=== PATIENT | male | born 1995 | race Caucasian/White ===

== ENCOUNTER 2023-05-30 19:24 | Emergency (ER) | payer MEDICARE, MEDICAID, SELFPAY ==
[2023-05-30 19:27] VITALS: BP 146/75; PULSE 87; RESP 14; TEMP 37.1; O2SAT 95; BMI 40.0
--- NOTE | 2023-05-30 19:47 | ED.EXTPRO1 ---
HPI - Extremity Problem General Chief complaint: Extremity Problem, Nontraumatic Stated complaint: Upper Extremity Pain Time Seen by Provider: 05/30/23 19:36 Source: patient and family Mode of arrival: walk-in Limitations: no limitations History of Present Illness HPI Narrative: 27-year-old male who is right-hand dominant is brought emergency department by his parents for evaluation of a painful swelling to the left middle finger where he has a paronychia. 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 For the past several days he has had some redness and swelling in this area. It is now throbbing. There is been no drainage. He has no lymphangitic streaking or fever. He is not diabetic. Related Data Home Medications ?Medication ?Instructions ?Recorded ?Confirmed gabapentin 300 mg capsule mg 05/30/23 Allergies Allergy/AdvReac Type Severity Reaction Status Date / Time azithromycin [From Zithromax] Allergy Verified 05/30/23 19:29 Penicillins Allergy Verified 05/30/23 19:29 sulfamethoxazole Allergy Verified 05/30/23 19:29 [From Bactrim] trimethoprim [From Bactrim] Allergy Verified 05/30/23 19:29 Review of Systems ROS Status of ROS 10 or more systems reviewed and unremarkable except as noted in history and below Exam Narrative Exam Narrative: Nurses note and vital signs reviewed and patient is not hypoxic. Blood pressure is mildly elevated at 146/75. General: The patient appears well and in no apparent distress. Patient is resting comfortably on cart. Skin: Warm, dry, no pallor noted. There is no rash noted. Head: Normocephalic, atraumatic Eye: Normal conjunctiva, no drainage, EOMI. PERRL Cardiovascular: Regular Rate and Rhythm Respiratory: Patient is in no distress, no accessory muscle use, lungs are clear to auscultation, no wheezing, rales or rhonchi Musculoskeletal: There is a soft, fluctuant paronychia on the lateral aspect of the distal left middle finger, no lymphangitic streaking noted, pt is able to approximate thumb and all fingers Neurological: A&O x4, normal speech Psychiatric: Cooperative Constitutional Vital Signs, click to edit/add: Last Vital Signs Temp 98.7 F 05/30/23 19:27 Pulse 87 05/30/23 19:27 Resp 14 05/30/23 19:27 BP 146/75 H 05/30/23 19:27 Pulse Ox 95 05/30/23 19:27 O2 Del Method Room Air 05/30/23 19:27 Course Vital Signs Vital signs: Vital Signs Temperature 98.7 F 05/30/23 19:27 Pulse Rate 87 05/30/23 19:27 Respiratory Rate 14 05/30/23 19:27 Blood Pressure 146/75 H 05/30/23 19:27 Pulse Oximetry 95 05/30/23 19:27 Oxygen Delivery Method Room Air 05/30/23 19:27 Temperature 98.7 F 05/30/23 19:27 Pulse Rate 87 05/30/23 19:27 Respiratory Rate 14 05/30/23 19:27 Blood Pressure 146/75 H 05/30/23 19:27 Pulse Oximetry 95 05/30/23 19:27 Oxygen Delivery Method Room Air 05/30/23 19:27 MDM - Extremity (Nontraumatic) MDM Narrative Medical decision making narrative: Procedure note incision and drainage of left middle finger paronychia; the left middle finger was soaked in warm water for approximately 30 minutes and went soft at low chloride spray was sprayed onto the finger to anesthetize it and a #11 blade scalpel was inserted on the side of the nail bed where the area of fluctuance was. It was then gently expressed and purulent drainage was expressed and was cleaned off and the left middle finger was returned to the warm water. It was dried and a sterile bandage was placed on it by the nursing staff. Patient was medicated emergency department with a dose of Keflex and instructed to soak the finger in warm Epsom salt water 3-4 times daily. Patient and family verbalized understanding. Discharge Plan Discharge Stand Alone Forms: Portal Instructions Chief Complaint: Extremity Problem, Nontraumatic Clinical Impression: Paronychia of finger Patient Disposition: Home, Self-Care Time of Disposition Decision: 20:24 Condition: Good Prescriptions / Home Meds: No Action gabapentin 300 mg capsule Print Language: Dominican Instructions: Paronychia (ED) Referrals: STEVIE VILLAREAL [Primary Care Provider] - 1 week Discharge Date/Time: 05/30/23 20:41
[2023-05-30] MEDS: ETHYL CHLORIDE 116 ML TOPICAL SPRAY BOTTLE 1 APPLIC TOPICAL (20:28)
[2023-05-30] MEDS: CEPHALEXIN 500 MG CAPSULE PO (20:28)
== END 2023-05-30 20:41 | disposition home or self-care (01) ==
PROVIDERS: Emergency Provider Emergency Medicine; PCP Family Medicine
DX: L03.012 Cellulitis of left finger (principal); Z79.899 Other long term (current) drug therapy
CPT/HCPCS: 10060; 99283

== ENCOUNTER 2023-10-11 14:30 | Emergency (ER) | payer MEDICARE, MEDICAID, SELFPAY ==
[2023-10-11] VITALS (11 sets, daily range): BP systolic 130–174; BP diastolic 71–84; PULSE 72–89; TEMP 36.8; O2SAT 99; BMI 38.0
--- NOTE | 2023-10-11 14:51 | ECG_ITS ---
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
--- NOTE | 2023-10-11 14:51 | CT_ITS ---
The [address] [address] Patient Name: CALOS ROSENBERG MRN: [id number] date: 1995 Sex: M Assigned Patient Location: ED.MAIN Current Patient Location: ED.MAIN Accession/Order Number: [id number] Exam Date: 10/11/2023 14:59 Report Date: 10/11/2023 15:27 At the request of: VALERIA GARDNER Procedure: CT cervical spine wo con EXAM: CT cervical spine wo con, CT head/brain wo con HISTORY: Syncope, fall COMPARISON: None. TECHNIQUE: Axial noncontrast CT imaging of the head and cervical spine was performed with coronal and sagittal reformats. This CT exam was performed using one or more of the following dose reduction techniques: Automated exposure control, adjustment of the MA and/or kV according to patient size, or use of iterative reconstruction technique. FINDINGS: CT head Calvarium/skull base: No evidence of acute fracture or destructive lesion. Paranasal sinuses: No air fluid levels. Brain: No acute intracranial hemorrhage. No acute large vascular territory infarct. No mass lesion or mass effect. No hydrocephalus. CT cervical spine Alignment: No substantial subluxation. Vertebrae: Vertebral body heights are maintained. No fracture. Craniocervical junction: No focal abnormality. Degenerative changes: No substantial bony degenerative change of the cervical spine. No substantial disc bulge or herniation visible by CT. Multilevel minimal uncovertebral arthropathy without substantial canal or foraminal stenosis. Additional Comments: Visualized portion of the lungs are clear.. CT/CT cervical spine wo con IMPRESSION: 1. No acute intracranial process. 2. No acute fracture or traumatic malalignment of the cervical spine. Electronically authenticated by: ABBY WATSON Date: 10/11/2023 15:27
--- NOTE | 2023-10-11 14:51 | CT_ITS ---
The [address] [address] Patient Name: CALOS ROSENBERG MRN: [id number] date: 1995 Sex: M Assigned Patient Location: ED.MAIN Current Patient Location: ED.MAIN Accession/Order Number: [id number] Exam Date: 10/11/2023 14:59 Report Date: 10/11/2023 15:27 At the request of: VALERIA GARDNER Procedure: CT head/brain wo con EXAM: CT cervical spine wo con, CT head/brain wo con HISTORY: Syncope, fall COMPARISON: None. TECHNIQUE: Axial noncontrast CT imaging of the head and cervical spine was performed with coronal and sagittal reformats. This CT exam was performed using one or more of the following dose reduction techniques: Automated exposure control, adjustment of the MA and/or kV according to patient size, or use of iterative reconstruction technique. FINDINGS: CT head Calvarium/skull base: No evidence of acute fracture or destructive lesion. Paranasal sinuses: No air fluid levels. Brain: No acute intracranial hemorrhage. No acute large vascular territory infarct. No mass lesion or mass effect. No hydrocephalus. CT cervical spine Alignment: No substantial subluxation. Vertebrae: Vertebral body heights are maintained. No fracture. Craniocervical junction: No focal abnormality. Degenerative changes: No substantial bony degenerative change of the cervical spine. No substantial disc bulge or herniation visible by CT. Multilevel minimal uncovertebral arthropathy without substantial canal or foraminal stenosis. Additional Comments: Visualized portion of the lungs are clear.. CT/CT head/brain wo con IMPRESSION: 1. No acute intracranial process. 2. No acute fracture or traumatic malalignment of the cervical spine. Electronically authenticated by: ABBY WATSON Date: 10/11/2023 15:27
--- NOTE | 2023-10-11 14:53 | ED_ITS ---
HPI - Syncope General Chief Complaint: Dizziness Stated Complaint: FAINTED, LIGHT HEADED, HEADACHE Time Seen by Provider: 10/11/23 14:32 Source: patient and family Mode of arrival: walk-in Limitations: no limitations History of Present Illness HPI narrative: Patient is a 28-year-old male with mild cognitive impairment brought to the emergency department by his parents for the evaluation of a syncopal episode. Patient lives at home with his parents, he states he remembers walking out of his bedroom door and then woke up on the floor. He complains of some pain to the back of the head and still feels mildly dizzy. He describes the sensation as the room spinning. He was able to ambulate to the bathroom on arrival to the ER. Parents state they heard the patient hit the floor in his bedroom and found him waking up from a syncopal episode. He has not had any altered mental status, he is at his baseline. He denies any recent illness. No vomiting, diarrhea, upper respiratory symptoms. Patient feels he has been keeping up with his fluids. He denies any areas of pain other than the back of his head. He has no other medical problems. At time of initial interview, he is sitting upright on exam cart in no distress answering questions appropriately Related Data Home Medications ?Medication ?Instructions ?Recorded ?Confirmed gabapentin 300 mg capsule 300 mg PO Q12H 05/30/23 10/11/23 nortriptyline 25 mg capsule 25 mg PO BEDTIME 10/11/23 10/11/23 Previous Rx's ?Medication ?Instructions ?Recorded meclizine 25 mg chewable tablet 25 mg PO QID PRN dizziness #12 tabs 10/11/23 (Antivert) Allergies Allergy/AdvReac Type Severity Reaction Status Date / Time azithromycin [From Zithromax] Allergy Verified 05/30/23 19:29 Penicillins Allergy Verified 05/30/23 19:29 sulfamethoxazole Allergy Verified 05/30/23 19:29 [From Bactrim] trimethoprim [From Bactrim] Allergy Verified 05/30/23 19:29 Review of Systems ROS Constitutional Denies: fever or chills Cardiovascular Denies: chest pain Respiratory Denies: shortness of breath Gastrointestinal Denies: nausea or vomiting Musculoskeletal Denies: back pain or neck pain Integumentary/Breast Denies: rash Neurological Reports: headache and dizziness; Denies: numbness in extremities or weakness in extremities Hematologic/Lymphatic Denies: easy bruising or easy bleeding Exam Narrative Exam Narrative: Gen.: Awake, alert, in no distress Head: Normocephalic, atraumatic ENT: Moist mucous membranes, bilateral TMs clear, no facial or dental injury Respiratory: No respiratory distress, lungs clear bilaterally Cardio: Regular rate and rhythm Extremities: Moves extremities equally, no injuries noted Psych: Normal mood and affect Neuro: No focal neuro deficit Skin: Warm, dry, intact Constitutional Vital Signs, click to edit/add: Last Vital Signs Temp 98.2 F 10/11/23 14:36 Pulse 75 10/11/23 14:36 Resp 18 10/11/23 14:36 BP 174/84 H 10/11/23 14:36 Pulse Ox 99 10/11/23 14:36 O2 Del Method Room Air 10/11/23 14:36 Course Vital Signs Vital signs: Vital Signs Temperature 98.2 F 10/11/23 14:36 Pulse Rate 75 10/11/23 14:36 Respiratory Rate 18 10/11/23 14:36 Blood Pressure 174/84 H 10/11/23 14:36 Pulse Oximetry 99 10/11/23 14:36 Oxygen Delivery Method Room Air 10/11/23 14:36 Temperature 98.2 F 10/11/23 14:36 Pulse Rate 75 10/11/23 14:36 Respiratory Rate 18 10/11/23 14:36 Blood Pressure 174/84 H 10/11/23 14:36 Pulse Oximetry 99 10/11/23 14:36 Oxygen Delivery Method Room Air 10/11/23 14:36 MDM - Syncope MDM Narrative Medical decision making narrative: Patient with a PERC score of 0, no chest pain/SOB, no hx of DVT or PE, no hemoptysis, leg swelling, tachycardia or hypoxia. No hormone therapy. Patient treated with IV fluids, Antivert. He is resting comfortably in no distress and states he is feeling well on reevaluation. EKG is unremarkable, lab studies show elevated BUN with no other significant abnormalities. CT of the head and C-spine are unremarkable. Patient and family were given copies of all of his records. He has an appointment tomorrow with [facility] neurology to rule out neurofibromatosis, they were encouraged to continue his regular home medications and keep the appointment tomorrow for follow-up. Return to the ER if symptoms change or worsen. Push fluids. Motrin and Tylenol as needed for headache. SUPERVISED APC VISIT, PHYSICIAN ATTESTATION: Based on the medical record the care appears appropriate. ? Medical Records Attestation: I reviewed the patient's medical records. Lab Data Attestation: I reviewed the patient's lab results. Labs: Lab Results 10/11/23 Range/Units 14:40 WBC 7.0 (4.0-11.0) 10^3/uL RBC 5.26 (4.70-6.10) 10^6/uL Hgb 15.6 (14.0-18.0) g/dL Hct 45.6 (42.0-54.0) % MCV 86.7 (80.0-94.0) fL MCH 29.7 (25.9-34.0) pg MCHC 34.2 (29.9-35.2) g/dL RDW 12.7 (11.0-15.0) % Plt Count 254 (150-450) 10^3/uL MPV 11.1 (9.5-13.5) fL Neut % (Auto) 68.2 (43.0-75.0) % Lymph % (Auto) 22.4 (20.5-60.0) % [place] % (Auto) 7.8 (1.7-12.0) % Eos % (Auto) 1.1 (0.9-7.0) % Baso % (Auto) 0.4 (0.2-2.0) % Neut # (Auto) 4.8 (1.4-6.5) 10^3/uL Lymph # (Auto) 1.6 (1.2-3.8) 10^3/uL [place] # (Auto) 0.6 (0.3-0.8) 10^3/uL Eos # (Auto) 0.1 (0.0-0.7) 10^3/uL Baso # (Auto) 0.0 (0.0-0.1) 10^3/uL Abs Immat Gran (auto) 0.01 (0.00-0.03) 10^3/uL Imm/Tot Granulo (auto) 0.1 (0.0-0.5) % Sodium 141 (136-145) mmol/L Potassium 4.1 (3.5-5.1) mmol/L Chloride 105 (98-107) mmol/L Carbon Dioxide 27.5 (21.0-32.0) mmol/L Anion Gap 12.6 BUN 25.0 H (7.0-18.0) mg/dL Creatinine 0.81 (0.70-1.30) mg/dL Est GFR ( Amer) >60 (>=60) Est GFR (Non-Af Amer) >60 (>=60) BUN/Creatinine Ratio 30.9 Glucose 98 (74-106) mg/dL Calcium 9.4 (8.5-10.1) mg/dL Total Bilirubin 1.2 H (0.2-1.0) mg/dL AST 22 (15-37) U/L ALT 37 (16-63) U/L Alkaline Phosphatase 84 (46-116) U/L Total Creatine Kinase 84 (39-308) U/L Troponin I High Sens <4.0 L (4.0-76.1) pg/mL Total Protein 7.2 (6.4-8.2) g/dL Albumin 4.2 (3.4-5.0) g/dL Globulin 3.0 g/dL Albumin/Globulin Ratio 1.4 TSH 2.053 (0.358-3.740) uIU/mL Imaging Data CT scan - head: Attestation: I have reviewed the pertinent imaging results. Radiologist's impression: ITS Impressions Cervical Spine CT 10/11/23 14:51 IMPRESSION: 1. No acute intracranial process. 2. No acute fracture or traumatic malalignment of the cervical spine. Electronically authenticated by: ABBY WATSON Date: 10/11/2023 15:[address] 10/11/23 14:51 IMPRESSION: 1. No acute intracranial process. 2. No acute fracture or traumatic malalignment of the cervical spine. Electronically authenticated by: ABBY WATSON Date: 10/11/2023 15:27 ECG Data Attestation: I personally reviewed and interpreted this ECG as follows: (Normal sinus rhythm at a rate of 72, no acute ST elevation or ectopy. EKG reviewed by attending physician) Discharge Plan Discharge Stand Alone Forms: Portal Instructions Chief Complaint: Dizziness Clinical Impression: Syncope, Dehydration Patient Disposition: Home, Self-Care Time of Disposition Decision: 16:19 Condition: Good Prescriptions / Home Meds: New meclizine [Antivert] 25 mg tablet,chewable 25 mg PO QID PRN (Reason: dizziness) Qty: 12 0RF No Action gabapentin 300 mg capsule 300 mg PO Q12H nortriptyline 25 mg capsule 25 mg PO BEDTIME Print Language: East Timorese Instructions: Dehydration (ED), Syncope (ED) Referrals: STEVIE VILLAREAL [Primary Care Provider] - 1 week
[2023-10-11 14:56] LABS: Basophils Percent Auto 0.4 % (0.2-2.0); Eosinophils Absolute Auto 0.1 10^3/uL (0.0-0.7); Eosinophils Percent Auto 1.1 % (0.9-7.0); Hematocrit 45.6 % (42.0-54.0); Hemoglobin 15.6 g/dL (14.0-18.0); Immature Granulocytes Abs Auto 0.01 10^3/uL (0.00-0.03); Immature Granulocytes Pct Auto 0.1 % (0.0-0.5); Lymphocytes Absolute Auto 1.6 10^3/uL (1.2-3.8); Lymphocytes Percent Auto 22.4 % (20.5-60.0); Mean Corpuscular HGB Conc 34.2 g/dL (29.9-35.2); Mean Corpuscular Hemoglobin 29.7 pg (25.9-34.0); Mean Corpuscular Volume 86.7 fL (80.0-94.0); Mean Platelet Volume 11.1 fL (9.5-13.5); Monocytes Absolute Auto 0.6 10^3/uL (0.3-0.8); Monocytes Percent Auto 7.8 % (1.7-12.0); Neutrophils Absolute Auto 4.8 10^3/uL (1.4-6.5); Neutrophils Percent Auto 68.2 % (43.0-75.0); Platelet Count 254 10^3/uL (150-450); Red Blood Count 5.26 10^6/uL (4.70-6.10); Red Cell Distribution Width 12.7 % (11.0-15.0)
[2023-10-11] MEDS: MECLIZINE HCL 12.5 MG TABLET 25 MG PO (15:13)
[2023-10-11] MEDS: 0.9 % SODIUM CHLORIDE 1,000 ML 999 ML IV (15:13)
[2023-10-11 15:40] LABS: Alanine Aminotransferase 37 U/L (16-63); Albumin Globulin Ratio 1.4; Albumin Level 4.2 g/dL (3.4-5.0); Alkaline Phosphatase 84 U/L (46-116); Anion Gap 12.6; Aspartate Amino Transferase 22 U/L (15-37); BUN Creatinine Ratio 30.9; Bilirubin Total 1.2 mg/dL (0.2-1.0); Calcium 9.4 mg/dL (8.5-10.1); Carbon Dioxide 27.5 mmol/L (21.0-32.0); Chloride 105 mmol/L (98-107); Estimated GFR (African America >60 (>=60); Estimated GFR (Non-African Ame >60 (>=60); Glucose 98 mg/dL (74-106); Potassium 4.1 mmol/L (3.5-5.1); Sodium 141 mmol/L (136-145); Total Protein 7.2 g/dL (6.4-8.2)
[2023-10-11 15:42] LABS: Creatine Kinase 84 U/L (39-308)
[2023-10-11 15:50] LABS: Thyroid Stimulating Hormone 2.053 uIU/mL (0.358-3.740); Troponin I High Sensitivity <4.0 pg/mL (4.0-76.1)
== END 2023-10-11 16:27 | disposition home or self-care (01) ==
PROVIDERS: Physician Assistant; Emergency Provider Student in an Organized Health Care Education/Training Program; PCP Family Medicine
DX: R55 Syncope and collapse (principal); E86.0 Dehydration; Z79.899 Other long term (current) drug therapy
CPT/HCPCS: 36415; 70450; 72125; 80053; 82550; 84443; 84484; 85025; 93005; 96360; 99285

== ENCOUNTER 2024-03-25 14:15 | Outpatient (OUT) | payer MEDICARE, MEDICAID, SELFPAY ==
--- NOTE | 2024-03-25 | ECG_ITS ---
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
--- OUTSIDE RECORDS SUMMARY | 2024-03-25 14:33 | XMS_ITS | CCD ---
Author Organization [facility] Care Team Providers Care Voip Network Engineer Name Role Phone ANDI RAMIREZ Unavailable Unavailable DR TESFAYE VILLAREAL Primary Care Unavailable MILADY WEINER Attending Unavailable MILADY WEINER Consulting Unavailable MILADY WEINER Admitting Unavailable Ila BEST, Tesfaye Davis Primary Care Provider Tesfaye Villareal MD Primary Care Provider Tesfaye Villareal MD Primary Care Provider NON STAFF Attending Provider Unavailable NO FAMILY, PHYSICIAN Primary Care Unavailable Gonzalez Auguste Attending Unavailable Gonzalez Auguste Admitting Unavailable Tesfaye Villareal MD Primary Care Provider JENNIFER MARTÍNEZ Attending Unavailable CIERRA LAY Referring Unavailable Jessenia Nation MD Unavailable Alireza BEST, PhD, Cierra Unavailable [phone] Tesfaye Villareal MD Unavailable Tesfaye Villareal MD Primary Care Provider Tesfaye Villareal MD Unavailable Tesfaye Villareal MD Primary Care Provider TESFAYE VILLAREAL Primary Care Unavailab CIERRA Norton Attending Unavailable TESFAYE VILLAREAL [facility] Unavailab BRYCE Bailey Attending Unavailable JESSENIA NATION Attending Unavailable TESFAYE VILLAREAL [facility] Care Unavailab SAMIR Arredondo Attending Unavailable SELF Referring Unavailable TESFAYE VILLAREAL [facility] Unavailab CIERRA [place] Referring Unavailable TESFAYE VILLAREAL [facility] Care Unavailab le TESFAYE VILLAREAL [facility] Care Unavailab CIERRA Norton Referring Unavailable TESFAYE VILLAREAL Primary Care Unavailab JASPER Duarte Attending Unavailable CLOUD, ARNOL JOINER Referring Unavailable JESSENIA NATION [facility] Unavailab KAYCEE Hudson Referring Unavailable HEMEYER, [facility] Care Unavailab kortney CLOUD, ARNOL JOINER Attending Unavailable STEPHANY FELDMAN Referring Unavailable HEMEYER, [facility] Care Unavailab le HEMEYER, [facility] Care Unavailab le HEMEYER, [facility] Care Unavailab le LOBBOUS, BRYCE Attending Unavailable HEMEYER, [facility] Care Unavailab le LOBBOUS, BRYCE Referring Unavailable KWIECIEN, SAMIR Referring Unavailable HEMEYER, [facility] Care Unavailab kortney GEE, SAMIR Attending Unavailable HEMEYER, [facility] Care Unavailab CIERRA Norton Attending Unavailable KWIECIEN, SAMIR Attending Unavailable KWIECIEN, SAMIR Admitting Unavailable HEMEYER, [facility] Care Unavailab JOSE Carty Attending Unavailable HEMEYER, [facility] Care Unavailab TERRI Orlando Attending Unavailable CIERRA FITZGERALD Referring Unavailable HEMEYER, [facility] Care Unavailab CIERRA Canada Attending Unavailable HEMEYER, [facility] Care Unavailab CIERRA [place] Attending Unavailable HEMEYER, [facility] Care Unavailab le HEMEYER, [facility] Care Unavailab kortney LOBBOUS, BRYCE Referring Unavailable SELF Referring Unavailable HEMEYER, [facility] Care Unavailab CHARMAINE BaileyA Attending Unavailable HEMEYER, [facility] Unavailab CIERRA Norton Referring Unavailable HEMEYER, [facility] Unavailab CIERRA Norton Referring Unavailable Allergies Allergy Classification Reported Allergen(s) Allergy Type Date of Onset Reaction(s) Facility Macrolides (antibiotic) (2 sources) Azithromycin Drug Allergy 06-25-19 [facility] Penicillins (antibiotic) (2 sources) Penicillins Drug Allergy 06-25-19 [facility] Sulfamethoxazole / Trimethoprim (2 sources) Sulfamethoxazole / Trimethoprim Drug Allergy 01-08-20 09 [facility] Repository (20 sources) azithromycin; Translations: [AZITHROMYCIN] Drug Allergy 06-25-19 [facility] Repository (20 sources) Penicillins; Translations: [PENICILLINS] Propensity to adverse reactions to drug (disorder) 06-25-19 08 [facility] Repository (20 sources) sulfamethoxazole / trimethoprim; Translations: [SULFAMETHOXAZOLE-T RIMETHOPRIM] Drug Allergy 01-08-20 [facility] Repository (2 sources) Amoxicillin Drug Allergy 12-15-19 [facility] (2 sources) Penicillin Drug Allergy 12-15-19 [facility] (2 sources) Sulfamethoxazole / Trimethoprim Drug Allergy 12-15-19 [facility] (2 sources) moxifloxacin Drug Allergy 10-20-19 [facility] Medications Current Medications Medication Drug Class(es) Dates Sig (Normalized) Sig (Original) acetaminophen 500 mg oral tablet (17 sources) Start: 11-13-2023 End: 11-28-2023 take 2 tablets by mouth every six hours as needed for pain, then take 1-2 tablets by mouth every six hours as needed for pain acetaminophen (TYLENOL) 500 mg tablet Take 2 tablets by mouth every 6 hours for 5 days, THEN 1 to 2 tablets every 6 hours as needed for pain for up to 10 days. 90 tablet 11/13/2023 11/28/2023 Active take 2 tablets by mo [facility] every twelve hours as needed acetaminophen (TYLENOL EXTRA STRENGTH) 5 00 mg tablet Take 1,000 mg by mouth two times a day as needed. Active cholecalciferol 1.25 mg oral capsule (7 sources) Vitamin D Start: 02-13-2024 End: 05-13-2024 take 1 capsule by mouth every week cholecalciferol, Vitamin D3, (VITAMIN D3) 1,250 mcg (50,000 unit) cap capsule Indications: Neurofibromatosis (HCC) Take 1 capsule by mouth one time a week. 12 capsule 02/13/2024 05/13/2024 Active fexofenadine (20 sources) Histamine-1 Receptor Antagonist take 1 tablet by mouth once daily fexofenadine HCl (OVIDIO ALLERGY ORAL) Take 1 tablet by mouth once daily. Active take 1 tablet by mouth once alicia y fexofenadine HCl (OVIDIO ALLERGY ORAL) Take 1 tablet by mouth once daily. 0 Active Comment on above: Take 1 tablet by lex once daily. gabapentin 600 mg oral tablet (20 sources) Anti-epileptic Agent Start: 02-14-2024 End: 05-14-2024 take 1 tablet by mouth three times daily gabapentin (NEURONTIN) 600 mg tablet Take 1 tablet by mouth three times a day for 90 days. 90 tablet 2 02/14/2024 05/14/2024 Active Start: 12-27-2023 End: 02-14-2024 take 2 capsules by mouth three times daily gabapentin (NEURONTIN) 300 mg capsule Take 2 capsules by mouth three times a day for 30 days. 180 capsule 12/27/2023 02/14/2024 Discontinued Start: 08-22-2023 End: 10-14-2024 take 2 capsules by mouth twice daily gabapentin (NEURONTIN) 300 mg capsule Take 2 capsules by mouth two times a day. 360 capsule 3 10/15/2023 12/27/2023 Discontinued Start: 05-16-2023 End: 06-15-2023 take 2 capsules by mouth twice daily gabapentin (NEURONTIN) 300 mg capsule Take 2 capsules by mouth two times a day for 30 days. 120 capsule 2 05/16/2023 Active Start: 10-03-2022 End: 02-05-2024 take 300 mg by mouth twice daily Gabapentin Active 300 MG PO Twice daily December 15, 2023 12:00am Comment on above: Take 1 capsule by mo [facility] two times a day. Take 1 capsule by mo [facility] twice daily for 180 days. Take 2 capsules by [facility] two times a day for 30 days. iv contrast (will be provided with radiology test) (5 sources) Start: 08-23-2023 End: 08-24-2023 iv contrast (will be provided with radiology test) MRI hand LT Inject, intravenously, once for 1 dose. No IV access, insert saline lock prior to the beginning of sedation, infusion, injection of imaging exam. Discontinue saline lock post exam. If Pt. has a central line or IVAD, may access for administration according to line specific nursing protocol. Once exam is complete flush line and de-access according to line specific nursing protocol in the MR contrast administration guidelines link. 1 Each 0 08/23/2023 08/24/2023 Active Start: 08-23-2023 End: 08-24-2023 iv contrast (will be provide d with radiology test) MRI hand rt Inject, intravenously, once for 1 dose. No IV access, insert saline lock prior to the beginning of sedation, infusion, injection of imaging exam. Discontinue saline lock post exam. If Pt. has a central line or IVAD, may access for administration according to line specific nursing protocol. Once exam is complete flush line and de-access according to line specific nursing protocol in the MR contrast administration guidelines link. 1 Each 0 08/23/2023 08/24/2023 Active Start: 02-05-2023 End: 02-06-2023 iv contrast (will be provide d with radiology test) MRI Upper Leg LT Inject, intravenously, once for 1dose. No IV access, insert saline lock prior to the beginning of sedation, infusion, injection of imaging exam. Discontinue saline lock post exam. If Pt. has a central line or IVAD, may access for administration according to line specific nursing protocol. Once exam is complete flush line and de-access according to line specific nursing protocol in the MR contrast administration guidelines link. 1 Each 0 02/05/2023 02/06/2023 Active Start: 07-25-2021 End: 07-26-2021 inject 1 dose intravenously once iv contrast (will be provided with radiology test) MRI TSP Inject, intravenously, once for 1 dose. No IV access, insert saline lock prior to the beginning of sedation, infusion, injection of imaging exam. Discontinue saline lock post exam. If Pt. has a central line or IVAD, may access for administration according to line specific nursing protocol. Once exam is complete flush line and de-access according to line specific nursing protocol in the MR contrast administration guidelines link. 1 Each 0 07/25/2021 07/26/2021 Active Start: 07-25-2021 End: 07-26-2021 iv contrast (will be provide d with radiology test) MRI LSP Inject, intravenously, once for 1 dose. No IV access, insert saline lock prior to the beginning of sedation, infusion, injection of imaging exam. Discontinue saline lock post exam. If Pt. has a central line or IVAD, may access for administration according to line specific nursing protocol. Once exam is complete flush line and de-access according to line specific nursing protocol in the MR contrast administration guidelines link. 1 Each 0 07/25/2021 07/26/2021 Active Comment on above: MRI TSP Inject, intr avenously, once for 1 dose. No IV access, insert saline lock prior to the beginning of sedation, infusion, injection of imaging exam. Discontinue saline lock post exam. If Pt. has a central line or IVAD, may access for administration according to line specific nursing protocol. Once exam is complete flush line and de-access according to line specific nursing protocol in the MR contrast administration guidelines link. MRI LSP Inject, intr avenously, once for 1 dose. No IV access, insert saline lock prior to the beginning of sedation, infusion, injection of imaging exam. Discontinue saline lock post exam. If Pt. has a central line or IVAD, may access for administration according to line specific nursing protocol. Once exam is complete flush line and de-access according to line specific nursing protocol in the MR contrast administration guidelines link. MRI Upper Leg LT Inj ect, intravenously, once for 1dose. No IV access, insert saline lock prior to the beginning of sedation, infusion, injection of imaging exam. Discontinue saline lock post exam. If Pt. has a central line or IVAD, may access for administration according to line specific nursing protocol. Once exam is complete flush line and de-access according to line specific nursing protocol in the MR contrast administration guidelines link. methocarbamol 500 mg oral tablet (8 sources) Muscle Relaxant Start: 12-15-19 take 500 mg by mouth three times daily Methocarbamol Active 500 MG PO Three times daily December 15, 2023 12:00am Start: 10-15-2023 End: 11-14-2023 take 1 tablet by mouth every eight hours as needed methocarbamol (ROBAXIN) 500 mg tablet Take 1 tablet by mouth three times a day as needed (muscle spasms). 90 tablet 10/15/2023 11/14/2023 Active Multiple Vitamin (multivitamin) capsule (1 source) Start: 01-01-2023 End: 01-01-2024 take 1 capsule by mouth in the morning Multiple Vitamin (multivitamin) capsule Indications: Morbid obesity (CMS/HCC) Take 1 capsule by mouth in the morning. 30 capsule 11 01/01/2023 01/01/2024 Active multivit-minerals/folic acid (MULTIVITAMIN GUMMIES ORAL) (20 sources) take 1 dose by mouth once daily multivit-minerals/folic acid (MULTIVITAMIN GUMMIES ORAL) Take 1 Dose by mouth once daily. Active take 1 dose by mouth once daily multivit-minerals/folic acid (MULTIVITAMIN GUMMIES ORAL) Take 1 Dose by mouth once daily. 0 Active Comment on above: Take 1 Dose by mouth once daily. Nirmatrelvir&Ritonavi r 300/100 (Paxlovid, 300/100,) 20 x 150 MG & 10 x 100MG tablet therapy pack (2 sources) Start: 03-22-19 take 3 tablets by mouth in the morning Nirmatrelvir&Ritonav ir 300/100 (Paxlovid, 300/100,) 20 x 150 MG & 10 x 100MG tablet therapy pack Indications: Infection caused by 2019 Novel Coronavirus Take 3 tablets by mouth in the morning and 3 tablets before bedtime. 1 each 03/22/2023 Active nortriptyline 25 mg oral capsule (20 sources) Tricyclic Antidepressant Start: 08-02-19 End: 10-31-19 24 take 1 capsule by mouth once daily at bedtime nortriptyline (PAMELOR) 25 mg capsule Take 1 capsule by mouth daily at bedtime. 30 capsule 2 08/02/2023 Active ondansetron 4 mg oral tablet (2 sources) Serotonin-3 Receptor Antagonist Start: 11-13-19 End: 11-18-19 24 take 1 tablet by mouth every eight hours as needed ondansetron (ZOFRAN) 4 mg tablet Take 1 tablet by mouth every 8 hours as needed for nausea/vomiting for up to 5 days. 8 tablet 11/13/2023 11/18/2023 Active oxyCODONE hydrochloride 5 mg oral tablet (2 sources) Opioid Agonist Start: 11-13-19 End: 11-16-19 24 take 1 tablet by mouth every six hours as needed for pain oxyCODONE IR (ROXICODONE) 5 mg immediate release tablet Indications: Post-operative pain Take 1 tablet by mouth every 6 hours as needed for pain for up to 3 days. 8 tablet 11/13/2023 11/16/2023 Active predniSONE 20 mg oral tablet (1 source) Start: 12-15-19 take 2 tablets by mouth once daily, then take 1 tablet by mouth once daily Prednisone Active 0 PO .COMPLEX December 15, 2023 12:00am Take 2 tabs po daily x 4 days, then take 1 tab po daily x 4 days sennosides, detention 8.6 mg oral tablet (2 sources) Start: 11-13-19 End: 11-28-19 take 1 tablet by mouth every twelve hours as needed senna (SENOKOT) 8.6 mg tab Take 1 tablet by mouth two times a day as needed for constipation for up to 15 days. 30 tablet 11/13/2023 11/28/2023 Active Completed/Discontinued Medications Medication Drug Class(es) Dates Sig (Normalized) Sig (Original) cyclobenzaprine hydrochloride 10 mg oral tablet (6 sources) Muscle Relaxant Start: 01-18-2021 take 1 tablet by mouth every eight hours as needed cyclobenzaprine (FLEXERIL) 10 mg tablet Take 10 mg by mouth three times daily as needed. 0 01/18/2021 Active Comment on above: Take 10 mg by mouth three times daily as needed. dexamethasone 4 mg oral tablet (6 sources) Corticosteroid Start: 05-05-2021 dexAMETHasone (DECADRON) 4 mg tablet Take 1 tab bid for 2 days then 1 tab daily for 2 days 6 tablet 0 05/05/2021 Active Comment on above: Take 1 tab bid for 2 days then 1 tab daily for 2 days lidocaine 0.05 mg/mg medicated patch (13 sources) Antiarrhythmic, Amide Local Anesthetic Start: 06-27-2023 End: 10-31-2023 apply 1 dose transdermal route once daily lidocaine (LIDODERM) 5 % Apply 1 Patch as directed once daily. 30 Patch 1 06/27/2023 10/31/2023 Discontinued Comment on above: Apply 1 Patch as dir ected once daily. topiramate 25 mg oral tablet (12 sources) Start: 11-07-2018 take 2 tablets by mouth twice daily topiramate (TOPAMAX) 25 mg tablet Take 50 mg bid po 120 tablet 6 11/07/2018 Active Start: 11-01-2017 topiramate (TO PAMAX) 25 mg tablet Indications: Neurofibroma , Neurofibromatosis (HCC) , Chronic tension-type headache, not intractable Take 25 mg bid po for 2 weeks and thereafter increase dose by 25 mg every 2 weeks until a total daily dose of 100 mg is reached. 120 tablet 6 11/01/2017 Active Comment on above: Take 25 mg bid po fo r 2 weeks and thereafter increase dose by 25 mg every 2 weeks until a total daily dose of 100 mg is reached. Take 50 mg bid po Problems Active Problems Problem Classification Problem Date Documented Date Episodic/Chronic Anxiety disorders (3 sources) Anxiety; Translations: [Anxiety disorder, unspecified] Onset: 03-11-2024 03-11-2024 Chronic Developmental disorders (20 sources) Developmental academic disorder; Translations: [Developmental disorder of scholastic skills, unspecified] Onset: 10-08-2011 10-08-2011 Chronic Headache; including migraine (20 sources) Chronic tension-type headache; Translations: [Chronic tension-type headache, not intractable] Onset: 11-01-2017 11-01-2017 Chronic Immunizations and screening for infectious disease (1 source) Methicillin resistant staphylococcus aureus carrier; Translations: [Carrier or suspected carrier of Methicillin resistant Staphylococcus aureus] 02-17-2024 Episodic Malaise and fatigue (2 sources) Fatigue; Translations: [Chronic fatigue, unspecified] Onset: 10-19-2022 10-19-2022 Chronic Malaise and fatigue (1 source) Asthenia; Translations: [Weakness] 02-05-2024 Episodic Neoplasms of unspecified nature or uncertain behavior (2 sources) Neoplasm of spinal meninges; Translations: [Neoplasm of unspecified behavior of endocrine glands and other parts of nervous system] Episodic Nervous system congenital anomalies (20 sources) Neurofibromatosis type 1; 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, type 1] Onset: 06-27-2007 12-05-2009 Chronic Other acquired deformities (2 sources) Scoliosis deformity of spine; Translations: [Scoliosis, unspecified] 12-15-2023 Chronic Other aftercare (1 source) 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; Translations: [OTH ASSURANCE SENIOR CURRENT DRUG THERAPY] Onset: 08-31-2020 Episodic Other aftercare (1 source) Removal of sutures done; Translations: [Encounter for removal of sutures] 11-29-2023 Episodic Other and unspecified benign neoplasm (2 sources) Benign neoplasm of brain; Translations: [Benign neoplasm of brain, unspecified] Chronic Other and unspecified benign neoplasm (1 source) Benign neoplasm of peripheral nerves of upper limb; Translations: [Benign neoplasm of peripheral nerves and autonomic nervous system, upper limb, including shoulder] 10-19-2023 Episodic Other and unspecified benign neoplasm (1 source) Benign neoplasm of peripheral nerves of lower limb; Translations: [Benign neoplasm of peripheral nerves and autonomic nervous system of lower limb, including hip] 10-19-2023 Episodic Other connective tissue disease (2 sources) Pain of left thigh; Translations: [Pain in left thigh] 05-16-2023 Episodic Other connective tissue disease (3 sources) Neuropathic pain; Translations: [Neuralgia and neuritis, unspecified] 08-02-2023 Episodic Other connective tissue disease (1 source) Plantar fasciitis of left foot; Translations: [Plantar fascial fibromatosis] 12-15-2023 Episodic Other connective tissue disease (1 source) Plantar fascial fibromatosis; Translations: [Plantar fascial fibromatosis] 12-15-2023 Episodic Other lower respiratory disease (3 sources) Cough; Translations: [COUGH] Onset: 08-28-2020 Episodic Other nervous system disorders (2 sources) Pain due to neoplastic disease; Translations: [Neoplasm related pain (acute) (chronic)] 08-02-2023 Chronic Other nervous system disorders (1 source) Other chronic pain; Translations: [Upper back pain, chronic] Onset: 05-04-2023 Chronic Other nervous system disorders (3 sources) H/O: Campoverde's palsy; Translations: [Personal history of other diseases of the nervous system and sense organs] Onset: 03-11-2024 03-11-2024 Episodic Other nutritional; endocrine; and metabolic disorders (20 sources) Body mass index 40+ - severely obese; Translations: [Morbid (severe) obesity due to excess calories] Onset: 12-28-2016 12-29-2016 Chronic Other nutritional; endocrine; and metabolic disorders (20 sources) Body mass index 30+ - obesity; Translations: [Obesity, unspecified] Onset: 12-28-2016 10-31-2023 Chronic Other nutritional; endocrine; and metabolic disorders (2 sources) Morbid obesity; Translations: [Morbid (severe) obesity due to excess calories] Onset: 10-19-2022 10-19-2022 Chronic Other skin disorders (1 source) Pain; Translations: [Disorder of the skin and subcutaneous tissue, unspecified] Episodic Other skin disorders (2 sources) Mass of lower limb; Translations: [Localized swelling, mass and lump, left lower limb] 02-05-2023 Episodic Other upper respiratory disease (1 source) Chronic rhinitis; Translations: [CHRONIC RHINITIS] Onset: 08-31-2020 Chronic Other upper respiratory infections (1 source) Acute upper respiratory infection, unspecified; Translations: [ACUTE UP RESPIRATORY INFECTION UNS] Onset: 08-31-2020 Episodic Personality disorders (20 sources) Explosive personality disorder; Translations: [Borderline personality disorder] Onset: 06-27-2007 12-05-2009 Chronic Residual codes; unclassified (20 sources) Dyssomnia; Translations: [Other sleep disorders] Onset: 06-27-2007 12-05-2009 Chronic Residual codes; unclassified (1 source) Postoperative state; Translations: [Other specified postprocedural states] 02-14-2024 Episodic Spondylosis; intervertebral disc disorders; other back problems (20 sources) Displacement of intervertebral disc, site unspecified, without myelopathy; Translations: [Disc herniation] Onset: 12-03-2012 12-03-2012 Chronic Unclassified (1 source) CONTACT W/AND (SUSP) EXPOS COVID-19; Translations: [CONTACT W/AND (SUSP) EXPOS COVID-19] Onset: 08-31-2020 Unclassified (1 source) Benign lipomatous neoplasm of skin and subcutaneous tissue of other sites; Translations: [Benign lipomatous neoplasm of skin and subcutaneous tissue of other sites] Onset: 01-03-2023 Past or Other Problems Problem Classification Problem Date Documented Date Episodic/Chronic Anxiety disorders (20 sources) Feeling angry; Translations: [Irritability and anger] Onset: 10-02-2010 10-02-2010 Episodic Mood disorders (2 sources) Mood disorders Onset: 01-01-2023 01-01-2023 Other and unspecified benign neoplasm (3 sources) Benign neoplasm of peripheral nerves and autonomic nervous system, unspecified; Translations: [Benign neoplasm of peripheral nerves and autonomic nervous system, unspecified] Onset: 11-09-2016 Episodic Other and unspecified benign neoplasm (20 sources) Neurofibroma; Translations: [Benign neoplasm of peripheral nerves and autonomic nervous system, unspecified] Onset: 11-27-2016 12-29-2016 Episodic Other and unspecified benign neoplasm (20 sources) Plexiform neurofibroma; Translations: [Benign neoplasm of peripheral nerves and autonomic nervous system, unspecified] Onset: 05-10-2023 04-17-2023 Episodic Other and unspecified benign neoplasm (1 source) Benign neoplasm of peripheral nerves and autonomic nervous system, upper limb, including shoulder; Translations: [Benign neoplasm of peripheral nerve of upper extremity] Onset: 11-13-2023 Episodic Other and unspecified benign neoplasm (1 source) Benign neoplasm of peripheral nerves and autonomic nervous system of lower limb, including hip; Translations: [Benign neoplasm of peripheral nerves of lower extremity] Onset: 11-13-2023 Episodic Other and unspecified benign neoplasm (1 source) Other benign neoplasm of skin of unspecified upper limb, including shoulder; Translations: [Benign neoplasm of skin of upper extremity, unspecified laterality] Onset: 11-13-2023 Episodic Other and unspecified benign neoplasm (1 source) Other benign neoplasm of skin of left lower limb, including hip; Translations: [Benign neoplasm of skin of left lower extremity] Onset: 11-13-2023 Episodic Other nervous system disorders (20 sources) Campoverde's palsy; 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] Onset: 03-19-2017 03-19-2017 Episodic Other nervous system disorders (1 source) Other acute postprocedural pain; Translations: [Post-operative pain] Onset: 11-13-2023 Episodic Other nutritional; endocrine; and metabolic disorders (2 sources) Developmental delay; Translations: [Unspecified lack of expected normal physiological development in childhood] Onset: 10-19-2022 10-19-2022 Episodic Other skin disorders (20 sources) Mass of hand; Translations: [Localized swelling, mass and lump, left upper limb] Onset: 06-12-2017 06-12-2017 Episodic Other skin disorders (1 source) Localized swelling, mass and lump, left lower limb; Translations: [Mass of left thigh] Onset: 04-16-2023 Episodic Spondylosis; intervertebral disc disorders; other back problems (20 sources) Backache; Translations: [Dorsalgia, unspecified] Onset: 11-14-2012 11-14-2012 Episodic Results Test Name Value Interpretation Reference Range Facility CBC W Auto Differential pane l (Bld)on 03-18-2024 Basophils (Bld) [#/Vol] 10*3/uL Normal <0.11 [facility] Comment on above: Order Comment: Speci men Type: BLOOD SPECIMENOrdering Facility: [facility] Address: [address] [place] [address] Performed By: #### 5 7021-8 ####[facility] LABCLIA [id number] [place] [address] Basophils/100 WBC (Bld) 0.3 % Normal [facility] Comment on above: Order Comment: Speci men Type: BLOOD SPECIMENOrdering Facility: [facility] Address: [address] [place] [address] Performed By: #### 5 7021-8 ####[facility] LABCLIA [id number] [place] [address] Differential cell count method Nom (Bld) Auto Normal [facility] Comment on above: Order Comment: Speci men Type: BLOOD SPECIMENOrdering Facility: [facility] Address: [address] [place] [address] Performed By: #### 5 7021-8 ####[facility] LABCLIA [id number] [place] [address] Eosinophils (Bld) [#/Vol] 0.14 10*3/uL Normal <0.46 [facility] Comment on above: Order Comment: Speci men Type: BLOOD SPECIMENOrdering Facility: [facility] Address: [address] [place] [address] Performed By: #### 5 7021-8 ####[facility] LABCLIA [id number] [place] [address] Eosinophils/100 WBC (Bld) 2.3 % Normal [facility] Comment on above: Order Comment: Speci men Type: BLOOD SPECIMENOrdering Facility: [facility] Address: [address] [place] [address] Performed By: #### 5 7021-8 ####[facility] LABCLIA [id number] [place] [address] Erythrocyte distribution width (RBC) [Ratio] 12.6 % Normal 11.5-15.0 [facility] Comment on above: Order Comment: Speci men Type: BLOOD SPECIMENOrdering Facility: [facility] Address: [address] [place] [address] Performed By: #### 5 7021-8 ####[facility] LABCLIA [id number] [place] [address] Hematocrit (Bld) [Volume fraction] 43.5 % Normal 39.0-51.0 [facility] Comment on above: Order Comment: Speci men Type: BLOOD SPECIMENOrdering Facility: [facility] Address: [address] [place] [address] Performed By: #### 5 7021-8 ####[facility] LABCLIA [id number] [place] [address] Hemoglobin (Bld) [Mass/Vol] 15.1 g/dL Normal 13.0-17.0 [facility] Comment on above: Order Comment: Speci men Type: BLOOD SPECIMENOrdering Facility: [facility] Address: [address] [place] [address] Performed By: #### 5 7021-8 ####[facility] LABCLIA [id number] [place] [address] Immature granulocytes (Bld) [#/Vol] 10*3/uL Normal <0.10 [facility] Comment on above: Order Comment: Speci men Type: BLOOD SPECIMENOrdering Facility: [facility] Address: [address] [place] [address] Performed By: #### 5 7021-8 ####[facility] LABCLIA [id number] [place] [address] Immature granulocytes/100 WBC (Bld) 0.3 % Normal [facility] Comment on above: Order Comment: Speci men Type: BLOOD SPECIMENOrdering Facility: [facility] Address: [address] [place] [address] Performed By: #### 5 7021-8 ####[facility] LABCLIA [id number] [place] [address] Lymphocytes (Bld) [#/Vol] 1.58 10*3/uL Normal 1.00-4.00 [facility] Comment on above: Order Comment: Speci men Type: BLOOD SPECIMENOrdering Facility: [facility] Address: [address] [place] [address] Performed By: #### 5 7021-8 ####[facility] LABCLIA [id number] [place] [address] Lymphocytes/100 WBC (Bld) 25.9 % Normal [facility] Comment on above: Order Comment: Speci men Type: BLOOD SPECIMENOrdering Facility: [facility] Address: [address] [place] [address] Performed By: #### 5 7021-8 ####[facility] LABCLIA [id number] [place] [address] MCH (RBC) [Entitic mass] 29.8 pg Normal 26.0-34.0 [facility] Comment on above: Order Comment: Speci men Type: BLOOD SPECIMENOrdering Facility: [facility] Address: [address] [place] [address] Performed By: #### 5 7021-8 ####[facility] LABCLIA [id number] [place] [address] MCHC (RBC) [Mass/Vol] 34.7 g/dL Normal 30.5-36.0 [facility] Comment on above: Order Comment: Speci men Type: BLOOD SPECIMENOrdering Facility: [facility] Address: [address] [place] [address] Performed By: #### 5 7021-8 ####[facility] LABCLIA [id number] [place] [address] MCV (RBC) [Entitic vol] 86.0 fL Normal 80.0-100.0 [facility] Comment on above: Order Comment: Speci men Type: BLOOD SPECIMENOrdering Facility: [facility] Address: [address] [place] [address] Performed By: #### 5 7021-8 ####[facility] LABCLIA [id number] [place] [address] Monocytes (Bld) [#/Vol] 0.54 10*3/uL Normal <0.87 [facility] Comment on above: Order Comment: Speci men Type: BLOOD SPECIMENOrdering Facility: [facility] Address: [address] [place] [address] Performed By: #### 5 7021-8 ####[facility] LABCLIA [id number] [place] [address] Monocytes/100 WBC (Bld) 8.9 % Normal [facility] Comment on above: Order Comment: Speci men Type: BLOOD SPECIMENOrdering Facility: [facility] Address: [address] [place] [address] Performed By: #### 5 7021-8 ####[facility] LABCLIA [id number] [place] [address] Neutrophils (Bld) [#/Vol] 3.79 10*3/uL Normal 1.45-7.50 [facility] Comment on above: Order Comment: Speci men Type: BLOOD SPECIMENOrdering Facility: [facility] Address: [address] [place] [address] Performed By: #### 5 7021-8 ####[facility] LABCLIA [id number] [place] [address] Neutrophils/100 WBC (Bld) 62.3 % Normal [facility] Comment on above: Order Comment: Speci men Type: BLOOD SPECIMENOrdering Facility: [facility] Address: [address] [place] [address] Performed By: #### 5 7021-8 ####[facility] LABCLIA [id number] [place] [address] Nucleated RBC (Bld) [#/Vol] 10*3/uL Normal <0.01 [facility] Comment on above: Order Comment: Speci men Type: BLOOD SPECIMENOrdering Facility: [facility] Address: [address] [place] [address] Performed By: #### 5 7021-8 ####[facility] LABCLIA [id number] [place] [address] Nucleated RBC/100 WBC (Bld) [Ratio] 0.0 /100 WBC Normal [facility] Comment on above: Order Comment: Speci men Type: BLOOD SPECIMENOrdering Facility: [facility] Address: [address] [place] [address] Performed By: #### 5 7021-8 ####[facility] LABCLIA [id number] [place] [address] Platelet mean volume (Bld) [Entitic vol] 10.6 fL Normal 9.0-12.7 [facility] Comment on above: Order Comment: Speci men Type: BLOOD SPECIMENOrdering Facility: [facility] Address: [address] [place] [address] Performed By: #### 5 7021-8 ####[facility] LABCLIA [id number] [place] [address] Platelets (Bld) [#/Vol] 241 10*3/uL Normal 150-400 [facility] Comment on above: Order Comment: Speci men Type: BLOOD SPECIMENOrdering Facility: [facility] Address: [address] [place] [address] Performed By: #### 5 7021-8 ####[facility] LABCLIA [id number] [place] [address] RBC (Bld) [#/Vol] 5.06 10*6/uL Normal 4.20-6.00 [facility] Comment on above: Order Comment: Speci men Type: BLOOD SPECIMENOrdering Facility: [facility] Address: [address] [place] [address] Performed By: #### 5 7021-8 ####[facility] LABCLIA [id number] [place] [address] WBC (Bld) [#/Vol] 6.09 10*3/uL Normal 3.70-11.00 [facility] Comment on above: Order Comment: Speci men Type: BLOOD SPECIMENOrdering Facility: [facility] Address: [address] [place] [address] Performed By: #### 5 7021-8 ####[facility] LABCLIA [id number] [place] [address] [facility] CBC W AUTO DIFF BLDon Basophils/100 WBC (Bld) 0.3 % [facility] BASOPHILS # BLD AUTO <0.03 [facility] DIFFERENTIAL METHOD BLD Auto [facility] EOSINOPHIL # BLD AUTO 0.14 [facility] LYMPHOCYTES # BLD AUTO 1.58 [facility] MONOCYTES # BLD AUTO 0.54 [facility] NEUTROPHILS # BLD AUTO 3.79 [facility] NRBC # BLD AUTO <0.01 [facility] NRBC/100 WBC BLD-RTO 0 /100 WBC [facility] PLATELET # BLD AUTO 241 [facility] PMV BLD AUTO 10.6 fL 9.0 - 12.7 fL [facility] WBC # BLD AUTO 6.09 [facility] Eosinophils/100 WBC (Bld) 2.3 % [facility] Erythrocyte distribution width (RBC) [Ratio] 12.6 % 11.5 - 15.0 % [facility] Hematocrit (Bld) [Volume fraction] 43.5 % 39.0 - 51.0 % [facility] Hemoglobin (Bld) [Mass/Vol] 15.1 g/dL 13.0 - 17.0 g/dL [facility] IMM GRANULOCYTES # BLD AUTO <0.03 [facility] IMM GRANULOCYTES/LEUK NFR BLD AUTO 0.3 % [facility] Lymphocytes/100 WBC (Bld) 25.9 % [facility] MCH (RBC) [Entitic mass] 29.8 pg 26.0 - 34.0 pg [facility] MCHC (RBC) [Mass/Vol] 34.7 g/dL 30.5 - 36.0 g/dL [facility] MCV (RBC) [Entitic vol] 86 fL 80.0 - 100.0 fL [facility] Monocytes/100 WBC (Bld) 8.9 % [facility] Neutrophils/100 WBC (Bld) 62.3 % [facility] RBC (Bld) [#/Vol] 5.06 10*6/uL 4.20 - 6.0 0 m/uL [facility] Specimen Type: BLOOD SPECIMEN [facility] Address: [address] [place] [address] Original Ordering Provider: TOBY MELARA [facility] CONFIRM BLOOD TYPEon 025 ABO B Normal [facility] Comment on above: Order Comment: Speci men Type: BLOOD SPECIMENOrdering Facility: [facility] Address: [address] [place] [address] Performed By: #### C ONABO ####[facility] BANKCLIA [id number] [place] [address] [place] Rh Nom (Bld) Negative Normal [facility] Comment on above: Order Comment: Speci men Type: BLOOD SPECIMENOrdering Facility: [facility] Address: [address] [place] [address] Performed By: #### C ONABO ####[facility] BANKCLIA [id number] [place] [address] [place] Comprehensive metabolic 2000 panelon 03-18-2024 Albumin [Mass/Vol] 4.5 g/dL Normal 3.9-4.9 [facility] Comment on above: Order Comment: Speci men Type: BLOOD SPECIMENOrdering Facility: [facility] Address: [address] [place] [address] Performed By: #### 2 4323-8 ####[facility] LABCLIA [id number] [place] [address] ALP [Catalytic activity/Vol] 87 U/L Normal 38-113 [facility] Comment on above: Order Comment: Speci men Type: BLOOD SPECIMENOrdering Facility: [facility] Address: [address] [place] [address] Performed By: #### 2 4323-8 ####[facility] LABCLIA [id number] [place] [address] ALT [Catalytic activity/Vol] 25 U/L Normal 10-54 [facility] Comment on above: Order Comment: Speci men Type: BLOOD SPECIMENOrdering Facility: [facility] Address: [address] [place] [address] Performed By: #### 2 4323-8 ####[facility] LABCLIA [id number] [place] [address] Anion gap [Moles/Vol] 11 mmol/L Normal 8-15 [facility] Comment on above: Order Comment: Speci men Type: BLOOD SPECIMENOrdering Facility: [facility] Address: [address] [place] [address] Performed By: #### 2 4323-8 ####[facility] LABCLIA [id number] [place] [address] AST [Catalytic activity/Vol] 18 U/L Normal 14-40 [facility] Comment on above: Order Comment: Speci men Type: BLOOD SPECIMENOrdering Facility: [facility] Address: [address] [place] [address] Performed By: #### 2 4323-8 ####[facility] LABCLIA [id number] [place] [address] Bilirubin [Mass/Vol] 1.0 mg/dL Normal 0.2-1.3 [facility] Comment on above: Order Comment: Speci men Type: BLOOD SPECIMENOrdering Facility: [facility] Address: [address] [place] [address] Performed By: #### 2 4323-8 ####[facility] LABCLIA [id number] [place] [address] Calcium [Mass/Vol] 9.9 mg/dL Normal 8.5-10.2 [facility] Comment on above: Order Comment: Speci men Type: BLOOD SPECIMENOrdering Facility: [facility] Address: [address] [place] [address] Performed By: #### 2 4323-8 ####[facility] LABCLIA [id number] [place] [address] Chloride [Moles/Vol] 105 mmol/L Normal 98-107 [facility] Comment on above: Order Comment: Speci men Type: BLOOD SPECIMENOrdering Facility: [facility] Address: [address] [place] [address] Performed By: #### 2 4323-8 ####[facility] LABCLIA [id number] [place] [address] CO2 [Moles/Vol] 26 mmol/L Normal 22-30 [facility] Comment on above: Order Comment: Speci men Type: BLOOD SPECIMENOrdering Facility: [facility] Address: [address] [place] [address] Performed By: #### 2 4323-8 ####[facility] LABCLIA [id number] [place] [address] Creatinine [Mass/Vol] 0.80 mg/dL Normal 0.73-1.22 [facility] Comment on above: Order Comment: Speci men Type: BLOOD SPECIMENOrdering Facility: [facility] Address: [address] [place] [address] Performed By: #### 2 4323-8 ####[facility] LABCLIA [id number] [place] [address] Creatinine and Glomerular filtration rate.predicted panel (S/P/Bld) 124 mL/min/1.73m??? Normal >=60 [facility] Comment on above: Order Comment: Speci men Type: BLOOD SPECIMENOrdering Facility: [facility] Address: [address] [place] [address] Result Comment: Carole mated Glomerular Filtration Rate (eGFR) is calculated using the 2020 CKD-EPI creatinine equation. This equation utilizes serum creatinine, sex, and age as parameters. The creatinine assay has traceable calibration to isotope dilution-mass spectrometry. Refer to KDIGO guidelines for clinical interpretation. In patients with unstable renal function, e.g. those with acute kidney injury, the eGFR may not accurately reflect actual GFR. Performed By: #### 2 4323-8 ####[facility] LABCLIA [id number] [place] [address] Glucose [Mass/Vol] 103 mg/dL High 74-99 [facility] Comment on above: Order Comment: Speci men Type: BLOOD SPECIMENOrdering Facility: [facility] Address: [address] [place] [address] Result Comment: The [place] [employer] (ADA) provides guidance for cutoff values for fasting glucose and random glucose. The ADA defines fasting as no caloric intake for at least 8 hours. Fasting plasma glucose results between 100 to 125 mg/dL indicate increased risk for diabetes (prediabetes). Fasting plasma glucose results greater than or equal to 126 mg/dL meet the criteria for diagnosis of diabetes. In the absence of unequivocal hyperglycemia, results should be confirmed by repeat testing. In a patient with classic symptoms of hyperglycemia or hyperglycemic crisis, random plasma glucose results greater than or equal to 200 mg/dL meet the criteria for diagnosis of diabetes. Reference: Standards of Medical Care in Diabetes 2016, [place] [employer]. Diabetes Care. 2016.39(Suppl 1). Performed By: #### 2 4323-8 ####[facility] LABIA [id number] [place] [address] Potassium [Moles/Vol] 3.8 mmol/L Normal 3.7-5.1 [facility] Comment on above: Order Comment: Aristeo bruce Type: BLOOD SPECIMENOrdering Facility: [facility] Address: [address] [place] [address] Performed By: #### 2 4323-8 ####[facility] LABCLIA [id number] [place] [address] Protein [Mass/Vol] 7.1 g/dL Normal 6.3-8.0 [facility] Comment on above: Order Comment: Speci men Type: BLOOD SPECIMENOrdering Facility: [facility] Address: [address] [place] [address] Performed By: #### 2 4323-8 ####[facility] LABCLIA [id number] [place] [address] Sodium [Moles/Vol] 142 mmol/L Normal 136-144 [facility] Comment on above: Order Comment: Speci men Type: BLOOD SPECIMENOrdering Facility: [facility] Address: [address] [place] [address] Performed By: #### 2 4323-8 ####[facility] LABCLIA [id number] [place] [address] Urea nitrogen [Mass/Vol] 22 mg/dL Normal 9-24 [facility] Comment on above: Order Comment: Speci men Type: BLOOD SPECIMENOrdering Facility: [facility] Address: [address] [place] [address] Performed By: #### 2 4323-8 ####[facility] LABCLIA [id number] [place] [address] STAPHYLOCOCCUS AUREUS AND MR SA SCREEN, PCR, NASALon 03-18-2024 S. aureus and MRSA panel JACOB+probe (Nose) Not detected Normal Not Detected [facility] Comment on above: Order Comment: Speci men Type: SWABOrdering Facility: [facility] Address: [address] [place] [address] Performed By: #### S APCR ####[facility] LABCLIA [id number] [facility] [place] [address] [place] TYPE AND SCREEN,30 DAYon ABO B Normal [facility] Comment on above: Order Comment: Speci men Type: BLOOD SPECIMENOrdering Facility: [facility] Address: [address] [place] [address] Performed By: #### T SCR30 ####[facility] BLO[facility] BANKCLIA [id number] [place] [address] [place] Rh Nom (Bld) Negative Normal [facility] Comment on above: Order Comment: Speci men Type: BLOOD SPECIMENOrdering Facility: [facility] Address: [address] [place] [address] Performed By: #### T SCR30 ####[facility] BLO[facility] BANKCLIA [id number] [address] [place] HISTORY PHYSICALon HISTORY PHYSICAL HNO ID: [id number] Author: TOBY MELARA APRN.WOODY Service: ? Author Type: Nurse Practitioner Type: H&P Filed: 03/20/2024 23:15 Note Text: [facility] HISTORY AND PHYSICAL EXAMINATION SERVICE DATE: 03/11/2024 SERVICE TIME: 10:59 AM This is a virtual visit using Virtual Visit (Audio/Visual) I have discussed the nature of this visit with the patient which will occur via [facility] (Phone, Virtual Visit) and he agrees to proceed with this interaction . It required patient-provider interaction for the medical decision making as documented below. I have communicated my name and active licensure. The patient's identity and physical location were verified at the time of this visit. Either the patient or their legal cordage sales representative has been informed of the risks and benefits of and alternatives to treatment through a remote evaluation and consents to proceed with the evaluation remotely. Patient's mother accompanied him to visit. PRIMARY CARE PHYSICIAN: Tesfaye Villareal MD, MD Assessment Patient has the following medical conditions which may affect srinath-operative course: Anxiety Not on any medication States stable and controlled Followed by PCP Chronic tension-type headache, not intractable Managed with Ibuprofen States stable and controlled History of Campoverde's palsy 5 years ago Denies any residual or symptoms Obesity (BMI 30-39.9) Body mass index is 38.75 kg/m?.' Encourage healthy diet and life style changes Salomon Activity Status Index: METS: Walk indoors, such as around the house (1.75 METs) Do light work around the house, such as dusting or washing dishes (2.70 METs) Take care of self; that is eating, dressing, bathing, using the toilet (2.75 METs) Walk a block or two on level ground (2.75 METs) Do moderate work around the house, such as vacuuming, sweeping floors, or carrying in groceries (3.50 METs) Do yardwork, such as raking leaves, weeding, or pushing a power mower (4.50 METs) Climb a flight of stairs or walk up a hill (5.50 METs) Participate in moderate recreational activites, such as golf, bowling, dancing, doubles tennis, or throwing a baseball or football (6.00 METs) Participate in strenuous sport, such as swimming, singles tennis, football, basketball, or skiing (7.50 METs) Do heavy work around the house, such as scrubbing floors, lifting or moving heavy furniture (8.00 METs) DASI Score: 44.95 Patient denies any chest pain or undue shortness of breath with the above physical activity. Clinical Frailty Scale: 3. Well, with treated comorbid disease STOP-Bang Score: BMI greater than 35 kg/m2 Has a large neck Male patient Denies snoring loudly Denies feeling tired, fatigued, or sleepy during the daytime Has not been observed to stop breathing or choking/gasping during sleep Denies having high blood pressure Patient 50 years old or younger STOP-Bang Score: 3 [id number] Score: Age: <65 Sex: male CHF history: No Hypertension history: No Stroke/TIA/thromboemb olism history: No Vascular disease history: No Diabetes history: No [id number] Score: 0 ARISCAT Score: Age: <=50 Preoperative SpO2: <=90% Respiratory infection in the last month: No Preoperative anemia: Yes Duration of surgery: 2-3 hrs Emergency procedure: No ARISCAT Score: ANESTHESIA FINDINGS: Intubation History: No abnormal airway history Significant Anesthesia Considerations: has never had anesthesia Airway History: No abnormal airway history I - PHYSICAL EVALUATION AIRWAY Patient intubated: No. Tracheostomy tube not present Mallampati: II. TM distance: >3 FB. Neck ROM: full ROM without neurological symptoms. Mouth opening: adequate. Short neck: no. Thick neck: no Dillard present: no Lip Bite Test: I DENTAL Dental findings: teeth intact. II - ANESTHESIA PLAN Beta Mary Monitoring Plan Post Procedure Analgesic Plan Prepared for Surgery: optimally prepared for surgery, pending [see comment]. CBC, CMP, Type and Screen, CONABO and DOS exam CONSULTS: Patient does not require consults for optimization at this time Planned Anesthetic: The Following Tests/Procedures Have Been Initiated: Orders Placed This Encounter CMP Standing Status: Future Standing Expiration Date: 06/10/2024 Complete Blood Count and Differential Standing Status: Future Standing Expiration Date: 06/10/2024 Confirm Blood Type Standing Status: Future Standing Expiration Date: 06/10/2024 Order Specific Question: Did Blood Bank direct you to place this order: Answer: No - Presurgical Workflow Type and Screen, 30 day Standing Status: Future Standing Expiration Date: 06/10/2024 Scheduling Instructions: A 30-day Type and Screen test has been ordered for you. This should be scheduled to be collected no earlier than 29 days before your scheduled procedure. If you receiv (more content not included)... Normal [facility] Good [facility] HEATH ROSENBERG ([id number]) 1995 M Date Time Provider Department 02/15/24 [facility] During your visit today, we recorded the following information about you: April Jauregui RN 02/15/2024 3:11 PM Signed Neuro SPINE CARE COORDINATION SURGERY SCHEDULING Patient accepts surgery date of 03/[address] Cierra Lay at [facility]. Planned procedure: Right temporal subcutaneous neurofibroma resection Medications reviewed: Yes. Meds to be stopped prior to surgery : NSAIDS and Vitamins and supplements. Additional pre op clearances needed: None. Letter Sent: No Any implanted devices : No Transplant History: No Patient will get optimization lab work : none. BMI: Wt: 140.4 kg (309 lb 6.7 oz) BMI: 38.67 kg/(m2) HGBA1C: No results found for: HBA1C Education Sent Via Mail/ vzaar: vzaar PACC Questionnaire Completed: Yes Patient placed on cancellation list: no Patient's questions answered. Patient verbalized understanding via teach back. Preoperative Needs Assessment Do you live alone or with someone that can help you? Lives with caregiver Will you have assistance available at home after your surgery to help with physical activities such a toileting or dressing? Always How many steps do you need to climb to get into your home? 1-10 Once in your home, how many steps do you need to climb to access your bedroom or bathroom? 1-10 Do you use a mobility aid for walking/getting around? (note, if more than one type of aid is used, select the one that is used more frequently) None Anticipated LOS > 5 days: No Significant home social issues or Current history or past history of substance abuse: No Wheelchair baseline, Homebound baseline, Significant gait instability, or History of significant falls: No April Jauregui RN Allergies As of Date: 02/15/2024 Noted Allergy Reaction BACTRIM (SULFAMETHOXAZOLE-TRI METH*01/07/2009 PENICILLINS 06/25/2007 4 - Hives ZITHROMAX (AZITHROMYCIN) 06/25/2007 4 - Hives Date Reviewed: 02/14/2024 Reviewed by: Cierra Lay MD, PhD - Fully Assessed Reason for Visit: Schedule Surgery [1330] Care Coordination [3491] Prescriptions as of 02/25/2024 - gabapentin (NEURONTIN) 600 mg tablet Take 1 tablet by mouth three times a day for 90 days. - cholecalciferol, Vitamin D3, (VITAMIN D3) 1,250 mcg (50,000 unit) cap capsule Take 1 capsule by mouth one time a week. - acetaminophen (TYLENOL EXTRA STRENGTH) 500 mg tablet Take 1,000 mg by mouth two times a day as needed. - nortriptyline (PAMELOR) 25 mg capsule Take 1 capsule by mouth daily at bedtime. - fexofenadine HCl (OVIDIO ALLERGY ORAL) Take 1 tablet by mouth once daily. - multivit-minerals/fol ic acid (MULTIVITAMIN GUMMIES ORAL) Take 1 Dose by mouth once daily. 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 Mass of hand, left [R22.32] 06/12/2017 Chronic tension-type headache, not intractable *11/01/2017 Radiculopathy, lumbar region [M54.16] 01/22/2019 Neurofibromatosis, 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 Cierra Lay today. Jose Bose MD 02/14/2024 9:42 PM Signed This is a patient seen in [facility] in conjunction with Dr. Cierra Lay and Dr. Samir Gee ([facility]). CC: Painful R temporal mass. HPI: Mr. Rosenberg is a R hand dominant 28 year old male who presents with a chief complaint of painful R temporal mass. 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 He has recently started following with Dr. Martinez for monitoring. 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 These were excised by Dr. Lay and Dr. Gee on 11/13/2023. 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 12 capsule 0 acetaminophen (TYLENOL EXTRA STRENGTH) 500 mg tablet Take 1,000 mg by mouth two times a day as needed. fexofenadine HCl (OVIDIO ALLERGY ORAL) Take 1 tablet by mouth once daily. multivit-minerals/fol ic acid (MULTIVITAMIN GUMMIES ORAL) Take 1 Dose by mouth once daily. gabapentin (NEURONTIN) 600 mg tablet Take 1 tablet by mouth three times a day for 90 days. 90 tablet 2 nortriptyline (PAMELOR) 25 mg capsule Take 1 capsule by mouth daily at bedtime. 30 capsule 2 No current facility-administered medications for this visit. ALLERGIES Allergen Reactions Bactrim [Sulfametho* Penicillins Hives Zithromax [Azithrom* Hives PE: Exam of the R lutheran region revealed: Subcutaneous tender mass/neurofibroma measuring 2x2x1 cm. No skin ulceration over the mass. RADIOLOGY: N/A Assessment: Neurofibromatosis (hcc) (primary encounter diagnosis) Plan: We discussed with Mr. Rosenberg the diagnosis and proposed treatment options. Since the mass in the right lutheran region is tender, and interferes with patient wearing his prescription eye glasses, the patient desires to proceed with mass excision. Consent was signed in clinic by the patient and Dr. Cierra Lay. I spent a total of 20 minutes on the date of the service which included preparing to see the patient, [id number] patient care, completing clinical documentation, performing a medically appropriate examination, counseling and educating the patient/family/caregi julian, and communicating results to the patient/family/caregi julian. Jose Bose MD February 14, 2024 9:36 PM Allergies As of Date: 02/14/2024 Noted Allergy Reaction BACTRIM (SULFAMETHOXAZOLE-TRI METH*01/07/2009 PENICILLINS 06/25/2007 4 - Hives ZITHROMAX (AZITHROMYCIN) 06/25/2007 4 - Hives Date Reviewed: 02/14/2024 Reviewed by: Cierra Lay MD, PhD - Fully Assessed Reason for Visit: Established Patient [175] Primary Visit Diagnosis:Neurofibrom atosis (HCC) [Q85.00] Prescriptions as of 02/14/2024 - gabapentin (NEURONTIN) 600 mg tablet Take 1 tablet by mouth three times a day for 90 days. - cholecalciferol, Vitamin D3, (VITAMIN D3) 1,250 mcg (50,000 unit) cap capsule Take 1 capsule by mouth one time a week. - acetaminophen (TYLENOL EXTRA STRENGTH) 500 mg tablet Take 1,000 mg by mouth two times a day as needed. - nortriptyline (PAMELOR) 25 mg capsule Take 1 capsule by mouth daily at bedtime. - fexofenadine HCl (OVIDIO ALLERGY ORAL) Take 1 tablet by mouth once daily. - multivit-minerals/fol ic acid (MULTIVITAMIN GUMMIES ORAL) Take 1 Dose by mouth once daily. 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 [facility] CNOV Office Visit (PLAS70 ) CHETHEATH Audrey ([id number]) 1995 M Date Time Provider Department 02/14/24 2:00 PM SAMIR GEE PLAS70 During your visit today, we recorded the following information about you: Pulse Respiration Blood pressure Weight 76/minute 18/minute 137/72 140.4 kg Height 1.905 m Susanna Cavazos MA 02/14/2024 1:34 PM Signed Intake information documented in the prior visit with Dr. Cierra Lay today. Samir Gee MD 02/27/2024 6:45 AM Signed Heath Ventura Chet underwent the following procedure on 11/13/2023: SURGEON(S)/PROCEDURAL IST(S) AND VALVE PIPE IRRIGATOR(S): Surgeons and Role: Panel 1: * Samir Gee MD - Primary * Kvng Smith MD - Resident - Assisting * Dana Sales MD - Resident - Assisting Panel 2: * Cierra Lay MD, PhD - Primary * Emre Nevarez MD - Resident - Assisting No Additional Staff SURGERY/PROCEDURE(S): 1) Excision of a mass from right thenar eminence 2) Excision of multiple masses from left thenar eminence. On exam, the incisions on both hands are healed without evidence of infection. Sensation and range of motion intact ASSESSMENT: Postoperative state (primary encounter diagnosis) PLAN: Heath is doing great in terms of hands. We recommended scar massgae and return to work without restrictions. Samir Gee MD Hand AND Upper Extremity Surgery This note was generated with voice recognition software and may contain errors, including spelling, grammar, syntax and misrecognition of what was dictated, that are not fully corrected. Allergies As of Date: 02/14/2024 Noted Allergy Reaction BACTRIM (SULFAMETHOXAZOLE-TRI METH*01/07/2009 PENICILLINS 06/25/2007 4 - Hives ZITHROMAX (AZITHROMYCIN) 06/25/2007 4 - Hives Date Reviewed: 02/14/2024 Reviewed by: Cierra Lay MD, PhD - Fully Assessed Primary Visit Diagnosis:Postoperati ve state [Z98.890] Prescriptions as of 02/27/2024 - gabapentin (NEURONTIN) 600 mg tablet Take 1 tablet by mouth three times a day for 90 days. - cholecalciferol, Vitamin D3, (VITAMIN D3) 1,250 mcg (50,000 unit) cap capsule Take 1 capsule by mouth one time a week. - acetaminophen (TYLENOL EXTRA STRENGTH) 500 mg tablet Take 1,000 mg by mouth two times a day as needed. - nortriptyline (PAMELOR) 25 mg capsule Take 1 capsule by mouth daily at bedtime. - fexofenadine HCl (OVIDIO ALLERGY ORAL) Take 1 tablet by mouth once daily. - multivit-minerals/fol ic acid (MULTIVITAMIN GUMMIES ORAL) Take 1 Dose by mouth once daily. 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 Cierra Lay today. Level of Service: POSTOP FOLLOW UP VISIT RELATED TO ORIGINAL PX [04645] Encounter Status:Closed by SAMIR GEE on 02/27/24 [facility] CNOV Office Visit (SPNSMN ) HEATH ROSENBERG ([id number]) 1995 M Date Time Provider Department 02/14/24 2:00 PM CIERRA LAY SPNSMN During your visit today, we recorded the following information about you: Pulse Respiration Blood pressure Weight 76/minute 18/minute 137/72 140.4 kg Height 1.905 m Cierra Lay MD, PhD 02/14/2024 3:20 PM Signed [facility] Follow up/Established patient visit Individuals who were included in, or assisted with the encounter were: Heath Lay MD, PhD Pat Funes Chief Complaint/Issues: Heath Rosenberg is a 28 year old right-handed male seen in the [facility] for: NF1 with Hua characteristics Initial HPI: The patient has a 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 He has recently started following with Dr. Martinez for monitoring. 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 HPI/Interval History: The patient presents for a 3 month follow up following an excision of left thigh subcutaneous neurofibroma x2, a mass from right thenar eminence, and multiple masses from left thenar eminence. His pain is well controlled and his incision is healing well. He noticed a new tumor on his right lutheran that hurts when he wears his glasses. General Examination: BP 137/72 Pulse 76 Resp 18 Ht 190.5 cm (6' 3 ) Wt (!) 140.4 kg (309 lb 6.7 oz) BMI 38.67 kg/m? General: Awake, alert, interactive, no acute distress, good nutritional status, normal development, well-kept HEENT: Small subcutaneous neurofibroma of the right temporal region just anterior and superior to the ear Extremities: Incisions well healed Neurological Exam Mental Status Alert, fully oriented, attentive, with normal cognition, memory, speech and affect. Cranial Nerves Extraocular movements normal. No nystagmus, no ptosis, and pupils equal. Face symmetrical. Tongue normal. Motor Examination and Coordination Motor examination with normal bulk, strength and tone. Sensation Sensation intact to light touch Gait Casual gait normal. 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 Diffuse enlargement and plexiform neurofibroma along the course of the sciatic nerve in the entire course in the thigh prominent proximally. Numerous neurofibromas scattered throughout the subcutaneous soft tissues, intermuscular planes and intramuscular throughout the left thigh with the largest superficial to the sartorius muscle and measuring 3.2 x 2.2 x 1.9 cm no muscle edema or atrophy. 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 Diffuse enlargement and plexiform neurofibroma along the course of the sciatic nerve in the entire course in the thigh prominent proximally. Numerous neurofibromas scattered throughout the subcutaneous soft tissues, intermuscular planes and intramuscular throughout the left thigh with the largest superficial to the sartorius muscle and measuring 3.2 x 2.2 x 1.9 cm no muscle edema or atrophy. MRI HAND LEFT: 09/10/23 There are a few hyperintense T2 mildly enhancing ovoid structures located along the second through fourth flexor tendons at the level of the metacarpals measuring up to 8 mm most likely representing peripheral nerve sheath tumors. No associated soft tissue edema. Flexor and extensor tendons appear within normal limits. Musculature of the hand is within normal limits. No bone marrow signal abnormality. MRI HAND RIGHT: 09/10/23 Multiple tiny hyperintense structures demonstrating low-level postcontrast enhancement are identified along the second through fourth flexor tendons at the level of the mid through the distal diaphyses. An ovoid hyperintense mildly enhancing structure is present along the mid diaphysis of the fourth proximal phalanx measuring approximately 2 x 0.8 x 0.6 cm. An ovoid hyperintense small enhancing structure is present along the distal diaphysis of the third proximal phalanx measuring approximately 0.9 x 0.3 x 0.3 cm. These structures most likely represent neurofibromas. Flexor and extensor tendons are intact. Musculature of the hand is within normal limits. No bone marrow signal abnormality. Assessment AND Plan 02/14/2024 - Cierra Enriquez MD, PhD ASSESSMENT The patient is a 28 year old male that (more content not included)... [facility] ([id number]) 1995 M Date Time Provider Department 02/12/24 CIERRA FITZGERALD During your visit today, we recorded the following information about you: Maricruz Parker 02/12/2024 12:49 PM Signed Received the following record(s) via fax. -[employer] Letter Certification letter 02/11/24 Record(s) scanned into pt's chart. April Foster, MICHELE 02/14/2024 8:32 AM Signed Neuro SPINE CARE COORDINATION QUICK NOTE Noted. Requested admin to obtain medical necessity form from [facility] as it was not included in the fax. April Jauregui READINESS PARAPROFESSIONAL Nurse [employer] Blanca Jauregui 02/14/2024 9:58 AM Addendum Called [facility] they are re-faxing the paperwork to us. Blanca Jauregui 02/14/2024 1:53 PM Signed Received the paperwork was put in doc sign to be filled out and signed by the doctor. Jose Lagos LPN 02/15/2024 10:52 AM Signed Called and spoke with patient's mom, she stated she the forms are for when he was off of leave for the last surgery. Informed her once new surgery is inputed and it's closer to surgery, he may have new forms sent in. Received, Reviewed [facility] Medical Leave forms from [employer] Via [employer] and need signed by Dr. Lay Sent to Dr. Lay for signature Leave dates: 11/13/23-02/18/24 NALDO Smith Jacquelyn 02/15/2024 12:26 PM Signed Doctor signed the form and was sent to [facility] and copy in the chart. Allergies As of Date: 02/12/2024 Noted Allergy Reaction BACTRIM (SULFAMETHOXAZOLE-TRI METH*01/07/2009 PENICILLINS 06/25/2007 4 - Hives ZITHROMAX (AZITHROMYCIN) 06/25/2007 4 - Hives Date Reviewed: 11/29/2023 Reviewed by: Susanna Cavazos MA - Fully Assessed Reason for Visit: Insurance Inquiry [1462] Prescriptions as of 02/15/2024 - gabapentin (NEURONTIN) 600 mg tablet Take 1 tablet by mouth three times a day for 90 days. - cholecalciferol, Vitamin D3, (VITAMIN D3) 1,250 mcg (50,000 unit) cap capsule Take 1 capsule by mouth one time a week. - acetaminophen (TYLENOL EXTRA STRENGTH) 500 mg tablet Take 1,000 mg by mouth two times a day as needed. - nortriptyline (PAMELOR) 25 mg capsule Take 1 capsule by mouth daily at bedtime. - fexofenadine HCl (OVIDIO ALLERGY ORAL) Take 1 tablet by mouth once daily. - multivit-minerals/fol ic acid (MULTIVITAMIN GUMMIES ORAL) Take 1 Dose by mouth once daily. 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 Author Type: Occupational Therapist Type: [id number] Filed: 02/05/2024 09:19 Note Text: [facility] Occupational Therapy Plan of Care Certification Patient Name: Heath Rosenberg : 1995 [facility] #: [id number] Date: 02/05/2024 To: Cierra Fitzgerald APRN.CHOKER SETTER From Therapist: LORENZO Daugherty/Mario RE: Patient Certification/ Recertification Your review, approval and electronic signature are required in order to comply with Payor: MEDICARE / Plan: MEDICARE A AND B / Product Type: Medicare / regulations. The identified Occupational Therapy PLAN OF CARE for the patient is as follows: R53.1 Weakness (primary encounter diagnosis) Q85.00 Neurofibroma, multiple (HCC) PLAN OF CARE: Assessment: Heath Rosenberg presents with chief complaint of recent neurofibromas excision from B thenar eminence that interferes with nothing . The patient presents with impairments in L anvilsmith strength when compared to R. Patient did not complete the PROMIS? (Patient Reported Outcome Measures Information System). Prognosis for therapy is Excellent due to: current objective clinical presentation . He demonstrates normal AROM in B UE. He does have mild adhesions in L thumb incision. He correctly completed exercises following education. He will continue with efforts on his own, but may contact therapist if he feels he is not progressing as expected. The patient will benefit from skilled therapy services to meet the goals established for this plan of care as noted below. Goals for Episode of Care: established 02/05/24 Patient will demonstrate independence with ongoing home recommendations/exerc ise program throughout therapy plan of care. Patient will increase Left anvilsmith strength by 10#, so that patient will be able to improve function for prior functional tasks. Patient Goals: smooth incision in L hand. Time Frame for Goals and Treatment : 03/11/24 Planned Interventions, Frequency, and Duration: Current Frequency: 1 visit Duration: 1 visit Total Number of Visits Planned: 1 Planned Treatment Interventions: Therapeutic exercise (09010), Self-group home management (13203), Patient/Family/Caregi julian Education, Manual therapy (73911) Based on the patient's history, the components of the examination, the patient presentation, and required decision-making as described in this evaluation, this patient's evaluation falls into the low category of complexity as described by AMA CPT codes. PLAN FOR NEXT VISIT:review and update home program as needed, reassess scar adhesions, strength Patient demonstrates good understanding of plan of care and treatment. The above goals and plan of care were discussed and agreed upon by patient/family. For further details regarding this patient refer to the Occupational Therapy electronically documented visit dated 02/05/2024. Provider Attestation I have reviewed the treatment plan for Heath Rosenberg, [facility]# [id number] for the period of 02/05/24 -- 03/11/24, established on 02/05/2024. Signature certifies the need for therapy services. [facility] CNTHERAPYon 02-05-2024 CNTHERAPY OT/PT/Speech Visit (ARCHANAOTRLaisha) HEATH ROSENBERG ([id number]) 1995 M Date Time Provider Department 02/05/24 8:45 AM TERRI SAMS Date Time Provider Department Center 02/05/2024 8:45 AM [id number] Reason for Visit: OT EVAL [748] Patient Education [91] Primary Visit Diagnosis:Weakness [R53.1] Other Visit Diagnosis:Neurofibrom a, multiple (HCC) [Q85.00] Allergies As of Date: 02/05/2024 Noted Allergy Reaction BACTRIM (SULFAMETHOXAZOLE-TRI METH*01/07/2009 PENICILLINS 06/25/2007 4 - Hives ZITHROMAX (AZITHROMYCIN) 06/25/2007 4 - Hives Date Reviewed: 11/29/2023 Reviewed by: Susanna Cavazos MA - Fully Assessed Prescriptions as of 02/05/2024 - gabapentin (NEURONTIN) 300 mg capsule Take 2 capsules by mouth three times a day for 30 days. - acetaminophen (TYLENOL EXTRA STRENGTH) 500 mg tablet Take 1,000 mg by mouth two times a day as needed. - nortriptyline (PAMELOR) 25 mg capsule Take 1 capsule by mouth daily at bedtime. - fexofenadine HCl (OVIDIO ALLERGY ORAL) Take 1 tablet by mouth once daily. - multivit-minerals/fol ic acid (MULTIVITAMIN GUMMIES ORAL) Take 1 Dose by mouth once daily. Annotated image of OT HAND SCAR MANAGEMENT PAGE 1 OF 2 last updated by Terri Sams OTR/Mario on 02/05/2024 9:19 AM [facility] CNCOon 12-27-2023 CNCO Letter Text [facility] CNCOon 11-29-2023 CNCO Letter Text [facility] CNOVon 11-29-2023 CNOV Office Visit (SPNSMN ) HEATH ROSENBERG ([id number]) 1995 M Date Time Provider Department 11/29/23 3:40 PM CIERRA FITZGERALD NSMA During your visit today, we recorded the following information about you: Pulse Respiration Blood pressure Weight 84/minute 18/minute 141/58 136.9 kg Height 1.905 m Cierra Fitzgerald APRN.CHOKER SETTER 11/29/2023 3:45 PM Signed SPINE SURGERY FOLLOW UP This is an in-person visit. SERVICE DATE: 11/29/2023 SURGERY DATE: 11/13/2023 Excision of left thigh subcutaneous neurofibroma x2 Excision of a mass from right thenar eminence Excision of multiple masses from left thenar eminence Heath Lopezir is seen for 2 week post operative follow up with his parents. Patient has suture remvoal with [employer] prior and did become dizzy and lightheadedness. [employer] notified me came into room to assess patient, laying flat, VS stable. Patient stated he did not eat anything today, [employer] proivded juice and crackers patient felt better after able to sit up and complete rest of suture removal. All 3 incisions healing well. Patient denies severe pain at this time. Taking tylenol PRN as well as his routine gabapentin. Discussed nerve healing process with patient and parents. PAIN EVALUATION 11/29/2023 1423 Pain Level: 5 Pain Location: -- hands Description: Aching Duration Amount of Time: 2 Duration Units: Weeks Frequency: Intermittent Intervention/Comfort measure: Relaxation;Medication PROMIS Score Percentiles 03/20/2019 02/05/2023 Physical Health Physical Function Percentile 38 Fatigue Percentile 24* Pain Interference Percentile 38 03/20/2019 PROMIS SOCIAL ROLE SCORE Social Role Satisfaction Percentile 18* 09/28/2021 06/20/2022 02/05/2023 PROMIS Global Health Scale Physical Health Percentile 4 10 15 Mental Health Percentile 5 34 34 Percentiles provide an indication of how the patient's score ranks in relation to the general population. Higher percentile rankings indicate better function/quality of life. 50th percentile is the average of the general population and indicates half of respondents had a worse score. Depression Screenin09/05/2017 09/28/2021 02/05/2023 PHQ-9 Score 1 4 2 09/05/2017 09/28/2021 02/05/2023 PHQ-9 Self-harm Question Question 9 Not at all Not at all Not at all PHQ-9 Self-Harm (Item 9) response options: 0 Not at all 1 Several days 2 More than half the days 3 Nearly every day PHQ-9 Levels: 0-4 No to mild depression 5-9 Mild depression 10-14 Moderate depression 15-19 Moderately severe depression 20-27 Severe depression PHYSICAL EXAM: BP 141/58 Pulse 84 Resp 18 Ht 190.5 cm (6' 3 ) Wt (!) 136.9 kg (301 lb 13 oz) BMI 37.72 kg/m? GENERAL APPEARANCE: Well nourished, well developed, and no apparent distress. NEURO PSYCH: Patient oriented to person, place, and time. Mood pleasant. Benign affect. WOUND ASSESSMENT: Incision healing, Well approximated incision, Non-reddened DATA REVIEW FINAL DIAGNOSIS A. Soft tissue, right hand thenar mass, biopsy: - Neurofibroma. B. Soft tissue, left thigh #1, excision: - Neurofibroma. C. Soft tissue, left thigh #2, excision: - Neurofibroma. D. Soft tissue, left hand, excision: - Neurofibroma. ASSESSMENT/PLAN (Q85.00) Neurofibromas, multiple (HCC) (primary encounter diagnosis) Heath Rosenberg will continue with medical management of his/her condition. Needs updated work letter extend leave until 6 week follow up. Patient works at [employer] and there is no light duty option for him. All questions answered. 1. Medications: Continue current medications and reach out if nerve pain spike and can adjust gabapentin dosage 2. Follow up: 6 week post op I spent a total of 20 minutes on the date of the service which included preparing to see the patient, [id number] patient care, completing clinical documentation, obtaining and/or reviewing separately obtained history, performing a medically appropriate examination, counseling and educating the patient/family/caregi julian, independently interpreting results (not separately reported), and communicating results to the patient/family/caregi julian. 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 - gabapentin (NEURONTIN) 300 mg capsule Take 2 capsules by mouth two times a day. - nortriptyline (MARIA VICTORIA (more content not included)... Normal [facility] CNOV Office Visit (SPNSMN ) HEATH ROSENBERG ([id number]) 1995 M Date Time Provider Department 11/29/23 3:00 PM NURSE SPINE SURG MAIN S70 SPNSMN During your visit today, we recorded the following information about you: Temperature Pulse Respiration Blood pressure 98.4 degrees 79/minute 18/minute 118/68 Weight Height 136.9 kg 1.905 m Susanna Cavazos MA 11/29/2023 3:52 PM Signed Intake information documented in the prior visit with Cierra Fitzgerald. today. Jose Lagos LPN 11/29/2023 3:52 PM Signed Neuro SPINE CARE COORDINATION POST OP FOLLOW UP Verified name and date of with patient who is 16 days post Soft Tissue, Mass, Biopsy right hand and Soft Tissue, Neurofibroma, Excision left hand Presents today for removal of sutures Pain is well controlled with Tylenol Incisions is clean and dry (Picture below) Ambulatory / Activity : walking well unassisted Additional patient concerns : Removed left hand sutures, patient stated he felt light headed and requested water. Water given. Had patient lie down on exam table and took vitals 118/68 Pulse 79 Pulse Ox 98%. Patient mentioned he had not eaten today. Juice and crackers were given. Patient able to get up safely from exam table and proceed with removal of right hand sutures. Follow up : 11/29/23 with Cierra Fitzgerald Additional Notes : The surgical incision is healing as expected, without complication or concern of infection. There is no evidence of dehiscence, redness, swelling, or drainage. The area was swabbed with Betadine. Patient tolerated well. Patient instructed on proper wound care and all questions answered. Patient will continue to monitor site for any red flags, and contact the office with any questions or concerns. Jose Lagos LPN Allergies As of Date: 11/29/2023 Noted Allergy Reaction BACTRIM (SULFAMETHOXAZOLE-TRI METH*01/07/2009 PENICILLINS 06/25/2007 4 - Hives ZITHROMAX (AZITHROMYCIN) 06/25/2007 4 - Hives Date Reviewed: 11/29/2023 Reviewed by: Susanna Cavazos MA - Fully Assessed Reason for Visit: Post Op [174] Primary Visit Diagnosis:Encounter for removal of sutures [Z48.02] Prescriptions as of 11/29/2023 - acetaminophen (TYLENOL EXTRA STRENGTH) 500 mg tablet Take 1,000 mg by mouth two times a day as needed. - gabapentin (NEURONTIN) 300 mg capsule Take 2 capsules by mouth two times a day. - nortriptyline (PAMELOR) 25 mg capsule Take 1 capsule by mouth daily at bedtime. - fexofenadine HCl (OVIDIO ALLERGY ORAL) Take 1 tablet by mouth once daily. - multivit-minerals/fol ic acid (MULTIVITAMIN GUMMIES ORAL) Take 1 Dose by mouth once daily. 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 CNPNon 11-14-2023 CNPN Telephone (PLASMN) HEATH ROSENBERG ([id number]) 1995 M Date Time Provider Department 11/14/23 SAMIR GEE During your visit today, we recorded the following information about you: Dilcia Salas 11/14/2023 4:46 PM Signed Patient calling states he was supposed to have a letter in his chart excusing him from work. Patient had hand surgery yesterday. Please advise Samir Gee MD 11/14/2023 4:58 PM Signed Yes, should be in his chart now. Thank you! Allergies As of Date: 11/14/2023 Noted Allergy Reaction BACTRIM (SULFAMETHOXAZOLE-TRI METH*01/07/2009 PENICILLINS 06/25/2007 4 - Hives ZITHROMAX (AZITHROMYCIN) 06/25/2007 4 - Hives Date Reviewed: 11/13/2023 Reviewed by: Rizwana Gonsalez RN - Fully Assessed Reason for Visit: Letter [264] Prescriptions as of 11/15/2023 - acetaminophen (TYLENOL) 500 mg tablet Take 2 tablets by mouth every 6 hours for 5 days, THEN 1 to 2 tablets every 6 hours as needed for pain for up to 10 days. - ondansetron (ZOFRAN) 4 mg tablet Take 1 tablet by mouth every 8 hours as needed for nausea/vomiting for up to 5 days. - senna (SENOKOT) 8.6 mg tab Take 1 tablet by mouth two times a day as needed for constipation for up to 15 days. - oxyCODONE IR (ROXICODONE) 5 mg immediate release tablet Take 1 tablet by mouth every 6 hours as needed for pain for up to 3 days. - gabapentin (NEURONTIN) 300 mg capsule Take 2 capsules by mouth two times a day. - nortriptyline (PAMELOR) 25 mg capsule Take 1 capsule by mouth daily at bedtime. - fexofenadine HCl (OVIDIO ALLERGY ORAL) Take 1 tablet by mouth once daily. - multivit-minerals/fol ic acid (MULTIVITAMIN GUMMIES ORAL) Take 1 Dose by mouth once daily. 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 Author Type: Physician Type: Anesthesia Postprocedure Evaluation Filed: 11/13/2023 17:41 Note Text: POST ANESTHESIA EVALUATION NOTE : 1995 Procedure Summary Date: 11/13/23 Room / Location: [address] [facility] Anesthesia Start: 1323 Anesthesia Stop: 1516 Procedures: EXCISION NEUROMA EXTREMITY UPPER (Right: Hand) NERVE GRAFT SINGLE STRAND HAND = OR < 4CM LENGTH (Right: Hand) REPAIR TENDONS / NERVES HAND (Right: Hand) EXCISION NEUROMA EXTREMITY LOWER (Left: Leg above knee) NERVE GRAFT MULTIPLE STRANDS HAND OR FOOT UP TO 4CM LENGTH (Left: Leg above knee) Diagnosis: Neurofibromatosis (HCC) Benign neoplasm of peripheral nerve of upper extremity Benign neoplasm of peripheral nerves of lower extremity Benign neoplasm of skin of upper extremity, unspecified laterality Benign neoplasm of skin of left lower extremity (Neurofibromatosis (HCC) [Q85.00]) (Benign neoplasm of peripheral nerve of upper extremity [D36.12]) (Benign neoplasm of peripheral nerves of lower extremity [D36.13]) (Benign neoplasm of skin of upper extremity, unspecified laterality [D23.60]) (Benign neoplasm of skin of left lower extremity [D23.72]) Surgeons: Samir Gee MD; Cierra Lay MD, PhD Responsible Provider: Archana Jacobo MD Anesthesia Type: general ASA Status: 3 Anesthesia Type: general Airway Type: ETT Last Vitals Vitals Value Taken Time BP 146/64 11/13/23 1702 Temp 36.3 ?C (97.3 ?F) 11/13/23 1700 Pulse 69 11/13/23 1720 Resp 16 11/13/23 1715 SpO2 96 % 11/13/23 1720 Vitals shown include unfiled device data. Post Anesthesia Patient Status Patient Evaluation: PACU. PACU/ICU Patient Condition: stable. Anticipated Disposition: phase 2 then home. Neurological Status: aware and responsive. Pulmonary Status: breathing comfortably on room air Airway Control: returned to baseline unsupported. Cardiovascular Status: stable. Pain Management: clinically adequate Postoperative Hydration: acceptable. Intraoperative Events: no significant anesthesia events Post Operative Nausea/Vomiting Status: no significant post operative nausea or vomiting Recommendation: continue current plan of care. Anesthesia Observations No Documentation SIGNATURE: Archana Jacobo MD PATIENT NAME: Heath Rosenberg DATE: November 13, 2023 TIME: 5:41 PM CSN: [id number] Normal [facility] ANES PRE-OPon 11-13-2023 ANES PRE-OP HNO ID: [id number] Author: JESSICA BISHOP MD Service: ? Author Type: Anesthesiologist Type: Anesthesia Preprocedure Evaluation Filed: 11/13/2023 13:23 Note Text: ANESTHESIOLOGY DAY OF SURGERY NOTE : 1995 Procedure Information Date/Time: 11/13/23 1145 Procedures: EXCISION NEUROMA EXTREMITY UPPER (Right: Hand) NERVE GRAFT SINGLE STRAND HAND = OR < 4CM LENGTH (Right: Hand) REPAIR TENDONS / NERVES HAND (Right: Hand) EXCISION NEUROMA EXTREMITY LOWER (Left: Leg above knee) NERVE GRAFT MULTIPLE STRANDS HAND OR FOOT UP TO 4CM LENGTH (Left: Leg above knee) Location: [facility] Surgeons: Samir Gee MD; Cierra Lay MD, PhD Estimated body mass index is 39.17 kg/m? as calculated from the following: Height as of 10/31/23: 188 cm (6' 2 ). Weight as of 10/31/23: 138.4 kg (305 lb 1.9 oz). Most recent hematocrit and potassium results: Hematocrit 44.5 12/25/2016 Relevant Problems No relevant active problems I - PHYSICAL EVALUATION AIRWAY Patient intubated: No. Tracheostomy tube not present Mallampati: II. TM distance: >3 FB. Neck ROM: full ROM without neurological symptoms. Mouth opening: adequate. Short neck: no. Thick neck: no DENTAL Normal dental observations. II - ANESTHESIA PLAN ASA Score: 3 Anesthetic Plan: general Airway type: ETT The patient is not a current smoker. NPO Status: adequate Beta Mary Monitoring Plan Monitoring plan: standard ASA. Post Procedure Analgesic Plan Postoperative analgesic plan: parenteral or oral opioids. Informed Consent Anesthetic risks, benefits, alternatives, personnel and consent discussed: yes. Patient / Responsible Libertarian agrees to proceed: yes Patient / Surrogate agrees to blood products: Yes Significant changes in the patient condition since the History and Physical, not otherwise documented in primary service progress note: no. Potential Anesthesia issues that may suggest increased risk of complications or contraindication to planned procedure: none. Vitals Value Taken Time BP 134/68 11/13/23 1022 Pulse 86 11/13/23 1022 Resp 18 11/13/23 1022 Temp 36.7 ?C (98.1 ?F) 11/13/23 1022 SpO2 97 % 11/13/23 1022 Facility-Administered Medications as of 11/13/2023 Medication Dose Route Frequency lidocaine (PF) 10 mg/mL (1 %) 1-2 mg injection (XYLOCAINE) 0.1-0.2 mL INTRADERMAL PRN Or lidocaine 1% 0.25 mL subcutaneous j-tip syringe (XYLOCAINE) 0.25 mL SUBCUTANEOUS PRN lactated ringers iv infusion 5-30 mL/hr INTRAVENOUS CONTINUOUS NaCl 0.9% iv flush bag 20 mL INTRAVENOUS PRN vancomycin 1.5 g in NaCl 0.9% 250 mL (VANCOCIN) 1.5 g INTRAVENOUS Pre-Op Once ciprofloxacin iv piggyback 400 mg in D5W 200 mL (CIPRO) 400 mg INTRAVENOUS Pre-Op Once Outpatient Medications as of 11/13/2023 Medication Sig methocarbamol (ROBAXIN) 500 mg tablet Take 1 tablet by mouth three times a day as needed (muscle spasms). gabapentin (NEURONTIN) 300 mg capsule Take 2 capsules by mouth two times a day. nortriptyline (PAMELOR) 25 mg capsule Take 1 capsule by mouth daily at bedtime. fexofenadine HCl (OVIDIO ALLERGY ORAL) Take 1 tablet by mouth once daily. multivit-minerals/fol ic acid (MULTIVITAMIN GUMMIES ORAL) Take 1 Dose by mouth once daily. I have interviewed and examined the patient. I have reviewed the medical record and/or the pre-anesthesia evaluation, pertinent labs, and test results. This contains updated information obtained within 48 hours of Surgery/Procedure. SIGNATURE: Jessica Bishop MD PATIENT NAME: Heath Rosenberg DATE: November 13, 2023 TIME: 1:22 PM CSN: [id number] Normal [facility] BRIEF OP NOTon 11-13-2023 BRIEF OP NOT HNO ID: [id number] Author: DANA SALES MD Service: Plastic Surgery Author Type: Resident Type: Brief Op Note Filed: 11/13/2023 14:50 Note Text: PLASTIC SURGERY - BRIEF OP NOTE Patient Name: Heath Rosenberg Log ID: [id number] Surgery Date: 11/13/2023 Incision/Procedure Start Time: 1:59 PM Incision Close/Procedure End Time: 2:46 PM Surgeon(s) and Linux System Admin(s): Surgeons and Role: Panel 1: * Samir Gee MD - Primary * Kvng Smith MD - Resident - Assisting * Dana Sales MD - Resident - Assisting Panel 2: * Cierra Lay MD, PhD - Primary * Emre Nevarez MD - Resident - Assisting Procedures: Bilateral cutaneous palmar neuroma resection Left anterior thigh cutaneous neuroma resection Anesthesia Type: General Findings: R thenar eminence neuroma x1, L thenar eminence neuroma x3, L thigh neuroma x2 Estimated Blood Loss: 3 cc Urine Output: 0 cc Drains: None Implants: None Specimens: ID Type Source Tests Collected by Time Destination A : right hand thenar mass Tissue Soft Tissue, Mass, Biopsy SURGICAL PATHOLOGY Samir Gee MD 11/13/2023 2:17 PM B : left thigh neurofibroma number 1 Tissue Soft Tissue, Neurofibroma, Excision SURGICAL PATHOLOGY Samir Gee MD 11/13/2023 2:34 PM C : left thigh neurofibroma number 2 Tissue Soft Tissue, Neurofibroma, Excision SURGICAL PATHOLOGY Samir Gee MD 11/13/2023 2:38 PM D : left hand neurofibroma Tissue Soft Tissue, Neurofibroma, Excision SURGICAL PATHOLOGY Samir Gee MD 11/13/2023 2:39 PM Complications: None Preop Diagnosis: * Neurofibromatosis (HCC) [Q85.00] * Benign neoplasm of peripheral nerve of upper extremity [D36.12] * Benign neoplasm of peripheral nerves of lower extremity [D36.13] * Benign neoplasm of skin of upper extremity, unspecified laterality [D23.60] * Benign neoplasm of skin of left lower extremity [D23.72] Postop Diagnosis: Same as preop Post-Op Plan / Disposition: Discharge home. Dressings can be removed after 5 days. Dana Sales MD After 6PM and on weekends, please page [phone] (Plastic Surgery on-call - [facility]), otherwise contact above provider. Normal [facility] Basic metabolic 2000 panelon 11-13-2023 Anion gap [Moles/Vol] 9 mmol/L Normal 8-15 [facility] Comment on above: Order Comment: Speci men Type: BLOOD SPECIMENOrdering Facility: [facility] Address: [address] [place] [address] Performed By: #### 1 9123-9, 2777-1, 99665-5 ####[facility] LABCLIA [id number] [place] [address] [place] Calcium [Mass/Vol] 9.3 mg/dL Normal 8.5-10.2 [facility] Comment on above: Order Comment: Speci men Type: BLOOD SPECIMENOrdering Facility: [facility] Address: [address] [place] [address] Performed By: #### 1 9123-9, 2777-1, 51691-1 ####[facility] LABCLIA [id number] [place] [address] [place] Chloride [Moles/Vol] 106 mmol/L Normal 98-107 [facility] Comment on above: Order Comment: Speci men Type: BLOOD SPECIMENOrdering Facility: [facility] Address: [address] [place] [address] Performed By: #### 1 9123-9, 2777-, 80333-7 ####[facility] LABCLIA [id number] [place] [address] [place] CO2 [Moles/Vol] 25 mmol/L Normal 22-30 [facility] Comment on above: Order Comment: Speci men Type: BLOOD SPECIMENOrdering Facility: [facility] Address: [address] [place] [address] Performed By: #### 1 9123-9, 2777, 51740-7 ####[facility] LABCLIA [id number] [place] [address] [place] Creatinine [Mass/Vol] 0.82 mg/dL Normal 0.73-1.22 [facility] Comment on above: Order Comment: Speci men Type: BLOOD SPECIMENOrdering Facility: [facility] Address: [address] [place] [address] Performed By: #### 1 9123-9, 2777, ####[facility] LABIA [id number] [place] [address] [place] Creatinine and Glomerular filtration rate.predicted panel (S/P/Bld) 123 mL/min/1.73m??? Normal >=60 [facility] Comment on above: Order Comment: Speci men Type: BLOOD SPECIMENOrdering Facility: [facility] Address: [address] [place] [address] Result Comment: Carole mated Glomerular Filtration Rate (eGFR) is calculated using the 2020 CKD-EPI creatinine equation. This equation utilizes serum creatinine, sex, and age as parameters. The creatinine assay has traceable calibration to isotope dilution-mass spectrometry. Refer to KDIGO guidelines for clinical interpretation. In patients with unstable renal function, e.g. those with acute kidney injury, the eGFR may not accurately reflect actual GFR. Performed By: #### 1 9123-9, 2777-, 30861-5 ####[facility] LABCLIA [id number] [place] [id number] [place] Glucose [Mass/Vol] 104 mg/dL High 74-99 [facility] Comment on above: Order Comment: Speci men Type: BLOOD SPECIMENOrdering Facility: [facility] Address: [address] [place] [address] Result Comment: The [place] Diabetes [employer] (ADA) provides guidance for cutoff values for fasting glucose and random glucose. The ADA defines fasting as no caloric intake for at least 8 hours. Fasting plasma glucose results between 100 to 125 mg/dL indicate increased risk for diabetes (prediabetes). Fasting plasma glucose results greater than or equal to 126 mg/dL meet the criteria for diagnosis of diabetes. In the absence of unequivocal hyperglycemia, results should be confirmed by repeat testing. In a patient with classic symptoms of hyperglycemia or hyperglycemic crisis, random plasma glucose results greater than or equal to 200 mg/dL meet the criteria for diagnosis of diabetes. Reference: Standards of Medical Care in Diabetes 2016, [place] [employer]. Diabetes Care. 2016.39(Suppl 1). Performed By: #### 1 9123-9, 2777-1, 25558-4 ####[facility] LABIA [id number] [place] [address] [place] Potassium [Moles/Vol] 4.3 mmol/L Normal 3.7-5.1 [facility] Comment on above: Order Comment: Speci men Type: BLOOD SPECIMENOrdering Facility: [facility] Address: [address] [place] [address] Performed By: #### 1 9123-9, 2777-1, 57538-7 ####[facility] LABIA [id number] [place] [address] [place] Sodium [Moles/Vol] 140 mmol/L Normal 136-144 [facility] Comment on above: Order Comment: Speci men Type: BLOOD SPECIMENOrdering Facility: [facility] Address: [address] [place] [address] Performed By: #### 1 9123-9, 2777-1, 77618-1 ####[facility] LABCLIA [id number] [place] [id number] [place] Urea nitrogen [Mass/Vol] 17 mg/dL Normal 9-24 [facility] Comment on above: Order Comment: Speci men Type: BLOOD SPECIMENOrdering Facility: [facility] Address: [address] [place] [address] Performed By: #### 1 9123-9, 2777-1, 42618-1 ####[facility] LABCLIA [id number] [place] [id number] [place] [facility] BAS METAB 2000 PNL SERPL on 11-13-2023 Anion gap [Moles/Vol] 9 mmol/L 8 - 15 mmol/L [facility] Calcium [Mass/Vol] 9.3 mg/dL 8.5 - 10. 2 mg/dL [facility] Chloride [Moles/Vol] 106 mmol/L 98 - 10 7 mmol/L [facility] CO2 [Moles/Vol] 25 mmol/L 22 - 30 mmol/L [facility] Creatinine [Mass/Vol] 0.82 mg/dL 0.73 - 1.22 mg/dL [facility] GFR/1.73 sq M.predicted CKD-EPI (S/P/Bld) [Vol rate/Area] 123 - PINF [facility] Comment on above: Estimated Glomerular Filtration Rate (eGFR) is calculated using the 2020 CKD-EPI creatinine equation. This equation utilizes serum creatinine, sex, and age as parameters. The creatinine assay has traceable calibration to isotope dilution-mass spectrometry. Refer to KDIGO guidelines for clinical interpretation. In patients with unstable renal function, e.g. those with acute kidney injury, the eGFR may not accurately reflect actual GFR. Glucose [Mass/Vol] 104 mg/dL High 74 - 99 mg/dL [facility] Comment on above: The [place] Di[employer] Association (ADA) provides guidance for cutoff values for fasting glucose and random glucose. The ADA defines fasting as no caloric intake for at least 8 hours. Fasting plasma glucose results between 100 to 125 mg/dL indicate increased risk for diabetes (prediabetes). Fasting plasma glucose results greater than or equal to 126 mg/dL meet the criteria for diagnosis of diabetes. In the absence of unequivocal hyperglycemia, results should be confirmed by repeat testing. In a patient with classic symptoms of hyperglycemia or hyperglycemic crisis, random plasma glucose results greater than or equal to 200 mg/dL meet the criteria for diagnosis of diabetes. Reference: Standards of Medical Care in Diabetes 2016, [place] [employer]. Diabetes Care. 2016.39(Suppl 1). Potassium [Moles/Vol] 4.3 mmol/L 3.7 - 5.1 mmol/L [facility] Sodium [Moles/Vol] 140 mmol/L 136 - 144 mmol/L [facility] Urea nitrogen [Mass/Vol] 17 mg/dL 9 - 24 mg/dL [facility] MAGNESIUM SERPL-MCNCon 0 11-13-2023 Magnesium [Mass/Vol] 2.0 mg/dL 1.7 - 2 .3 mg/dL [facility] PHOSPHATE SERPL-MCNCon 0 11-13-2023 [facility] PHOSPHATE SERPL-MCNC 2.4 mg/dL Low 2.7 - 4.8 mg/dL [facility] Magnesium SerPl-mCncon 11-12 Magnesium [Mass/Vol] 2.0 mg/dL Normal 1.7-2.3 [facility] Comment on above: Order Comment: Speci men Type: BLOOD SPECIMENOrdering Facility: [facility] Address: [address] [place] [address] Performed By: #### 1 9123-9, 2777-1, 34837-3 ####[facility] LABCLIA [id number] [address] [place] No Panel Informationon 11-12 Interpretation and review of laboratory results Abnormal [facility] Specimen Type: BLOOD SPECIMEN [facility] Address: [address] [place] [address] Original Ordering Provider: SAMIR ROA [facility] OPERATIVE NOon 11-13-2023 OPERATIVE NO HNO ID: [id number] Author: CIERRA LAY MD, PhD Service: Neurosurgery Author Type: Physician Type: Operative Report Filed: 11/16/2023 07:05 Note Text: OPERATIVE/PROCEDURE REPORT LOG ID: [id number] SURGERY/PROCEDURE DATE: 11/13/2023 INCISION/PROCEDURE START TIME: 1:59 PM INCISION CLOSE/PROCEDURE END TIME: 2:46 PM SURGEON(S)/PROCEDURAL IST(S) AND VALVE PIPE IRRIGATOR(S): Surgeons and Role: Panel 1: * Samir Gee MD - Primary * Kvng Smith MD - Resident - Assisting * Dana Sales MD - Resident - Assisting Panel 2: * Cierra Lay MD, PhD - Primary * Emre Nevarez MD - Resident - Assisting No Additional Staff SURGERY/PROCEDURE(S): Excision of left thigh subcutaneous neurofibroma x2 ANESTHESIA: General SURGERY/PROCEDURE DETAILS: The patient was brought back to the operating room. A team sign-in was completed with patient participation including confirmation of the consent form and site markings. The patient was then intubated by the anesthesia service. The patient was then positioned supine on the operating table. An incision was planned over the anterolateral thigh over the tumor. The skin was then prepped and draped in the standard sterile fashion. A time-out was then performed. An incision was made using a 15-blade scalpel. Bipolar electrocautery was used to obtained hemostasis. Monopolar electrocautery was used to dissect through some of the subcutaneous fat. Next using a Tenotomy scissors, the tumor was exposed. A Tenotomy scissor was then used to dissected circumferentially around the tumor. The layers of tissue over the tumor were removed carefully with forceps until only the tumor capsule remained. A freer was then used to dissect the tumor free from the surrounding pseudocapsule. The neurofibroma was removed en bloc and sent for permanent pathology. There appeared to be a smaller tumor deep to the larger tumor. This was also removed in a similar fashion. The incision was then copiously irrigated with irrigation. Hemostasis was achieved with bipolar electrocautery. The subcutaneous layer was closed with interrupted 3-0 Vicryl sutures. The skin was closed with a running subcuticular 4-0 Monocryl and Exofin. The patient was extubated in the operating room and taken to PACU in stable condition. His neurologic exam was at baseline. PRE-OP/PRE-PROCEDURE DIAGNOSIS: Neurofibromatosis type I, Class II Obesity POST-OP/POST-PROCEDUR E DIAGNOSIS: Same as Preop ESTIMATED BLOOD LOSS: 0 ml SPECIMENS: Left thigh neurofibroma x2 IMPLANTABLE DEVICES: NONE DRAINS: None COMPLICATIONS: None CLOSURE TECHNIQUE: Primary PARTICIPATION IN SURGERY/PROCEDURE: I/primary surgeon/proceduralist performed the procedure with assistance. SIGNATURE: Cierra Lay MD, PhD PATIENT NAME: Heath Rosenberg DATE: November 16, 2023 TIME: 6:59 AM Normal [facility] OPERATIVE NO HNO ID: [id number] Author: SAMIR GEE MD Service: Plastic Surgery Author Type: Physician Type: Operative Report Filed: 11/13/2023 18:18 Note Text: OPERATIVE/PROCEDURE REPORT LOG ID: [id number] SURGERY/PROCEDURE DATE: 11/13/2023 INCISION/PROCEDURE START TIME: 1:59 PM INCISION CLOSE/PROCEDURE END TIME: 2:46 PM SURGEON(S)/PROCEDURAL IST(S) AND VALVE PIPE IRRIGATOR(S): Surgeons and Role: Panel 1: * Samir Gee MD - Primary * Kvng Smith MD - Resident - Assisting * Dana Sales MD - Resident - Assisting Panel 2: * Cierra Lay MD, PhD - Primary * Emre Nevarez MD - Resident - Assisting No Additional Staff SURGERY/PROCEDURE(S): 1) Excision of a mass from right thenar eminence 2) Excision of multiple masses from left thenar eminence ANESTHESIA: General INDICATIONS: This is an operative report for Panel 1 only. Please see Dr[address] Lay's dictation for Panel 2. This is a 28 year old male who presents with bilateral hand and left thigh neurofibromas. They are symptomatic and the patient failed prior conservative treatment. RISKS, BENEFITS, ALTERNATIVES: The patient was counseled extensively regarding the options for treatment including operative and non-operative forms of treatment and after thorough counseling has elected to proceed with surgical treatment. The patient was counseled that with surgical treatment there is the possibility that their condition might not improve or may even worsen. Specific surgical risks discussed include bleeding, the need for possible blood product transfusion, infection, post-operative pain, damage to nerves and blood vessels, wound dehiscence and wound healing problems, incomplete relief of pain, post-operative instability (dislocation), the need for physical therapy, inability to return to desired level of function, post-operative limp, generalized dissatisfaction with the surgical procedure, complex regional pain syndrome, as well as medical complications such as DVT, PE, cardiopulmonary complications, and complications related to anesthesia. If hardware needs to be placed, additional risks include implant failure and nonunion/malunion. The patient expressed understanding of all the issues described above and has elected to proceed with the aforementioned procedure. INTRAOPERATIVE FINDINGS: Multiple neurofibroma like masses in the superficial plane. SURGERY/PROCEDURE DETAILS: A time-out was performed to confirm patient identify and procedure. Patient received a general anesthesia. After confirming that the area of the planned surgery was adequately anesthetized, a non-sterile tourniquet was placed on the upper arm of the operative extremity. The surgical area was then prepped and draped in the standard sterile fashion. Another time-out was performed prior to making the incision. We performed gravity exsanguination, followed by inflation of the tourniquet to 250 mm Hg. We made a longitudinal incision over the radial border of the thenar eminence at the junction of glabrous and non-glabrous skin. Skin flaps were elevated and the well defined mass was identified and excised. This appeared to be originating from the dorsal sensory branch and we were able to preserve the entire branch and peel the tumor off. The mass was sent for pathology and the incision was irrigated. Tourniquet was release and hemostasis achieved with bipolar cautery. The incision was closed in a single layer using 4-0 nylon and soft dressing was applied. The same operation was performed on the left site with the exception that there were 5 small masses that were removed in a similar way. All counts were correct at the conclusion of the case. The patient tolerated the procedure well without any immediate complication. The patient was transported to recovery room in good condition. TOURNIQUET TIME: 20min for each hand POSTOPERATIVE PLAN: 1) Follow up in [address] Lay. We will arrange a virtual appointment with us in 6 weeks. Earlier if any issues. PRE-OP/PRE-PROCEDURE DIAGNOSIS: 1) Neurofibromatosis POST-OP/POST-PROCEDUR E DIAGNOSIS: Same as Preop COUNTS: Instrument, sponge, and needle counts were correct at the end of the procedure ESTIMATED BLOOD LOSS: 0 ml SPECIMENS: ID Type Source Tests Collected by Time Destination A : right hand thenar mass Tissue Soft Tissue, Mass, Biopsy SURGICAL PATHOLOGY Samir Gee MD 11/13/2023 2:17 PM B : left thigh neurofibroma number 1 Tissue Soft Tissue, Neurofibroma, Excision SURGICAL PATHOLOGY Samir Gee MD 11/13/2023 2:34 PM C : left thigh neurofibroma number 2 Tissue Soft Tissue, Neurofibroma, Excision SURGICAL PATHOLOGY Samir Gee MD 11/13/2023 2:38 PM D : left hand neurofibroma Tissue Soft Tissue, Neurofibroma, Excision SURGICAL PATHOLOGY Samir Gee MD 11/13/2023 2:39 PM IMPLANTABLE DEVICES: * No implants in log * DRAINS: None COMPLICATIONS: None PARTICIPAT (more content not included)... Normal [facility] Phosphate SerPl-mCncon 11-12 Phosphate [Mass/Vol] 2.4 mg/dL Low 2.7-4.8 [facility] Comment on above: Order Comment: Speci men Type: BLOOD SPECIMENOrdering Facility: [facility] Address: [address] [place] [address] Performed By: #### 1 9123-9, 2777-1, 42499-4 ####[facility] LABCLIA [id number] [address] OF [facility] SURGICAL PATHOLOGYon 024 CASE REPORT Normal [facility] Comment on above: Order Comment: Speci men Type: TISSUE SPECIMENOrdering Facility: [facility] Address: [address] [place] [address] Result Comment: Surg ica Pathology Report Case: [id number] Authorizing Provider: Samir Gee MD Collected: 11/13/2023 02:17 PM Ordering Location: Admitting Received: 11/13/2023 02:41 PM Pathologist: Daryl Tobar MD Specimens: A) - Soft Tissue, Mass, Biopsy, right hand thenar mass B) - Soft Tissue, Neurofibroma, Excision, left thigh neurofibroma number 1 C) - Soft Tissue, Neurofibroma, Excision, left thigh neurofibroma number 2 D) - Soft Tissue, Neurofibroma, Excision, left hand neurofibroma Performed By: #### S ####[facility] LABCLIA [id number] [place] [address] [place] CLINICAL HISTORY Normal [facility] Comment on above: Order Comment: Kathei janis Type: TISSUE SPECIMENOrdering Facility: [facility] Address: [address] [place] [address] Result Comment: Pre- op diagnosis: Neurofibromatosis (HCC) [Q85.00] Benign neoplasm of peripheral nerve of upper extremity [D36.12] Benign neoplasm of peripheral nerves of lower extremity [D36.13] Benign neoplasm of skin of upper extremity, unspecified laterality [D2 3.60] Benign neoplasm of skin of left lower extremity [D23.72] Performed By: #### S ####[facility] LABCLIA [id number] [address] OF [facility] FINAL DIAGNOSIS Normal [facility] Comment on above: Order Comment: Kathei janis Type: TISSUE SPECIMENOrdering Facility: [facility] Address: [address] [place] [address] Result Comment: A. S oft tissue, right hand thenar mass, biopsy: - Neurofibroma. B. Soft tissue, left thigh #1, excision: - Neurofibroma. C. Soft tissue, left thigh #2, excision: - Neurofibroma. D. Soft tissue, left hand, excision: - Neurofibroma. Performed By: #### S ####[facility] LABCLIA [id number] [address] OF [facility] FINAL PERFORMING LAB Normal [facility] Comment on above: Order Comment: Kathei janis Type: TISSUE SPECIMENOrdering Facility: [facility] Address: [address] [place] [address] Result Comment: Diag nostic interpretation performed at [facility], [address] [place] [address] CLIA# [id number] Stand Up Comedian: Cornelio Hensley M.D. Performed By: #### S ####[facility] LABCLIA [id number] [facility] [id number] [address] [place] GROSS DESCRIPTION Normal [facility] [place] Comment on above: Order Comment: Speci men Type: TISSUE SPECIMENOrdering Facility: [facility] Address: [address] [place] [address] Result Comment: A. S oft Tissue, Mass, Biopsy Received fresh labeled right hand thenar mass is an irregularly shaped white-lucas fragment of rubbery tissue measuring 1.7 x 0.3 x 0.3 cm. The specimen is serially sectioned to show a homogenous white-lucas cut surface. The specimen is totally submitted in cassette A1. MBB/MLG November 13, 2023 3:17 PM Gross examination performed at [facility], [address] [place] [address] B. Soft Tissue, Neurofibroma, Excision Received fresh labeled left thigh neurofibroma #1 is a single ovoid fragment of yellow-lucas rubbery to soft tissue measuring 2.8 x 1.0 x 0.8 cm. The specimen is serially sectioned to reveal a homogenous yellow-lucas cut surface. Perinatal Director sections are submitted in cassette B1. MBB/MLG November 13, 2023 3:20 PM Gross examination performed at [facility], [address] [place] [address] C. Soft Tissue, Neurofibroma, Excision Received fresh labeled left thigh neurofibroma #2 is a single circular yellow to pink-lucas firm to rubbery fragment of tissue measuring 1.0 x 0.5 x 0.4 cm. The specimen is sectioned to show homogenous yellow to white-lucas cut surface. The specimen is entirely submitted in cassette C1. MBB/MLG November 13, 2023 3:22 PM Gross examination performed at [facility], [address] [place] [address] D. Soft Tissue, Neurofibroma, Excision Received fresh labeled left lucas neurofibroma are multiple fragments of clear and white to pink-lucas soft tissue, with peripheral purple ink aggregating to 1.1 x 0.9 x 0.3 cm. The cut surface of the larger fragments is white-lucas and homogenous. Specimen is totally submitted in cassette D1. MBB/MLG November 13, 2023 3:25 PM Gross examination performed at [facility], [address] [facility], [place] [address] Performed By: #### S ####[facility] LABCLIA [id number] [facility] [id number] [id number] [place] HISTORY PHYSICALon HISTORY PHYSICAL HNO ID: [id number] Author: JANINE LIU APRN.CNP Service: ? Author Type: Nurse Practitioner Type: H&P Filed: 10/31/2023 12:34 Note Text: [facility] HISTORY AND PHYSICAL EXAMINATION SERVICE DATE: 10/31/2023 SERVICE TIME: 12:06 PM PRIMARY CARE PHYSICIAN: Tesfaye Villareal MD, MD Assessment Patient has the following medical conditions which may affect srinath-operative course: Campoverde's palsy Assessment: Hx of, affected right side No residual deficit Neurofibromatosis, type I (von Recklinghausen's disease) (HCC) Assessment: Follows with Neurology see HPI Obesity (BMI 30-39.9) Assessment: Body mass index is 39.17 kg/m?. Healthy Diet and exercise encouraged Salomon Activity Status Index: METS: Walk indoors, such as around the house (1.75 METs) Do light work around the house, such as dusting or washing dishes (2.70 METs) Take care of self; that is eating, dressing, bathing, using the toilet (2.75 METs) Walk a block or two on level ground (2.75 METs) Do moderate work around the house, such as vacuuming, sweeping floors, or carrying in groceries (3.50 METs) Climb a flight of stairs or walk up a hill (5.50 METs) DASI Score: 18.95 Patient denies any chest pain or undue shortness of breath with the above physical activity. Clinical Frailty Scale: 3. Well, with treated comorbid disease STOP-Bang Score: BMI greater than 35 kg/m2 Has a large neck Male patient Denies snoring loudly Denies feeling tired, fatigued, or sleepy during the daytime Has not been observed to stop breathing or choking/gasping during sleep Denies having high blood pressure Patient 50 years old or younger STOP-Bang Score: 3 ANESTHESIA FINDINGS: Intubation History: No history of difficult intubation Significant Anesthesia Considerations: none Airway History: No history of difficult airway I - PHYSICAL EVALUATION AIRWAY Patient intubated: No. Mallampati: II. TM distance: >3 FB. Neck ROM: full ROM without neurological symptoms. Short neck: no. Additional comments: high arched palate, macrocephaly. Thick neck: yes Dillard present: yes Lip Bite Test: II Microretrognathia/Anselmo ronagthia/Recessed Chin: No DENTAL Dental findings: teeth intact. II - ANESTHESIA PLAN Anesthetic plan additional comments: *PACC/TCI - anesthesia choice. Beta Mary Monitoring Plan Post Procedure Analgesic Plan Prepared for Surgery: optimally prepared for surgery. CONSULTS: Planned Anesthetic: anesthesia choice The Following Tests/Procedures Have Been Initiated: Labs not indicated per PACC protocol, EKG not indicated per PACC protocol REASON FOR VISIT: Heath Rosenberg is a 28 year old male who is scheduled for Procedure(s): EXCISION NEUROMA EXTREMITY UPPER (Right) NERVE GRAFT SINGLE STRAND HAND = OR < 4CM LENGTH (Right) REPAIR TENDONS / NERVES HAND (Right) EXCISION NEUROMA EXTREMITY LOWER (Left) NERVE GRAFT MULTIPLE STRANDS HAND OR FOOT UP TO 4CM LENGTH (Left) at the request of Dr. Samir Gee for consultation. My final recommendation will be communicated back to the requesting physician by way of shared medical record or letter. Subjective COVID-19 Immunization Status Overdue - Covid-19 Vaccine (2022- season) Overdue since 11/10/2022 01/19/2021 Imm Admin: COVID-19 original vaccine, full dose, monovalent (MODERNA) 05/06/2020 Imm Admin: COVID-19 original vaccine, full dose, monovalent (MODERNA) 04/08/2020 Imm Admin: COVID-19 original vaccine, full dose, monovalent (MODERNA) Only the first 3 history entries have been loaded, but more history exists. CHIEF COMPLAINT: surgery HPI: Patient is a 28 year old male with Neurofibromatosis with Benign neoplasm of peripheral nerve and skin of upper and lower extremities causing constant aching pain affecting quality of life. Takes gabapentin (NEURONTIN) for back pain. Pt. has had prior excision of neurofibroma surgeries without any perioperatively- or post-operative complications. Pt. is recommended for Surgery. REVIEW OF SYSTEMS: General: No weight loss, malaise or fevers. Neurological: Neurofibratomosis Negative for: headaches, impaired sensorium, seizures, TIA and strokes. Respiratory: No history of current cough or dyspnea, or pneumonia in the past 6 weeks. No history of respiratory/pulmonary symptoms or problems. Cardiovascular: No history of HTN requiring medication, no history of angina, CHF, [place], cardiac surgery or stents. Denies rest pain, gangrene or revascularization/amp utation for PVD. No history of cardiovascular symptoms or problems. GI: No history of GI symptoms or problems. No history of esophageal varices, recent ascites, or ETOH greater than 2 drinks per day. : No history of dysuria, frequency or incontinence, stones or chronic kidney disease. No difficulty urinating, nocturia > 1 time per night or hematuria. Endocrine: No history of (more content not included)... Normal [facility] CNOVon 10-19-2023 CNOV Office Visit (PSMT ) HEATH ROSENBERG ([id number]) 1995 M Date Time Provider Department 10/19/23 11:00 AM SAMIR GEE [facility] During your visit today, we recorded the following information about you: Temperature Pulse Blood pressure Weight 99.5 degrees 76/minute 131/80 137.1 kg Height 1.884 m Samir Gee MD 10/19/2023 4:58 PM Signed [facility] Hand AND Upper Extremity Surgery New Patient Evaluation Consulting Provider: SELF CC: Bilateral hand pain HPI: Mr. Rosenberg is a right hand dominant 28 year old male who presents with a chief complaint of bilateral hand pain. He has history of neurofibromatosis and is scheduled for left thigh large neurofibroma excision with Dr. Lay. He previously underwent multiple small neurofibroma excision with Dr. Vazquez and had uneventful recovery. Patient has bumps on both hands, near base of the thumbs. Bumps developed approximately 1 year ago. Pain began when bumps appeared on the hands. Denies any known injury or trauma to the hands. Denies numbness or tingling of the hands. Denies pain to fingers or wrists, only at the base of both thumbs. Patient has not tried splinting/bracing or medications for pain. Takes gabapentin for his back but this does not decrease hand pain. Tentative date of 11/13/2023 for surgery for leg and hands. Mother states Dr. Lay coordinated to do both procedures on the same date. - Resection of the left anterior thigh neurofibroma AND removal of multiple hand lesions Per Dr. 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 PAST MEDICAL HISTORY No date: Headaches Comment: no aura No date: Neurofibromatosis, type 1 (von Recklinghausen's disease) ([facility]) No date: Scoliosis Current Outpatient Medications Medication Sig Dispense Refill gabapentin (NEURONTIN) 300 mg capsule Take 2 capsules by mouth two times a day. 360 capsule 3 nortriptyline (PAMELOR) 25 mg capsule Take 1 capsule by mouth daily at bedtime. 30 capsule 2 fexofenadine HCl (OVIDIO ALLERGY ORAL) Take 1 tablet by mouth once daily. multivit-minerals/fol ic acid (MULTIVITAMIN GUMMIES ORAL) Take 1 Dose by mouth once daily. methocarbamol (ROBAXIN) 500 mg tablet Take 1 tablet by mouth three times a day as needed (muscle spasms). 90 tablet 0 lidocaine (LIDODERM) 5 % Apply 1 Patch as directed once daily. (Patient not taking: Reported on 10/19/2023) 30 Patch 1 No current facility-administered medications for this visit. ALLERGIES Allergen Reactions Bactrim [Sulfametho* Penicillins Hives Zithromax [Azithrom* Hives PE: Exam of the bilateral upper limb revealed: Approximately 1cm in diameter mass over volar thenar eminence on right. Multiple small superficial masses on the left volar thenar eminence. Tender to palpation with mildly positive Tinel. Full range of motion with no flexion or extension lags. Sensation grossly intact in media, ulnar, radial disribution. RADIOLOGY: Outside Facility: [facility] Impressions 09/11/2023 10:34 AM EDT Imaging Results - MR hand right w and wo IV contrast (09/10/2023 11:32 AM EDT) Multiple soft tissue lesions as detailed most likely representing neurofibromas. ELECTRONICALLY SIGNED BY: Adama Mcgraw DO Narrative 09/11/2023 10:34 AM EDT EXAMINATION: MR HAND RIGHT W AND WO IV CONTRAST HISTORY: Hand pain. Bumps along plantar surface of the first metatarsal. COMPARISON: None available TECHNIQUE: Multiplanar multisequence MRI of the right hand was performed without and with contrast FINDINGS: Multiple tiny hyperintense structures demonstrating low-level postcontrast enhancement are identified along the second through fourth flexor tendons at the level of the mid through the distal diaphyses. An ovoid hyperintense mildly enhancing structure is present along the mid diaphysis of the fourth proximal phalanx measuring approximately 2 x 0.8 x 0.6 cm. An ovoid hyperintense small enhancing structure is present along the distal diaphysis of the third proximal phalanx measuring approximately 0.9 x 0.3 x 0.3 cm. These structures most likely represent neurofibromas. Flexor and extensor tendons are intact. Musculature of the hand is within normal limits. No bone marrow signal abnormality. Impressions 09/11/2023 9:29 AM EDT A few ovoid lesions along the second through fourth flexor tendons at the level of the metacarpals measuring up to 8 mm most likely represent neurofibromas. ELECTRONICALLY SIGNED BY: Adama Mcgraw DO Imaging Results - MR hand left w and wo IV contrast (09/10/2023 11:14 AM EDT) Narrative 09/11/2023 9:29 AM EDT EXAMINATION: MR HAND LEFT W AND WO IV C (more content not included)... Normal [facility] Good 10-17-2023 CNPN Telephone (NSCAMN) HEATH ROSENBERG ([id number]) 1995 M Date Time Provider Department 10/17/23 BRYCE MARTINEZ [facility] During your visit today, we recorded the following information about you: Shanda Barrios RN 10/17/2023 1:02 PM Signed Scheduling Request - Established Patient Time Frame: First available Orders: Routine EEG Provider: TAN Visit type: Virtual Visit Diagnosis: Shan Wallace 10/23/2023 3:54 PM Signed Done Allergies As of Date: 10/17/2023 Noted Allergy Reaction BACTRIM (SULFAMETHOXAZOLE-TRI METH*01/07/2009 PENICILLINS 06/25/2007 4 - Hives ZITHROMAX (AZITHROMYCIN) 06/25/2007 4 - Hives Date Reviewed: 08/23/2023 Reviewed by: Cierra Lay MD, PhD - Fully Assessed Reason for Visit: LUCIANA 2-3 weeks [Other] Prescriptions as of 10/23/2023 - methocarbamol (ROBAXIN) 500 mg tablet Take 1 tablet by mouth three times a day as needed (muscle spasms). - gabapentin (NEURONTIN) 300 mg capsule Take 2 capsules by mouth two times a day. - nortriptyline (PAMELOR) 25 mg capsule Take 1 capsule by mouth daily at bedtime. - lidocaine (LIDODERM) 5 % Apply 1 Patch as directed once daily. - fexofenadine HCl (OVIDIO ALLERGY ORAL) Take 1 tablet by mouth once daily. - multivit-minerals/fol ic acid (MULTIVITAMIN GUMMIES ORAL) Take 1 Dose by mouth once daily. Problem List As Of Date 10/17/2023 Noted Resolved Neurofibroma, multiple (HCC) [Q85.00] 06/27/2007 SLEEP DISTURBANCES NEC [G47.8] 06/27/2007 EXPLOSIVE PERSONALITY [F60.3] 06/27/2007 Anger [R45.4] 10/02/2010 Learning disability [F81.9] 10/08/2011 Backache [M54.9] 11/14/2012 Lumbago [M54.50] 12/03/2012 Disc herniation [PTK4811] 12/03/2012 Neurofibroma [D36.10] 11/27/2016 Obesity, Class III, BMI >= 40 (morbid obesity) *12/28/2016 Campoverde's palsy [G51.0] 03/19/2017 Mass of hand, left [R22.32] 06/12/2017 Chronic tension-type headache, not intractable *11/01/2017 Radiculopathy, lumbar region [M54.16] 01/22/2019 Neurofibromatosis, type I (von Recklinghausen's*04/13 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 MQ: [id number] COMPARISON: Cervical thoracic and lumbar spine MRI 08/10/2021. RESULT: CERVICAL: Counting reference: Craniocervical junction. Anatomic Variants: None. Localizer images: No additional findings. Alignment: Alignment is anatomic. Craniocervical junction: Craniocervical junction is normal. Cord: The cervical spinal cord is within normal limits of signal intensity and morphology. Bone marrow signal/fracture: No evidence of pathologic marrow infiltration. No evidence of prior fracture. Cervical soft tissues: The paraspinal soft tissues are within normal limits. 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 There are multilevel degenerative changes of the cervical spine, most pronounced with mild diffuse disc bulge and mild bilateral facet arthropathy at C3-C4 resulting in moderate spinal canal stenosis, mild bilateral facet arthropathy and uncovertebral osteophytes at C5-C6 with moderate left neural foraminal narrowing and mild spinal canal stenosis, mild bilateral facet arthropathy and disc osteophyte complex and ligamentum flavum at C6-C7 resulting in moderate spinal canal stenosis and minimal bilateral neural foramina. THORACIC: Counting reference: Lumbosacral junction. For the purposes of this report, L4-5 is considered the level of the iliac crest and assume there are 5 lumbar-type vertebrae. Anatomic variant: None. Localizer images: No additional findings. Alignment: Alignment is anatomic. Cord: The thoracic spinal cord is within normal limits of signal intensity and morphology. Bone marrow signal/fracture: No evidence of pathologic marrow infiltration. No evidence of prior fracture. Thoracic soft tissues: The paraspinal soft tissues are within normal limits. 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 There is no spinal canal stenosis. LUMBAR: Counting reference: Lumbosacral junction. For the purposes of this report, L4-5 is considered the level of the iliac crest and assume there are 5 lumbar-type vertebrae. Anatomic variant: None. Localizer images: No additional findings. Alignment: Alignment is anatomic. Bone marrow signal/fracture: No evidence of pathologic marrow infiltration. No evidence of prior fracture. Conus: The conus is within normal limits of signal intensity and morphology. The conus medullaris terminates at L2. Paraspinal soft tissues: Paraspinal soft tissues are within normal limits. 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 Multilevel degenerative changes of lumbar spine, most pronounced at L1-L2 with mild bilateral facet arthropathy and diffuse disc bulge resulting in mild spinal canal stenosis, as well as at L3-4 with moderate to severe spinal canal stenosis. Sacrum and iliac wings: The visualized sacrum and iliac wings are within normal limits. The presacral soft tissues are normal in appearance. DIVISION OF RADIOLOGY Provider, Celestine Herbert - 10/12/2023 * * *Final Report* * * DATE OF EXAM: Oct 12 2023 12:00PM LNM 0298 - MRI CERVICAL SPINE WO/W IVCON / PROCEDURE REASON: Neurofibromatosis (HCC) * * * * Physician Interpretation * * * * EXAMINATION: MRI CERVICAL SPINE WO/W IVCON, MRI LUMBAR SPINE WO/W IVCON, MRI THORACIC SPINE WO/W IVCON CLINICAL HISTORY: Neurofibromatosis (HCC) TECHNIQUE: Routine cervical, thoracic, and lumbosacral spine MR protocol without gadolinium. MQ: [id number] COMPARISON: Cervical thoracic and lumbar spine MRI 08/10/2021. RESULT: CERVICAL: Counting reference: Craniocervical junction. Anatomic Variants: None. Localizer images: No additional findings. Alignment: Alignment is anatomic. Craniocervical junction: Craniocervical junction is normal. Cord: The cervical spinal cord is within normal limits of signal intensity and morphology. Bone marrow signal/fracture: No evidence of pathologic marrow infiltration. No evidence of prior fracture. Cervical soft tissues: The paraspinal soft tissues are within normal limits. 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 There are multilevel degenerative changes of the cervical spine, most pronounced with mild diffuse disc bulge and mild bilateral facet arthropathy at C3-C4 resulting in moderate spinal canal stenosis, mild bilateral facet arthropathy and uncovertebral osteophytes at C5-C6 with moderate left neural foraminal narrowing and mild spinal canal stenosis, mild bilateral facet arthropathy and disc osteophyte complex and ligamentum flavum at C6-C7 resulting in moderate spinal canal stenosis and minimal bilateral neural foramina. THORACIC: Counting reference: Lumbosacral junction. For the purposes of this report, L4-5 is considered the level of the iliac crest and assume there are 5 lumbar-type vertebrae. Anatomic variant: None. Localizer images: No additional findings. Alignment: Alignment is anatomic. Cord: The thoracic spinal cord is within normal limits of signal intensity and morphology. Bone marrow signal/fracture: No evidence of pathologic marrow infiltration. No evidence of prior fracture. Thoracic soft tissues: The paraspinal soft tissues are within normal limits. 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 There is no spinal canal stenosis. LUMBAR: Counting reference: Lumbosacral junction. For the purposes of this report, L4-5 is considered the level of the iliac crest and assume there are 5 lumbar-type vertebrae. Anatomic variant: None. Localizer images: No additional findings. Alignment: Alignment is anatomic. Bone marrow signal/fracture: No evidence of pathologic marrow infiltration. No evidence of prior fracture. Conus: The conus is within normal limits of signal intensity and morphology. The conus medullaris terminates at L2. Paraspinal soft tissues: Paraspinal soft tissues are within normal limits. 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 Multilevel degenerative changes of lumbar spine, most pronounced at L1-L2 with mild bilateral facet arthropathy and diffuse disc bulge resulting in mild spinal canal stenosis, as well as at L3-4 with moderate to severe spinal canal stenosis. Sacrum and iliac wings: The visualized sacrum and iliac wings are within normal limits. The presacral soft tissues are normal in appearance. IMPRESSION IMPRESSION: No significant change in extensive neurofibromas in the cervical, thoracic and lumbar spine MRI. Cervical Anatomic Variant: None. Assume 7 cervical vertebrae with counting from the craniocervical junction. Anatomic Thoracic/Lumbar Variant: None. L4-5 is considered the level of the iliac crest and assume there are 5 lumbar-type vertebrae. 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: PSCB Transcribe Date/Time: Oct 12 2023 12:11P Dictated by : SHILPA VELEZ MD This examination was interpreted and the report reviewed and electronically signed by: SHILPA VELEZ MD on Oct 12 2023 1:28PM [facility] MR Lumbar spine WO and W con trast Kassy 10-12-2023 * * *Final Report* * * DATE OF EXAM: Oct 12 2023 12:00PM LNM 0304 - MRI LUMBAR SPINE WO/W IVCON / PROCEDURE REASON: Neurofibromatosis (HCC) * * * * Physician Interpretation * * * * EXAMINATION: MRI CERVICAL SPINE WO/W IVCON, MRI LUMBAR SPINE WO/W IVCON, MRI THORACIC SPINE WO/W IVCON CLINICAL HISTORY: Neurofibromatosis (HCC) TECHNIQUE: Routine cervical, thoracic, and lumbosacral spine MR protocol without gadolinium. MQ: [id number] COMPARISON: Cervical thoracic and lumbar spine MRI 08/10/2021. RESULT: CERVICAL: Counting reference: Craniocervical junction. Anatomic Variants: None. Localizer images: No additional findings. Alignment: Alignment is anatomic. Craniocervical junction: Craniocervical junction is normal. Cord: The cervical spinal cord is within normal limits of signal intensity and morphology. Bone marrow signal/fracture: No evidence of pathologic marrow infiltration. No evidence of prior fracture. Cervical soft tissues: The paraspinal soft tissues are within normal limits. 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 There are multilevel degenerative changes of the cervical spine, most pronounced with mild diffuse disc bulge and mild bilateral facet arthropathy at C3-C4 resulting in moderate spinal canal stenosis, mild bilateral facet arthropathy and uncovertebral osteophytes at C5-C6 with moderate left neural foraminal narrowing and mild spinal canal stenosis, mild bilateral facet arthropathy and disc osteophyte complex and ligamentum flavum at C6-C7 resulting in moderate spinal canal stenosis and minimal bilateral neural foramina. THORACIC: Counting reference: Lumbosacral junction. For the purposes of this report, L4-5 is considered the level of the iliac crest and assume there are 5 lumbar-type vertebrae. Anatomic variant: None. Localizer images: No additional findings. Alignment: Alignment is anatomic. Cord: The thoracic spinal cord is within normal limits of signal intensity and morphology. Bone marrow signal/fracture: No evidence of pathologic marrow infiltration. No evidence of prior fracture. Thoracic soft tissues: The paraspinal soft tissues are within normal limits. 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 There is no spinal canal stenosis. LUMBAR: Counting reference: Lumbosacral junction. For the purposes of this report, L4-5 is considered the level of the iliac crest and assume there are 5 lumbar-type vertebrae. Anatomic variant: None. Localizer images: No additional findings. Alignment: Alignment is anatomic. Bone marrow signal/fracture: No evidence of pathologic marrow infiltration. No evidence of prior fracture. Conus: The conus is within normal limits of signal intensity and morphology. The conus medullaris terminates at L2. Paraspinal soft tissues: Paraspinal soft tissues are within normal limits. 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 Multilevel degenerative changes of lumbar spine, most pronounced at L1-L2 with mild bilateral facet arthropathy and diffuse disc bulge resulting in mild spinal canal stenosis, as well as at L3-4 with moderate to severe spinal canal stenosis. Sacrum and iliac wings: The visualized sacrum and iliac wings are within normal limits. The presacral soft tissues are normal in appearance. DIVISION OF RADIOLOGY Provider, [facility] - 10/12/2023 * * *Final Report* * * DATE OF EXAM: Oct 12 2023 12:00PM LNM 0304 - MRI LUMBAR SPINE WO/W IVCON / PROCEDURE REASON: Neurofibromatosis (HCC) * * * * Physician Interpretation * * * * EXAMINATION: MRI CERVICAL SPINE WO/W IVCON, MRI LUMBAR SPINE WO/W IVCON, MRI THORACIC SPINE WO/W IVCON CLINICAL HISTORY: Neurofibromatosis (HCC) TECHNIQUE: Routine cervical, thoracic, and lumbosacral spine MR protocol without gadolinium. MQ: [id number] COMPARISON: Cervical thoracic and lumbar spine MRI 08/10/2021. RESULT: CERVICAL: Counting reference: Craniocervical junction. Anatomic Variants: None. Localizer images: No additional findings. Alignment: Alignment is anatomic. Craniocervical junction: Craniocervical junction is normal. Cord: The cervical spinal cord is within normal limits of signal intensity and morphology. Bone marrow signal/fracture: No evidence of pathologic marrow infiltration. No evidence of prior fracture. Cervical soft tissues: The paraspinal soft tissues are within normal limits. 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 There are multilevel degenerative changes of the cervical spine, most pronounced with mild diffuse disc bulge and mild bilateral facet arthropathy at C3-C4 resulting in moderate spinal canal stenosis, mild bilateral facet arthropathy and uncovertebral osteophytes at C5-C6 with moderate left neural foraminal narrowing and mild spinal canal stenosis, mild bilateral facet arthropathy and disc osteophyte complex and ligamentum flavum at C6-C7 resulting in moderate spinal canal stenosis and minimal bilateral neural foramina. THORACIC: Counting reference: Lumbosacral junction. For the purposes of this report, L4-5 is considered the level of the iliac crest and assume there are 5 lumbar-type vertebrae. Anatomic variant: None. Localizer images: No additional findings. Alignment: Alignment is anatomic. Cord: The thoracic spinal cord is within normal limits of signal intensity and morphology. Bone marrow signal/fracture: No evidence of pathologic marrow infiltration. No evidence of prior fracture. Thoracic soft tissues: The paraspinal soft tissues are within normal limits. 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 There is no spinal canal stenosis. LUMBAR: Counting reference: Lumbosacral junction. For the purposes of this report, L4-5 is considered the level of the iliac crest and assume there are 5 lumbar-type vertebrae. Anatomic variant: None. Localizer images: No additional findings. Alignment: Alignment is anatomic. Bone marrow signal/fracture: No evidence of pathologic marrow infiltration. No evidence of prior fracture. Conus: The conus is within normal limits of signal intensity and morphology. The conus medullaris terminates at L2. Paraspinal soft tissues: Paraspinal soft tissues are within normal limits. 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 Multilevel degenerative changes of lumbar spine, most pronounced at L1-L2 with mild bilateral facet arthropathy and diffuse disc bulge resulting in mild spinal canal stenosis, as well as at L3-4 with moderate to severe spinal canal stenosis. Sacrum and iliac wings: The visualized sacrum and iliac wings are within normal limits. The presacral soft tissues are normal in appearance. IMPRESSION IMPRESSION: No significant change in extensive neurofibromas in the cervical, thoracic and lumbar spine MRI. Cervical Anatomic Variant: None. Assume 7 cervical vertebrae with counting from the craniocervical junction. Anatomic Thoracic/Lumbar Variant: None. L4-5 is considered the level of the iliac crest and assume there are 5 lumbar-type vertebrae. 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: EUGENIA Transcribe Date/Time: Oct 12 2023 12:11P Dictated by : SHILPA VELEZ MD This examination was interpreted and the report reviewed and electronically signed by: SHILPA VELEZ MD on Oct 12 2023 1:28PM [facility] MR Thoracic spine WO and W alpesh Elena 10-12-2023 * * *Final Report* * * DATE OF EXAM: Oct 12 2023 12:00PM LNM 0326 - MRI THORACIC SPINE WO/W IVCON / PROCEDURE REASON: Neurofibromatosis (HCC) * * * * Physician Interpretation * * * * EXAMINATION: MRI CERVICAL SPINE WO/W IVCON, MRI LUMBAR SPINE WO/W IVCON, MRI THORACIC SPINE WO/W IVCON CLINICAL HISTORY: Neurofibromatosis (HCC) TECHNIQUE: Routine cervical, thoracic, and lumbosacral spine MR protocol without gadolinium. MQ: [id number] COMPARISON: Cervical thoracic and lumbar spine MRI 08/10/2021. RESULT: CERVICAL: Counting reference: Craniocervical junction. Anatomic Variants: None. Localizer images: No additional findings. Alignment: Alignment is anatomic. Craniocervical junction: Craniocervical junction is normal. Cord: The cervical spinal cord is within normal limits of signal intensity and morphology. Bone marrow signal/fracture: No evidence of pathologic marrow infiltration. No evidence of prior fracture. Cervical soft tissues: The paraspinal soft tissues are within normal limits. 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 There are multilevel degenerative changes of the cervical spine, most pronounced with mild diffuse disc bulge and mild bilateral facet arthropathy at C3-C4 resulting in moderate spinal canal stenosis, mild bilateral facet arthropathy and uncovertebral osteophytes at C5-C6 with moderate left neural foraminal narrowing and mild spinal canal stenosis, mild bilateral facet arthropathy and disc osteophyte complex and ligamentum flavum at C6-C7 resulting in moderate spinal canal stenosis and minimal bilateral neural foramina. THORACIC: Counting reference: Lumbosacral junction. For the purposes of this report, L4-5 is considered the level of the iliac crest and assume there are 5 lumbar-type vertebrae. Anatomic variant: None. Localizer images: No additional findings. Alignment: Alignment is anatomic. Cord: The thoracic spinal cord is within normal limits of signal intensity and morphology. Bone marrow signal/fracture: No evidence of pathologic marrow infiltration. No evidence of prior fracture. Thoracic soft tissues: The paraspinal soft tissues are within normal limits. 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 There is no spinal canal stenosis. LUMBAR: Counting reference: Lumbosacral junction. For the purposes of this report, L4-5 is considered the level of the iliac crest and assume there are 5 lumbar-type vertebrae. Anatomic variant: None. Localizer images: No additional findings. Alignment: Alignment is anatomic. Bone marrow signal/fracture: No evidence of pathologic marrow infiltration. No evidence of prior fracture. Conus: The conus is within normal limits of signal intensity and morphology. The conus medullaris terminates at L2. Paraspinal soft tissues: Paraspinal soft tissues are within normal limits. 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 Multilevel degenerative changes of lumbar spine, most pronounced at L1-L2 with mild bilateral facet arthropathy and diffuse disc bulge resulting in mild spinal canal stenosis, as well as at L3-4 with moderate to severe spinal canal stenosis. Sacrum and iliac wings: The visualized sacrum and iliac wings are within normal limits. The presacral soft tissues are normal in appearance. DIVISION OF RADIOLOGY Provider, Zoya Carolin [facility] - 10/12/2023 * * *Final Report* * * DATE OF EXAM: Oct 12 2023 12:00PM LN [id number] - MRI THORACIC SPINE WO/W IVCON / PROCEDURE REASON: Neurofibromatosis (HCC) * * * * Physician Interpretation * * * * EXAMINATION: MRI CERVICAL SPINE WO/W IVCON, MRI LUMBAR SPINE WO/W IVCON, MRI THORACIC SPINE WO/W IVCON CLINICAL HISTORY: Neurofibromatosis (HCC) TECHNIQUE: Routine cervical, thoracic, and lumbosacral spine MR protocol without gadolinium. MQ: [id number] COMPARISON: Cervical thoracic and lumbar spine MRI 08/10/2021. RESULT: CERVICAL: Counting reference: Craniocervical junction. Anatomic Variants: None. Localizer images: No additional findings. Alignment: Alignment is anatomic. Craniocervical junction: Craniocervical junction is normal. Cord: The cervical spinal cord is within normal limits of signal intensity and morphology. Bone marrow signal/fracture: No evidence of pathologic marrow infiltration. No evidence of prior fracture. Cervical soft tissues: The paraspinal soft tissues are within normal limits. 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 There are multilevel degenerative changes of the cervical spine, most pronounced with mild diffuse disc bulge and mild bilateral facet arthropathy at C3-C4 resulting in moderate spinal canal stenosis, mild bilateral facet arthropathy and uncovertebral osteophytes at C5-C6 with moderate left neural foraminal narrowing and mild spinal canal stenosis, mild bilateral facet arthropathy and disc osteophyte complex and ligamentum flavum at C6-C7 resulting in moderate spinal canal stenosis and minimal bilateral neural foramina. THORACIC: Counting reference: Lumbosacral junction. For the purposes of this report, L4-5 is considered the level of the iliac crest and assume there are 5 lumbar-type vertebrae. Anatomic variant: None. Localizer images: No additional findings. Alignment: Alignment is anatomic. Cord: The thoracic spinal cord is within normal limits of signal intensity and morphology. Bone marrow signal/fracture: No evidence of pathologic marrow infiltration. No evidence of prior fracture. Thoracic soft tissues: The paraspinal soft tissues are within normal limits. 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 There is no spinal canal stenosis. LUMBAR: Counting reference: Lumbosacral junction. For the purposes of this report, L4-5 is considered the level of the iliac crest and assume there are 5 lumbar-type vertebrae. Anatomic variant: None. Localizer images: No additional findings. Alignment: Alignment is anatomic. Bone marrow signal/fracture: No evidence of pathologic marrow infiltration. No evidence of prior fracture. Conus: The conus is within normal limits of signal intensity and morphology. The conus medullaris terminates at L2. Paraspinal soft tissues: Paraspinal soft tissues are within normal limits. 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 Multilevel degenerative changes of lumbar spine, most pronounced at L1-L2 with mild bilateral facet arthropathy and diffuse disc bulge resulting in mild spinal canal stenosis, as well as at L3-4 with moderate to severe spinal canal stenosis. Sacrum and iliac wings: The visualized sacrum and iliac wings are within normal limits. The presacral soft tissues are normal in appearance. IMPRESSION IMPRESSION: No significant change in extensive neurofibromas in the cervical, thoracic and lumbar spine MRI. Cervical Anatomic Variant: None. Assume 7 cervical vertebrae with counting from the craniocervical junction. Anatomic Thoracic/Lumbar Variant: None. L4-5 is considered the level of the iliac crest and assume there are 5 lumbar-type vertebrae. 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[facility] Transcribe Date/Time: Oct 12 2023 12:11P Dictated by : SHILPA VELEZ MD This examination was interpreted and the report reviewed and electronically signed by: SHILPA VELEZ MD on Oct 12 2023 1:28PM [facility] MRI CERVICAL SPINE WO/W IVCO Non 10-12-2023 MRI CERVICAL SPINE WO/W IVCON * * *Final Report* * * DATE OF EXAM: Oct 12 2023 12:00PM [id number] - MRI CERVICAL SPINE WO/W IVCON / PROCEDURE REASON: Neurofibromatosis (HCC) * * * * Physician Interpretation * * * * EXAMINATION: MRI CERVICAL SPINE WO/W IVCON, MRI LUMBAR SPINE WO/W IVCON, MRI THORACIC SPINE WO/W IVCON CLINICAL HISTORY: Neurofibromatosis (HCC) TECHNIQUE: Routine cervical, thoracic, and lumbosacral spine MR protocol without gadolinium. MQ: [id number] COMPARISON: Cervical thoracic and lumbar spine MRI 08/10/2021. RESULT: CERVICAL: Counting reference: Craniocervical junction. Anatomic Variants: None. Localizer images: No additional findings. Alignment: Alignment is anatomic. Craniocervical junction: Craniocervical junction is normal. Cord: The cervical spinal cord is within normal limits of signal intensity and morphology. Bone marrow signal/fracture: No evidence of pathologic marrow infiltration. No evidence of prior fracture. Cervical soft tissues: The paraspinal soft tissues are within normal limits. 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 There are multilevel degenerative changes of the cervical spine, most pronounced with mild diffuse disc bulge and mild bilateral facet arthropathy at C3-C4 resulting in moderate spinal canal stenosis, mild bilateral facet arthropathy and uncovertebral osteophytes at C5-C6 with moderate left neural foraminal narrowing and mild spinal canal stenosis, mild bilateral facet arthropathy and disc osteophyte complex and ligamentum flavum at C6-C7 resulting in moderate spinal canal stenosis and minimal bilateral neural foramina. THORACIC: Counting reference: Lumbosacral junction. For the purposes of this report, L4-5 is considered the level of the iliac crest and assume there are 5 lumbar-type vertebrae. Anatomic variant: None. Localizer images: No additional findings. Alignment: Alignment is anatomic. Cord: The thoracic spinal cord is within normal limits of signal intensity and morphology. Bone marrow signal/fracture: No evidence of pathologic marrow infiltration. No evidence of prior fracture. Thoracic soft tissues: The paraspinal soft tissues are within normal limits. 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 There is no spinal canal stenosis. LUMBAR: Counting reference: Lumbosacral junction. For the purposes of this report, L4-5 is considered the level of the iliac crest and assume there are 5 lumbar-type vertebrae. Anatomic variant: None. Localizer images: No additional findings. Alignment: Alignment is anatomic. Bone marrow signal/fracture: No evidence of pathologic marrow infiltration. No evidence of prior fracture. Conus: The conus is within normal limits of signal intensity and morphology. The conus medullaris terminates at L2. Paraspinal soft tissues: Paraspinal soft tissues are within normal limits. 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 Multilevel degenerative changes of lumbar spine, most pronounced at L1-L2 with mild bilateral facet arthropathy and diffuse disc bulge resulting in mild spinal canal stenosis, as well as at L3-4 with moderate to severe spinal canal stenosis. Sacrum and iliac wings: The visualized sacrum and iliac wings are within normal limits. The presacral soft tissues are normal in appearance. IMPRESSION: No significant change in extensive neurofibromas in the cervical, thoracic and lumbar spine MRI. Cervical Anatomic Variant: None. Assume 7 cervical vertebrae with counting from the craniocervical junction. Anatomic Thoracic/Lumbar Variant: None. L4-5 is considered the level of the iliac crest and assume there are 5 lumbar-type vertebrae. 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: [employer] Transcribe Date/Time: Oct 12 2023 12:11P Dictated by : SHILPA VELEZ MD This examination was interpreted and the report reviewed and electronically signed by: SHILPA VELEZ MD on Oct 12 2023 1:28PM EST [id number] Normal [facility] MRI LUMBAR SPINE WO/W IVCONo n 10-12-2023 MRI LUMBAR SPINE WO/W IVCON * * *Final Report* * * DATE OF EXAM: Oct 12 2023 12:00PM LNM [id number] - MRI LUMBAR SPINE WO/W IVCON / PROCEDURE REASON: Neurofibromatosis (HCC) * * * * Physician Interpretation * * * * EXAMINATION: MRI CERVICAL SPINE WO/W IVCON, MRI LUMBAR SPINE WO/W IVCON, MRI THORACIC SPINE WO/W IVCON CLINICAL HISTORY: Neurofibromatosis (HCC) TECHNIQUE: Routine cervical, thoracic, and lumbosacral spine MR protocol without gadolinium. MQ: [email or web address] COMPARISON: Cervical thoracic and lumbar spine MRI 08/10/2021. RESULT: CERVICAL: Counting reference: Craniocervical junction. Anatomic Variants: None. Localizer images: No additional findings. Alignment: Alignment is anatomic. Craniocervical junction: Craniocervical junction is normal. Cord: The cervical spinal cord is within normal limits of signal intensity and morphology. Bone marrow signal/fracture: No evidence of pathologic marrow infiltration. No evidence of prior fracture. Cervical soft tissues: The paraspinal soft tissues are within normal limits. 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 There are multilevel degenerative changes of the cervical spine, most pronounced with mild diffuse disc bulge and mild bilateral facet arthropathy at C3-C4 resulting in moderate spinal canal stenosis, mild bilateral facet arthropathy and uncovertebral osteophytes at C5-C6 with moderate left neural foraminal narrowing and mild spinal canal stenosis, mild bilateral facet arthropathy and disc osteophyte complex and ligamentum flavum at C6-C7 resulting in moderate spinal canal stenosis and minimal bilateral neural foramina. THORACIC: Counting reference: Lumbosacral junction. For the purposes of this report, L4-5 is considered the level of the iliac crest and assume there are 5 lumbar-type vertebrae. Anatomic variant: None. Localizer images: No additional findings. Alignment: Alignment is anatomic. Cord: The thoracic spinal cord is within normal limits of signal intensity and morphology. Bone marrow signal/fracture: No evidence of pathologic marrow infiltration. No evidence of prior fracture. Thoracic soft tissues: The paraspinal soft tissues are within normal limits. 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 There is no spinal canal stenosis. LUMBAR: Counting reference: Lumbosacral junction. For the purposes of this report, L4-5 is considered the level of the iliac crest and assume there are 5 lumbar-type vertebrae. Anatomic variant: None. Localizer images: No additional findings. Alignment: Alignment is anatomic. Bone marrow signal/fracture: No evidence of pathologic marrow infiltration. No evidence of prior fracture. Conus: The conus is within normal limits of signal intensity and morphology. The conus medullaris terminates at L2. Paraspinal soft tissues: Paraspinal soft tissues are within normal limits. 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 Multilevel degenerative changes of lumbar spine, most pronounced at L1-L2 with mild bilateral facet arthropathy and diffuse disc bulge resulting in mild spinal canal stenosis, as well as at L3-4 with moderate to severe spinal canal stenosis. Sacrum and iliac wings: The visualized sacrum and iliac wings are within normal limits. The presacral soft tissues are normal in appearance. IMPRESSION: No significant change in extensive neurofibromas in the cervical, thoracic and lumbar spine MRI. Cervical Anatomic Variant: None. Assume 7 cervical vertebrae with counting from the craniocervical junction. Anatomic Thoracic/Lumbar Variant: None. L4-5 is considered the level of the iliac crest and assume there are 5 lumbar-type vertebrae. 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: [facility] Transcribe Date/Time: Oct 12 2023 12:11P Dictated by : SHILPA VELEZ MD This examination was interpreted and the report reviewed and electronically signed by: SHILPA VELEZ MD on Oct 12 2023 1:28PM EST [id number] Normal [facility] MRI THORACIC SPINE WO/W IVCO Non 10-12-2023 MRI THORACIC SPINE WO/W IVCON * * *Final Report* * * DATE OF EXAM: Oct 12 2023 12:00PM LNM [id number] - MRI THORACIC SPINE WO/W IVCON / PROCEDURE REASON: Neurofibromatosis (HCC) * * * * Physician Interpretation * * * * EXAMINATION: MRI CERVICAL SPINE WO/W IVCON, MRI LUMBAR SPINE WO/W IVCON, MRI THORACIC SPINE WO/W IVCON CLINICAL HISTORY: Neurofibromatosis (HCC) TECHNIQUE: Routine cervical, thoracic, and lumbosacral spine MR protocol without gadolinium. MQ: [email or web address] COMPARISON: Cervical thoracic and lumbar spine MRI 08/10/2021. RESULT: CERVICAL: Counting reference: Craniocervical junction. Anatomic Variants: None. Localizer images: No additional findings. Alignment: Alignment is anatomic. Craniocervical junction: Craniocervical junction is normal. Cord: The cervical spinal cord is within normal limits of signal intensity and morphology. Bone marrow signal/fracture: No evidence of pathologic marrow infiltration. No evidence of prior fracture. Cervical soft tissues: The paraspinal soft tissues are within normal limits. 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 There are multilevel degenerative changes of the cervical spine, most pronounced with mild diffuse disc bulge and mild bilateral facet arthropathy at C3-C4 resulting in moderate spinal canal stenosis, mild bilateral facet arthropathy and uncovertebral osteophytes at C5-C6 with moderate left neural foraminal narrowing and mild spinal canal stenosis, mild bilateral facet arthropathy and disc osteophyte complex and ligamentum flavum at C6-C7 resulting in moderate spinal canal stenosis and minimal bilateral neural foramina. THORACIC: Counting reference: Lumbosacral junction. For the purposes of this report, L4-5 is considered the level of the iliac crest and assume there are 5 lumbar-type vertebrae. Anatomic variant: None. Localizer images: No additional findings. Alignment: Alignment is anatomic. Cord: The thoracic spinal cord is within normal limits of signal intensity and morphology. Bone marrow signal/fracture: No evidence of pathologic marrow infiltration. No evidence of prior fracture. Thoracic soft tissues: The paraspinal soft tissues are within normal limits. 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 There is no spinal canal stenosis. LUMBAR: Counting reference: Lumbosacral junction. For the purposes of this report, L4-5 is considered the level of the iliac crest and assume there are 5 lumbar-type vertebrae. Anatomic variant: None. Localizer images: No additional findings. Alignment: Alignment is anatomic. Bone marrow signal/fracture: No evidence of pathologic marrow infiltration. No evidence of prior fracture. Conus: The conus is within normal limits of signal intensity and morphology. The conus medullaris terminates at L2. Paraspinal soft tissues: Paraspinal soft tissues are within normal limits. 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 Multilevel degenerative changes of lumbar spine, most pronounced at L1-L2 with mild bilateral facet arthropathy and diffuse disc bulge resulting in mild spinal canal stenosis, as well as at L3-4 with moderate to severe spinal canal stenosis. Sacrum and iliac wings: The visualized sacrum and iliac wings are within normal limits. The presacral soft tissues are normal in appearance. IMPRESSION: No significant change in extensive neurofibromas in the cervical, thoracic and lumbar spine MRI. Cervical Anatomic Variant: None. Assume 7 cervical vertebrae with counting from the craniocervical junction. Anatomic Thoracic/Lumbar Variant: None. L4-5 is considered the level of the iliac crest and assume there are 5 lumbar-type vertebrae. 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: [facility] Transcribe Date/Time: Oct 12 2023 12:11P Dictated by : SHILPA VELEZ MD This examination was interpreted and the report reviewed and electronically signed by: SHILPA VELEZ MD on Oct 12 2023 1:28PM EST [id number] Normal [facility] No Panel Informationon 10-11 IMPRESSION: No significant change in extensive neurofibromas in the cervical, thoracic and lumbar spine MRI. Cervical Anatomic Variant: None. Assume 7 cervical vertebrae with counting from the craniocervical junction. Anatomic Thoracic/Lumbar Variant: None. L4-5 is considered the level of the iliac crest and assume there are 5 lumbar-type vertebrae. 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: [facility] Transcribe Date/Time: Oct 12 2023 12:11P Dictated by : SHILPA VELEZ MD This examination was interpreted and the report reviewed and electronically signed by: SHILPA VELEZ MD on Oct 12 2023 1:28PM EST DIVISION OF RADIOLOGY Radiology Study observation (narrative) [facility] No Panel InformationOrdered By: [facility] Provider on 10-12-2023 [facility] MR HAND LEFT W AND WO IV CON [facility] 09-10-2023 MR HAND LEFT W AND WO IV CONTRAST EXAMINATION: MR HAND LEFT W AND WO IV CONTRAST HISTORY: Neurofibromatosis. Bumps along palmar surface of the first metacarpal. COMPARISON: None available TECHNIQUE: Multiplanar multisequence MRI of the left hand was performed without and with contrast FINDINGS: There are a few hyperintense T2 mildly enhancing ovoid structures located along the second through fourth flexor tendons at the level of the metacarpals measuring up to 8 mm most likely representing peripheral nerve sheath tumors. No associated soft tissue edema. Flexor and extensor tendons appear within normal limits. Musculature of the hand is within normal limits. No bone marrow signal abnormality. IMPRESSION: A few ovoid lesions along the second through fourth flexor tendons at the level of the metacarpals measuring up to 8 mm most likely represent neurofibromas. ELECTRONICALLY SIGNED BY: Adama Mcgraw DO Normal Not Available MR HAND RIGHT W AND WO IV CO [facility] 09-10-2023 MR HAND RIGHT W AND WO IV CONTRAST EXAMINATION: MR HAND RIGHT W AND WO IV CONTRAST HISTORY: Hand pain. Bumps along plantar surface of the first metatarsal. COMPARISON: None available TECHNIQUE: Multiplanar multisequence MRI of the right hand was performed without and with contrast FINDINGS: Multiple tiny hyperintense structures demonstrating low-level postcontrast enhancement are identified along the second through fourth flexor tendons at the level of the mid through the distal diaphyses. An ovoid hyperintense mildly enhancing structure is present along the mid diaphysis of the fourth proximal phalanx measuring approximately 2 x 0.8 x 0.6 cm. An ovoid hyperintense small enhancing structure is present along the distal diaphysis of the third proximal phalanx measuring approximately 0.9 x 0.3 x 0.3 cm. These structures most likely represent neurofibromas. Flexor and extensor tendons are intact. Musculature of the hand is within normal limits. No bone marrow signal abnormality. IMPRESSION: Multiple soft tissue lesions as detailed most likely representing neurofibromas. ELECTRONICALLY SIGNED BY: Adama Mcgraw DO Normal Not Available [facility] Telephone (SPNSMN) HEATH ROSENBERG ([id number]) 1995 M Date Time Provider Department 08/24/23 CIERRA LAY [facility] During your visit today, we recorded the following information about you: April Jauregui RN 08/24/2023 10:01 AM Signed Neuro SPINE CARE COORDINATION QUICK NOTE Mom/Patient will be calling with fax number of facility that patient will complete MRIs. Please fax both MRI orders ordered by Dr. Lay on 08/22 to facility of choice. April Jauregui RN BSN [employer] [address] 08/24/2023 10:10 AM Signed Mother called back and MRI orders were faxed and confirmed to [facility] [phone] April Jauregui RN 08/24/2023 10:11 AM Signed Neuro SPINE CARE COORDINATION QUICK NOTE Noted. April Jauregui RN BSN [employer] Allergies As of Date: 08/24/2023 Noted Allergy Reaction BACTRIM (SULFAMETHOXAZOLE-TRI METH*01/07/2009 PENICILLINS 06/25/2007 4 - Hives ZITHROMAX (AZITHROMYCIN) 06/25/2007 4 - Hives Date Reviewed: 08/23/2023 Reviewed by: Cierra Lay MD, PhD - Fully Assessed Reason for Visit: Care Coordination [6901] Prescriptions as of 08/27/2023 - gabapentin (NEURONTIN) 300 mg capsule Take 2 capsules by mouth two times a day for 90 days. - nortriptyline (PAMELOR) 25 mg capsule Take 1 capsule by mouth daily at bedtime. - lidocaine (LIDODERM) 5 % Apply 1 Patch as directed once daily. - fexofenadine HCl (OVIDIO ALLERGY ORAL) Take 1 tablet by mouth once daily. - multivit-minerals/fol ic acid (MULTIVITAMIN GUMMIES ORAL) Take 1 Dose by mouth once daily. 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 Mass of hand, left [R22.32] 06/12/2017 Chronic tension-type headache, not intractable *11/01/2017 Radiculopathy, lumbar region [M54.16] 01/22/2019 Neurofibromatosis, 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 Lay and Dr. Gee. Plastics team to enter surgical request. April Jauregui READINESS PARAPROFESSIONAL Nurse Merchandising Internship Allergies As of Date: 08/24/2023 Noted Allergy Reaction BACTRIM (SULFAMETHOXAZOLE-TRI METH*01/07/2009 PENICILLINS 06/25/2007 4 - Hives ZITHROMAX (AZITHROMYCIN) 06/25/2007 4 - Hives Date Reviewed: 08/23/2023 Reviewed by: Cierra Lay MD, PhD - Fully Assessed Reason for Visit: Care Coordination [3491] Schedule Surgery [1330] Prescriptions as of 09/04/2023 - gabapentin (NEURONTIN) 300 mg capsule Take 2 capsules by mouth two times a day for 90 days. - nortriptyline (PAMELOR) 25 mg capsule Take 1 capsule by mouth daily at bedtime. - lidocaine (LIDODERM) 5 % Apply 1 Patch as directed once daily. - fexofenadine HCl (OVIDIO ALLERGY ORAL) Take 1 tablet by mouth once daily. - multivit-minerals/fol ic acid (MULTIVITAMIN GUMMIES ORAL) Take 1 Dose by mouth once daily. 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 Mass of hand, left [R22.32] 06/12/2017 Chronic tension-type headache, not intractable *11/01/2017 Radiculopathy, lumbar region [M54.16] 01/22/2019 Neurofibromatosis, 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 He has recently started following with Dr. Martinez for monitoring. 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 General Examination: BP 124/71 Pulse 78 Resp 18 Ht 188 cm (6' 2 ) Wt (!) 141.5 kg (311 lb 15.2 oz) BMI 40.05 kg/m? General: Awake, alert, interactive, no acute distress, good nutritional status, normal development, well-kept Extremities: Small cutaneous neurofibroma of the left anterolateral thigh Multiple small cutaneous neurofibromas of the left thenar eminence 1 small cutaneous neurofibroma of the right lateral 1st digit Neurological Exam Mental Status Alert, fully oriented, attentive, with normal cognition, memory, speech and affect. Cranial Nerves Extraocular movements normal. No nystagmus, no ptosis, and pupils equal. Face symmetrical. Tongue normal. Motor Examination and Coordination Motor examination with normal bulk, strength and tone. Sensation Tenderness to palpation over left thigh neurofibroma Gait Casual gait normal. 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 Diffuse enlargement and plexiform neurofibroma along the course of the sciatic nerve in the entire course in the thigh prominent proximally. Numerous neurofibromas scattered throughout the subcutaneous soft tissues, intermuscular planes and intramuscular throughout the left thigh with the largest superficial to the sartorius muscle and measuring 3.2 x 2.2 x 1.9 cm no muscle edema or atrophy. 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 Diffuse enlargement and plexiform neurofibroma along the course of the sciatic nerve in the entire course in the thigh prominent proximally. Numerous neurofibromas scattered throughout the subcutaneous soft tissues, intermuscular planes and intramuscular throughout the left thigh with the largest superficial to the sartorius muscle and measuring 3.2 x 2.2 x 1.9 cm no muscle edema or atrophy. 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 We discussed the procedure in detail. We reviewed the benefits, alternatives, and potential complications including bleeding, infection, damage to surrounding structures, neurological impairment, tumor recurrence, and the need for other surgeries and other procedures. All questions were answered. Informed consent was obtained. The patient does have multiple other lesions parenterally in the thenar eminence of the left hand as well as a single more prominent lesion in the right first digit. We discussed that he could potentially have these removed at the same time with Dr. Sebastien Gee. I reached out to Dr. Gee and he would like an MRI of the hands prior to surgery. I placed the orders for these so that the tumors can be evaluated and the patient and his family can meet him virtually. Encounter Diagnosis ICD-10-CM 1. 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 == Data Review Objective Current Outpatient Medications Medication Sig gabapent (more content not included)... Normal [facility] Good 08-08-2023 [facility] Telephone (SPNSMN) CHETHEATH ([id number]) 1995 M Date Time Provider Department 08/08/23 CIERRA LAY During your visit today, we recorded the following information about you: April Jauregui RN 08/08/2023 9:48 AM Signed Neuro SPINE CARE COORDINATION QUICK NOTE Referral from Dr. Martinez for Dr. Lay. Called and left VM message requesting call back. Please offer appointment on 08/22 at [address] Lay. April Jauregui READINESS PARAPROFESSIONAL Nurse Merchandising Internship [address] Velásquez 08/08/2023 1:53 PM Signed Pt accepts the 08/22 11am appt Schedulers-Please schedule for pt April Jauregui RN 08/08/2023 2:51 PM Signed Neuro SPINE CARE COORDINATION QUICK NOTE Noted. April Jauregui READINESS PARAPROFESSIONAL Nurse Merchandising Internship Allergies As of Date: 08/08/2023 Noted Allergy Reaction BACTRIM (SULFAMETHOXAZOLE-TRI METH*01/07/2009 PENICILLINS 06/25/2007 4 - Hives ZITHROMAX (AZITHROMYCIN) 06/25/2007 4 - Hives Date Reviewed: 08/02/2023 Reviewed by: Latonia Herrera MA - Fully Assessed Reason for Visit: Care Coordination [8901] Prescriptions as of 08/08/2023 - nortriptyline (PAMELOR) 25 mg capsule Take 1 capsule by mouth daily at bedtime. - lidocaine (LIDODERM) 5 % Apply 1 Patch as directed once daily. - fexofenadine HCl (OVIDIO ALLERGY ORAL) Take 1 tablet by mouth once daily. - multivit-minerals/fol ic acid (MULTIVITAMIN GUMMIES ORAL) Take 1 Dose by mouth once daily. - gabapentin (NEURONTIN) 300 mg capsule Take 2 capsules by mouth two times a day for 30 days. 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 Mass of hand, left [R22.32] 06/12/2017 Chronic tension-type headache, not intractable *11/01/2017 Radiculopathy, lumbar region [M54.16] 01/22/2019 Neurofibromatosis, type I (von Recklinghausen's*04/13 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 He originally presented with findings of congenital abnormalities and subtle dysmorphic features including excessive fat at the back of the neck, hypoglycemia, respiratory complications (apnea) and feeding problems. Before the first year of life he also was noted to have Cafe- au- lait spots on his abdomen, thighs, shoulder, neck and inguinal area. He also had bilateral epicanthal folds, hypertelorism, micrognathia, and crowded teeth. This prompted thorough genetic evaluation per Dr. Rosario (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 This was in spite of an indeterminate result from genetic testing. Dr. Rosario has continued to follow Heath and has noted a high arched palate, pectus excavatum, macrocephaly, and axillary freckling. An MRI in 08/2000 was negative for underlying intracranial process. He was evaluated in the [facility]'s NF1 clinic by Dr. Rodas (pediatric neurologist ) in 2007 at the age of [age] years old and was generally doing well without signs of focal neurological symptoms. Over the next several years, Heath had intermittent struggles with NF-1 related complications including increase in behavioral issues (tantrums, cursing, breaking things) that he followed with psychiatry for, several painful subcutaneous neurofibromas (three of which he had excised by plastic surgery team), and mild thoracic scoliosis with associated back pain (followed with ortho). MRI of his spine completed in 2012 demonstrated multiple neurofibromas which was thought to be a contributing factor to his chronic back pain as well. Throughout his course he had never been found to have plexiform neurofibromas, maintained a stable ophthalmology exam (negative for Lisch nodules, OPG), has had negative neuroimaging, and was without focal neurological concern. He also intermittently had cardiac monitoring (ECHO and EKG) that was unremarkable. Agiv-vv-uxue spots remained stable. His behavioral changes improved and he generally did well in school. In February of 2017, Heath developed an acute right-sided facial drooping, inability to close the right eye, slurred speech and right arm weakness. He was seen in the ED with imaging negative for stroke. 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 Following steroid administration (and applying eye patches/eye drops) he had a complete recovery from his Campovered's Palsy without visual or hearing loss and resolution of facial contour. Since 2018, Heath continued with progressive, persistent upper back pain. Both Heath and his parents report that it has interfered with his ability to work in the past and he can only be active for so long before he requires frequent breaks. He began following with physical therapy to help. Since then, Heath has somewhat adjusted to the pain and has been able to get a job working at [employer], though requires special accommodations to complete his work (4 hour shifts, breaks, etc.). He does report that this back pain exists daily, but will wax and wane in severity with it generally worsening with activity. 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 His Qzsu-bv-vbbz spots have remained stable. 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 Medical history: PAST MEDICAL HISTORY Diagnosis Date Headaches no aura Neurofibromatosis, type 1 (von Recklinghausen's disease) (HCC) Scoliosis Surgical history: PAST SURGICAL HISTORY Procedure Laterality Date HAND SURGERY HX Family History: FAMILY HISTORY Problem Relation Age of Onset Hypertension Mother Diabetes Mother Diabetes Maternal Grandmother Hypertension Maternal Grandmother Glaucoma Maternal Grandfather Diabetes Maternal Grandfather Hypertension Maternal Grandfather Heath was the first person in his family to test positive for NF-1 mutation and (per mother's repor (more content not included)... Normal [facility] 08-02-2023 [facility] Telephone ([facility] CHETHEATH ([id number]) 1995 M Date Time Provider Department 08/02/23 BRYCE MARTINEZ [facility] During your visit today, we recorded the following information about you: Shanda Barrios RN 08/02/2023 2:26 PM Signed Scheduling Request - Established Patient Time Frame: 10/14 Orders: MRI complete spine (C/T/L) Provider: LOBBOUS Visit type: Virtual Visit Diagnosis: NF1 Allergies As of Date: 08/02/2023 Noted Allergy Reaction BACTRIM (SULFAMETHOXAZOLE-TRI METH*01/07/2009 PENICILLINS 06/25/2007 4 - Hives ZITHROMAX (AZITHROMYCIN) 06/25/2007 4 - Hives Date Reviewed: 08/02/2023 Reviewed by: Latonia Herrera MA - Fully Assessed Reason for Visit: LUCIANA 11 weeks [Other] Prescriptions as of 08/23/2023 - iv contrast (will be provided with radiology test) MRI hand LT Inject, intravenously, once for 1 dose. No IV access, insert saline lock prior to the beginning of sedation, infusion, injection of imaging exam. Discontinue saline lock post exam. If Pt. has a central line or IVAD, may access for administration according to line specific nursing protocol. Once exam is complete flush line and de-access according to line specific nursing protocol in the MR contrast administration guidelines link. - iv contrast (will be provided with radiology test) MRI hand rt Inject, intravenously, once for 1 dose. No IV access, insert saline lock prior to the beginning of sedation, infusion, injection of imaging exam. Discontinue saline lock post exam. If Pt. has a central line or IVAD, may access for administration according to line specific nursing protocol. Once exam is complete flush line and de-access according to line specific nursing protocol in the MR contrast administration guidelines link. - gabapentin (NEURONTIN) 300 mg capsule Take 2 capsules by mouth two times a day for 90 days. - nortriptyline (PAMELOR) 25 mg capsule Take 1 capsule by mouth daily at bedtime. - lidocaine (LIDODERM) 5 % Apply 1 Patch as directed once daily. - fexofenadine HCl (OVIDIO ALLERGY ORAL) Take 1 tablet by mouth once daily. - multivit-minerals/fol ic acid (MULTIVITAMIN GUMMIES ORAL) Take 1 Dose by mouth once daily. 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] 03/19/2017 Mass of hand, left [R22.32] 06/12/2017 Chronic tension-type headache, not intractable *11/01/2017 Radiculopathy, lumbar region [M54.16] 01/22/2019 Neurofibromatosis, type I (von Recklinghausen's*04/13 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 MICHELE Peña Catherine, RN 06/29/2023 8:52 AM Signed Lidocaine patches DENIED as they are not approved for leg pain. Dacia Sanchez RN Allergies As of Date: 06/28/2023 Noted Allergy Reaction BACTRIM (SULFAMETHOXAZOLE-TRI METH*01/07/2009 PENICILLINS 06/25/2007 4 - Hives ZITHROMAX (AZITHROMYCIN) 06/25/2007 4 - Hives Date Reviewed: 06/27/2023 Reviewed by: Suzy Escoto LPN - Fully Assessed Reason for Visit: Insurance Authorization [[id number]] Cmt: Lidocaine patches DENIED Prescriptions as of 06/29/2023 - lidocaine (LIDODERM) 5 % Apply 1 Patch as directed once daily. - fexofenadine HCl (OVIDIO ALLERGY ORAL) Take 1 tablet by mouth once daily. - multivit-minerals/fol ic acid (MULTIVITAMIN GUMMIES ORAL) Take 1 Dose by mouth once daily. - gabapentin (NEURONTIN) 300 mg capsule Take 2 capsules by mouth two times a day for 30 days. 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] 03/19/2017 Mass of hand, left [R22.32] 06/12/2017 Chronic tension-type headache, not intractable *11/01/2017 Radiculopathy, lumbar region [M54.16] 01/22/2019 Neurofibromatosis, type I (von Recklinghausen's*04/13 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] 05/10/2023 Encounter Status:Closed by DACIA SANCHEZ on 06/29/23 [facility] CNOVlida 06-27-2023 CNOV Office Visit (PAINMN ) HEATH ROSENBERG ([id number]) 1995 M Date Time Provider Department 06/27/23 3:30 PM JESSENIA NATION PAINMN During your visit today, we recorded the following information about you: Temperature Pulse Respiration Blood pressure 98.2 degrees 62/minute 16/minute 139/70 Weight Height 145.2 kg 1.905 m Jessenia Nation MD 06/27/2023 3:40 PM Signed [facility] Pain Management Department Follow Up SUBJECTIVE: Heath Rosenberg is a 27 year old male with a past medical history of NF1 c/b multiple painful subcutaneous neurofibromas s/p excision by plastics and plexiform neurofibroma of left thigh who presents to [facility] Pain Management Department for a follow-up appointment for LLE pain. The plan at the last visit on 05/16/23 was the followin) Increase Gabapentin from 300mg bid to 600mg bid. Rx sent to pharmacy 2) RTC in 6 weeks. Since the last visit, Heath Rosenberg states the pain has been stable. No change in Left thigh pain since increasing alesia. Back pain mildly improved with this dose. Denies a/e from this medication. The patient complains of LLE pain. The pain started 4 mos ago without obvious inciting event; pain has been persistent. The pain is located in the left lateral thigh at the site of a small palpable mass and does radiate down LE below knee level. The pain is described as an achy, sharp pain. Currently, the pain is rated at 4/10, and it ranges from 3-9.5/10. The pain is exacerbated by standing (2 hours), applying pressure to painful area, laying on left side. The pain is mitigated by not touching area, sitting. The pain does not interfere with the patient's sleep at night. Denies LE weakness or issues with ambulation. 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 The patient denies difficulty with bowel or bladder control, unintentional weight loss, fevers, chills, or night sweats, arm or leg weakness, numbness or tingling, ever having cancer, pain being worse at night, trauma, major or minor, and drug use . Physical Therapy/Home Exercise: No Pain Medications: - Opioids: N - NSAIDs: N - Anti-Depressants: N - Anti-Convulsants: Alesia 600mg bid - Others: N Prior treatments: none OARRS report: Reviewed: The patient's OARRS report was reviewed and is consistent with the reported medication use. Pain medications reviewed: Yes Pain Procedures: none Imaging: none new since last visit Patient Entered Questionnaires PROMIS Score Percentiles 09/28/2021 06/20/2022 02/05/2023 PROMIS Global Health Scale Physical Health Percentile 4 10 15 Mental Health Percentile 5 34 34 03/20/2019 02/05/2023 Physical Health Physical Function Percentile 38 Pain Interference Percentile 38 Percentiles provide an indication of how the patient's score ranks in relation to the general population. Higher percentile rankings indicate better function/quality of life. 50th percentile is the average of the general population and indicates half of respondents had a worse score. > 31st percentile is within normal limits or better * < 31st percentile is at least ? 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, type 1 (von Recklinghausen's disease) (HCC) Scoliosis Past Surgical History: PAST SURGICAL HISTORY Procedure Laterality Date HAND SURGERY HX Family History: FAMILY HISTORY Problem Relation Age of Onset Hypertension Mother Diabetes Mother Diabetes Maternal Grandmother Hypertension Maternal Grandmother Glaucoma Maternal Grandfather Diabetes Maternal Grandfather Hypertension Maternal Grandfather Social History: Social History Tobacco Use Smoking status: Never Smokeless tobacco: Never Vaping Use Vaping Use: Never used Substance Use Topics Alcohol use: No Drug use: No OBJECTIVE: BP 139/70 Pulse 62 Temp (Src) 98.2 (Temporal Artery) Resp 16 Ht 6' 3 (1.91m) Wt 320 lb (145.2kg) SpO2 98% BMI 40.00 kg/(m2). PHYSICAL EXAMINATION: General appearance: Well appearing, in no acute distress, alert. Psych: Mood and affect appropriate. Skin: Skin color, texture, turgor normal, no rashes or lesions. Head/face: Normocephalic, atraumatic. Cor: Regular rate and rhythm, bilateral radial pulses palpated and equal Pulm: Non-labored on room air GI: Soft and non-tender. Back: Straight leg raising in the sitting position is negative to radicular pain. Mild diffuse TTP along lumbar musc. Normal range of motion without pain reproduction. Extremities: TTP along left lateral thigh at location of small mass (~2-3 cm). Left GTB not TTP. Peripheral joint ROM is full and pain free without obvious instabili (more content not included)... Normal [facility] CNOVon 05-16-2023 CNOV Office Visit (PAINMN ) HEATH ROSENBERG ([id number]) 1995 M Date Time Provider Department 05/16/23 1:30 PM JESSENIA NATION PAINMN During your visit today, we recorded the following information about you: Temperature Pulse Respiration Blood pressure 98.6 degrees 69/minute 15/minute 132/68 Weight Height 147.4 kg 1.905 m Jessenia Nation MD 05/16/2023 2:46 PM Signed [facility] Pain Management Department New Patient Consultation Referring Physician: Kaycee Roche [address] [facility] [id number] Chief Complaint: LLE pain SUBJECTIVE: Heath Rosenberg is a 27 year old male with a past medical history of NF1 c/b multiple painful subcutaneous neurofibromas s/p excisoin by plastics and plexiform neurofibroma of left thigh who presents to [facility]'s Pain Management Center for the evaluation of LLE pain. The patient complains of LLE pain. The pain started 4 mos ago without obvious inciting event; pain has been persistent. The pain is located in the left lateral thigh and does radiate down LE below knee level. The pain is described as an intermittent achy, sharp pain. Currently, the pain is rated at 0/10, and it ranges from 0-9/10. The pain is exacerbated by standing (2 hours), applying pressure to painful area, laying on left side. The pain is mitigated by not touching area, sitting. The pain does not interfere with the patient's sleep at night. Denies LE weakness or issues with ambulation. He is followed by Peds Heme/Onc (Kev BEST) last seen on 05/04/23 with the following a/p: -Discussed MEK inhibitors (Trametinib, Binemetinib, vs. Selumetinib), side effect profiles, and indications to begin treatment. -Referral placed to Medical Genetics to address NF-1 mutation as it pertains to future family planning. -Referral placed to Pain Management team in order to titrate up his gabapentin dose, discuss other options for his chronic pain. As he will more then likely be following with several different providers, parents and Heath were hopeful to have pain addressed by one unified team. 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 The patient denies difficulty with bowel or bladder control, unintentional weight loss, fevers, chills, or night sweats, arm or leg weakness, numbness or tingling, ever having cancer, pain being worse at night, trauma, major or minor, and drug use . Physical Therapy/Home Exercise: No Pain Medications: - Opioids: N - NSAIDs: N - Anti-Depressants: N - Anti-Convulsants: Alesia 300mg bid - Others: N Prior treatments: none OARRS report: Reviewed: The patient's OARRS report was reviewed and is consistent with the reported medication use. 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 Diffuse enlargement and plexiform neurofibroma along the course of the sciatic nerve in the entire course in the thigh prominent proximally. Numerous neurofibromas scattered throughout the subcutaneous soft tissues, intermuscular planes and intramuscular throughout the left thigh with the largest superficial to the sartorius muscle and measuring 3.2 x 2.2 x 1.9 cm no muscle edema or atrophy. Visualized femur is intact. 08/10/21 MRI lum: MRI LUMBAR SPINE: Acute abnormality: None. Congenital canal narrowing with superimposed disc degeneration with decreased disc height and signal with annular tears and posterior bulges effacing ventral and dorsal CSF causing spinal cord impingement throughout the cervical spine but without any myelomalacia or cord edema or cord compression. No intracanal lesions are identified. No intramedullary lesions are identified. Stable alignment, vertebral height, marrow signal, thecal sac, spinal cord signal/caliber AND posterior fossa. No evidence for any fracture or dislocation or subluxation. Normal remaining soft tissues. L1 -- 2: Congenital canal narrowing but with patent canal. Nerve sheath tumors remain stable. L2 -- 3: Congenital canal narrowing but with patent canal. Nerve sheath tumors remain stable. L3 -- 4: Congenital canal narrowing with superimposed disc degeneration with decreased disc height/signal with central annular tear and broad-based protrusion causing moderate to significant canal narrowing which remain stable from prior examination with impingement of the thecal sac and cauda equina. Patent bilateral neural foramina which is expanded related to nerve sheath tumors. L4 -- 5: Congenital canal narrowing but with patent canal. Nerve sheath tumors remain stable. L5 -- S1: Congenital canal narrowing but with patent canal. Nerve sheath tumors remain stable. Patient Entered Questionnaires (more content not included)... Normal [facility] CNOVSPon 05-04-2023 CNOVSP Visit (SP) Office (PEDCMN) HEATH ROSENBERG ([id number]) 1995 M Date Time Provider Department 05/04/23 11:00 AM ARNOL CLOUD During your visit today, we recorded the following information about you: Temperature Pulse Respiration Blood pressure 97.4 degrees 52/minute 18/minute 127/68 Weight Height 148.8 kg 1.867 m Arnol Cloud MD 05/10/2023 8:01 AM Signed [facility] [address] [place] [address] SERVICE DATE: 05/04/2023 Tesfaye Villareal MD, [address] [facility] [address] Dear Colleagues We had the pleasure of meeting Heath Rosenberg and his parents in [facility]'s Pediatric Neurooncology Clinic for evaluation, counseling and management of Neurofibromatosis type I (NF1) related tumors. As you know, Heath is a 27 year old male who was found to have NF-1. He was seen by us in clinic today for consultation regarding his NF-1 and has we have completed a comprehensive evaluation, reviewed laboratory and imaging, discussed management strategies, and provided education regarding diagnosis. 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 He originally presented with findings of congenital abnormalities and subtle dysmorphic features including excessive fat at the back of the neck, hypoglycemia, respiratory complications (apnea) and feeding problems. Before the first year of life he also was noted to have Cafe- au- lait spots on his abdomen, thighs, shoulder, neck and inguinal area. He also had bilateral epicanthal folds, hypertelorism, micrognathia, and crowded teeth. This prompted thorough genetic evaluation per Dr. Rosario (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 This was in spite of an indeterminate result from genetic testing. Dr. Rosario has continued to follow Heath and has noted a high arched palate, pectus excavatum, macrocephaly, and axillary freckling. An MRI in 08/2000 was negative for underlying intracranial process. He was evaluated in the [facility]'s NF1 clinic by Dr. Rodas (pediatric neurologist ) in 2007 at the age of [age] years old and was generally doing well without signs of focal neurological symptoms. Over the next several years, Heath had intermittent struggles with NF-1 related complications including increase in behavioral issues (tantrums, cursing, breaking things) that he followed with psychiatry for, several painful subcutaneous neurofibromas (three of which he had excised by plastic surgery team), and mild thoracic scoliosis with associated back pain (followed with ortho). MRI of his spine completed in 2012 demonstrated multiple neurofibromas which was thought to be a contributing factor to his chronic back pain as well. Throughout his course he had never been found to have plexiform neurofibromas, maintained a stable ophthalmology exam (negative for Lisch nodules, OPG), has had negative neuroimaging, and was without focal neurological concern. He also intermittently had cardiac monitoring (ECHO and EKG) that was unremarkable. Xhfe-bf-[id number] spots remained stable. His behavioral changes improved and he generally did well in school. In February of 2017, Heath developed an acute right-sided facial drooping, inability to close the right eye, slurred speech and right arm weakness. He was seen in the ED with imaging negative for stroke. 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 Following steroid administration (and applying eye patches/eye drops) he had a complete recovery from his Campoverde's Palsy without visual or hearing loss and resolution of facial contour. Since 2018, Heath continued with progressive, persistent upper back pain. Both Heath and his parents report that it has interfered with his ability to work in the past and he can only be active for so long before he requires frequent breaks. He began following with physical therapy to help. Since then, Heath has somewhat adjusted to the pain and has been able to get a job working at [employer], though requires special accommodations to complete his work (4 hour shifts, breaks, etc.). He does report that this back pain exists daily, but will wax and wane in severity with it generally worsening with activity. He has mild, intermittent headaches but is without any other focal neurological concern. 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 His Rvly-mp-zyfp spots have remained stable. 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 Normal [facility] Good [facility]23[facility]20[facility] HEATH ROSENBERG ([id number]) 1995 Date Time Provider Department 04/23/23 KIARA HOOD [facility] During your visit today, we recorded the following information about you: Kiara Hood PSS 04/23/2023 7:58 AM Signed Request Summary [[id number]] Procedure: CONSULT TO NEUROLOGY Status: Needs Scheduling (Nlpt-bp-Wceaekb Pending) Requested appt date: Authorizing: Cierra Fitzgerald APRN.CNP [facility] Referral: [id number] (Authorized) Expires: 04/19/2024 Priority: Routine Diagnosis: Neurofibroma [D36.10] Referred-to Information Referred-to Provider: BRYCE MARTINEZ [[id number]] Order Specific Questions Center for Consult Brain Tumor and Neuro - Oncology Center Does consulting provider have [facility] Epic access? Yes. Referred to Provider has access to [facility] EMR Reason For Visit Irma Hu APRN.CNP 04/23/2023 1:21 PM Signed Time Frame: Next available Provider: Dr. Arnol Cloud Referring: Cierra Fitzgerald CNP Dx: Mayi Garcia 05/17/2023 2:20 PM Signed Scheduled. 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 - multivit-minerals/fol ic acid (MULTIVITAMIN GUMMIES ORAL) Take 1 Dose by mouth once daily. - gabapentin (NEURONTIN) 300 mg capsule Take 2 capsules by mouth two times a day for 30 days. 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] 06/27/2007 SLEEP DISTURBANCES NEC [G47.8] 06/27/2007 EXPLOSIVE PERSONALITY [F60.3] 06/27/2007 Anger [R45.4] 10/02/2010 Learning disability [F81.9] 10/08/2011 Backache [M54.9] 11/14/2012 Lumbago [M54.50] 12/03/2012 Disc herniation [[id number]] 12/03/2012 Neurofibroma [D36.10] 11/27/2016 Obesity, Class III, BMI >= 40 (morbid obesity) *12/28/2016 Campoverde's palsy [G51.0] 03/19/2017 Mass of hand, left [R22.32] 06/12/2017 Chronic tension-type headache, not intractable *11/01/2017 Radiculopathy, lumbar region [M54.16] 01/22/2019 Encounter Status:Closed by KIARA HOOD on 04/23/23 [facility] CNPNon 04-17-2023 [facility] HEATH ROSENBERG ([id number]) 1995 M Date Time Provider Department 04/17/23 STEPHANY FELDMAN [facility] During your visit today, we recorded the following information about you: Stephany Feldman MD 04/17/2023 3:56 PM Signed Neurology Discussed MRI results with patient's mother Jayde Puri. Referred to Cierra Lay MD peripheral neurosurgeon for surgical opinion regarding plexiform neurofibroma left sciatic nerve. 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] 06/27/2007 SLEEP DISTURBANCES NEC [G47.8] 06/27/2007 EXPLOSIVE PERSONALITY [F60.3] 06/27/2007 Anger [R45.4] 10/02/2010 Learning disability [F81.9] 10/08/2011 Backache [M54.9] 11/14/2012 Lumbago [M54.50] 12/03/2012 Disc herniation [[id number]] 12/03/2012 Neurofibroma [D36.10] 11/27/2016 Obesity, Class III, BMI >= 40 (morbid obesity) *12/28/2016 Campoverde's palsy [G51.0] 03/19/2017 Mass of hand, left [R22.32] 06/12/2017 Chronic tension-type headache, not intractable *11/01/2017 Radiculopathy, lumbar region [M54.16] 01/22/2019 Encounter Status:Closed by STEPHANY FELDMAN on 04/17/23 Normal [facility] MR Thigh - left WO and W con trast Kassy 04-17-2023 IMPRESSION: 1. Neurofibromatosis 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: EUGENIA Transcribe Date/Time: Apr 17 2023 8:55A Dictated by : SUSANNA FUENTES MD This examination was interpreted and the report reviewed and electronically signed by: SUSANNA FUENTES MD on Apr 17 2023 9:06AM [facility] DIVISION OF RADIOLOGY * * *Final Report* * * DATE OF EXAM: Apr 16 2023 4:41PM [facility] 0261 - MRI UPPER LEG WO/W IVCON LT / PROCEDURE REASON: Mass of left thigh * * * * Physician Interpretation * * * * MRI of the left thigh HISTORY: Mass TECHNIQUE: Routine study of the left thigh prior to and following intravenous administration of 20 mL of Dotarem contrast COMPARISON: None available FINDINGS: Plexiform neurofibroma along the course of the lumbosacral plexus and extending into the proximal sciatic notch measuring approximately 11 x 9 x 3.6 cm. Diffuse enlargement and plexiform neurofibroma along the course of the sciatic nerve in the entire course in the thigh prominent proximally. Numerous neurofibromas scattered throughout the subcutaneous soft tissues, intermuscular planes and intramuscular throughout the left thigh with the largest superficial to the sartorius muscle and measuring 3.2 x 2.2 x 1.9 cm no muscle edema or atrophy. Visualized femur is intact. DIVISION OF RADIOLOGY Provider, Celestine Coe [facility] - 04/17/2023 * * *Final Report* * * DATE OF EXAM: Apr 16 2023 4:41PM [address] 0261 - MRI UPPER LEG WO/W IVCON LT / PROCEDURE REASON: Mass of left thigh * * * * Physician Interpretation * * * * MRI of the left thigh HISTORY: Mass TECHNIQUE: Routine study of the left thigh prior to and following intravenous administration of 20 mL of Dotarem contrast COMPARISON: None available FINDINGS: Plexiform neurofibroma along the course of the lumbosacral plexus and extending into the proximal sciatic notch measuring approximately 11 x 9 x 3.6 cm. Diffuse enlargement and plexiform neurofibroma along the course of the sciatic nerve in the entire course in the thigh prominent proximally. Numerous neurofibromas scattered throughout the subcutaneous soft tissues, intermuscular planes and intramuscular throughout the left thigh with the largest superficial to the sartorius muscle and measuring 3.2 x 2.2 x 1.9 cm no muscle edema or atrophy. Visualized femur is intact. IMPRESSION IMPRESSION: 1. Neurofibromatosis 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: PSCB Transcribe Date/Time: Apr 17 2023 8:55A Dictated by : SUSANNA FUENTES MD This examination was interpreted and the report reviewed and electronically signed by: SUSANNA FUENTES MD on Apr 17 2023 9:06AM EST [facility] MR Thigh - left WO and W con trast IVOrdered By: [facility] Provider on 04-17-2023 [facility] MR Thigh - left WO and W con trast Kassy 04-16-2023 Radiology Study observation (narrative) [facility] MRI UPPER LEG WO/W IVCON LTo n 04-16-2023 MRI UPPER LEG WO/W IVCON LT * * *Final Report* * * DATE OF EXAM: Apr 16 2023 4:41PM [facility] 0261 - MRI UPPER LEG WO/W IVCON LT / PROCEDURE REASON: Mass of left thigh * * * * Physician Interpretation * * * * MRI of the left thigh HISTORY: Mass TECHNIQUE: Routine study of the left thigh prior to and following intravenous administration of 20 mL of Dotarem contrast COMPARISON: None available FINDINGS: Plexiform neurofibroma along the course of the lumbosacral plexus and extending into the proximal sciatic notch measuring approximately 11 x 9 x 3.6 cm. Diffuse enlargement and plexiform neurofibroma along the course of the sciatic nerve in the entire course in the thigh prominent proximally. Numerous neurofibromas scattered throughout the subcutaneous soft tissues, intermuscular planes and intramuscular throughout the left thigh with the largest superficial to the sartorius muscle and measuring 3.2 x 2.2 x 1.9 cm no muscle edema or atrophy. Visualized femur is intact. IMPRESSION: 1. Neurofibromatosis 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: EUGENIA Transcribe Date/Time: Apr 17 2023 8:55A Dictated by : SUSANNA FUENTES MD This examination was interpreted and the report reviewed and electronically signed by: SUSANNA FUENTES MD on Apr 17 2023 9:06AM EST [id number] Normal [facility] 01-03-2023 L - -------- Specimen: [id number] Received: 01/04/23 Status: GONZALO Madsen Num: [id number] Spec Type: Surgical Subm Dr: Vdial Auguste Tissues: A Lipoma (RT THIGH LIPOMA) Procedures: HE, Gross/Micro L3 -------- Age/ Patient Sex Location Account Attending Physician -------- Heath Rosenberg / PA [id number] NON STAFF -------- SPEC NUM: [id number] RECD: 01/04/23 STATUS: GONZALO MADSEN NUM: [id number] IVONE: 01/03/23 DR: Vidal Auguste ENTERED: 01/04/[address]: Joselito Szymanski [facility] SPEC TYPE: Surgical DEPT: S ORDERED: HE, Gross/Micro L3 ORDERED: HE, Gross/Micro L3 Pathological Diagnosis Soft tissue, right thigh, excision: - Large lobulated fragments of marked proliferations of hypertrophic adipocytes with patchy intervening trabecular fibrosis in at least 1 fragment, 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 The cut surface of each is yellow-lucas, lobular with focal lucas-white fibrous tissue. Perinatal Director sections are submitted in one cassette labeled A1. Microscopic Description One H E slide reviewed. The microscopic examination confirms the diagnosis. -------- Specimen: [id number] Received: 01/04/23 Status: GONZALO Madsen Num: [id number] Spec Type: Surgical Subm Dr: Vidal Auguste Tissues: A Lipoma (RT THIGH LIPOMA) Procedures: JALIL, Letty/Micro L3 -------- Patient: Heath Rosenberg [id number] (Continued) -------- Specimen: [id number] Received: 01/04/23 (Continued) Signed (signature on file) Tan Martínez MD 01/05/23 1853 -------- Specimen: [id number] Received: 01/04/23 Status: GONZALO Madsen Num: [id number] Spec Type: Surgical Subm Dr: Vidal Auguste Tissues: A Lipoma (RT THIGH LIPOMA) Procedures: JALIL, Gross/Micro L3 -------- Patient: Heath Rosenberg [id number] (Continued) -------- Specimen: [id number] Received: 01/04/23 (Continued) CPT Codes 69995 -------- -------- Specimen: [id number] Received: 01/04/23 Status: GONZALO Madsen Num: [id number] Spec Type: Surgical Subm Dr: Vidal Auguste Tissues: A Lipoma (RT THIGH LIPOMA) Procedures: HE, Gross/Micro L3 -------- Patient: Heath Rosenberg Audrey [id number] (Continued) -------- Signed (signature on file) Tan Martínez MD 01/05/231852 [facility] SURGICAL PATHOLOGYon 023 Case Report Surgical Pathology Report Case: [id number] Authorizing Provider: Alex Bowen MD Collected: 06/21/2022 03:01 PM Ordering Location: Plastic Surgery Received: 06/21/2022 03:53 PM Pathologist: Sylvester Adkins MD Specimen: SKIN EXCISION, Left chest [facility] Clinical History r/o dermatofibroma [facility] FINAL DIAGNOSIS A. Skin, left chest, excision: - Schwannoma. SDB/mm/06/22/2022 [facility] Gross Description A. SKIN EXCISION Received in formalin labeled skin excision, left chest is an irregular excision rubbery tissue measuring 2 x 1.1 x 0.3 cm. The tissue is partially surfaced by a lucas unremarkable skin ellipse measuring 1 x 0.6 x 0.2 cm. The cut surfaces are white-saldana and whirled. Bisected and entirely submitted in cassette A1. TROY June 22, 2022 9:31 AM Gross examination performed at [facility], [address] [place] [id number] [facility] Performing Lab Diagnostic interpretation performed at [facility], [address], [place] [address] CLIA# [id number] Stand Up Comedian: Cornelio Hensley M.D. [facility] MR Cervical spine WO and Ezekiel keyes ontrast Kassy 08-10-2021 * * *Final Report* * * DATE OF EXAM: Aug 10 2021 2:45PM [facility] 0298 - MRI CERVICAL SPINE WO/W IVCON / PROCEDURE REASON: Intradural-extramedul ritika spinal cord neoplasms * * * * Physician Interpretation * * * * COMPARISON: 11/27/2018. HISTORY: Intradural-extramedul ritika spinal cord neoplasms. TECHNIQUE: MRI cervical/thoracic/lum bar spine without and with contrast. 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 None of these are identified within the spinal cord in all of these are identified within the neural foramen and within the paraspinal region. These encroach within the central canal especially within the cervical region but without causing any cord compression related to the nerve sheath tumors although there is spinal cord impingement throughout which is related to congenital canal narrowing that within these tumors. None of these enhance significantly on contrast administration and remains stable. MRI CERVICAL SPINE: Acute abnormality: None. Congenital canal narrowing with superimposed disc degeneration with decreased disc height and signal with annular tears and posterior bulges effacing ventral and dorsal CSF causing spinal cord impingement throughout the cervical spine but without any myelomalacia or cord edema or cord compression. No intracanal lesions are identified. No intramedullary lesions are identified. Stable alignment, vertebral height, marrow signal, thecal sac, spinal cord signal/caliber & posterior fossa. No evidence for any fracture or dislocation or subluxation. Normal remaining soft tissues. C2 -- 3: Congenital canal narrowing with superimposed disc/joint degeneration. Spinal cord encroachment without compression. Patent bilateral neural foramina expanded due to nerve sheath tumors which remain relatively stable from prior examination. C3 -- 4: Congenital canal narrowing with superimposed disc/joint degeneration. Spinal cord encroachment without compression. Patent bilateral neural foramina expanded due to nerve sheath tumors which remain relatively stable from prior examination. C4 -- 5: Congenital canal narrowing with superimposed disc/joint degeneration. Spinal cord encroachment without compression. Patent bilateral neural foramina expanded due to nerve sheath tumors which remain relatively stable from prior examination. C5 -- 6: This is by far the worst level. Congenital canal narrowing with superimposed disc/joint degeneration. Central annular tear with superimposed protrusion flattening the spinal cord and causing spinal cord impingement but without myelomalacia or cord edema. Patent bilateral neural foramina expanded due to nerve sheath tumors which remain relatively stable from prior exam. C6 -- 7: Congenital canal narrowing with superimposed disc/joint degeneration. Spinal cord encroachment without compression. Patent bilateral neural foramina expanded due to nerve sheath tumors which remain relatively stable from prior examination. C7 -- T1: Congenital canal narrowing with superimposed disc/joint degeneration. Spinal cord encroachment without compression. Patent bilateral neural foramina expanded due to nerve sheath tumors which remain relatively stable from prior examination. MRI THORACIC SPINE: Acute abnormality: None. Congenital canal narrowing encroaching central canal but without any spinal cord impingement or compression. Intervertebral disks are normal in their height and signal intensity. Normal alignment, vertebral height, marrow signal, thecal sac and spinal cord signal/caliber. No fracture/dislocation. T1 -- 2: Patent central canal. Patent bilateral neural foramina. T2 -- 3: Patent central canal. Patent bilateral neural foramina. T3 -- 4: Patent central canal. Patent bilateral neural foramina. T4 -- 5: Patent central canal. Patent bilateral neural foramina. T5 -- 6: Patent central canal. Patent bilateral neural foramina. T6 -- 7: Patent central canal. Patent bilateral neural foramina. T7 -- 8: Patent central canal. Patent bilateral neural foramina. T8 -- 9: Patent central canal. Patent bilateral neural foramina. T9 -- 10: Patent central canal. Patent bilateral neural foramina. T10 -- 11: Patent central canal. Patent bilateral neural foramina. T11 -- 12: Patent central canal. Patent bilateral neural foramina. T12 -- L1: Patent central canal. Patent bila (more content not included)... 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 HISTORY: Intradural-extramedul ritika spinal cord neoplasms. TECHNIQUE: MRI cervical/thoracic/lum bar spine without and with contrast. 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 None of these are identified within the spinal cord in all of these are identified within the neural foramen and within the paraspinal region. These encroach within the central canal especially within the cervical region but without causing any cord compression related to the nerve sheath tumors although there is spinal cord impingement throughout which is related to congenital canal narrowing that within these tumors. None of these enhance significantly on contrast administration and remains stable. MRI CERVICAL SPINE: Acute abnormality: None. Congenital canal narrowing with superimposed disc degeneration with decreased disc height and signal with annular tears and posterior bulges effacing ventral and dorsal CSF causing spinal cord impingement throughout the cervical spine but without any myelomalacia or cord edema or cord compression. No intracanal lesions are identified. No intramedullary lesions are identified. Stable alignment, vertebral height, marrow signal, thecal sac, spinal cord signal/caliber & posterior fossa. No evidence for any fracture or dislocation or subluxation. Normal remaining soft tissues. C2 -- 3: Congenital canal narrowing with superimposed disc/joint degeneration. Spinal cord encroachment without compression. Patent bilateral neural foramina expanded due to nerve sheath tumors which remain relatively stable from prior examination. C3 -- 4: Congenital canal narrowing with superimposed disc/joint degeneration. Spinal cord encroachment without compression. Patent bilateral neural foramina expanded due to nerve sheath tumors which remain relatively stable from prior examination. C4 -- 5: Congenital canal narrowing with superimposed disc/joint degeneration. Spinal cord encroachment without compression. Patent bilateral neural foramina expanded due to nerve sheath tumors which remain relatively stable from prior examination. C5 -- 6: This is by far the worst level. Congenital canal narrowing with superimposed disc/joint degeneration. Central annular tear with superimposed protrusion flattening the spinal cord and causing spinal cord impingement but without myelomalacia or cord edema. Patent bilateral neural foramina expanded due to nerve sheath tumors which remain relatively stable from prior exam. C6 -- 7: Congenital canal narrowing with superimposed disc/joint degeneration. Spinal cord encroachment without compression. Patent bilateral neural foramina expanded due to nerve sheath tumors which remain relatively stable from prior examination. C7 -- T1: Congenital canal narrowing with superimposed disc/joint degeneration. Spinal cord encroachment without compression. Patent bilateral neural foramina expanded due to nerve sheath tumors which remain relatively stable from prior examination. MRI THORACIC SPINE: Acute abnormality: None. Congenital canal narrowing encroaching central canal but without any spinal cord impingement or compression. Intervertebral disks are normal in their height and signal intensity. Normal alignment, vertebral height, marrow signal, thecal sac and spinal cord signal/caliber. No fracture/dislocation. T1 -- 2: Patent central canal. Patent bilateral neural foramina. T2 -- 3: Patent central canal. Patent bilateral neural foramina. T3 -- 4: Patent central canal. Patent bilateral neural foramina. T4 -- 5: Patent central canal. Patent bilateral neural foramina. T5 -- 6: Patent central canal. Patent bilateral neural foramina. T6 -- 7: Patent central canal. Patent bilateral neural foramina. T7 -- 8: Patent central canal. Patent bilateral neural foramina. T8 -- 9: Patent central canal. Patent bilateral neural foramina. T9 -- 10: Patent central canal. Patent bilateral neural foramina. T10 -- 11: Patent central canal. Patent bilateral neural foramina. T11 -- 12: Patent central canal. Patent bilateral neural foramina. T12 -- L1: Patent c (more content not included)... 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 HISTORY: Intradural-extramedul ritika spinal cord neoplasms. TECHNIQUE: MRI cervical/thoracic/lum bar spine without and with contrast. 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 None of these are identified within the spinal cord in all of these are identified within the neural foramen and within the paraspinal region. These encroach within the central canal especially within the cervical region but without causing any cord compression related to the nerve sheath tumors although there is spinal cord impingement throughout which is related to congenital canal narrowing that within these tumors. None of these enhance significantly on contrast administration and remains stable. MRI CERVICAL SPINE: Acute abnormality: None. Congenital canal narrowing with superimposed disc degeneration with decreased disc height and signal with annular tears and posterior bulges effacing ventral and dorsal CSF causing spinal cord impingement throughout the cervical spine but without any myelomalacia or cord edema or cord compression. No intracanal lesions are identified. No intramedullary lesions are identified. Stable alignment, vertebral height, marrow signal, thecal sac, spinal cord signal/caliber & posterior fossa. No evidence for any fracture or dislocation or subluxation. Normal remaining soft tissues. C2 -- 3: Congenital canal narrowing with superimposed disc/joint degeneration. Spinal cord encroachment without compression. Patent bilateral neural foramina expanded due to nerve sheath tumors which remain relatively stable from prior examination. C3 -- 4: Congenital canal narrowing with superimposed disc/joint degeneration. Spinal cord encroachment without compression. Patent bilateral neural foramina expanded due to nerve sheath tumors which remain relatively stable from prior examination. C4 -- 5: Congenital canal narrowing with superimposed disc/joint degeneration. Spinal cord encroachment without compression. Patent bilateral neural foramina expanded due to nerve sheath tumors which remain relatively stable from prior examination. C5 -- 6: This is by far the worst level. Congenital canal narrowing with superimposed disc/joint degeneration. Central annular tear with superimposed protrusion flattening the spinal cord and causing spinal cord impingement but without myelomalacia or cord edema. Patent bilateral neural foramina expanded due to nerve sheath tumors which remain relatively stable from prior exam. C6 -- 7: Congenital canal narrowing with superimposed disc/joint degeneration. Spinal cord encroachment without compression. Patent bilateral neural foramina expanded due to nerve sheath tumors which remain relatively stable from prior examination. C7 -- T1: Congenital canal narrowing with superimposed disc/joint degeneration. Spinal cord encroachment without compression. Patent bilateral neural foramina expanded due to nerve sheath tumors which remain relatively stable from prior examination. MRI THORACIC SPINE: Acute abnormality: None. Congenital canal narrowing encroaching central canal but without any spinal cord impingement or compression. Intervertebral disks are normal in their height and signal intensity. Normal alignment, vertebral height, marrow signal, thecal sac and spinal cord signal/caliber. No fracture/dislocation. T1 -- 2: Patent central canal. Patent bilateral neural foramina. T2 -- 3: Patent central canal. Patent bilateral neural foramina. T3 -- 4: Patent central canal. Patent bilateral neural foramina. T4 -- 5: Patent central canal. Patent bilateral neural foramina. T5 -- 6: Patent central canal. Patent bilateral neural foramina. T6 -- 7: Patent central canal. Patent bilateral neural foramina. T7 -- 8: Patent central canal. Patent bilateral neural foramina. T8 -- 9: Patent central canal. Patent bilateral neural foramina. T9 -- 10: Patent central canal. Patent bilateral neural foramina. T10 -- 11: Patent central canal. Patent bilateral neural foramina. T11 -- 12: Patent central canal. Patent bilateral neural foramina. T12 -- L1: Patent central canal. Patent bilate (more content not included)... [email or web address]_USE _DIVISION OF RADIOLOGY Provider, 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 HISTORY: Intradural-extramedul ritika spinal cord neoplasms. TECHNIQUE: MRI cervical/thoracic/lum bar spine without and with contrast. 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 None of these are identified within the spinal cord in all of these are identified within the neural foramen and within the paraspinal region. These encroach within the central canal especially within the cervical region but without causing any cord compression related to the nerve sheath tumors although there is spinal cord impingement throughout which is related to congenital canal narrowing that within these tumors. None of these enhance significantly on contrast administration and remains stable. MRI CERVICAL SPINE: Acute abnormality: None. Congenital canal narrowing with superimposed disc degeneration with decreased disc height and signal with annular tears and posterior bulges effacing ventral and dorsal CSF causing spinal cord impingement throughout the cervical spine but without any myelomalacia or cord edema or cord compression. No intracanal lesions are identified. No intramedullary lesions are identified. Stable alignment, vertebral height, marrow signal, thecal sac, spinal cord signal/caliber & posterior fossa. No evidence for any fracture or dislocation or subluxation. Normal remaining soft tissues. C2 -- 3: Congenital canal narrowing with superimposed disc/joint degeneration. Spinal cord encroachment without compression. Patent bilateral neural foramina expanded due to nerve sheath tumors which remain relatively stable from prior examination. C3 -- 4: Congenital canal narrowing with superimposed disc/joint degeneration. Spinal cord encroachment without compression. Patent bilateral neural foramina expanded due to nerve sheath tumors which remain relatively stable from prior examination. C4 -- 5: Congenital canal narrowing with superimposed disc/joint degeneration. Spinal cord encroachment without compression. Patent bilateral neural foramina expanded due to nerve sheath tumors which remain relatively stable from prior examination. C5 -- 6: This is by far the worst level. Congenital canal narrowing with superimposed disc/joint degeneration. Central annular tear with superimposed protrusion flattening the spinal cord and causing spinal cord impingement but without myelomalacia or cord edema. Patent bilateral neural foramina expanded due to nerve sheath tumors which remain relatively stable from prior exam. C6 -- 7: Congenital canal narrowing with superimposed disc/joint degeneration. Spinal cord encroachment without compression. Patent bilateral neural foramina expanded due to nerve sheath tumors which remain relatively stable from prior examination. C7 -- T1: Congenital canal narrowing with superimposed disc/joint degeneration. Spinal cord encroachment without compression. Patent bilateral neural foramina expanded due to nerve sheath tumors which remain relatively stable from prior examination. MRI THORACIC SPINE: Acute abnormality: None. Congenital canal narrowing encroaching central canal but without any spinal cord impingement or compression. Intervertebral disks are normal in their height and signal intensity. Normal alignment, vertebral height, marrow signal, thecal sac and spinal cord signal/caliber. No fracture/dislocation. T1 -- 2: Patent central canal. Patent bilateral neural foramina. T2 -- 3: Patent central canal. Patent bilateral neural foramina. T3 -- 4: Patent central canal. Patent bilateral neural foramina. T4 -- 5: Patent central canal. Patent bilateral neural foramina. T5 -- 6: Patent central canal. Patent bilateral neural foramina. T6 -- 7: Patent central canal. Patent bilateral neural foramina. T7 -- 8: Patent central canal. Patent bilateral neural foramina. T8 -- 9: Patent central canal. Patent bilateral neural foramina. T9 -- 10: Patent central canal. Patent bilateral neural foramina. T10 -- 11: Patent central canal. Patent bilateral neural foramina. T11 -- 12: Patent central canal. Patent bilateral neural foramina. T12 -- L1: Patent [place] (more content not included)... [facility] MR Thoracic spine Gage keyes ontrast Kassy 08-10-2021 * * *Final Report* * * DATE OF EXAM: Aug 10 2021 2:48PM [facility] 0326 - MRI THORACIC SPINE WO/W IVCON / PROCEDURE REASON: Benign neoplasm of brain, unspecified brain region (HCC) * * * * Physician Interpretation * * * * COMPARISON: 11/27/2018. HISTORY: Intradural-extramedul ritika spinal cord neoplasms. TECHNIQUE: MRI cervical/thoracic/lum bar spine without and with contrast. 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 None of these are identified within the spinal cord in all of these are identified within the neural foramen and within the paraspinal region. These encroach within the central canal especially within the cervical region but without causing any cord compression related to the nerve sheath tumors although there is spinal cord impingement throughout which is related to congenital canal narrowing that within these tumors. None of these enhance significantly on contrast administration and remains stable. MRI CERVICAL SPINE: Acute abnormality: None. Congenital canal narrowing with superimposed disc degeneration with decreased disc height and signal with annular tears and posterior bulges effacing ventral and dorsal CSF causing spinal cord impingement throughout the cervical spine but without any myelomalacia or cord edema or cord compression. No intracanal lesions are identified. No intramedullary lesions are identified. Stable alignment, vertebral height, marrow signal, thecal sac, spinal cord signal/caliber & posterior fossa. No evidence for any fracture or dislocation or subluxation. Normal remaining soft tissues. C2 -- 3: Congenital canal narrowing with superimposed disc/joint degeneration. Spinal cord encroachment without compression. Patent bilateral neural foramina expanded due to nerve sheath tumors which remain relatively stable from prior examination. C3 -- 4: Congenital canal narrowing with superimposed disc/joint degeneration. Spinal cord encroachment without compression. Patent bilateral neural foramina expanded due to nerve sheath tumors which remain relatively stable from prior examination. C4 -- 5: Congenital canal narrowing with superimposed disc/joint degeneration. Spinal cord encroachment without compression. Patent bilateral neural foramina expanded due to nerve sheath tumors which remain relatively stable from prior examination. C5 -- 6: This is by far the worst level. Congenital canal narrowing with superimposed disc/joint degeneration. Central annular tear with superimposed protrusion flattening the spinal cord and causing spinal cord impingement but without myelomalacia or cord edema. Patent bilateral neural foramina expanded due to nerve sheath tumors which remain relatively stable from prior exam. C6 -- 7: Congenital canal narrowing with superimposed disc/joint degeneration. Spinal cord encroachment without compression. Patent bilateral neural foramina expanded due to nerve sheath tumors which remain relatively stable from prior examination. C7 -- T1: Congenital canal narrowing with superimposed disc/joint degeneration. Spinal cord encroachment without compression. Patent bilateral neural foramina expanded due to nerve sheath tumors which remain relatively stable from prior examination. MRI THORACIC SPINE: Acute abnormality: None. Congenital canal narrowing encroaching central canal but without any spinal cord impingement or compression. Intervertebral disks are normal in their height and signal intensity. Normal alignment, vertebral height, marrow signal, thecal sac and spinal cord signal/caliber. No fracture/dislocation. T1 -- 2: Patent central canal. Patent bilateral neural foramina. T2 -- 3: Patent central canal. Patent bilateral neural foramina. T3 -- 4: Patent central canal. Patent bilateral neural foramina. T4 -- 5: Patent central canal. Patent bilateral neural foramina. T5 -- 6: Patent central canal. Patent bilateral neural foramina. T6 -- 7: Patent central canal. Patent bilateral neural foramina. T7 -- 8: Patent central canal. Patent bilateral neural foramina. T8 -- 9: Patent central canal. Patent bilateral neural foramina. T9 -- 10: Patent central canal. Patent bilateral neural foramina. T10 -- 11: Patent central canal. Patent bilateral neural foramina. T11 -- 12: Patent central canal. Patent bilateral neural foramina. T12 -- L1: Patent central canal. [place] (more content not included)... NALLELY_DO_NOT_USE _DIVISION OF RADIOLOGY Provider, [facility] - 08/10/2021 * * *Final Report* * * DATE OF EXAM: Aug 10 2021 2:48PM [facility] 0326 - MRI THORACIC SPINE WO/W IVCON / PROCEDURE REASON: Benign neoplasm of brain, unspecified brain region (HCC) * * * * Physician Interpretation * * * * COMPARISON: 11/27/2018. HISTORY: Intradural-extramedul ritika spinal cord neoplasms. TECHNIQUE: MRI cervical/thoracic/lum bar spine without and with contrast. 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 None of these are identified within the spinal cord in all of these are identified within the neural foramen and within the paraspinal region. These encroach within the central canal especially within the cervical region but without causing any cord compression related to the nerve sheath tumors although there is spinal cord impingement throughout which is related to congenital canal narrowing that within these tumors. None of these enhance significantly on contrast administration and remains stable. MRI CERVICAL SPINE: Acute abnormality: None. Congenital canal narrowing with superimposed disc degeneration with decreased disc height and signal with annular tears and posterior bulges effacing ventral and dorsal CSF causing spinal cord impingement throughout the cervical spine but without any myelomalacia or cord edema or cord compression. No intracanal lesions are identified. No intramedullary lesions are identified. Stable alignment, vertebral height, marrow signal, thecal sac, spinal cord signal/caliber & posterior fossa. No evidence for any fracture or dislocation or subluxation. Normal remaining soft tissues. C2 -- 3: Congenital canal narrowing with superimposed disc/joint degeneration. Spinal cord encroachment without compression. Patent bilateral neural foramina expanded due to nerve sheath tumors which remain relatively stable from prior examination. C3 -- 4: Congenital canal narrowing with superimposed disc/joint degeneration. Spinal cord encroachment without compression. Patent bilateral neural foramina expanded due to nerve sheath tumors which remain relatively stable from prior examination. C4 -- 5: Congenital canal narrowing with superimposed disc/joint degeneration. Spinal cord encroachment without compression. Patent bilateral neural foramina expanded due to nerve sheath tumors which remain relatively stable from prior examination. C5 -- 6: This is by far the worst level. Congenital canal narrowing with superimposed disc/joint degeneration. Central annular tear with superimposed protrusion flattening the spinal cord and causing spinal cord impingement but without myelomalacia or cord edema. Patent bilateral neural foramina expanded due to nerve sheath tumors which remain relatively stable from prior exam. C6 -- 7: Congenital canal narrowing with superimposed disc/joint degeneration. Spinal cord encroachment without compression. Patent bilateral neural foramina expanded due to nerve sheath tumors which remain relatively stable from prior examination. C7 -- T1: Congenital canal narrowing with superimposed disc/joint degeneration. Spinal cord encroachment without compression. Patent bilateral neural foramina expanded due to nerve sheath tumors which remain relatively stable from prior examination. MRI THORACIC SPINE: Acute abnormality: None. Congenital canal narrowing encroaching central canal but without any spinal cord impingement or compression. Intervertebral disks are normal in their height and signal intensity. Normal alignment, vertebral height, marrow signal, thecal sac and spinal cord signal/caliber. No fracture/dislocation. T1 -- 2: Patent central canal. Patent bilateral neural foramina. T2 -- 3: Patent central canal. Patent bilateral neural foramina. T3 -- 4: Patent central canal. Patent bilateral neural foramina. T4 -- 5: Patent central canal. Patent bilateral neural foramina. T5 -- 6: Patent central canal. Patent bilateral neural foramina. T6 -- 7: Patent central canal. Patent bilateral neural foramina. T7 -- 8: Patent central canal. Patent bilateral neural foramina. T8 -- 9: Patent central canal. Patent bilateral neural foramina. T9 -- 10: Patent central canal. Patent bilateral neural foramina. T10 -- 11: Patent central canal. Patent bilateral neural foramina. T11 -- 12: Patent central canal. Patent bilateral neural foramina. T12 -- L1: (more content not included)... [facility] No Panel Informationon 08-10 IMPRESSION: 1. Stable MRI cervical/thoracic/lum bar spine. 2. Extensive nerve sheath tumors remain relatively stable from prior examination. 3. Congenital canal narrowing with superimposed spondylosis as detailed. COUNTING REFERENCE: Superior and inferior cervical and lumbar disc is taken as C2-3 and L5-S1 respectively and accordingly thoracic spine is numbered. Structural anomalies: None. 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: EUGENIA Transcribe Date/Time: Aug 10 2021 3:49P Dictated by : FELICIA LEONARD MD This examination was interpreted and the report reviewed and electronically signed by: FELICIA LEONARD MD on Aug 10 2021 3:57PM EST ZZZ_DO_NOT_USE _DIVISION OF RADIOLOGY Radiology Study observation (narrative) [facility] No Panel InformationOrdered By: Ccf Provider on 08-10-2021 [facility] MR Brain WO and W contrast I Von 07-25-2021 IMPRESSION: No significant interval change compared to outside MRI from 01/20/2021. Scattered T2/FLAIR hyperintense foci, compatible with NF1. 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: PSCB Transcribe Date/Time: Jul 25 2021 3:14P Dictated by : MARIA DEL CARMEN ROSE MD This examination was interpreted and the report reviewed and electronically signed by: MARIA DEL CARMEN ROSE MD on Jul 25 2021 3:47PM EST ZZZ_DO_NOT_USE _DIVISION OF RADIOLOGY * * *Final Report* * * DATE OF EXAM: Jul 25 2021 1:19PM LN 0295 - MRI BRAIN WO/W IVCON / PROCEDURE REASON: Neurofibromatosis (HCC) * * * * Physician Interpretation * * * * EXAMINATION: MRI BRAIN WO/W IVCON HISTORY: Neurofibromatosis (HCC) TECHNIQUE: Routine brain MRI protocol without and with contrast including diffusion and gradient echo images. MQ: MRBWOW_2 Contrast: 20 mL Dotarem IV COMPARISON: Outside MRI brain 01/20/2021, MRI brain 06/15/2011 RESULT: Acute Change: There is no evidence of restricted diffusion to suggest an acute infarct. Hemorrhage: No evidence of prior parenchymal hemorrhage on the gradient echo images. Mass Lesion/ Mass Effect: No evidence of an intracranial mass or extra-axial fluid collection. No abnormal parenchymal or leptomeningeal enhancement is noted following contrast administration. No significant mass effect. Chronic Change: The white matter is within normal limits of signal intensity for age. Parenchyma: No significant volume loss for age. Patchy T2/FLAIR hyperintensity in the bilateral posterior thalami and right cerebral peduncle are similar in appearance since 06/15/2011. A patchy focus of T2/FLAIR hyperintensity just lateral to the left red nucleus is unchanged since 01/20/2021 but new since 06/15/2011. Ventricles: Normal caliber and morphology. Skull Base: Hypothalamic and pituitary region are grossly normal. Craniocervical junction is normal. No significant marrow replacement process. Vasculature: Major intracranial arterial structures, and dural venous sinuses show typical flow void, suggesting patency by spin echo criteria. Other: The visualized paranasal sinuses and mastoid air cells are clear. The orbits and extracranial soft tissues are unremarkable. 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 NALLELY_DO_NOT_USE _DIVISION OF RADIOLOGY Provider, Celestine Brunerelizabeth [facility] - 07/25/2021 * * *Final Report* * * DATE OF EXAM: Jul 25 2021 1:19PM LN 0295 - MRI BRAIN WO/W IVCON / PROCEDURE REASON: Neurofibromatosis (HCC) * * * * Physician Interpretation * * * * EXAMINATION: MRI BRAIN WO/W IVCON HISTORY: Neurofibromatosis (HCC) TECHNIQUE: Routine brain MRI protocol without and with contrast including diffusion and gradient echo images. MQ: MRBWOW_2 Contrast: 20 mL Dotarem IV COMPARISON: Outside MRI brain 01/20/2021, MRI brain 06/15/2011 RESULT: Acute Change: There is no evidence of restricted diffusion to suggest an acute infarct. Hemorrhage: No evidence of prior parenchymal hemorrhage on the gradient echo images. Mass Lesion/ Mass Effect: No evidence of an intracranial mass or extra-axial fluid collection. No abnormal parenchymal or leptomeningeal enhancement is noted following contrast administration. No significant mass effect. Chronic Change: The white matter is within normal limits of signal intensity for age. Parenchyma: No significant volume loss for age. Patchy T2/FLAIR hyperintensity in the bilateral posterior thalami and right cerebral peduncle are similar in appearance since 06/15/2011. A patchy focus of T2/FLAIR hyperintensity just lateral to the left red nucleus is unchanged since 01/20/2021 but new since 06/15/2011. Ventricles: Normal caliber and morphology. Skull Base: Hypothalamic and pituitary region are grossly normal. Craniocervical junction is normal. No significant marrow replacement process. Vasculature: Major intracranial arterial structures, and dural venous sinuses show typical flow void, suggesting patency by spin echo criteria. Other: The visualized paranasal sinuses and mastoid air cells are clear. The orbits and extracranial soft tissues are unremarkable. 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 IMPRESSION IMPRESSION: No significant interval change compared to outside MRI from 01/20/2021. Scattered T2/FLAIR hyperintense foci, compatible with NF1. 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: EUGENIA Transcribe Date/Time: Jul 25 2021 3:14P Dictated by : MARIA DEL CARMEN ROSE MD This examination was interpreted and the report reviewed and electronically signed by: MARIA DEL CARMEN ROSE MD on Jul 25 2021 3:47PM EST [facility] Radiology Study observation (narrative) [facility] MR Brain WO and W contrast I VOrdered By: Ccf Provider on 07-25-2021 [facility] CULTURE THROATon 08-28-2020 CULTURE THROAT Culture Observations : NORMAL RESPIRATORY WILLIAN. Normal [facility] Comment on above: Performed By: #### S SCRN, THRTCX #### [facility] [address] [place] [id number] Meir Torresen Covid-19 PCR (CVDTBH)on 08-10 SARS-CoV-2 (COVID-19) RNA JACOB+probe Ql (Unsp spec) Not detected Normal NOT DETECTED [facility] Comment on above: Result Comment: This test is not yet approved or cleared by the [place] FDA. When there are no FDA-approved or cleared tests available, and other criteria are met, FDA can make tests available under an emergency access mechanism called an Emergency Use Authorization (EUA). The EUA for this test is supported by the Communications Billing Analyst of Health and Human Service's (HHS's) declaration that circumstances exist to justify the emergency use of in vitro diagnostics for the detection and/or diagnosis of the virus that causes COVID-19. This EUA will remain in effect (meaning this test can be used) for the duration of the COVID-19 declaration justifying emergency of IVDs, unless it is terminated or revoked by FDA (after which the test may no longer be used). When diagnostic testing is negative, the possibility of a false negative should be considered in the context of a patient's recent exposures and the presence of clinical signs and symptoms consistent with SARS-CoV-2. Performed By: #### C VDTBH #### [facility] [address] [place], [place] [id number] Meir Murray RAPID COVID-19 ANTIGENon EUA Statement SEE BELOW Normal [facility] Comment on above: Result Comment: This test has not been FDA cleared or approved, but has been authorized by the FDA under an Emergency Use Authorization (EUA) for use by authorized laboratories certified under CLIA that meet the requirements to perform moderate or high complexity testing. This test has been authorized only for the detection of proteins from SARS-CoV-2, not for any other viruses or pathogens. The emergency use of this test is authorized for the duration of the declaration that circumstances exist justifying the authorization of emergency use of in vitro diagnostic tests for detection and/or diagnosis of Covid-19 under section 564(b)(1) of the Act, 21 U.S.C. 360bbb-3(b)(1), unless the declaration is terminated or authorization is revoked sooner. Performed By: #### C VDAG #### [facility] [address] [place] [address] Meir Murray SARS-CoV-2 (COVID-19) RNA JACOB+probe Ql (Unsp spec) Negative Normal NEGATIVE [facility] Comment on above: Result Comment: Nega tive results are presumptive. They do not preclude infection and should not be used as the sole basis for treatment decisions. Additional confirmatory testing by a molecular method should be considered. Performed By: #### C VDAG #### [facility] [address] [place] [address] Meir Terri STREPT SCREENon 08-28-2020 STREP SCREEN A Negative Normal NEGATIVE [facility] Comment on above: Performed By: #### S SCRN, THRTCX #### [facility] [address] [place], [place] [id number] Meir Murray ALLIED HEALTHon 11-09-2016 ALLIED HEALTH HNO ID: [id number]: Anurag (Moy DiazService: RadiologyAuthor Type: TechnicianType: Allied HealthFiled: 11/09/2016 7:15 PMNote Text: Radiology Service Progress NotePATIENT NAME: Heath EspinosaRN: [id number] OF SERVICE: November 09, 2016TIME: 7:15 PMPATIENT IDENTITY VERIFICATION COMPLETED USING TWO (2) METHODS: Patientconfirmed name verbally and ID band matches..PATIENT GENDER DATA: MalePATIENT RELEVANT IMPLANT DATA REVIEWED: YesRADIOLOGY DEPARTMENT: MR; Exam(s) Completed: Upper MSK: Hand, leftPERIPHERAL IV DATA: Not applicableSIGNED BY: Moy Davis Suzy Interiano Kadie RT R MRAugust 2016 7:15 PM Normal [facility] MRI HAND WO IVCLIDA LTon 11-09 MRI HAND WO IVCON LT * * *Final Report* * *DATE OF EXAM: Nov 09 2016 7:20PM [facility] 0200 - MRI HAND WO IVCON LT / REASON: Benign neoplasm of peripheral nerves and autonomic nervous system, unspecified * * * * Physician Interpretation * * * * MRI LEFT HANDINDICATION: Left hand mass. Multiple neurofibromas.COMPARI SON: None.TECHNIQUE: Multiplanar PD, T1 and T2 weighted images.RESULT:There are multiple T2 hyperintense ovoid masses in the hand are suspicious for nerve sheath tumors. There are detail as follows:There is a 2.6 x 1.3 x 1.3 cm ovoid T2 hyperintense mass in the first intermetacarpal space along the thenar eminence immediately medial to the flexor pollicis longus tendon and the flexor pollicis pulsus brevis muscle and superficial to the second digit lumbricals at the level of the first MCP joint. (series 6/image 18 and series 8/image 46). This is suspicious for a nerve sheath tumor.There are multiple other smaller subcentimeter ovoid areas of T2 signal prominence along expected areas of small nerves, at least some of which likely represent additional small nerve sheath tumors throughout the hand (series 6/images 19, 15, 13)There is no marrow signal abnormality. The visualized tendons are intact. There are no effusions. The visualized muscles are within normal limits.IMPRESSION: 2.6 CM OVOID T2 HYPERINTENSE MASS IN THE FIRST INTERMETACARPAL SPACE LONG THE THENAR EMINENCE SUSPICIOUS FOR A NERVE SHEATH TUMOR. THIS CAN BE CONFIRMED ON ULTRASOUND.NUMEROUS OTHER OVOID SMALL SUBCENTIMETER T2 HYPERINTENSE LESIONS THROUGHOUT THE HAND ARE PRESENT, SOME OF WHICH MAY REPRESENT ADDITIONAL NERVE SHEATH TUMORS.Transcriptioni st: PSCB Transcribe Date/Time: Nov 09 2016 7:25PDictated by : XAVIER EGAN MDThis examination was interpreted and the report reviewed and electronically signed by: CAROLINE NG MD on Nov 09 2016 8:41PM [id number] Normal [facility] Vital Signs Date Time Vital Sign Value Performing Clinician Facility 03-11-2024 11:17-0500 Body height 190.5 cm [facility] 03-11-2024 11:17-0500 Body mass index (BMI) [Ratio] 38.75 kg/m2 [facility] 03-11-2024 11:17-0500 Body weight 140.62 kg [facility] 02-14-2024 13:35-0500 Body height 190.5 cm Jose Bose MD Work Phone: [facility] 02-14-2024 13:35-0500 Body mass index (BMI) [Ratio] 38.67 kg/m2 Jose Bose MD Work Phone: [facility] 02-14-2024 13:35-0500 Body weight 140.35 kg Jose Bose MD Work Phone: [facility] 02-14-2024 13:35-0500 Diastolic blood pressure 72 mm[Hg] Jose Bose MD Work Phone: [facility] 02-14-2024 13:35-0500 Heart rate 76 /min Jose Bose MD Work Phone: [facility] 02-14-2024 13:35-0500 Respiratory rate 18 /min Jose Bose MD Work Phone: [facility] 02-14-2024 13:35-0500 Systolic blood pressure 137 mm[Hg] Jose Bose MD Work Phone: [facility] 02-14-2024 13:26-0500 Body height 190.5 cm Samir Gee MD Work Phone: [facility] 02-14-2024 13:26-0500 Body mass index (BMI) [Ratio] 38.67 kg/m2 Samir Gee MD Work Phone: [facility] 02-14-2024 13:26-0500 Body weight 140.35 kg Samir Gee MD Work Phone: [facility] 02-14-2024 13:26-0500 Diastolic blood pressure 72 mm[Hg] Samir Gee MD Work Phone: [facility] 02-14-2024 13:26-0500 Heart rate 76 /min Samir Gee MD Work Phone: [facility] 02-14-2024 13:26-0500 Respiratory rate 18 /min Samir Gee MD Work Phone: [facility] 02-14-2024 13:26-0500 Systolic blood pressure 137 mm[Hg] Samir Gee MD Work Phone: [facility] 02-14-2024 13:21-0500 Body height 190.5 cm Cierra Lay MD, PhD Work Phone: [facility] 02-14-2024 13:21-0500 Body mass index (BMI) [Ratio] 38.67 kg/m2 Cierra Lay MD, PhD Work Phone: [facility] 02-14-2024 13:21-0500 Body weight 140.35 kg Cierra Lay MD, PhD Work Phone: [facility] 02-14-2024 13:21-0500 Diastolic blood pressure 72 mm[Hg] Cierra Lay MD, PhD Work Phone: [facility] 02-14-2024 13:21-0500 Heart rate 76 /min Cierra Lay MD, PhD Work Phone: [facility] 02-14-2024 13:21-0500 Respiratory rate 18 /min Cierra Lay MD, PhD Work Phone: [facility] 02-14-2024 13:21-0500 Systolic blood pressure 137 mm[Hg] Cierra Lay MD, PhD Work Phone: [facility] 12-15-2023 13:230400 Body height 187.96 cm [facility] 12-15-2023 13:23-0400 Body mass index (BMI) [Ratio] 38.5 kg/m2 [facility] 12-15-2023 13:23-0400 Body temperature 98.5 [degF] [facility] 12-15-2023 13:23-0400 Body weight 136.07 kg [facility] 12-15-2023 13:23-0400 Diastolic blood pressure 83 mm[Hg] [facility] 12-15-2023 13:23-0400 Heart rate 69 /min [facility] 12-15-2023 13:23-0400 Respiratory rate 18 /min [facility] 12-15-2023 13:23-0400 SaO2% (BldA) [Mass fraction] 99 % [facility] 12-15-2023 13:23-0400 Systolic blood pressure 149 mm[Hg] [facility] 11-29-2023 15:26-0400 Diastolic blood pressure 68 mm[Hg] Nurse 0 [facility] 11-29-2023 15:26-0400 Heart rate 79 /min Nurse [address] 11-29-2023 15:26-0400 SaO2% (BldA) [Mass fraction] 98 % Nurse [address] 11-29-2023 15:26-0400 Systolic blood pressure 118 mm[Hg] Nurse [address] 11-29-2023 14:27-0400 Body height 190.5 cm Nurse [address] 11-29-2023 14:27-0400 Body mass index (BMI) [Ratio] 37.72 kg/m2 Nurse 0 [facility] 11-29-2023 14:27-0400 Body temperature 98.4 [degF] Nurse [address] 11-29-2023 14:27-0400 Body weight 136.9 kg Nurse 0 [facility] 11-29-2023 14:27-0400 Respiratory rate 18 /min Nurse [address] 11-29-2023 14:25-0400 Body height 190.5 cm Cierra Fitzgerald APRN.CNP Work Phone: [facility] 11-29-2023 14:25-0400 Body mass index (BMI) [Ratio] 37.72 kg/m2 Cierra Fitzgerald GARDEN WORKER.CH[employer]ER [employer]TER Work Phone: [facility] 11-29-2023 14:25-0400 Body weight 136.9 kg Cierra Fitzgerald GARDEN WORKER.CHOKER SETTER Work Phone: [facility] 11-29-2023 14:25-0400 Diastolic blood pressure 58 mm[Hg] Cierra Fitzgerald GARDEN WORKER.CHOKER SETTER Work Phone: [facility] 11-29-2023 14:25-0400 Heart rate 84 /min Cierra Fitzgerald GARDEN WORKER.CHOKER SETTER Work Phone: [facility] 11-29-2023 14:25-0400 Respiratory rate 18 /min Cierra Fitzgerald GARDEN WORKER.CHOKER SETTER Work Phone: [facility] 11-29-2023 14:25-0400 Systolic blood pressure 141 mm[Hg] Cierra Fitzgerald GARDEN WORKER.CHOKER SETTER Work Phone: [facility] 10-31-2023 11:57-0400 Body height 188 cm Pacc 4 Work Phone: [facility] 10-31-2023 11:57-0400 Body mass index (BMI) [Ratio] 39.17 kg/m2 Pacc 4 Work Phone: [facility] 10-31-2023 11:57-0400 Body temperature 98.29 [degF] Pacc 4 Work Phone: [facility] 10-31-2023 11:57-0400 Body weight 138.4 kg Pacc 4 Work Phone: [facility] 10-31-2023 11:57-0400 Diastolic blood pressure 70 mm[Hg] Pacc 4 Work Phone: [facility] 10-31-2023 11:57-0400 Heart rate 84 /min Pacc 4 Work Phone: [facility] 10-31-2023 11:57-0400 Respiratory rate 18 /min Pacc 4 Work Phone: [facility] 10-31-2023 11:57-0400 SaO2% (BldA) [Mass fraction] 97 % [facility] 4 Work Phone: [facility] 10-31-2023 11:57-0400 Systolic blood pressure 138 mm[Hg] [facility] 4 Work Phone: [facility] 10-19-2023 10:58-0400 Body height 188.4 cm Samir Gee MD Work Phone: [facility] 10-19-2023 10:58-0400 Body mass index (BMI) [Ratio] 38.64 kg/m2 Samir Gee MD Work Phone: [facility] 10-19-2023 10:58-0400 Body temperature 99.5 [degF] Samir Gee MD Work Phone: [facility] 10-19-2023 10:58-0400 Body weight 137.15 kg Samir Gee MD Work Phone: [facility] 10-19-2023 10:58-0400 Diastolic blood pressure 80 mm[Hg] Samir Gee MD Work Phone: [facility] 10-19-2023 10:58-0400 Heart rate 76 /min Samir Gee MD Work Phone: [facility] 10-19-2023 10:58-0400 Systolic blood pressure 131 mm[Hg] Samir Gee MD Work Phone: [facility] 08-23-2023 10:27-0400 Body height 188 cm Cierra Lay MD, PhD Work Phone: [facility] 08-23-2023 10:27-0400 Body mass index (BMI) [Ratio] 40.05 kg/m2 Cierra Lay MD, PhD Work Phone: [facility] 08-23-2023 10:27-0400 Body weight 141.5 kg Cierra Lay MD, PhD Work Phone: [facility] 08-23-2023 10:27-0400 Diastolic blood pressure 71 mm[Hg] Cierra Lay MD, PhD Work Phone: [facility] 08-23-2023 10:27-0400 Heart rate 78 /min Cierra Lay MD, PhD Work Phone: [facility] 08-23-2023 10:27-0400 Respiratory rate 18 /min Cierra Lay MD, PhD Work Phone: [facility] 08-23-2023 10:27-0400 Systolic blood pressure 124 mm[Hg] Cierra Lay MD, PhD Work Phone: [facility] 08-02-2023 11:19-0400 Body height 186.3 cm Bryce Martinez MD Work Phone: [facility] 08-02-2023 11:19-0400 Body mass index (BMI) [Ratio] 41.2 kg/m2 Bryce Martinez MD Work Phone: [facility] 08-02-2023 11:19-0400 Body temperature 98.01 [degF] Bryce Martinez MD Work Phone: [facility] 08-02-2023 11:19-0400 Body weight 143 kg Bryce Martinez MD Work Phone: [facility] 08-02-2023 11:19-0400 Diastolic blood pressure 75 mm[Hg] Bryce Martinez MD Work Phone: [facility] 08-02-2023 11:19-0400 Heart rate 64 /min Bryce Martinez MD Work Phone: [facility] 08-02-2023 11:19-0400 Respiratory rate 18 /min Bryce Martinez MD Work Phone: [facility] 08-02-2023 11:19-0400 SaO2% (BldA) [Mass fraction] 98 % Bryce Martinez MD Work Phone: [facility] 08-02-2023 11:19-0400 Systolic blood pressure 129 mm[Hg] Bryce Martinez MD Work Phone: [facility] 06-27-2023 15:08-0400 Body height 190.5 cm Jessenia Nation MD Work Phone: [facility] 06-27-2023 15:08-0400 Body temperature 98.2 [degF] Jessenia Nation MD Work Phone: [facility] 06-27-2023 15:08-0400 Body weight 145.15 kg Jessenia Nation MD Work Phone: [facility] 06-27-2023 15:08-0400 Diastolic blood pressure 70 mm[Hg] Jessenia Nation MD Work Phone: [facility] 06-27-2023 15:08-0400 Heart rate 62 /min Jessenia Nation MD Work Phone: [facility] 06-27-2023 15:08-0400 Respiratory rate 16 /min Jessenia Nation MD Work Phone: [facility] 06-27-2023 15:08-0400 SaO2% (BldA) [Mass fraction] 98 % Jessenia Nation MD Work Phone: [facility] 06-27-2023 15:08-0400 Systolic blood pressure 139 mm[Hg] Jessenia Nation MD Work Phone: [facility] 05-16-2023 13:18-0500 Body height 190.5 cm Jessenia Nation MD Work Phone: [facility] 05-16-2023 13:18-0500 Body temperature 98.6 [degF] Jessenia Nation MD Work Phone: [facility] 05-16-2023 13:18-0500 Body weight 147.42 kg Jessenia Nation MD Work Phone: [facility] 05-16-2023 13:18-0500 Diastolic blood pressure 68 mm[Hg] Jessenia Nation MD Work Phone: [facility] 05-16-2023 13:18-0500 Heart rate 69 /min Jessenia Nation MD Work Phone: [facility] 05-16-2023 13:18-0500 Respiratory rate 15 /min Jessenia Nation MD Work Phone: [facility] 05-16-2023 13:18-0500 SaO2% (BldA) [Mass fraction] 98 % Jessenia Nation MD Work Phone: [facility] 05-16-2023 13:18-0500 Systolic blood pressure 132 mm[Hg] Jessenia Nation MD Work Phone: [facility] 05-04-2023 10:49-0500 Body height 186.7 cm Arnol Cloud MD Work Phone: [facility] 05-04-2023 10:49-0500 Body temperature 97.39 [degF] Arnol Cloud MD Work Phone: [facility] 05-04-2023 10:49-0500 Body weight 148.8 kg Arnol Cloud MD Work Phone: [facility] 05-04-2023 10:49-0500 Diastolic blood pressure 68 mm[Hg] Arnol Cloud MD Work Phone: [facility] 05-04-2023 10:49-0500 Heart rate 52 /min Arnol Cloud MD Work Phone: [facility] 05-04-2023 10:49-0500 Respiratory rate 18 /min Arnol Cloud MD Work Phone: [facility] 05-04-2023 10:49-0500 SaO2% (BldA) [Mass fraction] 100 % Arnol Cloud MD Work Phone: [facility] 05-04-2023 10:49-0500 Systolic blood pressure 127 mm[Hg] Arnol Cloud MD Work Phone: [facility] 02-05-2023 11:28-0500 Body height 190.5 cm Stephany Feldman MD Work Phone: [facility] 02-05-2023 11:28-0500 Body weight 151.18 kg Stephany Feldman MD Work Phone: [facility] 02-05-2023 11:28-0500 Diastolic blood pressure 61 mm[Hg] Stephany Feldman MD Work Phone: [facility] 02-05-2023 11:28-0500 Heart rate 75 /min Stephany Feldman MD Work Phone: [facility] 02-05-2023 11:28-0500 SaO2% (BldA) [Mass fraction] 98 % Stephany Feldman MD Work Phone: [facility] 02-05-2023 11:28-050 Systolic blood pressure 129 mm[Hg] Stephany Feldman MD Work Phone: [facility] 09-28-2021 11:29-0400 Body height 190.5 cm Stephany Feldman MD Work Phone: [facility] 09-28-2021 11:29-0400 Body weight 153.32 kg Stephany Feldman MD Work Phone: [facility] 09-28-2021 11:29-0400 Diastolic blood pressure 77 mm[Hg] Stephany Feldman MD Work Phone: [facility] 09-28-2021 11:29-0400 Heart rate 81 /min Stephany Feldman MD Work Phone: [facility] 09-28-2021 11:29-0400 Systolic blood pressure 122 mm[Hg] Stephany Feldman MD Work Phone: [facility] Encounters Encounter Date Encounter Type Care Provider Facility Start: 03-21-2024 End: 03-21-2024 Preprocedural examination done Nurse S70 [facility] Start: 03-21-2024 End: 03-21-2024 Telemedicine consultation with patient Nurse [facility] Start: 03-21-2024 End: 03-21-2024 ambulatory TESFAYE VILLAREAL Facility:[facility] Comment on above: Pre-procedural exami nation (Primary Dx) Start: 03-18-2024 End: 03-18-2024 Clinisync Result Encounter Generic External Data Provider [facility] External Department Unsolicited Start: 03-18-2024 End: 03-18-2024 Clinisync Result Encounter Generic External Data Provider [facility] External Department Unsolicited Start: 03-18-2024 End: 03-18-2024 ambulatory CIERRA FITZGERALD Facility:[facility] Start: 03-11-2024 End: 03-11-2024 Admission to establishment [facility] Virtual Pre Anesthesi a Start: 03-11-2024 End: 03-11-2024 ambulatory TESFAYE VILLAREAL Facility:[facility] Start: 03-11-2024 End: 03-11-2024 Anesthesia consultation [facility] Virtual Pre Anesthesia Comment on above: Pre-op evaluation (P rimary Dx); Neurofibromatosis, type I (von Recklinghausen's disease) (HCC); Preop testing; Anxiety; Chronic tension-type headache, not intractable; History of Campoverde's palsy; Obesity (BMI 30-39.9) Start: 03-11-2024 Encounter for other preprocedural examination TESFAYE VILLAREAL [facility] Start: 03-11-2024 End: 03-11-2024 Patient encounter status [facility] Start: 03-11-2024 End: 03-11-2024 Preprocedural examination done [facility] Work Phone: Start: 03-10-2024 End: 03-10-2024 ambulatory TESFAYE VILLAREAL Facility:[facility] Start: 02-17-2024 End: 02-18-2024 ambulatory Cierra Lay MD, PhD Work Phone: [facility] Start: 02-17-2024 End: 02-18-2024 Patient encounter status Cierra Lay MD, PhD Work Phone: [facility] Start: 02-15-2024 End: 02-25-2024 Telephone encounter Cierra Lay MD, PhD Work Phone: [facility] Comment on above: Schedule Surgery; Ca re Coordination Start: 02-14-2024 End: 02-14-2024 ambulatory SAMIR GEE Facility:[facility] Start: 02-14-2024 End: 02-14-2024 Patient encounter procedure Cierra Lay MD, PhD Work Phone: [facility] Comment on above: Neurofibromatosis, t ype I (von Recklinghausen's disease) (HCC) (Primary Dx) Neurofibromatosis (H CC) (Primary Dx) Start: 02-14-2024 End: 02-14-2024 Postop follow up visit related to original px Samir Gee MD Work Phone: Plastic Surgery Comment on above: Postoperative state (Primary Dx) Start: 02-12-2024 End: 02-14-2024 Telephone encounter Cierra Lia LIN.CHOKER SETTER Work Phone: Neurology Comment on above: Insurance Inquiry Start: 02-05-2024 End: 02-05-2024 ambulatory Terri Sams OTR/L Work Phone: [facility] Comment on above: Weakness (Primary Dx ); Neurofibroma, multiple (HCC) Start: 01-15-2024 End: 01-15-2024 ambulatory Cierraamber Fitzgerald GARDEN WORKER.CHOKER SETTER Work Phone: [facility] Comment on above: Therapy Start: 12-27-2023 End: 12-27-2023 ambulatory Cierra Fitzgerald GARDEN WORKER.CHOKER SETTER Work Phone: [facility] Comment on above: Neurofibroma, multip le (HCC) (Primary Dx) Photos of left hand and leg incisions Start: 12-27-2023 End: 12-27-2023 Telemedicine consultation with patient Cierra Fitzgerald GARDEN WORKER.CHOKER SETTER Work Phone: [facility] Start: 12-15-2023 End: 12-15-2023 ambulatory [facility] Work Phone: Start: 12-15-2023 End: 12-15-2023 Patient encounter procedure [facility] Work Phone: Start: 11-29-2023 End: 11-29-2023 ambulatory CIERRA FITZGERALD Facility:[facility] Start: 11-29-2023 End: 11-29-2023 Patient encounter procedure Cierra Fitzgerald GARDEN WORKER.CHOKER SETTER Work Phone: [facility] Comment on above: Neurofibromas, multi ple (HCC) (Primary Dx) Encounter for remova l of sutures (Primary Dx) Start: 11-29-2023 End: 12-11-2023 E-mail encounter from caregiver [facility] Start: 11-29-2023 End: 12-11-2023 Letter encounter [facility] Comment on above: Letter Start: 11-14-2023 End: 11-15-2023 Telephone encounter Samir Gee MD Work Phone: Plastic Surgery Comment on above: Letter Start: 11-13-2023 End: 11-13-2023 Clinisync Result Encounter Generic External Data Provider [facility] External Department Unsolicited Start: 11-13-2023 End: 11-13-2023 Clinisync Result Encounter Generic External Data Provider [facility] External Department Unsolicited Start: 11-13-2023 End: 11-13-2023 E-mail encounter from caregiver [facility] Start: 11-13-2023 End: 11-13-2023 Follow-up encounter [facility] Comment on above: Follow up appointmen t Start: 11-13-2023 End: 11-13-2023 ambulatory SAMIR GEE Facility:[facility] Start: 11-09-2023 End: 11-09-2023 Admission to same day surgery center Bryce Martinez MD Work Phone: Neurosurgery Comment on above: Neurofibromatosis (H CC) [Q85.00] (Primary Dx); Plexiform neurofibroma; Neuropathic pain; Chronic pain due to neoplasm Start: 11-09-2023 End: 11-09-2023 Telemedicine consultation with patient Bryce Martinez MD Work Phone: Neurosurgery Start: 11-09-2023 End: 11-09-2023 ambulatory TESFAYE VILLAREAL Facility:[facility] Start: 11-06-2023 End: 11-06-2023 ambulatory TESFAYE VILLAREAL Facility:[facility] Start: 10-31-2023 End: 10-31-2023 Admission to establishment [place] [id number] Work Phone: Pre Anesthesia Start: 10-31-2023 End: 10-31-2023 ambulatory SAMIR GEE Facility:[facility] Start: 10-31-2023 End: 10-31-2023 Anesthesia consultation [facility] Work Phone: Pre Anesthesia Comment on above: Pre-op evaluation (P rimary Dx); Campoverde's palsy; Neurofibromatosis, type I (von Recklinghausen's disease) (HCC); Obesity (BMI 30-39.9) Start: 10-31-2023 Encounter for other preprocedural examination TESFAYE VILLAREAL [facility] Start: 10-31-2023 End: 10-31-2023 Preprocedural examination done [facility] Work Phone: [facility] Work Phone: Start: 10-19-2023 End: 10-19-2023 ambulatory SAMIR GEE Facility:[facility] Start: 10-19-2023 End: 10-19-2023 Office outpatient new 45 minutes Samir Gee MD Work Phone: Plastic Surgery Comment on above: Neurofibromatosis (H CC) (Primary Dx); Benign neoplasm of peripheral nerve of upper extremity; Benign neoplasm of peripheral nerves of lower extremity Start: 10-17-2023 Telephone encounter Bryce souza MD Work Phone: [facility] Comment on above: LUCIANA 2-3 weeks Start: 10-15-2023 End: 10-15-2023 ambulatory Bryce Martinez MD Work Phone: [facility] Comment on above: Neurofibromatosis (H CC) [Q85.00] (Primary Dx); Plexiform neurofibroma; Neuropathic pain Start: 10-15-2023 End: 10-15-2023 Telemedicine consultation with patient Bryce Martinez MD Work Phone: [facility] Start: 10-12-2023 End: 10-12-2023 ambulatory [facility] Facility:[facility] Start: 10-12-2023 End: 10-12-2023 Subsequent hospital visit by physician [facility] [place] (1.5t) Work Phone: Radiology Comment on above: Neurofibromatosis (H CC) [Q85.00] Start: 10-11-2023 Non-patient / Non-visit [facility] Work Phone: Start: 09-10-2023 End: 09-10-2023 ambulatory CIERRA LAY Not Available Start: 08-24-2023 Telephone encounter Cierra Lay MD, PhD Work Phone: [facility] Comment on above: Care Coordination Care Coordination; S chedule Surgery Start: 08-23-2023 End: 08-23-2023 Patient encounter procedure Cierra Lay MD, PhD Work Phone: [facility] Comment on above: Neurofibromas, multi ple (HCC) (Primary Dx); Neurofibromatosis, type 1 (von Recklinghausen's disease) (HCC) Start: 08-23-2023 End: 08-23-2023 [facility] Facility:[facility] Start: 08-21-2023 Refill Jessenia Nation MD Work Phone: Pain Management Comment on above: Refill Request Start: 08-08-2023 Telephone encounter Cierra Lay MD, PhD Work Phone: [facility] Comment on above: Care Coordination Start: 08-02-2023 Telephone encounter Bryce souza MD Work Phone: [facility] Comment on above: LUCIANA 11 weeks Start: 08-02-2023 End: 08-02-2023 ambulatory [facility] Facility:[facility] Start: 08-02-2023 End: 08-02-2023 Patient encounter procedure Bryce Martinez MD Work Phone: [facility] Comment on above: Neurofibromatosis (H CC) [Q85.00] (Primary Dx); Plexiform neurofibroma; Chronic pain due to neoplasm; Neuropathic pain Start: 06-28-2023 Telephone encounter Jessenia kirby MD Work Phone: Pain Management Comment on above: Insurance Authorizat ion (Lidocaine patches DENIED) Start: 06-27-2023 End: 06-27-2023 ambulatory [facility] Facility:[facility] Start: 06-27-2023 End: 06-27-2023 Patient encounter procedure Jessenia Nation MD Work Phone: Pain Management Comment on above: Neurofibromatosis, t ype I (von Recklinghausen's disease) ([facility]) (Primary Dx); Left thigh pain Start: 06-11-2023 End: 06-11-2023 Telemedicine consultation with patient Jasper Young [facility] Work Phone: [facility] Start: 06-11-2023 End: 06-11-[address] 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 [employer] Start: 05-04-2023 End: 05-04-2023 Patient encounter procedure Arnol Cloud MD Work Phone: [facility] Start: 05-04-2023 End: 05-04-2023 ambulatory Arnol Cloud MD Work Phone: Pediatric Hematology Comment on above: Neurofibromatosis, t ype 1 (von Recklinghausen's disease) (HCC) (Primary Dx); Neurofibroma; Upper back pain, chronic; Plexiform neurofibroma; Learning disability; Obesity, Class III, BMI >= 40 (morbid obesity) E66.01; Neurofibromatosis, type I (von Recklinghausen's disease) (HCC) Start: 04-23-2023 Telephone encounter Kiara Hood [facility] Comment on above: Internal Referrals/r esources (WQ ) Start: 04-17-2023 Chart abstracting Cierra Anderson, PhD Work Phone: Neurology Start: 04-17-2023 Telephone encounter Stephany florez MD Work Phone: Neurology Start: 04-16-2023 End: 04-16-2023 ambulatory Latonia Flores RT(R) Radiology Comment on above: Radiology MRI Start: 04-16-2023 Patient encounter procedure Am ahmet Flores RT(R) [facility]TH [place] Start: 04-16-2023 End: 04-16-2023 Subsequent hospital visit by physician Mri [facility] [place] (1.5t) Work Phone: Radiology Comment on above: Mass of left thigh [ R22.42] Start: 02-05-2023 End: 02-05-2023 Patient encounter procedure Stephany Feldman MD Work Phone: Neurology Comment on above: Mass of left thigh ( Primary Dx); Neurofibromatosis, peripheral, NF1 ([facility]) Start: 01-23-2023 End: 01-23-2023 ambulatory JENNIFER MARTÍNEZ Not Available Start: 01-03-2023 End: 01-03-2023 ambulatory PHYSICIAN NO [facility] Work Phone: Start: 01-03-2023 End: 01-03-2023 Departed Referred [facility] [place] Work Phone: Start: 06-21-2022 End: 06-21-2022 Patient encounter procedure Alex Bowen MD Work Phone: Plastic Surgery Comment on above: Neurofibroma (Primar y Dx); Painful skin lesion Start: 01-16-2022 ambulatory Alex hunter MD Work Phone: Plastic Surgery Comment on above: Heath Rosenberg Ins appr oval Start: 09-28-2021 End: 09-28-2021 Patient encounter procedure Stephany Feldman MD Work Phone: Neurology Comment on above: Neurofibromatosis (H CC) (Primary Dx) Start: 08-10-2021 ambulatory Latonia Lapponi RT(R) Radiology Comment on above: Radiology MRI Start: 08-10-2021 Patient encounter procedure Am ahmet Lapponi RT(R) [place]TH [place] Start: 08-10-2021 End: 08-10-2021 Subsequent hospital visit by physician Mri [facility] [place] (1.5t) Work Phone: Radiology Comment on above: 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] Benign neoplasm of b rain, unspecified brain region (HCC) [D33.2] Start: 07-25-2021 ambulatory Latonia Lapponi RT(R) Radiology Comment on above: Radiology MRI Start: 07-25-2021 Patient encounter procedure Am ahmet Lapponi RT(R) [place]TH [place] Start: 07-25-2021 Telephone encounter Stephany florez MD Work Phone: Neurology Comment on above: Results Start: 07-25-2021 End: 07-25-2021 Subsequent hospital visit by physician Mri [facility] [place] (1.5t) Work Phone: Radiology Comment on above: Neurofibromatosis (H CC) [Q85.00] Start: 08-28-2020 End: 08-28-[address] TESFAYE VILLAREAL Facility: Start: 11-09-2016 Ambulatory [facility] Hospital Procedures Date Procedure Procedure Detail Performing Clinician Start: 03-18-2024 Antibody screen TESFAYE VILLAREAL Comment on above: Order Comment: Speci men Type: BLOOD SPECIMENOrdering Facility: [facility] Address: [address] [place] [address] Performed By: #### T [id number] ####CC MAIN BLOOD BANKCLIA [id number] [facility] [id number] [place], [place] [id number] [place] Start: 03-18-2024 [facility] CBC W AUTO DIFF BLD Generic External Data Provider Start: 11-13-2023 [facility] BAS METAB 2000 PNL [facility] Generic External Data Provider Start: 11-13-2023 [facility] MAGNESIUM [facility] Generic External Data Provider Start: 11-13-2023 [facility] PHOSPHATE [facility] Generic External Data Provider Start: 10-12-2023 Mri spinal canal cer vical w/o & w/contr matrl Bryce Martinez MD Work Phone: Start: 04-16-2023 Mri lower extrem oth /thn jt w/o & w/contr litzy Feldman MD Work Phone: Start: 06-21-2022 SURGICAL PATHOLOGY Tyson Bowen MD Work Phone: Start: 09-28-2021 Adult depression scr eening assessment Stephany Feldman MD Work Phone: Start: 08-10-2021 End: 08-10-2021 Mri spinal canal cervical w/o & w/contr litzyl Stephany Feldman MD Work Phone: Start: 07-25-2021 Mri brain brain stem w/o w/contrast material Stephany Feldman MD Work Phone: Start: 09-05-2017 Adult depression scr eening assessment Latonia Flores RT(R) Plan of Treatment Date Care Activity Detail Author Start: 06-26-2024 End: 06-26-2024 Patient encounter procedure 06/26/2024 11:30 AM EDT Office Visit [facility] [address] [place] [address] Cierra Lay MD, PhD [address] [id number] 3 Month f/u [facility] Comment on above: 3 Month f/u Start: 05-09-2024 End: 05-09-2024 Patient encounter procedure 05/09/2024 9:40 AM EST Office Visit [facility] [address] [place] [address] Cierra Fitzgerald, RILEY.CHOKER SETTER [address] [place], [place] [phone] VIRTUAL POST OP [facility] Comment on above: VIRTUAL POST OP Start: 04-18-2024 End: 04-18-2024 Follow-up encounter 04/18/2024 2:00 PM EST [facility] [address] [place] [address] Bryce Martinez MD [address] [facility] [address] [place] [address] 6 month follow up [facility] Comment on above: 6 month follow up Start: 04-11-2024 End: 04-11-2024 ambulatory 04/11/2024 11:40 AM [facility] [address] [id number] Cierra Fitzgerald APRN.CHOKER SETTER [address] [place] [address] VIRTUAL POST OP [facility] Comment on above: VIRTUAL POST OP Start: 03-28-2024 End: 03-28-2024 Admission to same day surgery center 03/28/2024 10:00 AM EST - 03/28/2024 12:30 PM EST Surgery Admitting [address] [place] [address] Cierra Lay MD, PhD [address] [place] [address] Right temporal subcutaneous neurofibroma resection Admitting Comment on above: Right temporal subcutaneous neurofibroma resection Start: 03-28-2024 End: 03-28-2024 Exc neurofibroma/neurolemmoma cutan nrv EXCISION NEUROFIBROMA OR NEUROLEMMOMA, CUTANEOUS NERVE Neurofibromatosis, type I (von Recklinghausen's disease) ([facility]) Preop testing 03/28/2024 10:00 AM EST [facility] Start: 03-28-2024 Subsequent hospital visit by physician Admitting Comment on above: Neurofibromatosis, type I (von Recklingh ausen's disease) ([facility]) [Q85.01], Preop testing [Z01.818] Start: 03-21-2024 End: 03-21-2024 Nursing evaluation of patient and report 03/21/2024 2:00 PM EST Nurse Visit [facility] [address] [place] [address] April Jauregui, RN [address] [phone] PREOP PHONE NURSING EDUCATION [facility] Comment on above: PREOP PHONE NURSING EDUCATION Start: 03-18-2024 End: 03-18-2024 ambulatory 03/18/2024 11:30 AM EST Results Only [facility] [address] [place] [address] [place] [address] Lab [facility] Comment on above: Lab Start: 03-11-2024 End: 06-10-2024 CBC W Auto Differential panel - Blood COMPLETE BLOOD COUNT AND DIFFERENTIAL Lab Routine Pre-op evaluation Expected: 03/11/2024, Expires: 06/10/2024 [facility] Comment on above: Expected: 03/11/2024, Expires: Start: 03-11-2024 End: 06-10-2024 Comprehensive metabolic 2000 panel - Serum or Plasma COMPREHENSIVE METABOLIC PANEL Lab Routine Pre-op evaluation Expected: 03/11/2024, Expires: 06/10/2024 [facility] Work Phone: Comment on above: Expected: 03/11/2024, Expires: Start: 03-11-2024 End: 06-10-2024 CONFIRM BLOOD TYPE CONFIRM BLOOD TYPE Blood Bank Routine Pre-op evaluation Expected: 03/11/2024, Expires: 06/10/2024 [facility] Comment on above: Expected: 03/11/2024, Expires: Start: 03-11-2024 End: 06-10-2024 TYPE AND SCREEN,30 DAY TYPE AND SCREEN,30 DAY Blood Bank Routine Pre-op evaluation Expected: 03/11/2024, Expires: 06/10/2024 [facility] Comment on above: Expected: 03/11/2024, Expires: Start: 03-11-2024 End: 03-11-2024 Anesthesia consultation 03/11/2024 11:10 AM EST PAT Pre Anesthesia [address] [place] [id number] VIRTUAL PRE OP CLEARANCE Pre Anesthesia Comment on above: VIRTUAL PRE OP CLEARANCE Start: 03-10-2024 End: 08-15-2024 STAPHYLOCOCCUS AUREUS & MRSA SCREEN, PCR, NASAL STAPHYLOCOCCUS AUREUS & MRSA SCREEN, PCR, NASAL Lab Routine Carrier of methicillin resistant Staphylococcus aureus Expected: 03/10/2024 (Approximate), Expires: 08/15/2024 [facility] Work Phone: Comment on above: Expected: 03/10/2024 (Approximate), Expi res: 08/15/2024 Start: 03-10-2024 End: 03-10-2024 Patient encounter procedure 03/10/2024 9:45 AM EST Office Visit Financial Clearance Phone Screening [place] [address] SURGICAL REGISTRATION Financial Clearance Phone Screening Comment on above: SURGICAL REGISTRATION Start: 02-14-2024 End: 02-14-2024 Patient encounter procedure [facility] Comment on above: [facility] Start: 02-06-2024 End: 02-06-2024 Patient encounter procedure 02/06/2024 11:40 AM EST Office Visit Neurology [address] [place], [place] [id number] Stephany Feldman MD [address] [place], [place] [id number] 1 year follow up Neurology Comment on above: 1 year follow up Start: 01-02-2024 Medicare Annual Wellness (AWV) Medicare Annual Wellness (AWV) [facility] Start: 12-27-2023 End: 12-27-2023 ambulatory 12/27/2023 1:40 PM EDT [facility] [address] [place] [id number] Cierra Fitzgerald, GARDEN WORKER.CHOKER SETTER [address] [place] [address] add on per wax pattern assembler [facility] Comment on above: add on per rn Start: 12-26-2023 End: 12-26-2023 Admission to same day surgery center 12/26/2023 11:30 AM EDT [facility] Plastic Surgery [address] [place] [address] Samir Gee MD [address] [place] [address] post op Plastic Surgery Comment on above: post op Start: 11-29-2023 End: 11-29-2023 Patient encounter procedure [facility] Comment on above: suture removal add on per RN Start: 11-13-2023 End: 11-13-2023 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 EXCISION NEUROMA EXTREMITY UPPER Neurofibromatosis (HCC) Benign neoplasm of peripheral nerve of upper extremity Benign neoplasm of peripheral nerves of lower extremity Benign neoplasm of skin of upper extremity, unspecified laterality Benign neoplasm of skin of left lower extremity 11/13/2023 1:07 PM EDT [facility] Start: 11-13-2023 End: 11-13-2023 Excision neuroma sciatic nerve EXCISION NEUROMA EXTREMITY LOWER Neurofibromatosis (HCC) Benign neoplasm of peripheral nerve of upper extremity Benign neoplasm of peripheral nerves of lower extremity Benign neoplasm of skin of upper extremity, unspecified laterality Benign neoplasm of skin of left lower extremity 11/13/2023 1:07 PM EDT [facility] Start: 11-13-2023 End: 11-13-2023 Nerve graft 1 strand hand/foot 4 cm NERVE GRAFT SINGLE STRAND HAND = OR < 4CM LENGTH Neurofibromatosis (HCC) Benign neoplasm of peripheral nerve of upper extremity Benign neoplasm of peripheral nerves of lower extremity Benign neoplasm of skin of upper extremity, unspecified laterality Benign neoplasm of skin of left lower extremity 11/13/2023 1:07 PM EDT [facility] Start: 11-13-2023 End: 11-13-2023 Nerve graft senior clinical sas programmer strands hand/foot 4 cm NERVE GRAFT MULTIPLE STRANDS HAND OR FOOT UP TO 4CM LENGTH Neurofibromatosis (HCC) Benign neoplasm of peripheral nerve of upper extremity Benign neoplasm of peripheral nerves of lower extremity Benign neoplasm of skin of upper extremity, unspecified laterality Benign neoplasm of skin of left lower extremity 11/13/2023 1:07 PM EDT [facility] Start: 11-13-2023 End: 11-13-2023 Rpr coltrl ligm mtcarphlngl/iphal jt REPAIR TENDONS / NERVES HAND Neurofibromatosis (HCC) Benign neoplasm of peripheral nerve of upper extremity Benign neoplasm of peripheral nerves of lower extremity Benign neoplasm of skin of upper extremity, unspecified laterality Benign neoplasm of skin of left lower extremity 11/13/2023 1:07 PM EDT [facility] Start: 11-13-2023 End: 11-13-2023 Admission to same day surgery center 11/13/2023 11:45 AM EDT - 11/13/2023 3:15 PM EDT Surgery Admitting [address] [place] [address] Samri Gee MD [address] [place] [address] EXCISION NEUROMA EXTREMITY UPPER Admitting Comment on above: EXCISION NEUROMA EXTREMITY UPPER Start: 11-13-2023 End: 11-13-2023 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 EXCISION NEUROMA EXTREMITY UPPER Neurofibromatosis (HCC) Benign neoplasm of peripheral nerve of upper extremity Benign neoplasm of peripheral nerves of lower extremity Benign neoplasm of skin of upper extremity, unspecified laterality Benign neoplasm of skin of left lower extremity 11/13/2023 11:45 AM EDT [facility] Start: 11-13-2023 End: 11-13-2023 Excision neuroma sciatic nerve EXCISION NEUROMA EXTREMITY LOWER Neurofibromatosis (HCC) Benign neoplasm of peripheral nerve of upper extremity Benign neoplasm of peripheral nerves of lower extremity Benign neoplasm of skin of upper extremity, unspecified laterality Benign neoplasm of skin of left lower extremity 11/13/2023 11:45 AM EDT [facility] Start: 11-13-2023 End: 11-13-2023 Nerve graft 1 strand hand/foot 4 cm [facility] Start: 11-13-2023 End: 11-13-2023 Nerve graft senior clinical sas programmer strands hand/foot 4 cm NERVE GRAFT MULTIPLE STRANDS HAND OR FOOT UP TO 4CM LENGTH Neurofibromatosis (HCC) Benign neoplasm of peripheral nerve of upper extremity Benign neoplasm of peripheral nerves of lower extremity Benign neoplasm of skin of upper extremity, unspecified laterality Benign neoplasm of skin of left lower extremity 11/13/2023 11:45 AM EDT [facility] Start: 11-13-2023 End: 11-13-2023 Rpr coltrl ligm mtcarphlngl/iphal jt REPAIR TENDONS / NERVES HAND Neurofibromatosis (HCC) Benign neoplasm of peripheral nerve of upper extremity Benign neoplasm of peripheral nerves of lower extremity Benign neoplasm of skin of upper extremity, unspecified laterality Benign neoplasm of skin of left lower extremity 11/13/2023 11:45 AM EDT [facility] Start: 11-13-2023 Subsequent hospital visit by physician 11/13/2023 11:45 AM EDT Hospital Encounter Admitting [address] [place] [address] Samir Gee MD [address] [place] [address] Neurofibromatosis (HCC) [Q85.00] Admitting Comment on above: Neurofibromatosis (HCC) [Q85.00] Start: 11-11-2023 Covid-19 Vaccine ( season) Covid-19 Vaccine () [facility] Start: 11-11-2023 Covid-19 Vaccine ( season) Covid-19 Vaccine ( season) [facility] Start: 11-11-2023 Influenza vaccination [facility] Start: 11-09-2023 End: 11-09-2023 Admission to same day surgery center 11/09/2023 10:30 AM EDT [facility] Neurosurgery [address] [place] [address] Bryce Martinez MD [address] [facility] [address] [place] [address] Scheduling Request - Established Patient Neurosurgery Comment on above: Scheduling Request - Established Patient Start: 11-06-2023 End: 11-06-2023 Patient encounter procedure 11/06/2023 11:45 AM EDT Office Visit Neurology [address] [place] [address] Neurofibroma [D36.10] Neurology Comment on above: Neurofibroma [D36.10] Start: 10-19-2023 End: 10-19-2023 Patient encounter procedure 10/19/2023 11:00 AM EDT Office Visit Plastic Surgery [address] [place] [address] Samir Gee MD [address] [place] [address] Bilateral Hand Pain Patient mom declined X-Ray due to patient having MRI Plastic Surgery Comment on above: Bilateral Hand Pain Patient mom declin ed X-Ray due to patient having MRI Start: 10-15-2023 End: 10-15-2023 ambulatory 10/15/2023 1:00 PM EDT [facility] Tumor [place] [address] [place] [address] Bryce Martinez MD [address] [facility] [address] [place] [id number] Time Frame: of 10/14 [facility] Comment on above: Time Frame: of 10/14 Start: 10-12-2023 End: 10-12-2023 Patient encounter procedure 10/12/2023 10:00 AM EDT Appointment Radiology [address] [place], [place] [id number] Diagnosis: Neurofibromatosis (HCC) [Q85.00] Radiology Comment on above: Diagnosis: Neurofibromatosis (HCC) [Q85. 00] Start: 08-23-2023 End: 08-23-2023 Patient encounter procedure 08/23/2023 11:00 AM EDT Office Visit [facility] [address] [place] [address] Cierra Lay MD, PhD [address] [place] [address] Dr. Martinez referral [facility] Comment on above: Dr. Tan [address] Start: 03-12-2023 Behavioral Health Screening Behavioral Health Screening [facility] Start: 03-12-2023 Depression Assessment Depression Assessment [facility] Start: 11-10-2022 Covid-19 Vaccine () Covid-19 Vaccine () [facility] Start: 11-10-2022 Influenza vaccination [facility] Start: 09-28-2022 Adult depression screening assessment DEPRESSION SCREENING [facility] Start: 03-12-2022 DEPRESSION ASSESSMENT DEPRESSION ASSESSMENT [facility] Start: 11-10-2021 Influenza vaccination [facility] Start: 03-16-2021 COVID-19 VACCINE (4 - Booster for Moderna series) COVID-19 VACCINE (4 - Booster for Moderna series) [facility] Start: 03-12-2021 DEPRESSION ASSESSMENT DEPRESSION ASSESSMENT [facility] Start: 12-07-2019 Urine microalbumin profile DTaP,Tdap,Td Vaccine (7 - Td or Tdap) [facility] Start: 09-05-2018 Adult depression screening assessment DEPRESSION SCREENING [facility] Start: 09-04-2015 Urine microalbumin profile DTAP,TDAP,TD (1 - Tdap) [facility] Start: 2014 Anxiety Screening Anxiety Screening [facility] Start: 2014 Depression Screening Depression Screening [facility] Start: 2014 HEPATITIS C SCREENING HEPATITIS C SCREENING [facility] Start: 2014 Hepatitis C screening Hepatitis C Screening [facility] Start: 2014 HIV SCREENING HIV SCREENING [facility] Start: 2014 HIV screening HIV Screening [facility] Start: 09-04-2011 HPV Vaccine (1 - Male 3-dose series) HPV Vaccine (1 - Male 3-dose series) [facility] Start: 2010 PEDS TO ADULT TRANSITION ANNUAL ASSESSMENT PEDS TO ADULT TRANSITION ANNUAL ASSESSMENT [facility] Start: 2008 PEDS TO ADULT TRANSITION INITIAL DISCUSSION PEDS TO ADULT TRANSITION INITIAL DISCUSSION [facility] Start: 09-04-2007 HPV VACCINE (1 - Male 2-dose series) HPV VACCINE (1 - Male 2-dose series) [facility] Start: 2006 MENINGOCOCCAL B: Consider based on risk (1 of 2 - Risk Bexsero 2-dose series) MENINGOCOCCAL B: Consider based on risk (1 of 2 - Risk Bexsero 2-dose series) [facility] Start: 2005 HPV Vaccine (1 - Male 2-dose series) HPV Vaccine (1 - Male 2-dose series) [facility] Start: 1996 HEPATITIS B (1 of 3 - 3-dose series) HEPATITIS B (1 of 3 - 3-dose series) [facility] End: 03-11-2025 ECG COMPLETE ECG COMPLETE ECG Routine Pre-op evaluation 1 Occurrences starting 03/11/2024 until 03/11/2025 [facility] Comment on above: 1 Occurrences starting 03/11/2024 until 03/11/2025 Exc neurofibroma/neurolemmoma cutan nrv EXCISION NEUROFIBROMA OR NEUROLEMMOMA, CUTANEOUS NERVE Neurofibromatosis, type I (von Recklinghausen's disease) (HCC) Preop testing [facility] End: 09-21-2024 MR Hand - left WO and W contrast IV MRI HAND WO/W IVCON LEFT Radiology Routine Neurofibromas, multiple (HCC) 1 Occurrences starting 08/23/2023 until 09/21/2024 [facility] Work Phone: Comment on above: 1 Occurrences starting 08/23/2023 until 09/21/2024 End: 09-21-2024 MR Hand - right WO and W contrast IV MRI HAND WO/W IVCON RIGHT Radiology Routine Neurofibromas, multiple (HCC) 1 Occurrences starting 08/23/2023 until 09/21/2024 [facility] Comment on above: 1 Occurrences starting 08/23/2023 until 09/21/2024 End: 08-24-2022 Mri spinal canal cervical w/o & w/contr matrl MRI CERVICAL SPINE WO/W IVCON Radiology Routine Intradural-extramedullary spinal cord neoplasms 1 Occurrences starting 07/25/2021 until 08/24/2022 [facility] Work Phone: Comment on above: 1 Occurrences starting 07/25/2021 until 08/24/2022 End: 08-24-2022 Mri spinal canal lumbar w/o & w/contr matrl MRI LUMBAR SPINE WO/W IVCON Radiology Routine Intradural-extramedullary spinal cord neoplasms 1 Occurrences starting 07/25/2021 until 08/24/2022 [facility] Work Phone: Comment on above: 1 Occurrences starting 07/25/2021 until 08/24/2022 End: 08-24-2022 Mri spinal canal thoracic w/o & w/contr matrl MRI THORACIC SPINE WO/W IVCON Radiology Routine Benign neoplasm of brain, unspecified brain region (HCC) 1 Occurrences starting 07/25/2021 until 08/24/2022 [facility] Work Phone: Comment on above: 1 Occurrences starting 07/25/2021 until 08/24/2022 End: 03-06-2024 MRI UPPER LEG WO/W IVCON LEFT MRI UPPER LEG WO/W IVCON LEFT Radiology Routine Mass of left thigh 1 Occurrences starting 02/05/2023 until 03/06/2024 [facility] Work Phone: Comment on above: 1 Occurrences starting 02/05/2023 until 03/06/2024 SWAB COLLECTION SPECIMEN SWAB CO LLECTION SPECIMEN Lab Routine Neurofibromatosis, type I (von Recklinghausen's disease) ([facility]) Ordered: 06/20/2023 [facility] Work Phone: Comment on above: Ordered: 06/20/2023 [facility] Immunizations Immunization Date Immunization Notes Care Provider Zafar severino 12-06-2009 tetanus toxoid, redu ekaterina diphtheria toxoid, and acellular pertussis vaccine, adsorbed Generic Provider [facility] 08-13-2001 diphtheria, tetanus toxoids and acellular pertussis vaccine, unspecified formulation Generic Provider [facility] 08-13-2001 measles, mumps and r ubella virus vaccine Generic Provider [facility] 08-13-2001 poliovirus vaccine, inactivated Generic Provider [facility] 03-19-1998 diphtheria, tetanus toxoids and acellular pertussis vaccine, unspecified formulation Generic Provider [facility] 03-19-1998 haemophilus influenz ae type b vaccine, conjugate unspecified formulation Generic Provider [facility] 03-19-1998 measles, mumps and r ubella virus vaccine Generic Provider [facility] 05-18-1997 hepatitis B vaccine, pediatric or pediatric/adolescent dosage Generic Provider [facility] 05-18-1997 trivalent poliovirus vaccine, live, oral Generic Provider [facility] 05-04-1997 diphtheria, tetanus toxoids and acellular pertussis vaccine, unspecified formulation Generic Provider [facility] 05-04-1997 haemophilus influenz ae type b vaccine, conjugate unspecified formulation Generic Provider [facility] 01-15-1997 diphtheria, tetanus toxoids and pertussis vaccine Generic Provider [facility] 01-15-1997 haemophilus influenz ae type b vaccine, conjugate unspecified formulation Generic Provider [facility] 01-15-1997 trivalent poliovirus vaccine, live, oral Generic Provider [facility] 01-06-1997 hepatitis B vaccine, pediatric or pediatric/adolescent dosage Generic [facility] 1996 diphtheria, tetanus toxoids and pertussis vaccine Generic Provider [facility] 1996 haemophilus influenz ae type b vaccine, conjugate unspecified formulation Generic Provider [facility] 1996 trivalent poliovirus vaccine, live, oral Generic Provider [facility] 1996 hepatitis B vaccine, pediatric or pediatric/adolescent dosage Generic Provider [facility] are Payers Date Payer Category Payer Self-pay 2018 Medicaid MEDICAID [facility] MEDICAID [id number] 2018-Present [phone] [address] [place] [address] Medicaid [id number] 2018 Medicaid [id number] 2018 Medicare MEDICARE MEDICAR E A AND B [id number] 2018-Present [phone] [address] [address] [place] [address] Medicare [id number] 2018 Medicare [id number] 1996 Unknown [id number] 1996 Unknown [id number] 1996 Unknown [id number] 1996 Unknown [id number] 1959 Medicaid [id number] 1959 Medicare [id number] Unknown [id number] Social History Date Type Detail Facility Start: 10-05-2011 End: 10-03-2022 Tobacco smoking status NHIS Never smoked tobacco [facility] Start: 10-05-2011 End: 10-03-2022 Tobacco use and exposure Smokeless tobacco non-user [facility] Start: 05-17-2021 End: 03-11-2024 Alcohol intake Current non-drinker of alcohol (finding) [facility] Start: 1996 Sex Assigned At Not on file [facility] Start: 07-15-2021 End: 07-25-2021 Exposure to SARS-CoV-2 (event) Not sure [facility] Start: 1996 Sex Assigned At Male [facility] Start: 10-03-2022 End: 02-05-2023 History of Social function [facility] Start: 10-03-2022 End: 02-05-2023 Tobacco use panel [facility] Adult Depression Screening Assessment 0 [facility] Start: 06-20-2023 Alcoholic beverage intake Ex-drinker (finding) [facility] Within the last year , have you been afraid of your partner or ex-partner? No [facility] Are you now , , , , never or living with a partner? Never [facility] How often to you hav e a drink containing alcohol? Monthly or less [facility] How many standard drinks containing alcohol do you have on a typical day? 1 or 2 [facility] How often do you hav e 6 or more drinks on 1 occasion? Never [facility] Do you feel stress - tense, restless, nervous, or anxious, or unable to sleep at night because your mind is troubled all the time - these days [OSQ] To some extent [facility] (I/We) worried wheth er (my/our) food would run out before (I/we) got money to buy more. Never true [facility] Start: 10-18-2022 Education 13 [facility] Start: 11-08-2022 Alcohol Comment Caffeine intake: 3 soda [facility] Start: 10-23-2022 Gender identity Identifies as male gender (finding) [facility] Start: 10-23-2022 Sexual orientation Heterosexual (finding) [facility] Clinical Notes 07-25-2021 to 03-21-2024 Jose Lagos LPN - 03/21/2024 2:06 PM ESTPatient InstructionsToby Melara APRN.[facility] - 03/11/2024 11:10 AM Toby Ramirez APRN.[facility] - 03/11/2024 11:10 AM EST Note Date & Type Note Facility 03-21-2024 Note HNO ID: [id number] Author: JOSE LAGOS LPN Service: ? Author Type: LICENSED NURSE Type: Progress Notes Filed: 03/21/2024 14:10 Note Text: Neuro SPINE CARE COORDINATION PRE-OP VISIT Spoke with patient and mother for pre op education. Given both written and verbal instructions re : Skin prep, wound care, pain management and post op restrictions. Reviewed with patient to report to desk [employer] for surgery ? Yes. Reviewed with the patient to call [phone] the day before to get surgery report time? Yes. Patient aware eat nothing after midnight prior to surgery, clear liquids only until 2 hours before report time. Yes. Patient aware surgery will be OUTPATIENT. Discussed care post discharge : Self care. Does patient have transportation to and from surgery ? Yes. Falls Education provided ? Yes Nasal swab obtained ? Yes. Patient instructed in mupirocin treatment : Negative. Questions answered and patient and mother voice(s) understanding via teach back. Physical Therapy : NO Additional Comments : Post -op Support Mom Jose Lagos LPN [facility] 03-21-2024 History of Present illness Narrative Neuro SPINE CARE COORDINATION PRE-OP VISIT Spoke with patient and mother for pre op education. Given both written and verbal instructions re : Skin prep, wound care, pain management and post op restrictions. Reviewed with patient to report to desk [employer] for surgery ? Yes. Reviewed with the patient to call [phone] the day before to get surgery report time? Yes. Patient aware eat nothing after midnight prior to surgery, clear liquids only until 2 hours before report time. Yes. Patient aware surgery will be OUTPATIENT. Discussed care post discharge : Self care. Does patient have transportation to and from surgery ? Yes. Falls Education provided ? Yes Nasal swab obtained ? Yes. Patient instructed in mupirocin treatment : Negative. Questions answered and patient and mother voice(s) understanding via teach back. Physical Therapy : NO Additional Comments : Post -op Support Mom Jose Lagos LPN documented in this encounter [facility] 03-11-2024 Instructions Toby Melara APRN.CHOKER [employer]TER - 03/11/2024 11:21 AM EST Images from the original note were not included. [facility] Pre-Anesthesia Consultation Clinic REMINDER TO HAVE LABS DRAWN EKG Desk A-17 PATIENT PREOPERATIVE INSTRUCTIONS Cierra Lay MD, PhD has scheduled you for your procedure at this surgery center: [facility] Scheduling Office: [phone] --[address] [place] [address]. Please read below carefully for your personalized instructions. Dietary Restrictions: - No solid food after midnight. - You may have 12 ounces of clear liquids (water, clear juices such as apple juice or gatorade, carbonated beverages, clear tea, black coffee, jello) until 2 hours before scheduled arrival at facility. Medications: Unless instructed differently below, stay on all of your medications until your surgery. If you start any new medications after today's visit, please contact your surgeon. Pre-Surgery Med Instructions Medication Instructions gabapentin (NEURONTIN) 600 mg tablet Take the day of surgery with a small sip of water cholecalciferol, Vitamin D3, (VITAMIN D3) 1,250 mcg (50,000 unit) cap capsule Take the day of surgery with a small sip of water acetaminophen (TYLENOL EXTRA STRENGTH) 500 mg tablet Take the day of surgery with a small sip of water nortriptyline (PAMELOR) 25 mg capsule STATES TAKE AT NIGHT fexofenadine HCl (OVIDIO ALLERGY ORAL) Take the day of surgery with a small sip of water multivit-minerals/folic acid (MULTIVITAMIN GUMMIES ORAL) Take the day of surgery with a small sip of water If you take any medications for erectile dysfunction-Cialis (Tadalafil), Levitra, Staxyn (Vardenafil) Viagra (Sildenenafil please do not take these for 48 hours before surgery. If you start any new medications after today's visit, please contact the surgeon's office. If you are currently using a [id number] injectable or oral medication for diabetes or weight loss such as Dulaglutide (Trulicity), Exenatide (Byetta, Bydureon), Liraglutide (Victoza, Saxenda), Semaglutide (Ozempic, Wegovy, Rybelsus), or Tirzepatide (Mounjaro), the medicine should be stopped at least 7 days before surgery. These medicines can cause food to remain in your stomach for a very long time and increase the risks from surgery and anesthesia. Not stopping the medication for a long enough time may result in your surgery being rescheduled. Blood Thinning Medications: - Stop NSAIDS (Ibuprofen, Advil, Aleve, Motrin, Celebrex, Mobic, etc.) 7 days before surgery, as directed by your surgeon. - Stop Aspirin 7 days before surgery, as directed by your surgeon. - Stop ALL herbal and dietary supplements 14 days before surgery. - You may take Tylenol (Acetaminophen) or any of your pain medications that do not contain aspirin or NSAIDS as needed. Important Reminders: - Candy, mints, and tobacco products are NOT permitted the morning of surgery. - Hearing aids, dentures and glasses may be worn the morning of surgery. - NO jewelry, body piercings, makeup, hairpins or contacts are to be worn the day of surgery. If you develop symptoms such as a fever, cold, or flu, or have other changes to your health within TWO DAYS of scheduled surgery or the morning of surgery, please contact the surgery center above. Personal Belongings: -Please have photo ID and insurance cards. -If you do not have a copy of advance directives on file with us, please bring a copy with you on the day of surgery. - Leave ALL valuables and money at home or with family members. - Please bring high-quality footwear, such as sneakers, to the hospital for ambulating post-surgery. For Outpatient Procedures: - YOU MUST HAVE A RESPONSIBLE ACOUSTICAL ENGINEER TAKE YOU HOME. A SERVICE TEAM LEADER OR HELICOPTER PILOT CANNOT BE MADE A RESPONSIBLE ACOUSTICAL ENGINEER. - We recommend that a responsible person stays with you overnight to take care of you. - You cannot stay in a hotel alone after outpatient surgery. You will not be permitted to have your surgery, if you do not have someone to take care of you. Arrival Time for Surgery: - To obtain your arrival time for surgery, call your physician's office the day before your surgery. - If your surgery is scheduled for Sunday, call the Sunday before. Your surgeon s portfolio management marketing will tell you what time to call the office. - If you have not reached the departmental portfolio management marketing by 5 P.M., call [phone] after 5 P.M. the day before your surgery. Please be aware that emergency situations arise, which may delay or change your surgical time. If this happens, we will notify you as soon as possible and regret any inconvenience. If you already have an Advance Directive, please fax a copy to [phone] or email to for it to be added to your chart. If you do not have an Advance Directive, you can find the appropriate form and more information at [email or web address]. We recommend that you complete the Advance Directive form found on the website and bring it with you the day of your surgery. It can be witnessed and scanned into your chart that day. Toby Melara APRN.WOODY documented in this encounter [facility] 03-11-2024 History and physical note Images from the original note were not included. [facility] HISTORY AND PHYSICAL EXAMINATION SERVICE DATE: 03/11/2024 SERVICE TIME: 10:59 AM This is a virtual visit using Virtual Visit (Audio/Visual) I have discussed the nature of this visit with the patient which will occur via [facility] (Phone, Virtual Visit) and he agrees to proceed with this interaction . It required patient-provider interaction for the medical decision making as documented below. I have communicated my name and active licensure. The patient's identity and physical location were verified at the time of this visit. Either the patient or their legal cordage sales representative has been informed of the risks and benefits of and alternatives to treatment through a remote evaluation and consents to proceed with the evaluation remotely. Patient's mother accompanied him to visit. PRIMARY CARE PHYSICIAN: Tesfaye Villareal MD, MD Assessment Patient has the following medical conditions which may affect srinath-operative course: Anxiety Not on any medication States stable and controlled Followed by PCP Chronic tension-type headache, not intractable Managed with Ibuprofen States stable and controlled History of Campoverde's palsy 5 years ago Denies any residual or symptoms Obesity (BMI 30-39.9) Body mass index is 38.75 kg/m .' Encourage healthy diet and life style changes Salomon Activity Status Index: METS: Walk indoors, such as around the house (1.75 METs) Do light work around the house, such as dusting or washing dishes (2.70 METs) Take care of self; that is eating, dressing, bathing, using the toilet (2.75 METs) Walk a block or two on level ground (2.75 METs) Do moderate work around the house, such as vacuuming, sweeping floors, or carrying in groceries (3.50 METs) Do yardwork, such as raking leaves, weeding, or pushing a power mower (4.50 METs) Climb a flight of stairs or walk up a hill (5.50 METs) Participate in moderate recreational activites, such as golf, bowling, dancing, doubles tennis, or throwing a baseball or football (6.00 METs) Participate in strenuous sport, such as swimming, singles tennis, football, basketball, or skiing (7.50 METs) Do heavy work around the house, such as scrubbing floors, lifting or moving heavy furniture (8.00 METs) DASI Score: 44.95 Patient denies any chest pain or undue shortness of breath with the above physical activity. Clinical Frailty Scale: 3. Well, with treated comorbid disease STOP-Bang Score: BMI greater than 35 kg/m^2 Has a large neck Male patient Denies snoring loudly Denies feeling tired, fatigued, or sleepy during the daytime Has not been observed to stop breathing or choking/gasping during sleep Denies having high blood pressure Patient 50 years old or younger STOP-Bang Score: 3 [id number] Score: Age: <65 Sex: male CHF history: No Hypertension history: No Stroke/TIA/thromboembolism history: No Vascular disease history: No Diabetes history: No [id number] Score: 0 ARISCAT Score: Age: <=50 Preoperative SpO2: <=90% Respiratory infection in the last month: No Preoperative anemia: Yes Duration of surgery: 2-3 hrs Emergency procedure: No ARISCAT Score: ANESTHESIA FINDINGS: Intubation History: No abnormal airway history Significant Anesthesia Considerations: has never had anesthesia Airway History: No abnormal airway history I - PHYSICAL EVALUATION AIRWAY Patient intubated: No. Tracheostomy tube not present Mallampati: II. TM distance: >3 FB. Neck ROM: full ROM without neurological symptoms. Mouth opening: adequate. Short neck: no. Thick neck: no Dillard present: no Lip Bite Test: I DENTAL Dental findings: teeth intact. II - ANESTHESIA PLAN Beta Mary Monitoring Plan Post Procedure Analgesic Plan Prepared for Surgery: optimally prepared for surgery, pending [see comment]. CBC, CMP, Type and Screen, CONABO and DOS exam CONSULTS: Patient does not require consults for optimization at this time Planned Anesthetic: The Following Tests/Procedures Have Been Initiated: Orders Placed This Encounter CMP Standing Status: Future Standing Expiration Date: 06/10/2024 Complete Blood Count and Differential Standing Status: Future Standing Expiration Date: 06/10/2024 Confirm Blood Type Standing Status: Future Standing Expiration Date: 06/10/2024 Order Specific Question: Did Blood Bank direct you to place this order: Answer: No - Presurgical Workflow Type and Screen, 30 day Standing Status: Future Standing Expiration Date: 06/10/2024 Scheduling Instructions: A 30-day Type and Screen test has been ordered for you. This should be scheduled to be collected no earlier than 29 days before your scheduled procedure. If you receive blood products (red blood cells, platelets, plasma, cryoprecipitate) at any point before your procedure or are a female and become , please inform your provider. This test will be canceled, and a standard type and screen will need to be ordered to be collected within 3 days of your procedure. Order Specific Question: [facility] Surgery or Procedure: Answer: [facility] Order Specific Question: Status of surgery/procedure: Answer: Scheduled Order Specific Question: Date of surgery/procedure: Answer: 03/28/2024 ECG COMPLETE Standing Status: Future Standing Expiration Date: 03/11/2025 REASON FOR VISIT: Heath Rosenberg is a 28 year old male who is scheduled for Procedure(s): Right temporal subcutaneous neurofibroma resection (Right) at the request of Cierra Howard MD, PhD for consultation. My final recommendation will be communicated back to the requesting physician by way of shared medical record or letter. Subjective The patient has the following: COVID-19 Immunization Status Overdue - Covid-19 Vaccine () Overdue since 11/11/2023 01/19/2021 Imm Admin: COVID-19 original vaccine, full dose, monovalent (MODERNA) 05/06/2020 Imm Admin: COVID-19 original vaccine, full dose, monovalent (MODERNA) 04/08/2020 Imm Admin: COVID-19 original vaccine, full dose, monovalent (MODERNA) Only the first 3 history entries have been loaded, but more history exists. 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 He endorses having a painful right temporal mass. 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 Scheduled for Right temporal subcutaneous neurofibroma resection (Right) on 03/28/24. Denies any fever, chills, nausea, vomiting, SOB, dizziness, lightheadedness, palpitations, syncope, chest pain or abdominal pain. He has elected to proceed with the surgical procedure. REVIEW OF SYSTEMS: General: No weight loss, malaise or fevers. Neurological: See HPI. + H/O Campoverde's palsy Positive for: headaches. Negative for: seizures, TIA and strokes. Respiratory: No history of current cough or dyspnea, or pneumonia in the past 6 weeks. No history of respiratory/pulmonary symptoms or problems. Negative for: asthma, bronchitis, COPD, current cough, dyspnea, home oxygen, orthopnea, pneumonia within 6 weeks, tobacco use, URI < 2 weeks and obstructive sleep apnea. Cardiovascular: No history of HTN requiring medication, no history of angina, CHF, IL, cardiac surgery or stents. Denies rest pain, gangrene or revascularization/amputation for PVD. No history of cardiovascular symptoms or problems. Negative for: AICD/PPM, angina, anticoagulation therapy, arrhythmia, atrial fibrillation, CAD, chest pain, CHF, congenital heart defect, DVT/PE, hyperlipidemia, hypertension, recent IL and murmur/valvular heart disease. GI: No history of GI symptoms or problems. No history of esophageal varices, recent ascites, or ETOH greater than 2 drinks per day. Negative for: abdominal pain, dysphagia, diverticulitis, GERD, hepatitis, irritable bowel syndrome, inflammatory bowel disease, liver disease, nausea, pancreatitis, vomiting and ETOH >2 drinks/day. : No history of dysuria, frequency or incontinence, stones or chronic kidney disease. No difficulty urinating, nocturia > 1 time per night or hematuria. Negative for: dysuria, flank pain, hematuria, urinary incontinence, nephrolithiasis and urgency. Endocrine: No history of diabetes. Has not taken steroids within the past 30 days. No history of endocrinological symptoms or problems. Negative for: diabetes mellitus, hyperthyroidism, hypothyroidism and hyperparathyroidism. Hematology: No history of bleeding or clotting disorder. Patient is not taking anti-coagulation or platelet medications. No history of hematological symptoms or problems. Negative for: anemia. Oncology: No history of CA metastasis, chemo within 30 days, or radiotherapy within 90 days. No history of oncological symptoms or problems. Psych: Positive for: anxiety. Negative for: ADHD, bipolar disorder, depression, drug dependency and Marijuana Use. Musculoskeletal: Positive for: back pain. Negative for: joint pain. Skin: Negative for lesions, rash and itching. Negative for: lesions, itching and rash. Implanted Devices: No implanted devices. PAST MEDICAL HISTORY Diagnosis Date Anxiety 03/11/2024 Headaches no aura History of Campoverde's palsy 03/11/2024 Neurofibromatosis, type 1 (von Recklinghausen's disease) (HCC) Scoliosis PAST SURGICAL HISTORY Procedure Laterality Date HAND SURGERY HX PAST SURGICAL HISTORY OF excision of neurofibroma: chest, bilateral hands, scalp, PAST SURGICAL HISTORY OF Right excision of lipoma right thigh PAST SURGICAL HISTORY OF wisdom teeth FAMILY HISTORY Problem Relation Age of Onset Hypertension Mother Diabetes Mother Diabetes Maternal Grandmother Hypertension Maternal Grandmother Glaucoma Maternal Grandfather Diabetes Maternal Grandfather Hypertension Maternal Grandfather Social History Tobacco Use Smoking status: Never Smokeless tobacco: Never Vaping Use Vaping status: Never Used Substance Use Topics Alcohol use: No Drug use: No Prior to Admission medications as of 03/11/24 1118 Medication Sig Last Dose Taking gabapentin (NEURONTIN) 600 mg tablet Take 1 tablet by mouth three times a day for 90 days. Taking Yes cholecalciferol, Vitamin D3, (VITAMIN D3) 1,250 mcg (50,000 unit) cap capsule Take 1 capsule by mouth one time a week. Taking Yes acetaminophen (TYLENOL EXTRA STRENGTH) 500 mg tablet Take 1,000 mg by mouth two times a day as needed. Taking Yes nortriptyline (PAMELOR) 25 mg capsule Take 1 capsule by mouth daily at bedtime. Taking Yes fexofenadine HCl (OVIDIO ALLERGY ORAL) Take 1 tablet by mouth once daily. Taking Yes multivit-minerals/folic acid (MULTIVITAMIN GUMMIES ORAL) Take 1 Dose by mouth once daily. Taking Yes No medication comments found. ALLERGIES Allergen Reactions Bactrim [Sulfametho* Penicillins Hives Zithromax [Azithrom* Hives Objective PHYSICAL EXAM: General: alert and oriented and healthy appearance. Skin: normal color, no rash or lesions. HEENT: Normocephalic, atraumatic No notable cervical lymph nodes . Cardiovascular: Self palpated radial pulse, regular when counted aloud by patient . Respiratory: Equal chest rise BL, no audible wheezing No respiratory distress. Abdomen: Extremities: no deformity, no edema or tenderness, no joint swelling or clubbing. Neurological: normal cognition and motor skills. PAIN ASSESSMENT: VITALS: Ht 6' 3 (1.91m) Wt 310 lb (140.6kg) BMI 38.75 kg/(m^2). Diagnostic tests reviewed for today's visit: Lab Value Units Date High Low HB No results within date range. HCT No results within date range. WBC No results within date range. PLT No results within date range. NA 140 mmol/L 11/13/2023 144 136 K 4.3 mmol/L 11/13/2023 5.1 3.7 GLUC 104 mg/dL 11/13/2023 99 74 BUN 17 mg/dL 11/13/2023 24 9 CREAT 0.82 mg/dL 11/13/2023 1.22 0.73 PTSEC No results within date range. INR No results within date range. APTT No results within date range. ALT No results within date range. AST No results within date range. TBILI No results within date range. TSH No results within date range. Lab Value Units Date High Low HCGQT No results within date range. UHCG No results within date range. HCG, BODY* No results within date range. Lab Value Units Date High Low ABORHD No results within date range. ABSCREEN No results within date range. No results found for: HBA1C No results found for this or any previous visit (from the past 8760 hour(s)). No results found for this or any previous visit (from the past 65982 hour(s)). Instructions Given to Patient: Instructions located in the after visit summary. Patient given verbal and written preop instructions and voices comprehension and compliance. Patient and mother aware need to have labs drawn and EKG performed. Mother states patient will have EKG done on 03/21/24 at [facility] while there for spine appointment. SIGNATURE: Toby Melara APRN.CNP PATIENT NAME: Heath Rosenberg DATE: March 11, 2024 TIME: 11:21 AM PAGER/CONTACT #: [facility] 03-11-2024 History and physical note Images from the original note were not included. [facility] HISTORY AND PHYSICAL EXAMINATION SERVICE DATE: 03/11/2024 SERVICE TIME: 10:59 AM This is a virtual visit using Virtual Visit (Audio/Visual) I have discussed the nature of this visit with the patient which will occur via [facility] (Phone, Virtual Visit) and he agrees to proceed with this interaction . It required patient-provider interaction for the medical decision making as documented below. I have communicated my name and active licensure. The patient's identity and physical location were verified at the time of this visit. Either the patient or their legal cordage sales representative has been informed of the risks and benefits of and alternatives to treatment through a remote evaluation and consents to proceed with the evaluation remotely. Patient's mother accompanied him to visit. PRIMARY CARE PHYSICIAN: Tesfaye Villareal MD, MD Assessment Patient has the following medical conditions which may affect srinath-operative course: Anxiety Not on any medication States stable and controlled Followed by PCP Chronic tension-type headache, not intractable Managed with Ibuprofen States stable and controlled History of Campoverde's palsy 5 years ago Denies any residual or symptoms Obesity (BMI 30-39.9) Body mass index is 38.75 kg/m .' Encourage healthy diet and life style changes Salomon Activity Status Index: METS: Walk indoors, such as around the house (1.75 METs) Do light work around the house, such as dusting or washing dishes (2.70 METs) Take care of self; that is eating, dressing, bathing, using the toilet (2.75 METs) Walk a block or two on level ground (2.75 METs) Do moderate work around the house, such as vacuuming, sweeping floors, or carrying in groceries (3.50 METs) Do yardwork, such as raking leaves, weeding, or pushing a power mower (4.50 METs) Climb a flight of stairs or walk up a hill (5.50 METs) Participate in moderate recreational activites, such as golf, bowling, dancing, doubles tennis, or throwing a baseball or football (6.00 METs) Participate in strenuous sport, such as swimming, singles tennis, football, basketball, or skiing (7.50 METs) Do heavy work around the house, such as scrubbing floors, lifting or moving heavy furniture (8.00 METs) DASI Score: 44.95 Patient denies any chest pain or undue shortness of breath with the above physical activity. Clinical Frailty Scale: 3. Well, with treated comorbid disease STOP-Bang Score: BMI greater than 35 kg/m^2 Has a large neck Male patient Denies snoring loudly Denies feeling tired, fatigued, or sleepy during the daytime Has not been observed to stop breathing or choking/gasping during sleep Denies having high blood pressure Patient 50 years old or younger STOP-Bang Score: 3 [id number] Score: Age: <65 Sex: male CHF history: No Hypertension history: No Stroke/TIA/thromboembolism history: No Vascular disease history: No Diabetes history: No [id number] Score: 0 ARISCAT Score: Age: <=50 Preoperative SpO2: <=90% Respiratory infection in the last month: No Preoperative anemia: Yes Duration of surgery: 2-3 hrs Emergency procedure: No ARISCAT Score: ANESTHESIA FINDINGS: Intubation History: No abnormal airway history Significant Anesthesia Considerations: has never had anesthesia Airway History: No abnormal airway history I - PHYSICAL EVALUATION AIRWAY Patient intubated: No. Tracheostomy tube not present Mallampati: II. TM distance: >3 FB. Neck ROM: full ROM without neurological symptoms. Mouth opening: adequate. Short neck: no. Thick neck: no Dillard present: no Lip Bite Test: I DENTAL Dental findings: teeth intact. II - ANESTHESIA PLAN Beta Mary Monitoring Plan Post Procedure Analgesic Plan Prepared for Surgery: optimally prepared for surgery, pending [see comment]. CBC, CMP, Type and Screen, CONABO and DOS exam CONSULTS: Patient does not require consults for optimization at this time Planned Anesthetic: The Following Tests/Procedures Have Been Initiated: Orders Placed This Encounter CMP Standing Status: Future Standing Expiration Date: 06/10/2024 Complete Blood Count and Differential Standing Status: Future Standing Expiration Date: 06/10/2024 Confirm Blood Type Standing Status: Future Standing Expiration Date: 06/10/2024 Order Specific Question: Did Blood Bank direct you to place this order: Answer: No - Presurgical Workflow Type and Screen, 30 day Standing Status: Future Standing Expiration Date: 06/10/2024 Scheduling Instructions: A 30-day Type and Screen test has been ordered for you. This should be scheduled to be collected no earlier than 29 days before your scheduled procedure. If you receive blood products (red blood cells, platelets, plasma, cryoprecipitate) at any point before your procedure or are a female and become , please inform your provider. This test will be canceled, and a standard type and screen will need to be ordered to be collected within 3 days of your procedure. Order Specific Question: [facility] Planned Surgery or Procedure: Answer: [facility] Order Specific Question: Status of surgery/procedure: Answer: Scheduled Order Specific Question: Date of surgery/procedure: Answer: 03/28/2024 ECG COMPLETE Standing Status: Future Standing Expiration Date: 03/11/2025 REASON FOR VISIT: Heath Rosenberg is a 28 year old male who is scheduled for Procedure(s): Right temporal subcutaneous neurofibroma resection (Right) at the request of Cierra Howard MD, PhD for consultation. My final recommendation will be communicated back to the requesting physician by way of shared medical record or letter. Subjective The patient has the following: COVID-19 Immunization Status Overdue - Covid-19 Vaccine () Overdue since 11/11/2023 01/19/2021 Imm Admin: COVID-19 original vaccine, full dose, monovalent (MODERNA) 05/06/2020 Imm Admin: COVID-19 original vaccine, full dose, monovalent (MODERNA) 04/08/2020 Imm Admin: COVID-19 original vaccine, full dose, monovalent (MODERNA) Only the first 3 history entries have been loaded, but more history exists. 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 He endorses having a painful right temporal mass. 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 Scheduled for Right temporal subcutaneous neurofibroma resection (Right) on 03/28/24. Denies any fever, chills, nausea, vomiting, SOB, dizziness, lightheadedness, palpitations, syncope, chest pain or abdominal pain. He has elected to proceed with the surgical procedure. REVIEW OF SYSTEMS: General: No weight loss, malaise or fevers. Neurological: See HPI. + H/O Campoverde's palsy Positive for: headaches. Negative for: seizures, TIA and strokes. Respiratory: No history of current cough or dyspnea, or pneumonia in the past 6 weeks. No history of respiratory/pulmonary symptoms or problems. Negative for: asthma, bronchitis, COPD, current cough, dyspnea, home oxygen, orthopnea, pneumonia within 6 weeks, tobacco use, URI < 2 weeks and obstructive sleep apnea. Cardiovascular: No history of HTN requiring medication, no history of angina, CHF, IL, cardiac surgery or stents. Denies rest pain, gangrene or revascularization/amputation for PVD. No history of cardiovascular symptoms or problems. Negative for: AICD/PPM, angina, anticoagulation therapy, arrhythmia, atrial fibrillation, CAD, chest pain, CHF, congenital heart defect, DVT/PE, hyperlipidemia, hypertension, recent IL and murmur/valvular heart disease. GI: No history of GI symptoms or problems. No history of esophageal varices, recent ascites, or ETOH greater than 2 drinks per day. Negative for: abdominal pain, dysphagia, diverticulitis, GERD, hepatitis, irritable bowel syndrome, inflammatory bowel disease, liver disease, nausea, pancreatitis, vomiting and ETOH >2 drinks/day. : No history of dysuria, frequency or incontinence, stones or chronic kidney disease. No difficulty urinating, nocturia > 1 time per night or hematuria. Negative for: dysuria, flank pain, hematuria, urinary incontinence, nephrolithiasis and urgency. Endocrine: No history of diabetes. Has not taken steroids within the past 30 days. No history of endocrinological symptoms or problems. Negative for: diabetes mellitus, hyperthyroidism, hypothyroidism and hyperparathyroidism. Hematology: No history of bleeding or clotting disorder. Patient is not taking anti-coagulation or platelet medications. No history of hematological symptoms or problems. Negative for: anemia. Oncology: No history of CA metastasis, chemo within 30 days, or radiotherapy within 90 days. No history of oncological symptoms or problems. Psych: Positive for: anxiety. Negative for: ADHD, bipolar disorder, depression, drug dependency and Marijuana Use. Musculoskeletal: Positive for: back pain. Negative for: joint pain. Skin: Negative for lesions, rash and itching. Negative for: lesions, itching and rash. Implanted Devices: No implanted devices. PAST MEDICAL HISTORY Diagnosis Date Anxiety 03/11/2024 Headaches no aura History of Campoverde's palsy 03/11/2024 Neurofibromatosis, type 1 (von Recklinghausen's disease) (HCC) Scoliosis PAST SURGICAL HISTORY Procedure Laterality Date HAND SURGERY HX PAST SURGICAL HISTORY OF excision of neurofibroma: chest, bilateral hands, scalp, PAST SURGICAL HISTORY OF Right excision of lipoma right thigh PAST SURGICAL HISTORY OF wisdom teeth FAMILY HISTORY Problem Relation Age of Onset Hypertension Mother Diabetes Mother Diabetes Maternal Grandmother Hypertension Maternal Grandmother Glaucoma Maternal Grandfather Diabetes Maternal Grandfather Hypertension Maternal Grandfather Social History Tobacco Use Smoking status: Never Smokeless tobacco: Never Vaping Use Vaping status: Never Used Substance Use Topics Alcohol use: No Drug use: No Prior to Admission medications as of 03/11/24 1118 Medication Sig Last Dose Taking gabapentin (NEURONTIN) 600 mg tablet Take 1 tablet by mouth three times a day for 90 days. Taking Yes cholecalciferol, Vitamin D3, (VITAMIN D3) 1,250 mcg (50,000 unit) cap capsule Take 1 capsule by mouth one time a week. Taking Yes acetaminophen (TYLENOL EXTRA STRENGTH) 500 mg tablet Take 1,000 mg by mouth two times a day as needed. Taking Yes nortriptyline (PAMELOR) 25 mg capsule Take 1 capsule by mouth daily at bedtime. Taking Yes fexofenadine HCl (OVIDIO ALLERGY ORAL) Take 1 tablet by mouth once daily. Taking Yes multivit-minerals/folic acid (MULTIVITAMIN GUMMIES ORAL) Take 1 Dose by mouth once daily. Taking Yes No medication comments found. ALLERGIES Allergen Reactions Bactrim [Sulfametho* Penicillins Hives Zithromax [Azithrom* Hives Objective PHYSICAL EXAM: General: alert and oriented and healthy appearance. Skin: normal color, no rash or lesions. HEENT: Normocephalic, atraumatic No notable cervical lymph nodes . Cardiovascular: Self palpated radial pulse, regular when counted aloud by patient . Respiratory: Equal chest rise BL, no audible wheezing No respiratory distress. Abdomen: Extremities: no deformity, no edema or tenderness, no joint swelling or clubbing. Neurological: normal cognition and motor skills. PAIN ASSESSMENT: VITALS: Ht 6' 3 (1.91m) Wt 310 lb (140.6kg) BMI 38.75 kg/(m^2). Diagnostic tests reviewed for today's visit: Lab Value Units Date High Low HB No results within date range. HCT No results within date range. WBC No results within date range. PLT No results within date range. NA 140 mmol/L 11/13/2023 144 136 K 4.3 mmol/L 11/13/2023 5.1 3.7 GLUC 104 mg/dL 11/13/2023 99 74 BUN 17 mg/dL 11/13/2023 24 9 CREAT 0.82 mg/dL 11/13/2023 1.22 0.73 PTSEC No results within date range. INR No results within date range. APTT No results within date range. ALT No results within date range. AST No results within date range. TBILI No results within date range. TSH No results within date range. Lab Value Units Date High Low HCGQT No results within date range. UHCG No results within date range. HCG, BODY* No results within date range. Lab Value Units Date High Low ABORHD No results within date range. ABSCREEN No results within date range. No results found for: HBA1C No results found for this or any previous visit (from the past 8760 hour(s)). No results found for this or any previous visit (from the past 51667 hour(s)). Instructions Given to Patient: Instructions located in the after visit summary. Patient given verbal and written preop instructions and voices comprehension and compliance. Patient and mother aware need to have labs drawn and EKG performed. Mother states patient will have EKG done on 03/21/24 at [facility] while there for spine appointment. SIGNATURE: Toby Melara APRN.CNP PATIENT NAME: Heath Rosenberg DATE: March 11, 2024 TIME: 11:21 AM PAGER/CONTACT #: documented in this encounter [facility] 02-15-2024 Telephone encounter Note Neuro SPINE CARE COORDINATION SURGERY SCHEDULING Patient accepts surgery date of 03/[address] Cierra Lay at [facility]. Planned procedure: Right temporal subcutaneous neurofibroma resection Medications reviewed: Yes. Meds to be stopped prior to surgery : NSAIDS and Vitamins and supplements. Additional pre op clearances needed: None. Letter Sent: No Any implanted devices : No Transplant History: No Patient will get optimization lab work : none. BMI: Wt: 140.4 kg (309 lb 6.7 oz) BMI: 38.67 kg/(m^2) HGBA1C: No results found for: HBA1C Education Sent Via Mail/ vzaar: vzaar PACC Questionnaire Completed: Yes Patient placed on cancellation list: no Patient's questions answered. Patient verbalized understanding via teach back. Preoperative Needs Assessment Do you live alone or with someone that can help you? Lives with caregiver Will you have assistance available at home after your surgery to help with physical activities such a toileting or dressing? Always How many steps do you need to climb to get into your home? 1-10 Once in your home, how many steps do you need to climb to access your bedroom or bathroom? 1-10 Do you use a mobility aid for walking/getting around? (note, if more than one type of aid is used, select the one that is used more frequently) None Anticipated LOS > 5 days: No Significant home social issues or Current history or past history of substance abuse: No Wheelchair baseline, Homebound baseline, Significant gait instability, or History of significant falls: No April Jauregui RN [facility] Work Phone: 02-15-2024 Miscellaneous Notes Neuro SPINE CARE COORDINATION SURGERY SCHEDULING Patient accepts surgery date of 03/[address] Cierra Lay at [facility]. Planned procedure: Right temporal subcutaneous neurofibroma resection Medications reviewed: Yes. Meds to be stopped prior to surgery : NSAIDS and Vitamins and supplements. Additional pre op clearances needed: None. Letter Sent: No Any implanted devices : No Transplant History: No Patient will get optimization lab work : none. BMI: Wt: 140.4 kg (309 lb 6.7 oz) BMI: 38.67 kg/(m^2) HGBA1C: No results found for: HBA1C Education Sent Via Mail/ vzaar: vzaar PACC Questionnaire Completed: Yes Patient placed on cancellation list: no Patient's questions answered. Patient verbalized understanding via teach back. Preoperative Needs Assessment Do you live alone or with someone that can help you? Lives with caregiver Will you have assistance available at home after your surgery to help with physical activities such a toileting or dressing? Always How many steps do you need to climb to get into your home? 1-10 Once in your home, how many steps do you need to climb to access your bedroom or bathroom? 1-10 Do you use a mobility aid for walking/getting around? (note, if more than one type of aid is used, select the one that is used more frequently) None Anticipated LOS > 5 days: No Significant home social issues or Current history or past history of substance abuse: No Wheelchair baseline, Homebound baseline, Significant gait instability, or History of significant falls: No April Jauregui RN documented in this encounter [facility] 02-14-2024 Note HNO ID: [id number] Author: JOSE BOSE MD Service: ? Author Type: Physician Type: Progress Notes Filed: 02/14/2024 21:42 Note Text: This is a patient seen in [facility] in conjunction with Dr. Cierra Lay and Dr. Samir Gee ([facility]). CC: Painful R temporal mass. HPI: Mr. Rosenberg is a R hand dominant 28 year old male who presents with a chief complaint of painful R temporal mass. 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 He has recently started following with Dr. Martinez for monitoring. 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 These were excised by Dr. Lay and Dr. Gee on 11/13/2023. 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 12 capsule 0 acetaminophen (TYLENOL EXTRA STRENGTH) 500 mg tablet Take 1,000 mg by mouth two times a day as needed. fexofenadine HCl (OVIDIO ALLERGY ORAL) Take 1 tablet by mouth once daily. multivit-minerals/folic acid (MULTIVITAMIN GUMMIES ORAL) Take 1 Dose by mouth once daily. gabapentin (NEURONTIN) 600 mg tablet Take 1 tablet by mouth three times a day for 90 days. 90 tablet 2 nortriptyline (PAMELOR) 25 mg capsule Take 1 capsule by mouth daily at bedtime. 30 capsule 2 No current facility-administered medications for this visit. ALLERGIES Allergen Reactions Bactrim [Sulfametho* Penicillins Hives Zithromax [Azithrom* Hives PE: Exam of the R lutheran region revealed: Subcutaneous tender mass/neurofibroma measuring 2x2x1 cm. No skin ulceration over the mass. RADIOLOGY: N/A Assessment: Neurofibromatosis (hcc) (primary encounter diagnosis) Plan: We discussed with Mr. Rosenberg the diagnosis and proposed treatment options. Since the mass in the right lutheran region is tender, and interferes with patient wearing his prescription eye glasses, the patient desires to proceed with mass excision. Consent was signed in clinic by the patient and Dr. Cierra Lay. I spent a total of 20 minutes on the date of the service which included preparing to see the patient, [id number] patient care, completing clinical documentation, performing a medically appropriate examination, counseling and educating the patient/family/caregiver, and communicating results to the patient/family/caregiver. Jose Bose MD February 14, 2024 9:36 PM [facility] 02-14-2024 History of Present illness Narrative This is a patient seen in [facility] in conjunction with Dr. Cierra Lay and Dr. Samir Gee ([facility]). CC: Painful R temporal mass. HPI: Mr. Rosenberg is a R hand dominant 28 year old male who presents with a chief complaint of painful R temporal mass. 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 He has recently started following with Dr. Martinez for monitoring. 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 These were excised by Dr. Lay and Dr. Gee on 11/13/2023. 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 12 capsule 0 acetaminophen (TYLENOL EXTRA STRENGTH) 500 mg tablet Take 1,000 mg by mouth two times a day as needed. fexofenadine HCl (OVIDIO ALLERGY ORAL) Take 1 tablet by mouth once daily. multivit-minerals/folic acid (MULTIVITAMIN GUMMIES ORAL) Take 1 Dose by mouth once daily. gabapentin (NEURONTIN) 600 mg tablet Take 1 tablet by mouth three times a day for 90 days. 90 tablet 2 nortriptyline (PAMELOR) 25 mg capsule Take 1 capsule by mouth daily at bedtime. 30 capsule 2 No current facility-administered medications for this visit. ALLERGIES Allergen Reactions Bactrim [Sulfametho* Penicillins Hives Zithromax [Azithrom* Hives PE: Exam of the R lutheran region revealed: Subcutaneous tender mass/neurofibroma measuring 2x2x1 cm. No skin ulceration over the mass. RADIOLOGY: N/A Assessment: Neurofibromatosis (hcc) (primary encounter diagnosis) Plan: We discussed with Mr. Rosenberg the diagnosis and proposed treatment options. Since the mass in the right lutheran region is tender, and interferes with patient wearing his prescription eye glasses, the patient desires to proceed with mass excision. Consent was signed in clinic by the patient and Dr. Cierra aLy. I spent a total of 20 minutes on the date of the service which included preparing to see the patient, [id number] patient care, completing clinical documentation, performing a medically appropriate examination, counseling and educating the patient/family/caregiver, and communicating results to the patient/family/caregiver. Jose Bose MD February 14, 2024 9:36 PM documented in this encounter [facility] 02-14-2024 Note HNO ID: [id number] Author: SAMIR GEE MD Service: ? Author Type: Physician Type: Progress Notes Filed: 02/27/2024 06:45 Note Text: Heath Rosenberg underwent the following procedure on 11/13/2023: SURGEON(S)/PROCEDURALIST(S) AND VALVE PIPE IRRIGATOR(S): Surgeons and Role: Panel 1: * Samir Gee MD - Primary * Kvng Smith MD - Resident - Assisting * Dana Sales MD - Resident - Assisting Panel 2: * Cierra Lay MD, PhD - Primary * Emre Nevarez MD - Resident - Assisting No Additional Staff SURGERY/PROCEDURE(S): 1) Excision of a mass from right thenar eminence 2) Excision of multiple masses from left thenar eminence. On exam, the incisions on both hands are healed without evidence of infection. Sensation and range of motion intact ASSESSMENT: Postoperative state (primary encounter diagnosis) PLAN: Heath is doing great in terms of hands. We recommended scar massgae and return to work without restrictions. Samir Gee MD Hand AND Upper Extremity Surgery This note was generated with voice recognition software and may contain errors, including spelling, grammar, syntax and misrecognition of what was dictated, that are not fully corrected. [facility] 02-14-2024 History of Present illness Narrative [facility] Follow up/Established patient visit Individuals who were included in, or assisted with the encounter were: Heath Rosenberg Cierra Lay MD, PhD Pat Funes Chief Complaint/Issues: Heath Rosenberg is a 28 year old right-handed male seen in the [facility] for: NF1 with [place] characteristics Initial HPI: The patient has a history of NF1 diagnosed in infancy. 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 He has recently started following with Dr. Martinez for monitoring. 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 HPI/Interval History: The patient presents for a 3 month follow up following an excision of left thigh subcutaneous neurofibroma x2, a mass from right thenar eminence, and multiple masses from left thenar eminence. His pain is well controlled and his incision is healing well. He noticed a new tumor on his right lutheran that hurts when he wears his glasses. General Examination: BP 137/72 Pulse 76 Resp 18 Ht 190.5 cm (6' 3 ) Wt (!) 140.4 kg (309 lb 6.7 oz) BMI 38.67 kg/m General: Awake, alert, interactive, no acute distress, good nutritional status, normal development, well-kept HEENT: Small subcutaneous neurofibroma of the right temporal region just anterior and superior to the ear Extremities: Incisions well healed Neurological Exam Mental Status Alert, fully oriented, attentive, with normal cognition, memory, speech and affect. Cranial Nerves Extraocular movements normal. No nystagmus, no ptosis, and pupils equal. Face symmetrical. Tongue normal. Motor Examination and Coordination Motor examination with normal bulk, strength and tone. Sensation Sensation intact to light touch Gait Casual gait normal. 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 Diffuse enlargement and plexiform neurofibroma along the course of the sciatic nerve in the entire course in the thigh prominent proximally. Numerous neurofibromas scattered throughout the subcutaneous soft tissues, intermuscular planes and intramuscular throughout the left thigh with the largest superficial to the sartorius muscle and measuring 3.2 x 2.2 x 1.9 cm no muscle edema or atrophy. 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 Diffuse enlargement and plexiform neurofibroma along the course of the sciatic nerve in the entire course in the thigh prominent proximally. Numerous neurofibromas scattered throughout the subcutaneous soft tissues, intermuscular planes and intramuscular throughout the left thigh with the largest superficial to the sartorius muscle and measuring 3.2 x 2.2 x 1.9 cm no muscle edema or atrophy. MRI HAND LEFT: 09/10/23 There are a few hyperintense T2 mildly enhancing ovoid structures located along the second through fourth flexor tendons at the level of the metacarpals measuring up to 8 mm most likely representing peripheral nerve sheath tumors. No associated soft tissue edema. Flexor and extensor tendons appear within normal limits. Musculature of the hand is within normal limits. No bone marrow signal abnormality. MRI HAND RIGHT: 09/10/23 Multiple tiny hyperintense structures demonstrating low-level postcontrast enhancement are identified along the second through fourth flexor tendons at the level of the mid through the distal diaphyses. An ovoid hyperintense mildly enhancing structure is present along the mid diaphysis of the fourth proximal phalanx measuring approximately 2 x 0.8 x 0.6 cm. An ovoid hyperintense small enhancing structure is present along the distal diaphysis of the third proximal phalanx measuring approximately 0.9 x 0.3 x 0.3 cm. These structures most likely represent neurofibromas. Flexor and extensor tendons are intact. Musculature of the hand is within normal limits. No bone marrow signal abnormality. 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 The patient would like to undergo surgery for resection of the right temporal subcutaneous neurofibroma. We discussed the procedure in detail. We reviewed the benefits, alternatives, and potential complications including bleeding, infection, damage to surrounding structures, neurological impairment, tumor recurrence, and the need for other surgeries and other procedures. All questions were answered. Informed consent was obtained. My team will reach out to discuss scheduling with the patient. I have refilled his gabapentin prescription. I have also given him a return to work not with no limitations. Encounter Diagnosis ICD-10-CM 1. Neurofibromatosis, type I (von Recklinghausen's disease) ([facility]) Q85.01 Return if symptoms worsen or fail to improve. Data Review Objective Current Outpatient Medications Medication Sig cholecalciferol, Vitamin D3, (VITAMIN D3) 1,250 mcg (50,000 unit) cap capsule Take 1 capsule by mouth one time a week. acetaminophen (TYLENOL EXTRA STRENGTH) 500 mg tablet Take 1,000 mg by mouth two times a day as needed. fexofenadine HCl (OVIDIO ALLERGY ORAL) Take 1 tablet by mouth once daily. multivit-minerals/folic acid (MULTIVITAMIN GUMMIES ORAL) Take 1 Dose by mouth once daily. gabapentin (NEURONTIN) 600 mg tablet Take 1 tablet by mouth three times a day for 90 days. nortriptyline (PAMELOR) 25 mg capsule Take 1 capsule by mouth daily at bedtime. No current facility-administered medications for this visit. ACTIVE PROBLEM LIST Neurofibroma, Multiple (Hcc) Other Sleep Disturbances Explosive Personality Disorder (Hcc) Anger Learning Disability Backache Lumbago Disc Herniation Neurofibroma Obesity (Bmi 30-39.9) Campoverde's Palsy Mass of Hand, Left Chronic Tension-Type Headache, Not Intractable Radiculopathy, Lumbar Region Neurofibromatosis, Type I (Von Recklinghausen's Disease) (Hcc) Plexiform Neurofibroma PAST MEDICAL HISTORY Diagnosis Date Headaches no aura Neurofibromatosis, type 1 (von Recklinghausen's disease) (HCC) Scoliosis PAST SURGICAL HISTORY Procedure Laterality Date HAND SURGERY HX PAST SURGICAL HISTORY OF excision of neurofibroma: chest, bilateral hands, scalp, PAST SURGICAL HISTORY OF Right excision of lipoma right thigh PAST SURGICAL HISTORY OF wisdom teeth Social History Tobacco Use Smoking status: Never Smokeless tobacco: Never Vaping Use Vaping status: Never Used Substance Use Topics Alcohol use: No Drug use: No FAMILY HISTORY Problem Relation Age of Onset Hypertension Mother Diabetes Mother Diabetes Maternal Grandmother Hypertension Maternal Grandmother Glaucoma Maternal Grandfather Diabetes Maternal Grandfather Hypertension Maternal Grandfather By signing my name below, I, Sowmya Adkins, attest that this documentation has been prepared under the direction and in the presence of Dr. Lay Electronically signed, Pat Funes February 13, 2024 9:34 PM I spent a total of 30 minutes on the date of the service which included preparing to see the patient, [id number] patient care, completing clinical documentation, obtaining and/or reviewing separately obtained history, performing a medically appropriate examination, counseling and educating the patient/family/caregiver, and ordering medications, tests, or procedures. Cierra Lay MD, PhD Peripheral Nerve Neurosurgeon Manager Field, Neurosurgery [facility] [address] [place] [address] documented in this encounter [facility] 02-14-2024 History of Present illness Narrative Heath Rosenberg underwent the following procedure on 11/13/2023: SURGEON(S)/PROCEDURALIST(S) AND VALVE PIPE IRRIGATOR(S): Surgeons and Role: Panel 1: * Samir Gee MD - Primary * Kvng Smith MD - Resident - Assisting * Dana Sales MD - Resident - Assisting Panel 2: * Cierra Lay MD, PhD - Primary * Emre Nevarez MD - Resident - Assisting No Additional Staff SURGERY/PROCEDURE(S): 1) Excision of a mass from right thenar eminence 2) Excision of multiple masses from left thenar eminence. On exam, the incisions on both hands are healed without evidence of infection. Sensation and range of motion intact ASSESSMENT: Postoperative state (primary encounter diagnosis) PLAN: Heath is doing great in terms of hands. We recommended scar massgae and return to work without restrictions. Samir Gee MD Hand & Upper Extremity Surgery This note was generated with voice recognition software and may contain errors, including spelling, grammar, syntax and misrecognition of what was dictated, that are not fully corrected. documented in this encounter [facility] 02-14-2024 Note HNO ID: [id number] Author: CIERRA LAY MD, PhD Service: ? 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 He has recently started following with Dr. Martinez for monitoring. 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 HPI/Interval History: The patient presents for a 3 month follow up following an excision of left thigh subcutaneous neurofibroma x2, a mass from right thenar eminence, and multiple masses from left thenar eminence. His pain is well controlled and his incision is healing well. He noticed a new tumor on his right lutheran that hurts when he wears his glasses. General Examination: BP 137/72 Pulse 76 Resp 18 Ht 190.5 cm (6' 3 ) Wt (!) 140.4 kg (309 lb 6.7 oz) BMI 38.67 kg/m? General: Awake, alert, interactive, no acute distress, good nutritional status, normal development, well-kept HEENT: Small subcutaneous neurofibroma of the right temporal region just anterior and superior to the ear Extremities: Incisions well healed Neurological Exam Mental Status Alert, fully oriented, attentive, with normal cognition, memory, speech and affect. Cranial Nerves Extraocular movements normal. No nystagmus, no ptosis, and pupils equal. Face symmetrical. Tongue normal. Motor Examination and Coordination Motor examination with normal bulk, strength and tone. Sensation Sensation intact to light touch Gait Casual gait normal. 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 Diffuse enlargement and plexiform neurofibroma along the course of the sciatic nerve in the entire course in the thigh prominent proximally. Numerous neurofibromas scattered throughout the subcutaneous soft tissues, intermuscular planes and intramuscular throughout the left thigh with the largest superficial to the sartorius muscle and measuring 3.2 x 2.2 x 1.9 cm no muscle edema or atrophy. 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 Diffuse enlargement and plexiform neurofibroma along the course of the sciatic nerve in the entire course in the thigh prominent proximally. Numerous neurofibromas scattered throughout the subcutaneous soft tissues, intermuscular planes and intramuscular throughout the left thigh with the largest superficial to the sartorius muscle and measuring 3.2 x 2.2 x 1.9 cm no muscle edema or atrophy. MRI HAND LEFT: 09/10/23 There are a few hyperintense T2 mildly enhancing ovoid structures located along the second through fourth flexor tendons at the level of the metacarpals measuring up to 8 mm most likely representing peripheral nerve sheath tumors. No associated soft tissue edema. Flexor and extensor tendons appear within normal limits. Musculature of the hand is within normal limits. No bone marrow signal abnormality. MRI HAND RIGHT: 09/10/23 Multiple tiny hyperintense structures demonstrating low-level postcontrast enhancement are identified along the second through fourth flexor tendons at the level of the mid through the distal diaphyses. An ovoid hyperintense mildly enhancing structure is present along the mid diaphysis of the fourth proximal phalanx measuring approximately 2 x 0.8 x 0.6 cm. An ovoid hyperintense small enhancing structure is present along the distal diaphysis of the third proximal phalanx measuring approximately 0.9 x 0.3 x 0.3 cm. These structures most likely represent neurofibromas. Flexor and extensor tendons are intact. Musculature of the hand is within normal limits. No bone marrow signal abnormality. 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 The patient would like to undergo surgery for resection of the right temporal subcutaneous (more content not included)... [facility] 02-14-2024 Telephone encounter Note Received the paperwork was put in doc sign to be filled out and signed by the doctor. [facility] 02-14-2024 Miscellaneous Notes Received the paperwork was put in doc sign to be filled out and signed by the doctor. Called [facility] they are re-faxing the paperwork to us. Neuro SPINE CARE COORDINATION QUICK NOTE Noted. Requested admin to obtain medical necessity form from [facility] as it was not included in the fax. April Jauregui RN BSN Nurse Merchandising Internship Received the following record(s) via fax. -[facility] Letter Certification letter 02/11/24 Record(s) scanned into pt's chart. Maricruz Parker documented in this encounter [facility] 02-14-2024 Nurse Note Intake information documented in the prior visit with Dr. Cierra Lay today. [facility] Work Phone: 02-14-2024 Nurse Note Intake information documented in the prior visit with Dr. Cierra Lay today. documented in this encounter [facility] 02-14-2024 Nurse Note Intake information documented in the prior visit with Dr. Cierra Lay today. [facility] Work Phone: 02-14-2024 Nurse Note Intake information documented in the prior visit with Dr. Cierra Lay today. documented in this encounter [facility] 02-14-2024 Telephone encounter Note Called [facility] they are re-faxing the paperwork to us. [facility] 02-14-2024 Telephone encounter Note Neuro SPINE CARE COORDINATION QUICK NOTE Noted. Requested admin to obtain medical necessity form from [facility] as it was not included in the fax. April Jauregui READINESS PARAPROFESSIONAL Nurse Merchandising Internship [facility] Work Phone: 02-12-2024 Telephone encounter Note Received the following record(s) via fax. -[employer] Letter Certification letter 02/11/24 Record(s) scanned into pt's chart. Maricruz Parker [facility] 02-05-2024 Note HNO ID: [id number] Author: TERRI SAMS OTR/L Service: ? Author Type: Occupational Therapist Type: Progress Notes Filed: 02/05/2024 09:19 Note Text: Episode Visit Count: 1 Therapist That Will Accept/Oversee The Plan Of Care: MARSHALL Daugherty Start of Care Date: 02/05/24 Onset Date: 11/13/23 Plan of Care Certification Date: 02/05/24 Next Certification Due Date: 03/11/24 Patient Identified by Name and Date of : Yes [facility] OCCUPATIONAL THERAPY EVALUATION PLAN OF CARE: Assessment: Heath Rosenberg presents with chief complaint of recent neurofibromas excision from B thenar eminence that interferes with nothing . The patient presents with impairments in L anvilsmith strength when compared to R. Patient did not complete the PROMIS? (Patient Reported Outcome Measures Information System). Prognosis for therapy is Excellent due to: current objective clinical presentation . He demonstrates normal AROM in B UE. He does have mild adhesions in L thumb incision. He correctly completed exercises following education. He will continue with efforts on his own, but may contact therapist if he feels he is not progressing as expected. The patient will benefit from skilled therapy services to meet the goals established for this plan of care as noted below. Goals for Episode of Care: established 02/05/24 Patient will demonstrate independence with ongoing home recommendations/exercise program throughout therapy plan of care. Patient will increase Left anvilsmith strength by 10#, so that patient will be able to improve function for prior functional tasks. Patient Goals: smooth incision in L hand. Time Frame for Goals and Treatment : 03/11/24 Planned Interventions, Frequency, and Duration: Current Frequency: 1 visit Duration: 1 visit Total Number of Visits Planned: 1 Planned Treatment Interventions: Therapeutic exercise (27666), Self-group home management (41280), Patient/Family/Caregiver Education, Manual therapy ([id number]) Based on the patient's history, the components of the examination, the patient presentation, and required decision-making as described in this evaluation, this patient's evaluation falls into the low category of complexity as described by AMA CPT codes. PLAN FOR NEXT VISIT:review and update home program as needed, reassess scar adhesions, strength Patient demonstrates good understanding of plan of care and treatment. The above goals and plan of care were discussed and agreed upon by patient/family. SUBJECTIVE: 12 weeks s/p neurofibromas excision from B thenar eminences. Functional Limitations: nothing Prior Level of Function: Independent without limitations Patient Goals: smooth incision in L hand. 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 5 points is clinically meaningfully difference Percentiles provide an indication of how the patient's score ranks in relation to the general population. Higher percentile rankings indicate better function/quality of life. 50th percentile is the average of the general population and indicates half of respondents had a worse score. OBJECTIVE MEASURES WITH LEVEL OF FUNCTION: Hand Skin / Wound: Scar Scar: Non-tender, Mild adherance Edema Location: L thenar eminence Edema Description: Mild Shoulder AROM: WFL Elbow AROM: WFL Wrist AROM: WFL Right Hand AROM: WFL Left Hand AROM: WFL Thumb AROM: WFL (denies pain with motion) Strength: Carnallite Plant Operator Position 2, Pinch Meter Sensation: Denies tingling or numbness Dexterity/Coordination: Observed to be functional Hand Strength R Carnallite Plant Operator Position 2 (lbs): 105 lbs L Carnallite Plant Operator Position 2 (lbs): 87 lbs R Lateral Pinch (lbs): 21 lbs R Tripod/ 3 Jaw Yung (lbs): 20 lbs L Lateral Pinch (lbs): 21 lbs L Tripod/ 3 Jaw Yung (lbs): 21 lbs UE AROM Right Hand AROM: WFL Left Hand AROM: WFL Thumb AROM: WFL (denies pain with motion) Education: Education L (more content not included)... [facility] 02-05-2024 History of Present illness Narrative Episode Visit Count: 1 Therapist That Will Accept/Oversee The Plan Of Care: LORENZO Daugherty/Mario Start of Care Date: 02/05/24 Onset Date: 11/13/23 Plan of Care Certification Date: 02/05/24 Next Certification Due Date: 03/11/24 Patient Identified by Name and Date of : Yes [facility] OCCUPATIONAL THERAPY EVALUATION PLAN OF CARE: Assessment: Heath Rosenberg presents with chief complaint of recent neurofibromas excision from B thenar eminence that interferes with nothing . The patient presents with impairments in L anvilsmith strength when compared to R. Patient did not complete the PROMIS (Patient Reported Outcome Measures Information System). Prognosis for therapy is Excellent due to: current objective clinical presentation . He demonstrates normal AROM in B UE. He does have mild adhesions in L thumb incision. He correctly completed exercises following education. He will continue with efforts on his own, but may contact therapist if he feels he is not progressing as expected. The patient will benefit from skilled therapy services to meet the goals established for this plan of care as noted below. Goals for Episode of Care: established 02/05/24 Patient will demonstrate independence with ongoing home recommendations/exercise program throughout therapy plan of care. Patient will increase Left anvilsmith strength by 10#, so that patient will be able to improve function for prior functional tasks. Patient Goals: smooth incision in L hand. Time Frame for Goals and Treatment : 03/11/24 Planned Interventions, Frequency, and Duration: Current Frequency: 1 visit Duration: 1 visit Total Number of Visits Planned: 1 Planned Treatment Interventions: Therapeutic exercise (16691), Self-group home management (27379), Patient/Family/Caregiver Education, Manual therapy (16597) Based on the patient's history, the components of the examination, the patient presentation, and required decision-making as described in this evaluation, this patient's evaluation falls into the low category of complexity as described by AMA CPT codes. PLAN FOR NEXT VISIT:review and update home program as needed, reassess scar adhesions, strength Patient demonstrates good understanding of plan of care and treatment. The above goals and plan of care were discussed and agreed upon by patient/family. SUBJECTIVE: 12 weeks s/p neurofibromas excision from B thenar eminences. Functional Limitations: nothing Prior Level of Function: Independent without limitations Patient Goals: smooth incision in L hand. 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 5 points is clinically meaningfully difference Percentiles provide an indication of how the patient's score ranks in relation to the general population. Higher percentile rankings indicate better function/quality of life. 50th percentile is the average of the general population and indicates half of respondents had a worse score. OBJECTIVE MEASURES WITH LEVEL OF FUNCTION: Hand Skin / Wound: Scar Scar: Non-tender, Mild adherance Edema Location: L thenar eminence Edema Description: Mild Shoulder AROM: WFL Elbow AROM: WFL Wrist AROM: WFL Right Hand AROM: WFL Left Hand AROM: WFL Thumb AROM: WFL (denies pain with motion) Strength: Carnallite Plant Operator Position 2, Pinch Meter Sensation: Denies tingling or numbness Dexterity/Coordination: Observed to be functional Hand Strength R Carnallite Plant Operator Position 2 (lbs): 105 lbs L Carnallite Plant Operator Position 2 (lbs): 87 lbs R Lateral Pinch (lbs): 21 lbs R Tripod/ 3 Jaw Yung (lbs): 20 lbs L Lateral Pinch (lbs): 21 lbs L Tripod/ 3 Jaw Yung (lbs): 21 lbs UE AROM Right Hand AROM: WFL Left Hand AROM: WFL Thumb AROM: WFL (denies pain with motion) Education: Education Learning Preferences: Demonstration, Explanation, Performance, Printed Materials Barriers: None Learning/educational needs: Home exercise program, Plan of Care Education Provided: Yes, see treatment interventions for education provided Education Provided To: Patient, Family Education Mode/Type: Demonstration, Explanation/Discussion, Literature/Printed Materials, Performance Response to Education/Teach Back: States/Identifies, Return Demonstration TREATMENT: OT Treatment Interventions : Therapeutic Exercise Evaluation Therapeutic Exercise: 1: pt educated in and completed scar massage with and without dycem-added to home program 2: Pt educated in and completed [id number] for hand strengthening-added to home program Skilled Intervention: Patient was educated in proper exercise technique and purpose for exercises. Skilled judgment was used in selection of appropriate interventions. Provided written instruction for home exercise program to facilitate proper performance and compliance. Correct performance of therapeutic exercises was facilitated with verbal, visual, and tactile cuing. Billing * Evaluation Low Complexity: 1 Unit Therapeutic Exercise Treatment Minutes: 8 Skilled Treatment Time Minutes (timed and untimed codes): 23 Total Session Time (minutes): 23 Session Start Time : 848 Session Stop Time : 911 LORENZO Daugherty/Mario #[id number] documented in this encounter [facility] 12-27-2023 History of Present illness Narrative Images from the original note were not included. SPINE SURGERY FOLLOW UP This is a virtual visit using [employer] Video Visit. It required patient-provider interaction for the medical decision making as documented below. I have communicated my name and active licensure. The patient's identity and physical location were verified at the time of this visit. Either the patient or their legal cordage sales representative has been informed of the risks and benefits of -- and alternatives to -- treatment through a remote evaluation and consents to proceed with the evaluation remotely. SERVICE DATE: 12/27/2023 SURGERY DATE: 11/13/2023 Excision of left thigh subcutaneous neurofibroma x2 Excision of a mass from right thenar eminence Excision of multiple masses from left thenar eminence Heath Rosenberg is seen for 6 week post operative follow up. Symptoms postoperatively: sharp intermittent nerve pain Pain Management: ibu tylenol as needed gabapentin 2 capsules twice a day; discussed increasing to 2 capsule TID Activity: start OT, will updated RTW letter to extend 6 weeks Incision: left hand feels bumpy, can't visualize Right hand incision well healed No new motor deficits PAIN EVALUATION 12/27/2023 1230 Pain Location: Hand-Left Description: Incision;Sharp;Sore Duration Amount of Time: 6 Duration Units: Weeks Frequency: Continuous Intervention/Comfort measure: Medication Patient Entered Questionnaires PROMIS Score Percentiles 03/20/2019 02/05/2023 Physical Health Physical Function Percentile 38 Fatigue Percentile 24* Pain Interference Percentile 38 03/20/2019 PROMIS SOCIAL ROLE SCORE Social Role Satisfaction Percentile 18* 09/28/2021 06/20/2022 02/05/2023 PROMIS Global Health Scale Physical Health Percentile 4 10 15 Mental Health Percentile 5 34 34 Percentiles provide an indication of how the patient's score ranks in relation to the general population. Higher percentile rankings indicate better function/quality of life. 50th percentile is the average of the general population and indicates half of respondents had a worse score. Depression Screenin09/05/2017 09/28/2021 02/05/2023 PHQ-9 Score 1 4 2 09/05/2017 09/28/2021 02/05/2023 PHQ-9 Self-harm Question Question 9 Not at all Not at all Not at all PHQ-9 Self-Harm (Item 9) response options: 0 Not at all 1 Several days 2 More than half the days 3 Nearly every day PHQ-9 Levels: 0-4 No to mild depression 5-9 Mild depression 10-14 Moderate depression 15-19 Moderately severe depression 20-27 Severe depression PHYSICAL EXAM: LIMITED DUE TO VIRTUAL VISIT There were no vitals taken for this visit. GENERAL APPEARANCE: Well nourished, well developed, and no apparent distress. NEURO PSYCH: Patient oriented to person, place, and time. Mood pleasant. Benign affect. 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 1. Medications: increase gabapentin Consults: Physical Therapy 2. Follow up: 3 mo post op I spent a total of 16 minutes on the date of the service which included preparing to see the patient, [id number] patient care, completing clinical documentation, obtaining and/or reviewing separately obtained history, performing a medically appropriate examination, counseling and educating the patient/family/caregiver, independently interpreting results (not separately reported), and communicating results to the patient/family/caregiver. SIGNATURE: Cierra Fitzgerald APRN.CNP PATIENT NAME: Heath Rosenberg DATE: December 27, 2023 TIME: 9:53 AM PAGER: documented in this encounter [facility] 12-27-2023 Note HNO ID: [id number] Author: CIERRA FITZGERALD APRN.CNP Service: ? Author Type: Nurse Practitioner Type: Progress Notes Filed: 12/27/2023 14:05 Note Text: SPINE SURGERY FOLLOW UP This is a virtual visit using [employer] Video Visit. It required patient-provider interaction for the medical decision making as documented below. I have communicated my name and active licensure. The patient's identity and physical location were verified at the time of this visit. Either the patient or their legal cordage sales representative has been informed of the risks and benefits of -- and alternatives to -- treatment through a remote evaluation and consents to proceed with the evaluation remotely. SERVICE DATE: 12/27/2023 SURGERY DATE: 11/13/2023 Excision of left thigh subcutaneous neurofibroma x2 Excision of a mass from right thenar eminence Excision of multiple masses from left thenar eminence Heath Rosenberg is seen for 6 week post operative follow up. Symptoms postoperatively: sharp intermittent nerve pain Pain Management: ibu tylenol as needed gabapentin 2 capsules twice a day; discussed increasing to 2 capsule TID Activity: start OT, will updated RTW letter to extend 6 weeks Incision: left hand feels bumpy, can't visualize Right hand incision well healed No new motor deficits PAIN EVALUATION 12/27/2023 1230 Pain Location: Hand-Left Description: Incision;Sharp;Sore Duration Amount of Time: 6 Duration Units: Weeks Frequency: Continuous Intervention/Comfort measure: Medication Patient Entered Questionnaires PROMIS Score Percentiles 03/20/2019 02/05/2023 Physical Health Physical Function Percentile 38 Fatigue Percentile 24* Pain Interference Percentile 38 03/20/2019 PROMIS SOCIAL ROLE SCORE Social Role Satisfaction Percentile 18* 09/28/2021 06/20/2022 02/05/2023 PROMIS Global Health Scale Physical Health Percentile 4 10 15 Mental Health Percentile 5 34 34 Percentiles provide an indication of how the patient's score ranks in relation to the general population. Higher percentile rankings indicate better function/quality of life. 50th percentile is the average of the general population and indicates half of respondents had a worse score. Depression Screenin09/05/2017 09/28/2021 02/05/2023 PHQ-9 Score 1 4 2 09/05/2017 09/28/2021 02/05/2023 PHQ-9 Self-harm Question Question 9 Not at all Not at all Not at all PHQ-9 Self-Harm (Item 9) response options: 0 Not at all 1 Several days 2 More than half the days 3 Nearly every day PHQ-9 Levels: 0-4 No to mild depression 5-9 Mild depression 10-14 Moderate depression 15-19 Moderately severe depression 20-27 Severe depression PHYSICAL EXAM: LIMITED DUE TO VIRTUAL VISIT There were no vitals taken for this visit. GENERAL APPEARANCE: Well nourished, well developed, and no apparent distress. NEURO PSYCH: Patient oriented to person, place, and time. Mood pleasant. Benign affect. 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 1. Medications: increase gabapentin Consults: Physical Therapy 2. Follow up: 3 mo post op I spent a total of 16 minutes on the date of the service which included preparing to see the patient, [id number] patient care, completing clinical documentation, obtaining and/or reviewing separately obtained history, performing a medically appropriate examination, counseling and educating the patient/family/caregiver, independently interpreting results (not separately reported), and communicating results to the patient/family/caregiver. SIGNATURE: Cierra Fitzgerald APRN.WOODY PATIENT NAME: Heath Rosenberg DATE: December 27, 2023 TIME: 9:53 AM PAGER: [facility] 12-11-2023 Telephone encounter Note Spoke to mom he did get this letter. He is developmentally disabled. Thank you. [facility] 12-11-2023 Miscellaneous Notes Spoke to mom he did get this letter. He is developmentally disabled. Thank you. documented in this encounter [facility] 11-29-2023 Note HNO ID: [id number] Author: CIERRA FITZGERALD APRN.WOODY Service: ? Author Type: Nurse Practitioner Type: Progress Notes Filed: 11/29/2023 15:45 Note Text: SPINE SURGERY FOLLOW UP This is an in-person visit. SERVICE DATE: 11/29/2023 SURGERY DATE: 11/13/2023 Excision of left thigh subcutaneous neurofibroma x2 Excision of a mass from right thenar eminence Excision of multiple masses from left thenar eminence Heaht Rosenberg is seen for 2 week post operative follow up with his parents. Patient has suture remvoal with [employer] prior and did become dizzy and lightheadedness. [employer] notified me came into room to assess patient, laying flat, VS stable. Patient stated he did not eat anything today, [employer] proivded juice and crackers patient felt better after able to sit up and complete rest of suture removal. All 3 incisions healing well. Patient denies severe pain at this time. Taking tylenol PRN as well as his routine gabapentin. Discussed nerve healing process with patient and parents. PAIN EVALUATION 11/29/2023 1423 Pain Level: 5 Pain Location: -- hands Description: Aching Duration Amount of Time: 2 Duration Units: Weeks Frequency: Intermittent Intervention/Comfort measure: Relaxation;Medication PROMIS Score Percentiles 03/20/2019 02/05/2023 Physical Health Physical Function Percentile 38 Fatigue Percentile 24* Pain Interference Percentile 38 03/20/2019 PROMIS SOCIAL ROLE SCORE Social Role Satisfaction Percentile 18* 09/28/2021 06/20/2022 02/05/2023 PROMIS Global Health Scale Physical Health Percentile 4 10 15 Mental Health Percentile 5 34 34 Percentiles provide an indication of how the patient's score ranks in relation to the general population. Higher percentile rankings indicate better function/quality of life. 50th percentile is the average of the general population and indicates half of respondents had a worse score. Depression Screenin09/05/2017 09/28/2021 02/05/2023 PHQ-9 Score 1 4 2 09/05/2017 09/28/2021 02/05/2023 PHQ-9 Self-harm Question Question 9 Not at all Not at all Not at all PHQ-9 Self-Harm (Item 9) response options: 0 Not at all 1 Several days 2 More than half the days 3 Nearly every day PHQ-9 Levels: 0-4 No to mild depression 5-9 Mild depression 10-14 Moderate depression 15-19 Moderately severe depression 20-27 Severe depression PHYSICAL EXAM: BP 141/58 Pulse 84 Resp 18 Ht 190.5 cm (6' 3 ) Wt (!) 136.9 kg (301 lb 13 oz) BMI 37.72 kg/m? GENERAL APPEARANCE: Well nourished, well developed, and no apparent distress. NEURO PSYCH: Patient oriented to person, place, and time. Mood pleasant. Benign affect. WOUND ASSESSMENT: Incision healing, Well approximated incision, Non-reddened DATA REVIEW FINAL DIAGNOSIS A. Soft tissue, right hand thenar mass, biopsy: - Neurofibroma. B. Soft tissue, left thigh #1, excision: - Neurofibroma. C. Soft tissue, left thigh #2, excision: - Neurofibroma. D. Soft tissue, left hand, excision: - Neurofibroma. ASSESSMENT/PLAN (Q85.00) Neurofibromas, multiple (HCC) (primary encounter diagnosis) Heath Rosenberg will continue with medical management of his/her condition. Needs updated work letter extend leave until 6 week follow up. Patient works at [employer] and there is no light duty option for him. All questions answered. 1. Medications: Continue current medications and reach out if nerve pain spike and can adjust gabapentin dosage 2. Follow up: 6 week post op I spent a total of 20 minutes on the date of the service which included preparing to see the patient, [id number] patient care, completing clinical documentation, obtaining and/or reviewing separately obtained history, performing a medically appropriate examination, counseling and educating the patient/family/caregiver, independently interpreting results (not separately reported), and communicating results to the patient/family/caregiver. SIGNATURE: Cierra Fitzgerald APRN.WOODY PATIENT NAME: Heath Rosenberg DATE: November 29, 2023 TIME: 3:26 PM PAGER: [facility] 11-29-2023 History of Present illness Narrative Images from the original note were not included. SPINE SURGERY FOLLOW UP This is an in-person visit. SERVICE DATE: 11/29/2023 SURGERY DATE: 11/13/2023 Excision of left thigh subcutaneous neurofibroma x2 Excision of a mass from right thenar eminence Excision of multiple masses from left thenar eminence Heath Rosenberg is seen for 2 week post operative follow up with his parents. Patient has suture remvoal with [employer] prior and did become dizzy and lightheadedness. [employer] notified me came into room to assess patient, laying flat, VS stable. Patient stated he did not eat anything today, [employer] proivded juice and crackers patient felt better after able to sit up and complete rest of suture removal. All 3 incisions healing well. Patient denies severe pain at this time. Taking tylenol PRN as well as his routine gabapentin. Discussed nerve healing process with patient and parents. PAIN EVALUATION 11/29/2023 0273 Pain Level: 5 Pain Location: -- hands Description: Aching Duration Amount of Time: 2 Duration Units: Weeks Frequency: Intermittent Intervention/Comfort measure: Relaxation;Medication PROMIS Score Percentiles 03/20/2019 02/05/2023 Physical Health Physical Function Percentile 38 Fatigue Percentile 24* Pain Interference Percentile 38 03/20/2019 PROMIS SOCIAL ROLE SCORE Social Role Satisfaction Percentile 18* 09/28/2021 06/20/2022 02/05/2023 PROMIS Global Health Scale Physical Health Percentile 4 10 15 Mental Health Percentile 5 34 34 Percentiles provide an indication of how the patient's score ranks in relation to the general population. Higher percentile rankings indicate better function/quality of life. 50th percentile is the average of the general population and indicates half of respondents had a worse score. Depression Screenin09/05/2017 09/28/2021 02/05/2023 PHQ-9 Score 1 4 2 09/05/2017 09/28/2021 02/05/2023 PHQ-9 Self-harm Question Question 9 Not at all Not at all Not at all PHQ-9 Self-Harm (Item 9) response options: 0 Not at all 1 Several days 2 More than half the days 3 Nearly every day PHQ-9 Levels: 0-4 No to mild depression 5-9 Mild depression 10-14 Moderate depression 15-19 Moderately severe depression 20-27 Severe depression PHYSICAL EXAM: BP 141/58 Pulse 84 Resp 18 Ht 190.5 cm (6' 3 ) Wt (!) 136.9 kg (301 lb 13 oz) BMI 37.72 kg/m GENERAL APPEARANCE: Well nourished, well developed, and no apparent distress. NEURO PSYCH: Patient oriented to person, place, and time. Mood pleasant. Benign affect. WOUND ASSESSMENT: Incision healing, Well approximated incision, Non-reddened DATA REVIEW FINAL DIAGNOSIS A. Soft tissue, right hand thenar mass, biopsy: - Neurofibroma. B. Soft tissue, left thigh #1, excision: - Neurofibroma. C. Soft tissue, left thigh #2, excision: - Neurofibroma. D. Soft tissue, left hand, excision: - Neurofibroma. ASSESSMENT/PLAN (Q85.00) Neurofibromas, multiple (HCC) (primary encounter diagnosis) Heath Rosenberg will continue with medical management of his/her condition. Needs updated work letter extend leave until 6 week follow up. Patient works at [employer] and there is no light duty option for him. All questions answered. 1. Medications: Continue current medications and reach out if nerve pain spike and can adjust gabapentin dosage 2. Follow up: 6 week post op I spent a total of 20 minutes on the date of the service which included preparing to see the patient, [id number] patient care, completing clinical documentation, obtaining and/or reviewing separately obtained history, performing a medically appropriate examination, counseling and educating the patient/family/caregiver, independently interpreting results (not separately reported), and communicating results to the patient/family/caregiver. SIGNATURE: Cierra Fitzgerald APRN.CNP PATIENT NAME: Heath Rosenberg DATE: November 29, 2023 TIME: 3:26 PM PAGER: documented in this encounter [facility] 11-29-2023 Note HNO ID: [id number] Author: JOSE LAGOS LPN Service: ? Author Type: LICENSED NURSE Type: Progress Notes Filed: 11/29/2023 15:52 Note Text: Neuro SPINE CARE COORDINATION POST OP FOLLOW UP Verified name and date of with patient who is 16 days post Soft Tissue, Mass, Biopsy right hand and Soft Tissue, Neurofibroma, Excision left hand Presents today for removal of sutures Pain is well controlled with Tylenol Incisions is clean and dry (Picture below) Ambulatory / Activity : walking well unassisted Additional patient concerns : Removed left hand sutures, patient stated he felt light headed and requested water. Water given. Had patient lie down on exam table and took vitals 118/68 Pulse 79 Pulse Ox 98%. Patient mentioned he had not eaten today. Juice and crackers were given. Patient able to get up safely from exam table and proceed with removal of right hand sutures. Follow up : 11/29/23 with Cierra Fitzgerald Additional Notes : The surgical incision is healing as expected, without complication or concern of infection. There is no evidence of dehiscence, redness, swelling, or drainage. The area was swabbed with Betadine. Patient tolerated well. Patient instructed on proper wound care and all questions answered. Patient will continue to monitor site for any red flags, and contact the office with any questions or concerns. Jose Lagos LPN [facility] 11-29-2023 History of Present illness Narrative Images from the original note were not included. Neuro SPINE CARE COORDINATION POST OP FOLLOW UP Verified name and date of with patient who is 16 days post Soft Tissue, Mass, Biopsy right hand and Soft Tissue, Neurofibroma, Excision left hand Presents today for removal of sutures Pain is well controlled with Tylenol Incisions is clean and dry (Picture below) Ambulatory / Activity : walking well unassisted Additional patient concerns : Removed left hand sutures, patient stated he felt light headed and requested water. Water given. Had patient lie down on exam table and took vitals 118/68 Pulse 79 Pulse Ox 98%. Patient mentioned he had not eaten today. Juice and crackers were given. Patient able to get up safely from exam table and proceed with removal of right hand sutures. Follow up : 11/29/23 with Cierra Fitzgerald Additional Notes : The surgical incision is healing as expected, without complication or concern of infection. There is no evidence of dehiscence, redness, swelling, or drainage. The area was swabbed with Betadine. Patient tolerated well. Patient instructed on proper wound care and all questions answered. Patient will continue to monitor site for any red flags, and contact the office with any questions or concerns. Jose Lagos LPN Intake information documented in the prior visit with Cierra Fitzgerald. today. documented in this encounter [facility] 11-29-2023 Note HNO ID: [id number] Author: SUSANNA CAVAZOS MA Service: ? Author Type: Shock Absorption Floor Layer Type: Progress Notes Filed: 11/29/2023 15:52 Note Text: Intake information documented in the prior visit with Cierra Fitzgerald. today. [facility] 11-14-2023 Telephone encounter Note Yes, should be in his chart now. Thank you! [facility] Work Phone: 11-14-2023 Miscellaneous Notes Yes, should be in his chart now. Thank you! Patient calling states he was supposed to have a letter in his chart excusing him from work. Patient had hand surgery yesterday. Please advise documented in this encounter [facility] 11-14-2023 Telephone encounter Note Patient calling states he was supposed to have a letter in his chart excusing him from work. Patient had hand surgery yesterday. Please advise [facility] 11-13-2023 Note HNO ID: [id number] Author: JEFF VAZ MD Service: ? Author Type: Resident Type: Anesthesia Procedure Notes Filed: 11/13/2023 14:17 Note Text: ANESTHESIOLOGY PROCEDURE NOTE Airway General Information Procedure Start Time/Medication Administration: 11/13/2023 1:35 PM Procedure End Time: 11/13/2023 1:39 PM Patient location during procedure: OR Timeout Performed Pre-procedure: timeout performed Consent Obtained: Yes Patient identity confirmed: arm band and patient Staffing Resident: Jeff Vaz MD Performed by: resident Indications and Patient Condition Indications for airway management: anesthesia Preoxygenated: yes anesthesia circuit Method: asleep Difficult Mask: No Final Airway Details Final airway type: endotracheal airway Final Endotracheal Airway: ETT Cuffed: yes Successful intubation technique: video laryngoscopy Devices used: Knox Endotracheal tube insertion site: oral Blade size: #4 ETT size (mm): 7.5 Measured from: lips Measurement (cm): 21 Placement verified by: capnometry Cormack-Lehane Classification: grade I - full view of glottis Number of attempts at approach: 1 Airway not difficult SIGNATURE: Jeff Vaz MD PATIENT NAME: Heath Rosenberg DATE: November 13, 2023 TIME: 2:17 PM CSN: [id number] [facility] 11-13-2023 Note HNO ID: [id number] Author: XAVIER LUIS SRNA Service: ? Author Type: Student Type: Anesthesia Procedure Notes Filed: 11/13/2023 14:01 Note Text: ANESTHESIOLOGY PROCEDURE NOTE PIV General Information Procedure Start Time/Medication Administration: 11/13/2023 2:01 PM Procedure End Time: 11/13/2023 2:01 PM Patient Location: OR Staffing Anesthesiologist: Jessica Bishop MD Performed by: anesthesiologist Preparation Sterility Preparation: skin prep agent completely dried prior to procedure Site Prep: alcohol Procedure Details Indication: need for IV access Needle Size/Type: 20 gauge angiocath Orientation: Left Location: Antecubital Imaging Guidance Used: No SIGNATURE: KATIA Rapp PATIENT NAME: Heath Rosenberg DATE: November 13, 2023 TIME: 2:01 PM CSN: [id number] [facility] 11-09-2023 History of Present illness Narrative Images from the original note were not included. 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 He originally presented with findings of congenital abnormalities and subtle dysmorphic features including excessive fat at the back of the neck, hypoglycemia, respiratory complications (apnea) and feeding problems. Before the first year of life he also was noted to have Cafe- au- lait spots on his abdomen, thighs, shoulder, neck and inguinal area. He also had bilateral epicanthal folds, hypertelorism, micrognathia, and crowded teeth. This prompted thorough genetic evaluation per Dr. 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 This was in spite of an indeterminate result from genetic testing. Dr. Rosario has continued to follow Heath and has noted a high arched palate, pectus excavatum, macrocephaly, and axillary freckling. An MRI in 08/2000 was negative for underlying intracranial process. He was evaluated in the [facility]'s NF1 clinic by Dr. Rodas (pediatric neurologist ) in 2007 at the age of [age] years old and was generally doing well without signs of focal neurological symptoms. Over the next several years, Heath had intermittent struggles with NF-1 related complications including increase in behavioral issues (tantrums, cursing, breaking things) that he followed with psychiatry for, several painful subcutaneous neurofibromas (three of which he had excised by plastic surgery team), and mild thoracic scoliosis with associated back pain (followed with ortho). MRI of his spine completed in 2012 demonstrated multiple neurofibromas which was thought to be a contributing factor to his chronic back pain as well. Throughout his course he had never been found to have plexiform neurofibromas, maintained a stable ophthalmology exam (negative for Lisch nodules, OPG), has had negative neuroimaging, and was without focal neurological concern. He also intermittently had cardiac monitoring (ECHO and EKG) that was unremarkable. Kxlp-ik-mlep spots remained stable. His behavioral changes improved and he generally did well in school. In February of 2017, Heath developed an acute right-sided facial drooping, inability to close the right eye, slurred speech and right arm weakness. He was seen in the ED with imaging negative for stroke. 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 Following steroid administration (and applying eye patches/eye drops) he had a complete recovery from his Campoverde's Palsy without visual or hearing loss and resolution of facial contour. Since 2018, Heath continued with progressive, persistent upper back pain. Both Heath and his parents report that it has interfered with his ability to work in the past and he can only be active for so long before he requires frequent breaks. He began following with physical therapy to help. Since then, Heath has somewhat adjusted to the pain and has been able to get a job working at [employer], though requires special accommodations to complete his work (4 hour shifts, breaks, etc.). He does report that this back pain exists daily, but will wax and wane in severity with it generally worsening with activity. 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 His Pzro-ld-njnz spots have remained stable. 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 Interval History: 10/15/2023: Heath present today via virtual visit. He had syncope, fell down and hit head, went to [facility] ER and had CT scan, was told it is normal and was sent home 11/09/2023: Heath presents today via virtual visit after obtaining EEG. He is doing well, no LOS, falls, seizures, or new complaints since last visit Medical history: PAST MEDICAL HISTORY No date: Headaches Comment: no aura No date: Neurofibromatosis, type 1 (von Recklinghausen's disease) (HCC) No date: Scoliosis Surgical history: PAST SURGICAL HISTORY No date: HAND SURGERY HX No date: PAST SURGICAL HISTORY OF Comment: excision of neurofibroma: chest, bilateral hands, scalp, No date: PAST SURGICAL HISTORY OF; Right Comment: excision of lipoma right thigh No date: PAST SURGICAL HISTORY OF Comment: wisdom teeth Family History: FAMILY HISTORY Problem Relation Age of Onset Hypertension Mother Diabetes Mother Diabetes Maternal Grandmother Hypertension Maternal Grandmother Glaucoma Maternal Grandfather Diabetes Maternal Grandfather Hypertension Maternal Grandfather Heath was the first person in his family to test positive for NF-1 mutation and (per mother's report) it took several years in order to reach this diagnosis. Genetic testing was completed at [facility] in infancy. Reportedly took ~6 years to isolate chromosomal abnormality. Parents have tested negative for NF-1. Since testing was completed, his older brother had a lump on his leg in adulthood. Upon excision, it was sent off for pathology and found to carry NF-1 mutation. Older sister has also since been tested and was negative. Remaining two siblings have yet to complete genetic testing. Social History: Heath lives at home with his parents. 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 PAST MEDICAL HISTORY No date: Headaches Comment: no aura No date: Neurofibromatosis, type 1 (von Recklinghausen's disease) (HCC) No date: Scoliosis PAST SURGICAL HISTORY No date: HAND SURGERY HX No date: PAST SURGICAL HISTORY OF Comment: excision of neurofibroma: chest, bilateral hands, scalp, No date: PAST SURGICAL HISTORY OF; Right Comment: excision of lipoma right thigh No date: PAST SURGICAL HISTORY OF Comment: wisdom teeth Review of Systems: Negative except as listed in HPI OBJECTIVE There were no vitals taken for this visit. Physical Exam: General: Well developed and well nourished, in no acute distress. Awake, alert and interactive. Cooperative with examination. NEUROLOGICAL EXAM: General: Awake, alert, speech fluent, comprehension, naming, repetition intact. Short and half-way memory intact. CN: PERRL,EOMI without nystagmus, Gait: Able to walk on toes, heels, and tandem without difficulty. Romberg normal. Imaging: Reviewed most recent imaging with Heath and both parents MRI brain with and without contrast (07/25/2021): No significant interval change compared to outside MRI from 01/20/2021. Scattered T2/FLAIR hyperintense foci, compatible with NF1. MRI complete spine (08/10/2021): 1. Stable MRI cervical/thoracic/lumbar spine. 2. Extensive nerve sheath tumors remain relatively stable from prior examination. 3. Congenital canal narrowing with superimposed spondylosis as detailed. Ophthalmology: Last seen 05/17/2021. Right eye 20/20 -1, Left eye 20/20 -2 with correction. Lisch nodules present bilaterally. Left fundal exam: 1 x 1 x flat pigmented choroidal lesion ST macula (nevus). Negative for choroidal lesions. MRI Spine Report MRI LUMBAR SPINE WO/W IVCON Exam End: 10/12/2023 12:00 PM (Final result) Narrative: * * *Final Report* * * DATE OF EXAM: Oct 12 2023 12:00PM [facility] [id number] - MRI LUMBAR SPINE WO/W IVCON / PROCEDURE REASON: Neurofibromatosis (HCC) * * * * Physician Interpretation * * * * EXAMINATION: MRI CERVICAL SPINE WO/W IVCON, MRI LUMBAR SPINE WO/W IVCON, MRI THORACIC SPINE WO/W IVCON CLINICAL HISTORY: Neurofibromatosis (HCC) TECHNIQUE: Routine cervical, thoracic, and lumbosacral spine MR protocol without gadolinium. MQ: [id number] COMPARISON: Cervical thoracic and lumbar spine MRI 08/10/2021. RESULT: CERVICAL: Counting reference: Craniocervical junction. Anatomic Variants: None. Localizer images: No additional findings. Alignment: Alignment is anatomic. Craniocervical junction: Craniocervical junction is normal. Cord: The cervical spinal cord is within normal limits of signal intensity and morphology. Bone marrow signal/fracture: No evidence of pathologic marrow infiltration. No evidence of prior fracture. Cervical soft tissues: The paraspinal soft tissues are within normal limits. 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 There are multilevel degenerative changes of the cervical spine, most pronounced with mild diffuse disc bulge and mild bilateral facet arthropathy at C3-C4 resulting in moderate spinal canal stenosis, mild bilateral facet arthropathy and uncovertebral osteophytes at C5-C6 with moderate left neural foraminal narrowing and mild spinal canal stenosis, mild bilateral facet arthropathy and disc osteophyte complex and ligamentum flavum at C6-C7 resulting in moderate spinal canal stenosis and minimal bilateral neural foramina. THORACIC: Counting reference: Lumbosacral junction. For the purposes of this report, L4-5 is considered the level of the iliac crest and assume there are 5 lumbar-type vertebrae. Anatomic variant: None. Localizer images: No additional findings. Alignment: Alignment is anatomic. Cord: The thoracic spinal cord is within normal limits of signal intensity and morphology. Bone marrow signal/fracture: No evidence of pathologic marrow infiltration. No evidence of prior fracture. Thoracic soft tissues: The paraspinal soft tissues are within normal limits. 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 There is no spinal canal stenosis. LUMBAR: Counting reference: Lumbosacral junction. For the purposes of this report, L4-5 is considered the level of the iliac crest and assume there are 5 lumbar-type vertebrae. Anatomic variant: None. Localizer images: No additional findings. Alignment: Alignment is anatomic. Bone marrow signal/fracture: No evidence of pathologic marrow infiltration. No evidence of prior fracture. Conus: The conus is within normal limits of signal intensity and morphology. The conus medullaris terminates at L2. Paraspinal soft tissues: Paraspinal soft tissues are within normal limits. 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 Multilevel degenerative changes of lumbar spine, most pronounced at L1-L2 with mild bilateral facet arthropathy and diffuse disc bulge resulting in mild spinal canal stenosis, as well as at L3-4 with moderate to severe spinal canal stenosis. Sacrum and iliac wings: The visualized sacrum and iliac wings are within normal limits. The presacral soft tissues are normal in appearance. Impression: IMPRESSION: No significant change in extensive neurofibromas in the cervical, thoracic and lumbar spine MRI. Cervical Anatomic Variant: None. Assume 7 cervical vertebrae with counting from the craniocervical junction. Anatomic Thoracic/Lumbar Variant: None. L4-5 is considered the level of the iliac crest and assume there are 5 lumbar-type vertebrae. 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 Last MRI spine with stable disease, no radiographic progression, noted multilevel DDD, will discuss with Dr. Nation his pain management provider Continue GBP, added PRN robaxin Routine EEG as outpatient with no epileptiform discharges, no indicated for AEDs Need outpatient physical therapy for low back pain Next year obtain MRI brain as well as spine with contrast, if stable then image biennially. Surgical planning per Dr. Lay Check neuropathy labs given recent intentional weight loss RTC with MRIs in 1 year Bryce Martinez MD, [facility] Staff Neuro-Oncologist [facility] Patient Care Team: Tesfaye Villareal MD as PCP - General (Family Medicine) Jessenia Nation MD (Pain Management) Cierra Lay MD, PhD (Neurosurgery) I spent a total of 20 minutes on the date of the service which included preparing to see the patient, [id number] patient care, completing clinical documentation, obtaining and/or reviewing separately obtained history, performing a medically appropriate examination, counseling and educating the patient/family/caregiver, ordering medications, tests, or procedures, communicating with other HCPs (not separately reported), independently interpreting results (not separately reported), and communicating results to the patient/family/caregiver. I have communicated my name and active licensure. The patient's identity and physical location were verified at the time of this visit. Either the patient or their legal cordage sales representative has been informed of the risks and benefits of -- and alternatives to -- treatment through a remote evaluation and consents to proceed with the evaluation remotely. documented in this encounter [facility] 11-09-2023 Note HNO ID: [id number] Author: BRYCE MARTINEZ MD Service: ? Author Type: Physician Type: Progress Notes Filed: 11/09/2023 10:34 Note Text: 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 He originally presented with findings of congenital abnormalities and subtle dysmorphic features including excessive fat at the back of the neck, hypoglycemia, respiratory complications (apnea) and feeding problems. Before the first year of life he also was noted to have Cafe- au- lait spots on his abdomen, thighs, shoulder, neck and inguinal area. He also had bilateral epicanthal folds, hypertelorism, micrognathia, and crowded teeth. This prompted thorough genetic evaluation per Dr. Rosario (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 This was in spite of an indeterminate result from genetic testing. Dr. Rosario has continued to follow Heath and has noted a high arched palate, pectus excavatum, macrocephaly, and axillary freckling. An MRI in 08/2000 was negative for underlying intracranial process. He was evaluated in the [facility]'s NF1 clinic by Dr. Rodas (pediatric neurologist ) in 2007 at the age of [age] years old and was generally doing well without signs of focal neurological symptoms. Over the next several years, Heath had intermittent struggles with NF-1 related complications including increase in behavioral issues (tantrums, cursing, breaking things) that he followed with psychiatry for, several painful subcutaneous neurofibromas (three of which he had excised by plastic surgery team), and mild thoracic scoliosis with associated back pain (followed with ortho). MRI of his spine completed in 2012 demonstrated multiple neurofibromas which was thought to be a contributing factor to his chronic back pain as well. Throughout his course he had never beenfound to have plexiform neurofibromas, maintained a stable ophthalmology exam (negative for Lisch nodules, OPG), has had negative neuroimaging, and was without focal neurological concern. He also intermittently had cardiac monitoring (ECHO and EKG) that was unremarkable. Osec-zq-jmmf spots remained stable. His behavioral changes improved and he generally did well in school. In February of 2017, Heath developed an acute right-sided facial drooping, inability to close the right eye, slurred speech and right arm weakness. He was seen in the ED with imaging negative for stroke. 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 Following steroid administration (and applying eye patches/eye drops) he had a complete recovery from his Campoverde's Palsy without visual or hearing loss and resolution of facial contour. Since 2018, Heath continued with progressive, persistent upper back pain. Both Heath and his parents report that it has interfered with his ability to work in the past and he can only be active for so long before he requires frequent breaks. He began following with physical therapy to help. Since then, Heath has somewhat adjusted to the pain and has been able to get a job working at [employer], though requires special accommodations to complete his work (4 hour shifts, breaks, etc.). He does report that this back pain exists daily, but will wax and wane in severity with it generally worsening with activity. 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 His Btua-oq-pyfp spots have remained stable. 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 Interval History: 10/15/2023: Heath present today via virtual visit. He had syncope, fell down and hit head, went to OSH ER and had CT scan, was told it is normal and was sent home 11/09/2023: Heath presents today via virtual visit after obtaining EEG. He is doing well, no LOS, falls, seizures, or new complaints since last visit Medical history: PAST MEDICAL HISTORY No date: Headaches Comment: no aura No date: Neurofibromatosis, type 1 (von Recklinghausen's disease) (HCC) No date: Scoliosis Surgical history: PAST SURGICAL HISTORY No date: HAND SURGERY HX No date: PAST SURGICAL HISTORY OF Comment: excision of neurofibroma: chest, bilateral hands, scalp, No date: PAST SURGICAL HISTORY OF; Right Comment: excision of lipoma right thigh No date: PAST SURGICAL HISTORY OF Comment: wisdom teeth Family History: FAMILY HISTORY Problem Relation Age of Onset Hypertension Mother Diabetes Mother Diabetes Maternal Grandm (more content not included)... [facility] 10-31-2023 Instructions Janine Liu APRN.CHOKER SETTER - 10/31/2023 12:14 PM EDT PATIENT PREOPERATIVE INSTRUCTIONS Samir Gee MD has scheduled you for your procedure at this surgery center: [facility] Scheduling Office: [phone] --[address] [place] [address]. Please read below carefully for your personalized instructions. Dietary Restrictions: - No solid food after midnight. - You may have 12 ounces of clear liquids (water) until 2 hours before scheduled arrival at facility. Medications: Unless instructed differently below, stay on all of your prescription medications until your surgery. Approved medications to take the morning of surgery with a sip of water: gabapentin (NEURONTIN) If you start any new medications after today's visit, please contact the surgeon's office. Blood Thinning Medications: - Stop NSAIDS (Ibuprofen, Advil, Aleve, Motrin, Celebrex, Mobic, etc.) 7 days before surgery, as directed by your surgeon. - Stop Aspirin 7 days before surgery, as directed by your surgeon. - Stop Vitamin E, ALL multi-vitamins, herbals and dietary supplements 7 days before surgery. - You may take Tylenol (Acetaminophen) or any of your pain medications that do not contain aspirin or NSAIDS as needed. Important Reminders: - Candy, mints, and tobacco products are NOT permitted the morning of surgery. - Hearing aids, dentures and glasses may be worn the morning of surgery. - NO jewelry, body piercings, makeup, hairpins or contacts are to be worn the day of surgery. If you develop symptoms such as a fever, cold, or flu, or have other changes to your health within TWO DAYS of scheduled surgery or the morning of surgery, please contact the surgery center above. Personal Belongings: -Please have photo ID and insurance cards. -If you do not have a copy of advance directives on file with us, please bring a copy with you on the day of surgery. - Leave ALL valuables and money at home or with family members. For Outpatient Procedures: - YOU MUST HAVE A RESPONSIBLE ACOUSTICAL ENGINEER TAKE YOU HOME. A SERVICE TEAM LEADER OR HELICOPTER PILOT CANNOT BE MADE A RESPONSIBLE ACOUSTICAL ENGINEER. - We recommend that a responsible person stays with you overnight to take care of you. - You cannot stay in a hotel alone after outpatient surgery. You will not be permitted to have your surgery, if you do not have someone to take care of you. Arrival Time for Surgery: - To obtain your arrival time for surgery, call your physician's office the day before your surgery. - If your surgery is scheduled for Sunday, call the Sunday before. Your surgeon s portfolio management marketing will tell you what time to call the office. - If you have not reached the departmental portfolio management marketing by 5 P.M., call [phone] after 5 P.M. the day before your surgery. Please be aware that emergency situations arise, which may delay or change your surgical time. If this happens, we will notify you as soon as possible and regret any inconvenience. If you already have an Advance Directive, please fax a copy to [phone] or email to for it to be added to your chart. If you do not have an Advance Directive, you can find the appropriate form and more information at [email or web address]. We recommend that you complete the Advance Directive form found on the website and bring it with you the day of your surgery. It can be witnessed and scanned into your chart that day. documented in this encounter [facility] 10-31-2023 History and physical note Images from the original note were not included. [facility] HISTORY AND PHYSICAL EXAMINATION SERVICE DATE: 10/31/2023 SERVICE TIME: 12:06 PM PRIMARY CARE PHYSICIAN: Tesfaye Villareal MD, MD Assessment Patient has the following medical conditions which may affect srinath-operative course: Campoverde's palsy Assessment: Hx of, affected right side No residual deficit Neurofibromatosis, type I (von Recklinghausen's disease) (HCC) Assessment: Follows with Neurology see HPI Obesity (BMI 30-39.9) Assessment: Body mass index is 39.17 kg/m . Healthy Diet and exercise encouraged Salomon Activity Status Index: METS: Walk indoors, such as around the house (1.75 METs) Do light work around the house, such as dusting or washing dishes (2.70 METs) Take care of self; that is eating, dressing, bathing, using the toilet (2.75 METs) Walk a block or two on level ground (2.75 METs) Do moderate work around the house, such as vacuuming, sweeping floors, or carrying in groceries (3.50 METs) Climb a flight of stairs or walk up a hill (5.50 METs) DASI Score: 18.95 Patient denies any chest pain or undue shortness of breath with the above physical activity. Clinical Frailty Scale: 3. Well, with treated comorbid disease STOP-Bang Score: BMI greater than 35 kg/m^2 Has a large neck Male patient Denies snoring loudly Denies feeling tired, fatigued, or sleepy during the daytime Has not been observed to stop breathing or choking/gasping during sleep Denies having high blood pressure Patient 50 years old or younger STOP-Bang Score: 3 ANESTHESIA FINDINGS: Intubation History: No history of difficult intubation Significant Anesthesia Considerations: none Airway History: No history of difficult airway I - PHYSICAL EVALUATION AIRWAY Patient intubated: No. Mallampati: II. TM distance: >3 FB. Neck ROM: full ROM without neurological symptoms. Short neck: no. Additional comments: high arched palate, macrocephaly. Thick neck: yes Dillard present: yes Lip Bite Test: II Microretrognathia/Micronagthia/Re cessed Chin: No DENTAL Dental findings: teeth intact. II - ANESTHESIA PLAN Anesthetic plan additional comments: *PACC/TCI - anesthesia choice. Beta Mary Monitoring Plan Post Procedure Analgesic Plan Prepared for Surgery: optimally prepared for surgery. CONSULTS: Planned Anesthetic: anesthesia choice The Following Tests/Procedures Have Been Initiated: Labs not indicated per PACC protocol, EKG not indicated per PACC protocol REASON FOR VISIT: Heath Rosenberg is a 28 year old male who is scheduled for Procedure(s): EXCISION NEUROMA EXTREMITY UPPER (Right) NERVE GRAFT SINGLE STRAND HAND = OR < 4CM LENGTH (Right) REPAIR TENDONS / NERVES HAND (Right) EXCISION NEUROMA EXTREMITY LOWER (Left) NERVE GRAFT MULTIPLE STRANDS HAND OR FOOT UP TO 4CM LENGTH (Left) at the request of Dr. Samir Gee for consultation. My final recommendation will be communicated back to the requesting physician by way of shared medical record or letter. Subjective COVID-19 Immunization Status Overdue - Covid-19 Vaccine ( season) Overdue since 11/10/2022 01/19/2021 Imm Admin: COVID-19 original vaccine, full dose, monovalent (MODERNA) 05/06/2020 Imm Admin: COVID-19 original vaccine, full dose, monovalent (MODERNA) 04/08/2020 Imm Admin: COVID-19 original vaccine, full dose, monovalent (MODERNA) Only the first 3 history entries have been loaded, but more history exists. CHIEF COMPLAINT: surgery HPI: Patient is a 28 year old male with Neurofibromatosis with Benign neoplasm of peripheral nerve and skin of upper and lower extremities causing constant aching pain affecting quality of life. Takes gabapentin (NEURONTIN) for back pain. Pt. has had prior excision of neurofibroma surgeries without any perioperatively- or post-operative complications. Pt. is recommended for Surgery. REVIEW OF SYSTEMS: General: No weight loss, malaise or fevers. Neurological: Neurofibratomosis Negative for: headaches, impaired sensorium, seizures, TIA and strokes. Respiratory: No history of current cough or dyspnea, or pneumonia in the past 6 weeks. No history of respiratory/pulmonary symptoms or problems. Cardiovascular: No history of HTN requiring medication, no history of angina, CHF, IL, cardiac surgery or stents. Denies rest pain, gangrene or revascularization/amputation for PVD. No history of cardiovascular symptoms or problems. GI: No history of GI symptoms or problems. No history of esophageal varices, recent ascites, or ETOH greater than 2 drinks per day. : No history of dysuria, frequency or incontinence, stones or chronic kidney disease. No difficulty urinating, nocturia > 1 time per night or hematuria. Endocrine: No history of diabetes. Has not taken steroids within the past 30 days. No history of endocrinological symptoms or problems. Hematology: No history of bleeding or clotting disorder. Patient is not taking anti-coagulation or platelet medications. No history of hematological symptoms or problems. Oncology: No history of CA metastasis, chemo within 30 days, or radiotherapy within 90 days. No history of oncological symptoms or problems. Psych: No history of psychiatric symptoms or problems. Musculoskeletal: Positive for: back pain. Skin: See HPI. PAST MEDICAL HISTORY No date: Headaches Comment: no aura No date: Neurofibromatosis, type 1 (von Recklinghausen's disease) (HCC) No date: Scoliosis PAST SURGICAL HISTORY No date: HAND SURGERY HX No date: PAST SURGICAL HISTORY OF Comment: excision of neurofibroma: chest, bilateral hands, scalp, No date: PAST SURGICAL HISTORY OF; Right Comment: excision of lipoma right thigh No date: PAST SURGICAL HISTORY OF Comment: wisdom teeth FAMILY HISTORY Problem Relation Age of Onset Hypertension Mother Diabetes Mother Diabetes Maternal Grandmother Hypertension Maternal Grandmother Glaucoma Maternal Grandfather Diabetes Maternal Grandfather Hypertension Maternal Grandfather Social History Tobacco Use Smoking status: Never Smokeless tobacco: Never Vaping Use Vaping status: Never Used Substance Use Topics Alcohol use: No Drug use: No Prior to Admission medications as of 10/31/23 1212 Medication Sig Last Dose Taking methocarbamol (ROBAXIN) 500 mg tablet Take 1 tablet by mouth three times a day as needed (muscle spasms). Taking Yes gabapentin (NEURONTIN) 300 mg capsule Take 2 capsules by mouth two times a day. Taking Yes nortriptyline (PAMELOR) 25 mg capsule Take 1 capsule by mouth daily at bedtime. Taking Yes fexofenadine HCl (OVIDIO ALLERGY ORAL) Take 1 tablet by mouth once daily. Taking Yes multivit-minerals/folic acid (MULTIVITAMIN GUMMIES ORAL) Take 1 Dose by mouth once daily. Taking Yes No medication comments found. ALLERGIES Allergen Reactions Bactrim [Sulfametho* Penicillins Hives Zithromax [Azithrom* Hives Objective PHYSICAL EXAM: General: alert and oriented (x 3) and healthy appearance. Pertinent negatives noted - not distressed. Skin: normal color, no rash or lesions. , except neurofibromas present on hands, LLE- detailed deferred to surgeon . HEENT: EOM intact, pupils equal round and pupils reactive to light. Pertinent negatives noted - no carotid bruit. Cardiovascular: regular rate and rhythm, normal S1 and S2, no rub, murmurs, or gallop. Pulse characterized as regular. Respiratory: normal breath sounds, no wheezes or crackles. No chest wall deformity or tenderness. Abdomen: bowel sounds present and soft. Pertinent negatives noted - not tender. Extremities: no deformity, no edema or tenderness, no joint swelling or clubbing. Neurological: normal cognition and motor skills. Gait normal. No weakness or sensory deficit. PAIN ASSESSMENT: VITALS: BP 138/70 Pulse 84 Temp (Src) 98.3 (Temporal) Resp 18 Ht 6' 2 (1.88m) Wt 305 lb 1.9 oz (138.4kg) SpO2 97% BMI 39.16 kg/(m^2). Diagnostic tests reviewed for today's visit: 12/25/2016 CBC + AUTO DIFF (EU,FV,HL,MATY,MM,SP) Order: [id number] Status: Final result Visible to patient: No (not released) 0 Result Notes Component Ref Range & Units 6 yr ago WBC 3.70 - 11.00 k/uL 6.42 RBC 4.20 - 6.00 m/uL 5.26 Hemoglobin 13.0 - 17.0 g/dL 15.6 Hematocrit 39.0 - 51.0 % 44.5 MCV 80.0 - 100.0 fL 84.6 MCH 26.0 - 34.0 pG 29.7 MCHC 30.5 - 36.0 g/dL 35.1 RDW-CV 11.5 - 15.0 % 12.2 Platelet Count 150 - 400 k/uL 234 MPV 9.0 - 12.7 fL 11.2 Neut% % 63.0 Abs Neut (ANC) 1.45 - 7.50 k/uL 4.05 Lymph% % 29.3 Abs Lymph 1.00 - 4.00 k/uL 1.88 [place]% % 5.8 Abs [place] <0.87 k/uL 0.37 Eosin% % 1.6 Abs Eosin <0.46 k/uL 0.10 Baso% % 0.3 Abs Baso <0.11 k/uL <0.03 Nucleated Reds 0 /100 WBC 0.0 Absolute nRBC <0.01 k/uL <0.01 Diff Type Auto Diff Resulting Agency [facility] Specimen Collected: 12/25/16 3:08 PM EDT Last Resulted: 12/25/16 3:38 PM EDT Lab Value Units Date High Low HB No results within date range. HCT No results within date range. WBC No results within date range. PLT No results within date range. NA No results within date range. K No results within date range. GLUC No results within date range. BUN No results within date range. CREAT No results within date range. PTSEC No results within date range. INR No results within date range. APTT No results within date range. ALT No results within date range. AST No results within date range. TBILI No results within date range. TSH No results within date range. Lab Value Units Date High Low HCGQT No results within date range. UHCG No results within date range. HCG, BODY* No results within date range. Lab Value Units Date High Low ABORHD No results within date range. ABSCREEN No results within date range. No results found for: HBA1C 08/27/2007 ECHO INTERPRETATION SUMMARY Structurally normal heart. Trivial mitral, tricuspid, and pulmonary regurgitation. No pulmonary stenosis. No aortic regurgitation or stenosis. No evidence of coarctation of the aorta. Normal biventricular size, wall thickness, and function. Instructions Given to Patient: Instructions located in the after visit summary. Patient given verbal and written preop instructions and voices comprehension and compliance. SIGNATURE: Janine Liu APRN.CNP PATIENT NAME: Heath Rosenberg DATE: 10/31/2023 TIME: 12:06 PM [facility] 10-31-2023 History and physical note Images from the original note were not included. [facility] HISTORY AND PHYSICAL EXAMINATION SERVICE DATE: 10/31/2023 SERVICE TIME: 12:06 PM PRIMARY CARE PHYSICIAN: Tesfaye Villareal MD, MD Assessment Patient has the following medical conditions which may affect srinath-operative course: Campvoerde's palsy Assessment: Hx of, affected right side No residual deficit Neurofibromatosis, type I (von Recklinghausen's disease) (HCC) Assessment: Follows with Neurology see HPI Obesity (BMI 30-39.9) Assessment: Body mass index is 39.17 kg/m . Healthy Diet and exercise encouraged Salomon Activity Status Index: METS: Walk indoors, such as around the house (1.75 METs) Do light work around the house, such as dusting or washing dishes (2.70 METs) Take care of self; that is eating, dressing, bathing, using the toilet (2.75 METs) Walk a block or two on level ground (2.75 METs) Do moderate work around the house, such as vacuuming, sweeping floors, or carrying in groceries (3.50 METs) Climb a flight of stairs or walk up a hill (5.50 METs) DASI Score: 18.95 Patient denies any chest pain or undue shortness of breath with the above physical activity. Clinical Frailty Scale: 3. Well, with treated comorbid disease STOP-Bang Score: BMI greater than 35 kg/m^2 Has a large neck Male patient Denies snoring loudly Denies feeling tired, fatigued, or sleepy during the daytime Has not been observed to stop breathing or choking/gasping during sleep Denies having high blood pressure Patient 50 years old or younger STOP-Bang Score: 3 ANESTHESIA FINDINGS: Intubation History: No history of difficult intubation Significant Anesthesia Considerations: none Airway History: No history of difficult airway I - PHYSICAL EVALUATION AIRWAY Patient intubated: No. Mallampati: II. TM distance: >3 FB. Neck ROM: full ROM without neurological symptoms. Short neck: no. Additional comments: high arched palate, macrocephaly. Thick neck: yes Dillard present: yes Lip Bite Test: II Microretrognathia/Micronagthia/Re cessed Chin: No DENTAL Dental findings: teeth intact. II - ANESTHESIA PLAN Anesthetic plan additional comments: *PACC/TCI - anesthesia choice. Beta Mary Monitoring Plan Post Procedure Analgesic Plan Prepared for Surgery: optimally prepared for surgery. CONSULTS: Planned Anesthetic: anesthesia choice The Following Tests/Procedures Have Been Initiated: Labs not indicated per PACC protocol, EKG not indicated per PACC protocol REASON FOR VISIT: Heath Rosenberg is a 28 year old male who is scheduled for Procedure(s): EXCISION NEUROMA EXTREMITY UPPER (Right) NERVE GRAFT SINGLE STRAND HAND = OR < 4CM LENGTH (Right) REPAIR TENDONS / NERVES HAND (Right) EXCISION NEUROMA EXTREMITY LOWER (Left) NERVE GRAFT MULTIPLE STRANDS HAND OR FOOT UP TO 4CM LENGTH (Left) at the request of Dr. Samir Gee for consultation. My final recommendation will be communicated back to the requesting physician by way of shared medical record or letter. Subjective COVID-19 Immunization Status Overdue - Covid-19 Vaccine () Overdue since 11/10/2022 01/19/2021 Imm Admin: COVID-19 original vaccine, full dose, monovalent (MODERNA) 05/06/2020 Imm Admin: COVID-19 original vaccine, full dose, monovalent (MODERNA) 04/08/2020 Imm Admin: COVID-19 original vaccine, full dose, monovalent (MODERNA) Only the first 3 history entries have been loaded, but more history exists. CHIEF COMPLAINT: surgery HPI: Patient is a 28 year old male with Neurofibromatosis with Benign neoplasm of peripheral nerve and skin of upper and lower extremities causing constant aching pain affecting quality of life. Takes gabapentin (NEURONTIN) for back pain. Pt. has had prior excision of neurofibroma surgeries without any perioperatively- or post-operative complications. Pt. is recommended for Surgery. REVIEW OF SYSTEMS: General: No weight loss, malaise or fevers. Neurological: Neurofibratomosis Negative for: headaches, impaired sensorium, seizures, TIA and strokes. Respiratory: No history of current cough or dyspnea, or pneumonia in the past 6 weeks. No history of respiratory/pulmonary symptoms or problems. Cardiovascular: No history of HTN requiring medication, no history of angina, CHF, [place], cardiac surgery or stents. Denies rest pain, gangrene or revascularization/amputation for PVD. No history of cardiovascular symptoms or problems. GI: No history of GI symptoms or problems. No history of esophageal varices, recent ascites, or ETOH greater than 2 drinks per day. : No history of dysuria, frequency or incontinence, stones or chronic kidney disease. No difficulty urinating, nocturia > 1 time per night or hematuria. Endocrine: No history of diabetes. Has not taken steroids within the past 30 days. No history of endocrinological symptoms or problems. Hematology: No history of bleeding or clotting disorder. Patient is not taking anti-coagulation or platelet medications. No history of hematological symptoms or problems. Oncology: No history of CA metastasis, chemo within 30 days, or radiotherapy within 90 days. No history of oncological symptoms or problems. Psych: No history of psychiatric symptoms or problems. Musculoskeletal: Positive for: back pain. Skin: See HPI. PAST MEDICAL HISTORY No date: Headaches Comment: no aura No date: Neurofibromatosis, type 1 (von Recklinghausen's disease) (HCC) No date: Scoliosis PAST SURGICAL HISTORY No date: HAND SURGERY HX No date: PAST SURGICAL HISTORY OF Comment: excision of neurofibroma: chest, bilateral hands, scalp, No date: PAST SURGICAL HISTORY OF; Right Comment: excision of lipoma right thigh No date: PAST SURGICAL HISTORY OF Comment: wisdom teeth FAMILY HISTORY Problem Relation Age of Onset Hypertension Mother Diabetes Mother Diabetes Maternal Grandmother Hypertension Maternal Grandmother Glaucoma Maternal Grandfather Diabetes Maternal Grandfather Hypertension Maternal Grandfather Social History Tobacco Use Smoking status: Never Smokeless tobacco: Never Vaping Use Vaping status: Never Used Substance Use Topics Alcohol use: No Drug use: No Prior to Admission medications as of 10/31/23 1212 Medication Sig Last Dose Taking methocarbamol (ROBAXIN) 500 mg tablet Take 1 tablet by mouth three times a day as needed (muscle spasms). Taking Yes gabapentin (NEURONTIN) 300 mg capsule Take 2 capsules by mouth two times a day. Taking Yes nortriptyline (PAMELOR) 25 mg capsule Take 1 capsule by mouth daily at bedtime. Taking Yes fexofenadine HCl (OVIDIO ALLERGY ORAL) Take 1 tablet by mouth once daily. Taking Yes multivit-minerals/folic acid (MULTIVITAMIN GUMMIES ORAL) Take 1 Dose by mouth once daily. Taking Yes No medication comments found. ALLERGIES Allergen Reactions Bactrim [Sulfametho* Penicillins Hives Zithromax [Azithrom* Hives Objective PHYSICAL EXAM: General: alert and oriented (x 3) and healthy appearance. Pertinent negatives noted - not distressed. Skin: normal color, no rash or lesions. , except neurofibromas present on hands, LLE- detailed deferred to surgeon . HEENT: EOM intact, pupils equal round and pupils reactive to light. Pertinent negatives noted - no carotid bruit. Cardiovascular: regular rate and rhythm, normal S1 and S2, no rub, murmurs, or gallop. Pulse characterized as regular. Respiratory: normal breath sounds, no wheezes or crackles. No chest wall deformity or tenderness. Abdomen: bowel sounds present and soft. Pertinent negatives noted - not tender. Extremities: no deformity, no edema or tenderness, no joint swelling or clubbing. Neurological: normal cognition and motor skills. Gait normal. No weakness or sensory deficit. PAIN ASSESSMENT: VITALS: BP 138/70 Pulse 84 Temp (Src) 98.3 (Temporal) Resp 18 Ht 6' 2 (1.88m) Wt 305 lb 1.9 oz (138.4kg) SpO2 97% BMI 39.16 kg/(m^2). Diagnostic tests reviewed for today's visit: 12/25/2016 CBC + AUTO DIFF (EU,FV,HL,MATY,MM,SP) Order: [id number] Status: Final result Visible to patient: No (not released) 0 Result Notes Component Ref Range & Units 6 yr ago WBC 3.70 - 11.00 k/uL 6.42 RBC 4.20 - 6.00 m/uL 5.26 Hemoglobin 13.0 - 17.0 g/dL 15.6 Hematocrit 39.0 - 51.0 % 44.5 MCV 80.0 - 100.0 fL 84.6 MCH 26.0 - 34.0 pG 29.7 MCHC 30.5 - 36.0 g/dL 35.1 RDW-CV 11.5 - 15.0 % 12.2 Platelet Count 150 - 400 k/uL 234 MPV 9.0 - 12.7 fL 11.2 Neut% % 63.0 Abs Neut (ANC) 1.45 - 7.50 k/uL 4.05 Lymph% % 29.3 Abs Lymph 1.00 - 4.00 k/uL 1.88 [place]% % 5.8 Abs [place] <0.87 k/uL 0.37 Eosin% % 1.6 Abs Eosin <0.46 k/uL 0.10 Baso% % 0.3 Abs Baso <0.11 k/uL <0.03 Nucleated Reds 0 /100 WBC 0.0 Absolute nRBC <0.01 k/uL <0.01 Diff Type Auto Diff Resulting Agency [facility] Specimen Collected: 12/25/16 3:08 PM EDT Last Resulted: 12/25/16 3:38 PM EDT Lab Value Units Date High Low HB No results within date range. HCT No results within date range. WBC No results within date range. PLT No results within date range. NA No results within date range. K No results within date range. GLUC No results within date range. BUN No results within date range. CREAT No results within date range. PTSEC No results within date range. INR No results within date range. APTT No results within date range. ALT No results within date range. AST No results within date range. TBILI No results within date range. TSH No results within date range. Lab Value Units Date High Low HCGQT No results within date range. UHCG No results within date range. HCG, BODY* No results within date range. Lab Value Units Date High Low ABORHD No results within date range. ABSCREEN No results within date range. No results found for: HBA1C 08/27/2007 ECHO INTERPRETATION SUMMARY Structurally normal heart. Trivial mitral, tricuspid, and pulmonary regurgitation. No pulmonary stenosis. No aortic regurgitation or stenosis. No evidence of coarctation of the aorta. Normal biventricular size, wall thickness, and function. Instructions Given to Patient: Instructions located in the after visit summary. Patient given verbal and written preop instructions and voices comprehension and compliance. SIGNATURE: Janine Liu APRN.CNP PATIENT NAME: Heath Rosenberg DATE: 10/31/2023 TIME: 12:06 PM documented in this encounter [facility] 10-23-2023 Telephone encounter Note Done [facility] 10-23-2023 Miscellaneous Notes Done Scheduling Request - Established Patient Time Frame: First available Orders: Routine EEG Provider: LOBBOUS Visit type: Virtual Visit Diagnosis: NF documented in this encounter [facility] 10-19-2023 History of Present illness Narrative Images from the original note were not included. [facility] Hand & Upper Extremity Surgery New Patient Evaluation Consulting Provider: SELF CC: Bilateral hand pain HPI: Mr. Rosenberg is a right hand dominant 28 year old male who presents with a chief complaint of bilateral hand pain. He has history of neurofibromatosis and is scheduled for left thigh large neurofibroma excision with Dr. Lay. He previously underwent multiple small neurofibroma excision with Dr. Vazquez and had uneventful recovery. Patient has bumps on both hands, near base of the thumbs. Bumps developed approximately 1 year ago. Pain began when bumps appeared on the hands. Denies any known injury or trauma to the hands. Denies numbness or tingling of the hands. Denies pain to fingers or wrists, only at the base of both thumbs. Patient has not tried splinting/bracing or medications for pain. Takes gabapentin for his back but this does not decrease hand pain. Tentative date of 11/13/2023 for surgery for leg and hands. Mother states Dr. Lay coordinated to do both procedures on the same date. - Resection of the left anterior thigh neurofibroma & removal of multiple hand lesions Per Dr. 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 PAST MEDICAL HISTORY No date: Headaches Comment: no aura No date: Neurofibromatosis, type 1 (von Recklinghausen's disease) (HCC) No date: Scoliosis Current Outpatient Medications Medication Sig Dispense Refill gabapentin (NEURONTIN) 300 mg capsule Take 2 capsules by mouth two times a day. 360 capsule 3 nortriptyline (PAMELOR) 25 mg capsule Take 1 capsule by mouth daily at bedtime. 30 capsule 2 fexofenadine HCl (OVIDIO ALLERGY ORAL) Take 1 tablet by mouth once daily. multivit-minerals/folic acid (MULTIVITAMIN GUMMIES ORAL) Take 1 Dose by mouth once daily. methocarbamol (ROBAXIN) 500 mg tablet Take 1 tablet by mouth three times a day as needed (muscle spasms). 90 tablet 0 lidocaine (LIDODERM) 5 % Apply 1 Patch as directed once daily. (Patient not taking: Reported on 10/19/2023) 30 Patch 1 No current facility-administered medications for this visit. ALLERGIES Allergen Reactions Bactrim [Sulfametho* Penicillins Hives Zithromax [Azithrom* Hives PE: Exam of the bilateral upper limb revealed: Approximately 1cm in diameter mass over volar thenar eminence on right. Multiple small superficial masses on the left volar thenar eminence. Tender to palpation with mildly positive Tinel. Full range of motion with no flexion or extension lags. Sensation grossly intact in media, ulnar, radial disribution. RADIOLOGY: Outside Facility: [facility] Impressions 09/11/2023 10:34 AM EDT Imaging Results - MR hand right w and wo IV contrast (09/10/2023 11:32 AM EDT) Multiple soft tissue lesions as detailed most likely representing neurofibromas. ELECTRONICALLY SIGNED BY: Adama Mcgraw DO Narrative 09/11/2023 10:34 AM EDT EXAMINATION: MR HAND RIGHT W AND WO IV CONTRAST HISTORY: Hand pain. Bumps along plantar surface of the first metatarsal. COMPARISON: None available TECHNIQUE: Multiplanar multisequence MRI of the right hand was performed without and with contrast FINDINGS: Multiple tiny hyperintense structures demonstrating low-level postcontrast enhancement are identified along the second through fourth flexor tendons at the level of the mid through the distal diaphyses. An ovoid hyperintense mildly enhancing structure is present along the mid diaphysis of the fourth proximal phalanx measuring approximately 2 x 0.8 x 0.6 cm. An ovoid hyperintense small enhancing structure is present along the distal diaphysis of the third proximal phalanx measuring approximately 0.9 x 0.3 x 0.3 cm. These structures most likely represent neurofibromas. Flexor and extensor tendons are intact. Musculature of the hand is within normal limits. No bone marrow signal abnormality. Impressions 09/11/2023 9:29 AM EDT A few ovoid lesions along the second through fourth flexor tendons at the level of the metacarpals measuring up to 8 mm most likely represent neurofibromas. ELECTRONICALLY SIGNED BY: Adama Mcgraw, Imaging Results - MR hand left w and wo IV contrast (09/10/2023 11:14 AM EDT) Narrative 09/11/2023 9:29 AM EDT EXAMINATION: MR HAND LEFT W AND WO IV CONTRAST HISTORY: Neurofibromatosis. Bumps along palmar surface of the first metacarpal. COMPARISON: None available TECHNIQUE: Multiplanar multisequence MRI of the left hand was performed without and with contrast FINDINGS: There are a few hyperintense T2 mildly enhancing ovoid structures located along the second through fourth flexor tendons at the level of the metacarpals measuring up to 8 mm most likely representing peripheral nerve sheath tumors. No associated soft tissue edema. Flexor and extensor tendons appear within normal limits. Musculature of the hand is within normal limits. No bone marrow signal abnormality. 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 Rosenberg the diagnosis and proposed treatment options for bilateral hand neurofibromas. We dicussed excision and primary closure of the right hand neurofibroma at the same time as thigh resection. We also discussed potential excision of the left hand masses at the same time. We dicussed risk and benefits of doing boh hands versus only one at the same time. We dicussed the risk of sensory deficits after excision and need for potential nerve grafting, especially the right side. They would like to proceed with right hand and potentially will go ahead with left as well.Heath will think about it and will let us now at the time of surgery. Medical Decision Making: Problems: Moderate: New problem with uncertain prognosis Data: Unique test result(s) reviewed: 2 Risk: Moderate: Decision on minor surgery w/ risk factors Medical Decision Making Level: 4 - Moderate Samir Gee MD Hand & Upper Extremity Surgery This note was generated with voice recognition software and may contain errors, including spelling, grammar, syntax and misrecognition of what was dictated, that are not fully corrected. documented in this encounter [facility] 10-19-2023 Note HNO ID: [id number] Author: SAMIR GEE MD Service: ? Author Type: Physician Type: Progress Notes Filed: 10/19/2023 16:58 Note Text: [facility] Hand AND Upper Extremity Surgery New Patient Evaluation Consulting Provider: SELF CC: Bilateral hand pain HPI: Mr. Rosenberg is a right hand dominant 28 year old male who presents with a chief complaint of bilateral hand pain. He has history of neurofibromatosis and is scheduled for left thigh large neurofibroma excision with Dr. Lay. He previously underwent multiple small neurofibroma excision with Dr. Vazquez and had uneventful recovery. Patient has bumps on both hands, near base of the thumbs. Bumps developed approximately 1 year ago. Pain began when bumps appeared on the hands. Denies any known injury or trauma to the hands. Denies numbness or tingling of the hands. Denies pain to fingers or wrists, only at the base of both thumbs. Patient has not tried splinting/bracing or medications for pain. Takes gabapentin for his back but this does not decrease hand pain. Tentative date of 11/13/2023 for surgery for leg and hands. Mother states Dr. Lay coordinated to do both procedures on the same date. - Resection of the left anterior thigh neurofibroma AND removal of multiple hand lesions Per Dr. 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 PAST MEDICAL HISTORY No date: Headaches Comment: no aura No date: Neurofibromatosis, type 1 (von Recklinghausen's disease) (HCC) No date: Scoliosis Current Outpatient Medications Medication Sig Dispense Refill gabapentin (NEURONTIN) 300 mg capsule Take 2 capsules by mouth two times a day. 360 capsule 3 nortriptyline (PAMELOR) 25 mg capsule Take 1 capsule by mouth daily at bedtime. 30 capsule 2 fexofenadine HCl (OVIDIO ALLERGY ORAL) Take 1 tablet by mouth once daily. multivit-minerals/folic acid (MULTIVITAMIN GUMMIES ORAL) Take 1 Dose by mouth once daily. methocarbamol (ROBAXIN) 500 mg tablet Take 1 tablet by mouth three times a day as needed (muscle spasms). 90 tablet 0 lidocaine (LIDODERM) 5 % Apply 1 Patch as directed once daily. (Patient not taking: Reported on 10/19/2023) 30 Patch 1 No current facility-administered medications for this visit. ALLERGIES Allergen Reactions Bactrim [Sulfametho* Penicillins Hives Zithromax [Azithrom* Hives PE: Exam of the bilateral upper limb revealed: Approximately 1cm in diameter mass over volar thenar eminence on right. Multiple small superficial masses on the left volar thenar eminence. Tender to palpation with mildly positive Tinel. Full range of motion with no flexion or extension lags. Sensation grossly intact in media, ulnar, radial disribution. RADIOLOGY: Outside Facility: [facility] Impressions 09/11/2023 10:34 AM EDT Imaging Results - MR hand right w and wo IV contrast (09/10/2023 11:32 AM EDT) Multiple soft tissue lesions as detailed most likely representing neurofibromas. ELECTRONICALLY SIGNED BY: DO Flo Rodríguez 09/11/2023 10:34 AM EDT EXAMINATION: MR HAND RIGHT W AND WO IV CONTRAST HISTORY: Hand pain. Bumps along plantar surface of the first metatarsal. COMPARISON: None available TECHNIQUE: Multiplanar multisequence MRI of the right hand was performed without and with contrast FINDINGS: Multiple tiny hyperintense structures demonstrating low-level postcontrast enhancement are identified along the second through fourth flexor tendons at the level of the mid through the distal diaphyses. An ovoid hyperintense mildly enhancing structure is present along the mid diaphysis of the fourth proximal phalanx measuring approximately 2 x 0.8 x 0.6 cm. An ovoid hyperintense small enhancing structure is present along the distal diaphysis of the third proximal phalanx measuring approximately 0.9 x 0.3 x 0.3 cm. These structures most likely represent neurofibromas. Flexor and extensor tendons are intact. Musculature of the hand is within normal limits. No bone marrow signal abnormality. Impressions 09/11/2023 9:29 AM EDT A few ovoid lesions along the second through fourth flexor tendons at the level of the metacarpals measuring up to 8 mm most likely represent neurofibromas. ELECTRONICALLY SIGNED BY: Adama Mcgraw DO Imaging Results - MR hand left w and wo IV contrast (09/10/2023 11:14 AM EDT) Narrative 09/11/2023 9:29 AM EDT EXAMINATION: MR HAND LEFT W AND WO IV CONTRAST HISTORY: Neurofibromatosis. Bumps along palmar surface of the first metacarpal. COMPARISON: None available TECHNIQUE: Multiplanar multisequence MRI of the left hand was performed without and with contrast FINDINGS: There are a few hyperintense T2 mildly enhancing ovoid structu (more content not included)... [facility] 10-17-2023 Telephone encounter Note Scheduling Request - Established Patient Time Frame: First available Orders: Routine EEG Provider: LOBBOUS Visit type: Virtual Visit Diagnosis: NF [facility] 10-15-2023 History of Present illness Narrative Images from the original note were not included. 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 He originally presented with findings of congenital abnormalities and subtle dysmorphic features including excessive fat at the back of the neck, hypoglycemia, respiratory complications (apnea) and feeding problems. Before the first year of life he also was noted to have Cafe- au- lait spots on his abdomen, thighs, shoulder, neck and inguinal area. He also had bilateral epicanthal folds, hypertelorism, micrognathia, and crowded teeth. This prompted thorough genetic evaluation per Dr. Rosario (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 This was in spite of an indeterminate result from genetic testing. Dr. Rosario has continued to follow Heath and has noted a high arched palate, pectus excavatum, macrocephaly, and axillary freckling. An MRI in 08/2000 was negative for underlying intracranial process. He was evaluated in the [facility]'s NF1 clinic by Dr. Rodas (pediatric neurologist ) in 2007 at the age of [age] years old and was generally doing well without signs of focal neurological symptoms. Over the next several years, Heath had intermittent struggles with NF-1 related complications including increase in behavioral issues (tantrums, cursing, breaking things) that he followed with psychiatry for, several painful subcutaneous neurofibromas (three of which he had excised by plastic surgery team), and mild thoracic scoliosis with associated back pain (followed with ortho). MRI of his spine completed in 2012 demonstrated multiple neurofibromas which was thought to be a contributing factor to his chronic back pain as well. Throughout his course he had never been found to have plexiform neurofibromas, maintained a stable ophthalmology exam (negative for Lisch nodules, OPG), has had negative neuroimaging, and was without focal neurological concern. He also intermittently had cardiac monitoring (ECHO and EKG) that was unremarkable. Knwd-kz-aufc spots remained stable. His behavioral changes improved and he generally did well in school. In February of 2017, Heath developed an acute right-sided facial drooping, inability to close the right eye, slurred speech and right arm weakness. He was seen in the ED with imaging negative for stroke. 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 Following steroid administration (and applying eye patches/eye drops) he had a complete recovery from his Campoverde's Palsy without visual or hearing loss and resolution of facial contour. Since 2018, Heath continued with progressive, persistent upper back pain. Both Heath and his parents report that it has interfered with his ability to work in the past and he can only be active for so long before he requires frequent breaks. He began following with physical therapy to help. Since then, Heath has somewhat adjusted to the pain and has been able to get a job working at [employer], though requires special accommodations to complete his work (4 hour shifts, breaks, etc.). He does report that this back pain exists daily, but will wax and wane in severity with it generally worsening with activity. 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 His Otut-kd-iulb spots have remained stable. 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 Interval History: 10/15/2023: Heath present today via virtual visit. He had syncope, fell down and hit head, went to OSH ER and had CT scan, was told it is normal and was sent home Medical history: PAST MEDICAL HISTORY Diagnosis Date Headaches no aura Neurofibromatosis, type 1 (von Recklinghausen's disease) (HCC) Scoliosis Surgical history: PAST SURGICAL HISTORY Procedure Laterality Date HAND SURGERY HX Family History: FAMILY HISTORY Problem Relation Age of Onset Hypertension Mother Diabetes Mother Diabetes Maternal Grandmother Hypertension Maternal Grandmother Glaucoma Maternal Grandfather Diabetes Maternal Grandfather Hypertension Maternal Grandfather Heath was the first person in his family to test positive for NF-1 mutation and (per mother's report) it took several years in order to reach this diagnosis. Genetic testing was completed at [facility] in infancy. Reportedly took ~6 years to isolate chromosomal abnormality. Parents have tested negative for NF-1. Since testing was completed, his older brother had a lump on his leg in adulthood. Upon excision, it was sent off for pathology and found to carry NF-1 mutation. Older sister has also since been tested and was negative. Remaining two siblings have yet to complete genetic testing. Social History: Heath lives at home with his parents. 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 PAST MEDICAL HISTORY Diagnosis Date Headaches no aura Neurofibromatosis, type 1 (von Recklinghausen's disease) (HCC) Scoliosis PAST SURGICAL HISTORY Procedure Laterality Date HAND SURGERY HX Review of Systems: Negative except as listed in HPI OBJECTIVE There were no vitals taken for this visit. Physical Exam: General: Well developed and well nourished, in no acute distress. Awake, alert and interactive. Cooperative with examination. NEUROLOGICAL EXAM: General: Awake, alert, speech fluent, comprehension, naming, repetition intact. Short and half-way memory intact. CN: PERRL,EOMI without nystagmus, Gait: Able to walk on toes, heels, and tandem without difficulty. Romberg normal. Imaging: Reviewed most recent imaging with Heath and both parents MRI brain with and without contrast (07/25/2021): No significant interval change compared to outside MRI from 01/20/2021. Scattered T2/FLAIR hyperintense foci, compatible with NF1. MRI complete spine (08/10/2021): 1. Stable MRI cervical/thoracic/lumbar spine. 2. Extensive nerve sheath tumors remain relatively stable from prior examination. 3. Congenital canal narrowing with superimposed spondylosis as detailed. Ophthalmology: Last seen 05/17/2021. Right eye 20/20 -1, Left eye 20/20 -2 with correction. Lisch nodules present bilaterally. Left fundal exam: 1 x 1 x flat pigmented choroidal lesion ST macula (nevus). Negative for choroidal lesions. MRI Spine Report MRI LUMBAR SPINE WO/W IVCON Exam End: 10/12/2023 12:00 PM (Final result) Narrative: * * *Final Report* * * DATE OF EXAM: Oct 12 2023 12:00PM LN [id number] - MRI LUMBAR SPINE WO/W IVCON / PROCEDURE REASON: Neurofibromatosis (HCC) * * * * Physician Interpretation * * * * EXAMINATION: MRI CERVICAL SPINE WO/W IVCON, MRI LUMBAR SPINE WO/W IVCON, MRI THORACIC SPINE WO/W IVCON CLINICAL HISTORY: Neurofibromatosis (HCC) TECHNIQUE: Routine cervical, thoracic, and lumbosacral spine MR protocol without gadolinium. MQ: [id number] COMPARISON: Cervical thoracic and lumbar spine MRI 08/10/2021. RESULT: CERVICAL: Counting reference: Craniocervical junction. Anatomic Variants: None. Localizer images: No additional findings. Alignment: Alignment is anatomic. Craniocervical junction: Craniocervical junction is normal. Cord: The cervical spinal cord is within normal limits of signal intensity and morphology. Bone marrow signal/fracture: No evidence of pathologic marrow infiltration. No evidence of prior fracture. Cervical soft tissues: The paraspinal soft tissues are within normal limits. 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 There are multilevel degenerative changes of the cervical spine, most pronounced with mild diffuse disc bulge and mild bilateral facet arthropathy at C3-C4 resulting in moderate spinal canal stenosis, mild bilateral facet arthropathy and uncovertebral osteophytes at C5-C6 with moderate left neural foraminal narrowing and mild spinal canal stenosis, mild bilateral facet arthropathy and disc osteophyte complex and ligamentum flavum at C6-C7 resulting in moderate spinal canal stenosis and minimal bilateral neural foramina. THORACIC: Counting reference: Lumbosacral junction. For the purposes of this report, L4-5 is considered the level of the iliac crest and assume there are 5 lumbar-type vertebrae. Anatomic variant: None. Localizer images: No additional findings. Alignment: Alignment is anatomic. Cord: The thoracic spinal cord is within normal limits of signal intensity and morphology. Bone marrow signal/fracture: No evidence of pathologic marrow infiltration. No evidence of prior fracture. Thoracic soft tissues: The paraspinal soft tissues are within normal limits. 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 There is no spinal canal stenosis. LUMBAR: Counting reference: Lumbosacral junction. For the purposes of this report, L4-5 is considered the level of the iliac crest and assume there are 5 lumbar-type vertebrae. Anatomic variant: None. Localizer images: No additional findings. Alignment: Alignment is anatomic. Bone marrow signal/fracture: No evidence of pathologic marrow infiltration. No evidence of prior fracture. Conus: The conus is within normal limits of signal intensity and morphology. The conus medullaris terminates at L2. Paraspinal soft tissues: Paraspinal soft tissues are within normal limits. 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 Multilevel degenerative changes of lumbar spine, most pronounced at L1-L2 with mild bilateral facet arthropathy and diffuse disc bulge resulting in mild spinal canal stenosis, as well as at L3-4 with moderate to severe spinal canal stenosis. Sacrum and iliac wings: The visualized sacrum and iliac wings are within normal limits. The presacral soft tissues are normal in appearance. Impression: IMPRESSION: No significant change in extensive neurofibromas in the cervical, thoracic and lumbar spine MRI. Cervical Anatomic Variant: None. Assume 7 cervical vertebrae with counting from the craniocervical junction. Anatomic Thoracic/Lumbar Variant: None. L4-5 is considered the level of the iliac crest and assume there are 5 lumbar-type vertebrae. 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 MRI spine this visit with stable disease, no radiographic progression, noted multilevel DDD, will discuss with Dr. Nation his pain management provider May refer to spine medicine as well Continue GBP, added PRN robaxin Routine EEG as outpatient Next year obtain MRI brain as well as spine with contrast, if stable then image biennially. Surgical planning per Dr. Alireza Martinez MD, [facility] Staff [facility] Patient Care Team: Tesfaye Villareal MD as PCP - General (Family Medicine) Jessenia Nation MD (Pain Management) Cierra Lay MD, PhD (Neurosurgery) I spent a total of 40 minutes on the date of the service which included preparing to see the patient, lrkd-yb-rduo patient care, completing clinical documentation, obtaining and/or reviewing separately obtained history, performing a medically appropriate examination, counseling and educating the patient/family/caregiver, ordering medications, tests, or procedures, communicating with other HCPs (not separately reported), independently interpreting results (not separately reported), and communicating results to the patient/family/caregiver. I have communicated my name and active licensure. The patient's identity and physical location were verified at the time of this visit. Either the patient or their legal cordage sales representative has been informed of the risks and benefits of -- and alternatives to -- treatment through a remote evaluation and consents to proceed with the evaluation remotely. documented in this encounter [facility] 10-15-2023 Note HNO ID: [id number] Author: BRYCE MARTINEZ MD Service: ? 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 He originally presented with findings of congenital abnormalities and subtle dysmorphic features including excessive fat at the back of the neck, hypoglycemia, respiratory complications (apnea) and feeding problems. Before the first year of life he also was noted to have Cafe- au- lait spots on his abdomen, thighs, shoulder, neck and inguinal area. He also had bilateral epicanthal folds, hypertelorism, micrognathia, and crowded teeth. This prompted thorough genetic evaluation per Dr. Rosario (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 This was in spite of an indeterminate result from genetic testing. Dr. Rosario has continued to follow Heath and has noted a high arched palate, pectus excavatum, macrocephaly, and axillary freckling. An MRI in 08/2000 was negative for underlying intracranial process. He was evaluated in the [facility]'s NF1 clinic by Dr. Rodas (pediatric neurologist ) in 2007 at the age of [age] years old and was generally doing well without signs of focal neurological symptoms. Over the next several years, Heath had intermittent struggles with NF-1 related complications including increase in behavioral issues (tantrums, cursing, breaking things) that he followed with psychiatry for, several painful subcutaneous neurofibromas (three of which he had excised by plastic surgery team), and mild thoracic scoliosis with associated back pain (followed with ortho). MRI of his spine completed in 2012 demonstrated multiple neurofibromas which was thought to be a contributing factor to his chronic back pain as well. Throughout his course he had never beenfound to have plexiform neurofibromas, maintained a stable ophthalmology exam (negative for Lisch nodules, OPG), has had negative neuroimaging, and was without focal neurological concern. He also intermittently had cardiac monitoring (ECHO and EKG) that was unremarkable. Jqce-uj-umsi spots remained stable. His behavioral changes improved and he generally did well in school. In February of 2017, Heath developed an acute right-sided facial drooping, inability to close the right eye, slurred speech and right arm weakness. He was seen in the ED with imaging negative for stroke. 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 Following steroid administration (and applying eye patches/eye drops) he had a complete recovery from his Campoverde's Palsy without visual or hearing loss and resolution of facial contour. Since 2018, Heath continued with progressive, persistent upper back pain. Both Heath and his parents report that it has interfered with his ability to work in the past and he can only be active for so long before he requires frequent breaks. He began following with physical therapy to help. Since then, Heath has somewhat adjusted to the pain and has been able to get a job working at [employer], though requires special accommodations to complete his work (4 hour shifts, breaks, etc.). He does report that this back pain exists daily, but will wax and wane in severity with it generally worsening with activity. 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 His Uoor-nh-acbz spots have remained stable. 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 Interval History: 10/15/2023: Heath present today via virtual visit. He had syncope, fell down and hit head, went to OSH ER and had CT scan, was told it is normal and was sent home Medical history: PAST MEDICAL HISTORY Diagnosis Date Headaches no aura Neurofibromatosis, type 1 (von Recklinghausen's disease) (HCC) Scoliosis Surgical history: PAST SURGICAL HISTORY Procedure Laterality Date HAND SURGERY HX Family History: FAMILY HISTORY Problem Relation Age of Onset Hypertension Mother Diabetes Mother Diabetes Maternal Grandmother Hypertension Maternal Grandmother Glaucoma Maternal Grandfather Diabetes Maternal Grandfather Hypertension Maternal Grandfather Heath was the first person in his family to test positive for NF-1 mutation and (per mother's report) it took several years in order to reach this diagnosis. Genetic testing was completed at [facility] in infancy. Reportedly took ~6 years to isolate chromosomal a (more content not included)... [facility] 10-12-2023 History of Present illness Narrative Radiology Service Progress Note DATE OF SERVICE: October 12, 2023 TIME: 11:58 AM PATIENT IDENTITY VERIFICATION COMPLETED USING TWO (2) STANDARD IDENTIFIERS: Name and Date of confirmed by patient verbally. FALL SCREENING: Has the patient had 2 falls in the last year or 1 fall with injury or currently using an Ambulatory Assistive Device (Walker, Cane, Wheelchair, Crutches, etc.)? No PATIENT GENDER DATA: Male PATIENT RELEVANT IMPLANT DATA REVIEWED: Yes PATIENT PRESENTS WITH AN IMPLANTABLE OR ATTACHED INSTRUCTIONAL SUPPORT SERVICES DIRECTOR: No ALLERGIES: Reviewed and unchanged CONTRAST ALLERGY: NO. EXAM: MRI - CONTRAST TYPE: GROUP II PERIPHERAL IV DATA: Ambulatory: A peripheral IV was started in the Right antecubital site with a Angio cath: 24 gauge. RADIOLOGY DEPARTMENT: MR; Exam(s) Completed: Spine: Cervical spine, Thoracic spine, and Lumbar spine SIGNATURE: RT Indira(Amanda) PATIENT NAME: Heath Rosenberg DATE: October 12, 2023 TIME: 11:58 AM documented in this encounter [facility] 10-12-2023 Note HNO ID: [id number] Author: LATONIA FLORES RT(R) Service: ? Author Type: Technologist Type: Progress Notes Filed: 10/12/2023 11:58 Note Text: Radiology Service Progress Note DATE OF SERVICE: October 12, 2023 TIME: 11:58 AM PATIENT IDENTITY VERIFICATION COMPLETED USING TWO (2) STANDARD IDENTIFIERS: Name and Date of confirmed by patient verbally. FALL SCREENING: Has the patient had 2 falls in the last year or 1 fall with injury or currently using an Ambulatory Assistive Device (Walker, Cane, Wheelchair, Crutches, etc.)? No PATIENT GENDER DATA: Male PATIENT RELEVANT IMPLANT DATA REVIEWED: Yes PATIENT PRESENTS WITH AN IMPLANTABLE OR ATTACHED INSTRUCTIONAL SUPPORT SERVICES DIRECTOR: No ALLERGIES: Reviewed and unchanged CONTRAST ALLERGY: NO. EXAM: MRI - CONTRAST TYPE: GROUP II PERIPHERAL IV DATA: Ambulatory: A peripheral IV was started in the Right antecubital site with a Angio cath: 24 gauge. RADIOLOGY DEPARTMENT: MR; Exam(s) Completed: Spine: Cervical spine, Thoracic spine, and Lumbar spine SIGNATURE: RT Indira(R) PATIENT NAME: Heath Rosenberg DATE: October 12, 2023 TIME: 11:58 AM [facility] 08-24-2023 Telephone encounter Note Neuro SPINE CARE COORDINATION QUICK NOTE Noted. April Jauregui RN BSN Nurse Merchandising Internship [facility] Work Phone: 08-24-2023 Miscellaneous Notes Neuro SPINE CARE COORDINATION QUICK NOTE Noted. April Jauregui RN BSN Nurse Merchandising Internship Mother called back and MRI orders were faxed and confirmed to [facility] [phone] Neuro SPINE CARE COORDINATION QUICK NOTE Mom/Patient will be calling with fax number of facility that patient will complete MRIs. Please fax both MRI orders ordered by Dr. Lay on 08/22 to facility of choice. April Jauregui RN BSN Nurse Merchandising Internship documented in this encounter [facility] 08-24-2023 Telephone encounter Note Mother called back and MRI orders were faxed and confirmed to [facility] [phone] [facility] 08-24-2023 Telephone encounter Note Neuro SPINE CARE COORDINATION QUICK NOTE Mom/Patient will be calling with fax number of facility that patient will complete MRIs. Please fax both MRI orders ordered by Dr. Lay on 08/22 to facility of choice. April Jauregui RN BSN Nurse Merchandising Internship [facility] 08-24-2023 Telephone encounter Note Neuro SPINE CARE COORDINATION QUICK NOTE Patient accepted Surgery date of 11/[address] Lay and Dr. Gee. Plastics team to enter surgical request. April Jauregui RN BSN Nurse Merchandising Internship [facility] Work Phone: 08-24-2023 Miscellaneous Notes Neuro SPINE CARE COORDINATION QUICK NOTE Patient accepted Surgery date of 11/[address] Lay and Dr. Gee. Plastics team to enter surgical request. April Jauregui RN BSN Nurse Merchandising Internship documented in this encounter [facility] 08-23-2023 History of Present illness Narrative Images from the original note were not included. [facility] New Patient Evaluation Consulting Provider: No referring provider defined for this encounter. 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 He has recently started following with Dr. Martinez for monitoring. 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 General Examination: BP 124/71 Pulse 78 Resp 18 Ht 188 cm (6' 2 ) Wt (!) 141.5 kg (311 lb 15.2 oz) BMI 40.05 kg/m General: Awake, alert, interactive, no acute distress, good nutritional status, normal development, well-kept Extremities: Small cutaneous neurofibroma of the left anterolateral thigh Multiple small cutaneous neurofibromas of the left thenar eminence 1 small cutaneous neurofibroma of the right lateral 1st digit Neurological Exam Mental Status Alert, fully oriented, attentive, with normal cognition, memory, speech and affect. Cranial Nerves Extraocular movements normal. No nystagmus, no ptosis, and pupils equal. Face symmetrical. Tongue normal. Motor Examination and Coordination Motor examination with normal bulk, strength and tone. Sensation Tenderness to palpation over left thigh neurofibroma Gait Casual gait normal. 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 Diffuse enlargement and plexiform neurofibroma along the course of the sciatic nerve in the entire course in the thigh prominent proximally. Numerous neurofibromas scattered throughout the subcutaneous soft tissues, intermuscular planes and intramuscular throughout the left thigh with the largest superficial to the sartorius muscle and measuring 3.2 x 2.2 x 1.9 cm no muscle edema or atrophy. 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 Diffuse enlargement and plexiform neurofibroma along the course of the sciatic nerve in the entire course in the thigh prominent proximally. Numerous neurofibromas scattered throughout the subcutaneous soft tissues, intermuscular planes and intramuscular throughout the left thigh with the largest superficial to the sartorius muscle and measuring 3.2 x 2.2 x 1.9 cm no muscle edema or atrophy. 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 We discussed the procedure in detail. We reviewed the benefits, alternatives, and potential complications including bleeding, infection, damage to surrounding structures, neurological impairment, tumor recurrence, and the need for other surgeries and other procedures. All questions were answered. Informed consent was obtained. The patient does have multiple other lesions parenterally in the thenar eminence of the left hand as well as a single more prominent lesion in the right first digit. We discussed that he could potentially have these removed at the same time with Dr. Sebastien Gee. I reached out to Dr. Gee and he would like an MRI of the hands prior to surgery. I placed the orders for these so that the tumors can be evaluated and the patient and his family can meet him virtually. Encounter Diagnosis ICD-10-CM 1. Neurofibromas, multiple ([facility]) Q85.00 MRI HAND WO/W IVCON LEFT MRI HAND WO/W IVCON RIGHT 2. 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 Data Review Objective Current Outpatient Medications Medication Sig gabapentin (NEURONTIN) 300 mg capsule Take 2 capsules by mouth two times a day for 90 days. nortriptyline (PAMELOR) 25 mg capsule Take 1 capsule by mouth daily at bedtime. fexofenadine HCl (OVIDIO ALLERGY ORAL) Take 1 tablet by mouth once daily. multivit-minerals/folic acid (MULTIVITAMIN GUMMIES ORAL) Take 1 Dose by mouth once daily. iv contrast (will be provided with radiology test) MRI hand LT Inject, intravenously, once for 1 dose. No IV access, insert saline lock prior to the beginning of sedation, infusion, injection of imaging exam. Discontinue saline lock post exam. If Pt. has a central line or IVAD, may access for administration according to line specific nursing protocol. Once exam is complete flush line and de-access according to line specific nursing protocol in the MR contrast administration guidelines link. iv contrast (will be provided with radiology test) MRI hand rt Inject, intravenously, once for 1 dose. No IV access, insert saline lock prior to the beginning of sedation, infusion, injection of imaging exam. Discontinue saline lock post exam. If Pt. has a central line or IVAD, may access for administration according to line specific nursing protocol. Once exam is complete flush line and de-access according to line specific nursing protocol in the MR contrast administration guidelines link. lidocaine (LIDODERM) 5 % Apply 1 Patch as directed once daily. (Patient not taking: Reported on 08/02/2023) No current facility-administered medications for this visit. ACTIVE PROBLEM LIST Neurofibroma, Multiple (Hcc) Other Sleep Disturbances Explosive Personality Disorder (Hcc) Anger Learning Disability Backache Lumbago Disc Herniation Neurofibroma Obesity, Class III, BMI >= 40 (morbid obesity) E66.01 Campoverde's Palsy Mass of Hand, Left Chronic Tension-Type Headache, Not Intractable Radiculopathy, Lumbar Region Neurofibromatosis, Type I (Von Recklinghausen's Disease) (Hcc) Plexiform Neurofibroma PAST MEDICAL HISTORY Diagnosis Date Headaches no aura Neurofibromatosis, type 1 (von Recklinghausen's disease) (HCC) Scoliosis PAST SURGICAL HISTORY Procedure Laterality Date HAND SURGERY HX Social History Tobacco Use Smoking status: Never Smokeless tobacco: Never Vaping Use Vaping Use: Never used Substance Use Topics Alcohol use: No Drug use: No FAMILY HISTORY Problem Relation Age of Onset Hypertension Mother Diabetes Mother Diabetes Maternal Grandmother Hypertension Maternal Grandmother Glaucoma Maternal Grandfather Diabetes Maternal Grandfather Hypertension Maternal Grandfather I spent a total of 30 minutes on the date of the service which included preparing to see the patient, [id number] patient care, completing clinical documentation, obtaining and/or reviewing separately obtained history, performing a medically appropriate examination, and counseling and educating the patient/family/caregiver. Cierra Lay MD, PhD Peripheral Nerve Neurosurgeon Manager Field, Neurosurgery [facility] [address] [place] [address] documented in this encounter [facility] 08-23-2023 Note HNO ID: [id number] Author: CIERRA LAY MD, PhD Service: ? Author Type: Physician Type: Progress Notes Filed: 08/23/2023 13:25 Note Text: [facility] New Patient Evaluation Consulting Provider: No referring provider defined for this encounter. 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 He has recently started following with Dr. Martinez for monitoring. 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 General Examination: BP 124/71 Pulse 78 Resp 18 Ht 188 cm (6' 2 ) Wt (!) 141.5 kg (311 lb 15.2 oz) BMI 40.05 kg/m? General: Awake, alert, interactive, no acute distress, good nutritional status, normal development, well-kept Extremities: Small cutaneous neurofibroma of the left anterolateral thigh Multiple small cutaneous neurofibromas of the left thenar eminence 1 small cutaneous neurofibroma of the right lateral 1st digit Neurological Exam Mental Status Alert, fully oriented, attentive, with normal cognition, memory, speech and affect. Cranial Nerves Extraocular movements normal. No nystagmus, no ptosis, and pupils equal. Face symmetrical. Tongue normal. Motor Examination and Coordination Motor examination with normal bulk, strength and tone. Sensation Tenderness to palpation over left thigh neurofibroma Gait Casual gait normal. 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 Diffuse enlargement and plexiform neurofibroma along the course of the sciatic nerve in the entire course in the thigh prominent proximally. Numerous neurofibromas scattered throughout the subcutaneous soft tissues, intermuscular planes and intramuscular throughout the left thigh with the largest superficial to the sartorius muscle and measuring 3.2 x 2.2 x 1.9 cm no muscle edema or atrophy. 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 Diffuse enlargement and plexiform neurofibroma along the course of the sciatic nerve in the entire course in the thigh prominent proximally. Numerous neurofibromas scattered throughout the subcutaneous soft tissues, intermuscular planes and intramuscular throughout the left thigh with the largest superficial to the sartorius muscle and measuring 3.2 x 2.2 x 1.9 cm no muscle edema or atrophy. 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 We discussed the procedure in detail. We reviewed the benefits, alternatives, and potential complications including bleeding, infection, damage to surrounding structures, neurological impairment, tumor recurrence, and the need for other surgeries and other procedures. All questions were answered. Informed consent was obtained. The patient does have multiple other lesions parenterally in the thenar eminence of the left hand as well as a single more prominent lesion in the right first digit. We discussed that he could potentially have these removed at the same time with Dr. Sebastien Gee. I reached out to Dr. Gee and he would like an MRI of the hands prior to surgery. I placed the orders for these so that the tumors can be evaluated and the patient and his family can meet him virtually. Encounter Diagnosis ICD-10-CM 1. 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 Data Review Objective Current Outpatient Medications Medication Sig gabapentin (NEURONTIN) 300 mg capsule Take 2 capsules by mouth two times a day for 90 days. nortriptyline (PAMELOR) 25 mg capsule Take 1 capsule by mouth daily at bedtime. fexofenadine HCl (OVIDIO ALLERGY ORAL) Take 1 tablet by mouth once daily. multivit-minerals/folic acid (MULTIVITAMI (more content not included)... [facility] 08-22-2023 Telephone encounter Note Duplicate request. Dacia Sanchez RN [facility] 08-22-2023 Miscellaneous Notes Duplicate request. Dacia Sanchez RN documented in this encounter [facility] 08-08-2023 Telephone encounter Note Neuro SPINE CARE COORDINATION QUICK NOTE Noted. April Jauregui RN BSN Nurse Merchandising Internship [facility] Work Phone: 08-08-2023 Miscellaneous Notes Neuro SPINE CARE COORDINATION QUICK NOTE Noted. April Jauregui RN BSN Nurse Merchandising Internship Pt accepts the 08/22 11am appt Schedulers-Please schedule for pt Neuro SPINE CARE COORDINATION QUICK NOTE Referral from Dr. Martinez for Dr. Lay. Called and left VM message requesting call back. Please offer appointment on 08/22 at [address] Lay. April Jauregui RN BSN Nurse Merchandising Internship documented in this encounter [facility] 08-08-2023 Telephone encounter Note Pt accepts the 08/22 11am appt Schedulers-Please schedule for pt [facility] 08-08-2023 Telephone encounter Note Neuro SPINE CARE COORDINATION QUICK NOTE Referral from Dr. Martinez for Dr. Lay. Called and left VM message requesting call back. Please offer appointment on 08/22 at [address] Lay. April Jauregui, READINESS PARAPROFESSIONAL Nurse Merchandising Internship [facility] 08-02-2023 Telephone encounter Note Scheduling Request - Established Patient Time Frame: week of 10/14 Orders: MRI complete spine (C/T/L) Provider: MARIANABOUS Visit type: Virtual Visit Diagnosis: NF1 [facility] 08-02-2023 Miscellaneous Notes Scheduling Request - Established Patient Time Frame: week of 10/14 Orders: MRI complete spine (C/T/L) Provider: LOBBOUS Visit type: Virtual Visit Diagnosis: NF1 documented in this encounter [facility] 08-02-2023 Nurse Note Additional intake questions: Has the patient had fever, nausea, vomiting, diarrhea, constipation, fatigue for > 1 week? No Does the patient have a decreased appetite? No Does patient want to see a Dental Laboratory Technician? No (yes to any of above refer patient to schedulers for dietitian appointment) ) Does patient have any new or increased numbness or tingling of extremities? No Is patient interested in fertility information? No Does patient need any prescription refills? No Does patient have an advanced directive in place? Yes, copies are in Epic Electronically Signed By: Latonia Herrera MA [facility] 08-02-2023 Nurse Note Additional intake questions: Has the patient had fever, nausea, vomiting, diarrhea, constipation, fatigue for > 1 week? No Does the patient have a decreased appetite? No Does patient want to see a Dental Laboratory Technician? No (yes to any of above refer patient to schedulers for dietitian appointment) ) Does patient have any new or increased numbness or tingling of extremities? No Is patient interested in fertility information? No Does patient need any prescription refills? No Does patient have an advanced directive in place? Yes, copies are in [employer] Electronically Signed By: Latonia Herrera MA documented in this encounter [facility] 08-02-2023 History of Present illness Narrative Images from the original note were not included. [facility] Outpatient Visit Referred by Dr. 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 He originally presented with findings of congenital abnormalities and subtle dysmorphic features including excessive fat at the back of the neck, hypoglycemia, respiratory complications (apnea) and feeding problems. Before the first year of life he also was noted to have Cafe- au- lait spots on his abdomen, thighs, shoulder, neck and inguinal area. He also had bilateral epicanthal folds, hypertelorism, micrognathia, and crowded teeth. This prompted thorough genetic evaluation per Dr. 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 This was in spite of an indeterminate result from genetic testing. Dr. Rosario has continued to follow Haeth and has noted a high arched palate, pectus excavatum, macrocephaly, and axillary freckling. An MRI in 08/2000 was negative for underlying intracranial process. He was evaluated in the [facility]'s NF1 clinic by Dr. Rodas (pediatric neurologist ) in 2007 at the age of [age] years old and was generally doing well without signs of focal neurological symptoms. Over the next several years, Heath had intermittent struggles with NF-1 related complications including increase in behavioral issues (tantrums, cursing, breaking things) that he followed with psychiatry for, several painful subcutaneous neurofibromas (three of which he had excised by plastic surgery team), and mild thoracic scoliosis with associated back pain (followed with ortho). MRI of his spine completed in 2012 demonstrated multiple neurofibromas which was thought to be a contributing factor to his chronic back pain as well. Throughout his course he had never been found to have plexiform neurofibromas, maintained a stable ophthalmology exam (negative for Lisch nodules, OPG), has had negative neuroimaging, and was without focal neurological concern. He also intermittently had cardiac monitoring (ECHO and EKG) that was unremarkable. [id number] spots remained stable. His behavioral changes improved and he generally did well in school. In February of 2017, Heath developed an acute right-sided facial drooping, inability to close the right eye, slurred speech and right arm weakness. He was seen in the ED with imaging negative for stroke. 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 Following steroid administration (and applying eye patches/eye drops) he had a complete recovery from his Campoverde's Palsy without visual or hearing loss and resolution of facial contour. Since 2018, Heath continued with progressive, persistent upper back pain. Both Heath and his parents report that it has interfered with his ability to work in the past and he can only be active for so long before he requires frequent breaks. He began following with physical therapy to help. Since then, Heath has somewhat adjusted to the pain and has been able to get a job working at [employer], though requires special accommodations to complete his work (4 hour shifts, breaks, etc.). He does report that this back pain exists daily, but will wax and wane in severity with it generally worsening with activity. 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 His Boxg-ai-pcns spots have remained stable. 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 Genetic testing was completed at [facility] in infancy. Reportedly took ~6 years to isolate chromosomal abnormality. Parents have tested negative for NF-1. Since testing was completed, his older brother had a lump on his leg in adulthood. Upon excision, it was sent off for pathology and found to carry NF-1 mutation. Older sister has also since been tested and was negative. Remaining two siblings have yet to complete genetic testing. Social History: Heath lives at home with his parents. 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 PAST MEDICAL HISTORY Diagnosis Date Headaches no aura Neurofibromatosis, type 1 (von Recklinghausen's disease) (HCC) Scoliosis PAST SURGICAL HISTORY Procedure Laterality Date HAND SURGERY HX Review of Systems: Negative except as listed in HPI OBJECTIVE BP 129/75 Pulse 64 Temp 36.7 C (98 F) (Oral) Resp 18 Ht 186.3 cm (6' 1.35 ) Wt (!) 143 kg (315 lb 4.1 oz) SpO2 98% BMI 41.20 kg/m Physical Exam: General: Well developed and well nourished, in no acute distress. Awake, alert and interactive. Cooperative with examination. NEUROLOGICAL EXAM: General: Awake, alert, speech fluent, comprehension, naming, repetition intact. Short and intermediate school teacher memory intact. CN: PERRL,EOMI without nystagmus, VFF to confrontation, facial sensation and strength are normal and symmetric, hearing is intact to finger rub bilaterally, palate and tongue movements are intact and symmetric. Motor: Normal tone, bulk and strength bilaterally. Coordination: FNF, RM, HTS intact. Sensation: LT intact throughout. Gait: Able to walk on toes, heels, and tandem without difficulty. Romberg normal. Scattered RUSSELL Mild cNF burden Negative Aleja test and leg raise test bilaterally Imaging: Reviewed most recent imaging with Heath and both parents MRI brain with and without contrast (07/25/2021): No significant interval change compared to outside MRI from 01/20/2021. Scattered T2/FLAIR hyperintense foci, compatible with NF1. MRI complete spine (08/10/2021): 1. Stable MRI cervical/thoracic/lumbar spine. 2. Extensive nerve sheath tumors remain relatively stable from prior examination. 3. Congenital canal narrowing with superimposed spondylosis as detailed. Ophthalmology: Last seen 05/17/2021. Right eye 20/20 -1, Left eye 20/20 -2 with correction. Lisch nodules present bilaterally. Left fundal exam: 1 x 1 x flat pigmented choroidal lesion ST macula (nevus). Negative for choroidal lesions. 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 He presents today for consultation. We spoke about the natural history and genetics of NF1. I spoke with the family at length about the natural history and management of neurofibromatosis. The condition is highly variable, with some individuals having serious medical problems where as others have minimal disability associated with the condition. We estimate that about two thirds of individuals are, on average, mildly affected. Nonetheless, the condition does tend to progress and its progression is unpredictable. Some of the more severe complications, such as tibial dysplasia or tissue overgrowth due to plexiform neurofibromatosis would occur early in life. If these complications have not occurred within the first 2 years, it is unlikely that they will. Other complications, however, can occur at a later point, and are unpredictable. Optic pathway glioma occurs in 15% of children NF1, usually between about 2 and 6 years of age. Most of these are nonprogressive, but a subset to progress and cause either loss of vision or hormonal imbalance such as precocious puberty. We generally recommend annual ophthalmologic follow-up looking for signs of visual impairment, but only obtain imaging studies if there are clinical indications suggestive of glioma. The ultimate number of neurofibromas that might occur is unpredictable. Some individuals may be completely covered with dermal neurofibromas, whereas others may have few or even none. The most common times for these to appear is during puberty, or in women, during . Neurofibromas can be removed by plastic surgery, but it is usually impossible to remove all of the tumors. Plastic surgery is therefore reserved for particular tumors that are causing symptoms, including cosmetic impairment or discomfort. Plexiform neurofibromas represent large tumors that involve multiple branches of a nerve. Some of these occur in the surface of the body and can cause significant deformity, whereas others occur internally and may not be recognized unless some particular sign or symptom appears. Usually these cannot be completely removed surgically, though in some cases debulking is possible. There is active research aimed at development of treatments of plexiform neurofibromas, and there are several ongoing clinical trials, but at present there is no definitive nonsurgical treatment. NF1 is not usually a life-threatening disorder, though there are life-threatening complications that can occur. The most important is malignant peripheral nerve sheath tumor. This usually represents malignant change of a pre-existing plexiform neurofibroma, although the tumor may arise internally, so not all are aware of having the tumor prior to the occurrence of malignancy. These most often present with pain and sudden growth of a tumor, or change in consistency from soft to hard. It would be important to bring any such signs or symptoms to medical attention for further investigation We estimate that about 10% of individuals develop a malignancy related to neurofibromatosis in their lifetime; this risk should be measured against the 1 in 3 risk of cancer in the general population, but the spectrum of tumors can be different and therefore awareness of the possibility is important. NF1 inheritance and family planning options. Neurofibromatosis type 1 is transmitted as a dominant trait, which means that an affected individual has a 50% chance of transmitting NF1 to any future offspring. We discussed family planning options including preimplantation genetic diagnosis (PGD) along with in vitro fertilization (IVF), chorionic villi sampling (CVS), and amniocentesis. All of these options requires knowing the affected parent's NF1 mutation. PGD is diagnosis of a genetic condition prior to achievement of a . This genetic testing is performed on eggs or embryos during an IVF cycle. Therefore, in order to have PGD, you must undergo IVF. Only embryos that do not carry the mutation will be implanted. CVS and amniocentesis are testing options that are available after a has been achieved. CVS is performed in the first trimester of between 10-13 weeks gestation. This testing removes tissue from the placenta for genetic testing. Amniocentesis is performed in the second trimester of between 15-20 weeks gestation. This is performed by obtaining a sample of amniotic fluid that surrounds the baby. This fluid contains cells that can be used for genetic testing. The family was provided NF1 educational material from the [employer]. Our routine for follow-up is to see an individual with NF1 on an annual basis in [facility]. We generally reserve specific tests or imaging studies for clinical indications. - Discussed at length risk of cancer, may need PET in near future given disease burden and worsening pain - need MRI C/T/L spine with contrast, ordered - sub-optimal pain control, will try pamelor 25 mg QHS to also help with headache prevention, uptitrate dose as tolerated, may re-engage our pain management colleagues. Continue GBP at current dose, consider Emla cream - Referral to Dr. Lay for surgical evaluation of subcutaneous nodular neurofibromas over lateral surface of left thigh given localized pain (Which is his main concern this visit), we had long discussion that no surgical options present for the spinal cord neurofibromas or the LLE plexiform neurofibromas along sciatic nerve pathway - we discussed SCS in layman terms, if no improvement with medical therapy will discuss his case with Dr. Luis DOBBINS after spine imaging, if stable then follow annually Bryce Martinez MD, [facility] Staff Neuro-Oncologist [facility] Patient Care Team: Tesfaye Villareal MD as PCP - General (Family Medicine) CC: Dr. Stephany Feldman via [employer] I spent a total of 85 minutes on the date of the service which included preparing to see the patient, [id number] patient care, completing clinical documentation, obtaining and/or reviewing separately obtained history, performing a medically appropriate examination, counseling and educating the patient/family/caregiver, ordering medications, tests, or procedures, communicating with other HCPs (not separately reported), independently interpreting results (not separately reported), and communicating results to the patient/family/caregiver. documented in this encounter [facility] 08-02-2023 Note HNO ID: [id number] Author: BRYCE MARTINEZ MD Service: ? Author Type: Physician Type: Progress Notes Filed: 08/02/2023 23:34 Note Text: [facility] Outpatient Visit Referred by Dr. 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 He originally presented with findings of congenital abnormalities and subtle dysmorphic features including excessive fat at the back of the neck, hypoglycemia, respiratory complications (apnea) and feeding problems. Before the first year of life he also was noted to have Cafe- au- lait spots on his abdomen, thighs, shoulder, neck and inguinal area. He also had bilateral epicanthal folds, hypertelorism, micrognathia, and crowded teeth. This prompted thorough genetic evaluation per Dr. Rosario (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 This was in spite of an indeterminate result from genetic testing. Dr. Rosario has continued to follow Heath and has noted a high arched palate, pectus excavatum, macrocephaly, and axillary freckling. An MRI in 08/2000 was negative for underlying intracranial process. He was evaluated in the [facility]'s NF1 clinic by Dr. Rodas (pediatric neurologist ) in 2007 at the age of [age] years old and was generally doing well without signs of focal neurological symptoms. Over the next several years, Heath had intermittent struggles with NF-1 related complications including increase in behavioral issues (tantrums, cursing, breaking things) that he followed with psychiatry for, several painful subcutaneous neurofibromas (three of which he had excised by plastic surgery team), and mild thoracic scoliosis with associated back pain (followed with ortho). MRI of his spine completed in 2012 demonstrated multiple neurofibromas which was thought to be a contributing factor to his chronic back pain as well. Throughout his course he had never beenfound to have plexiform neurofibromas, maintained a stable ophthalmology exam (negative for Lisch nodules, OPG), has had negative neuroimaging, and was without focal neurological concern. He also intermittently had cardiac monitoring (ECHO and EKG) that was unremarkable. Kvxq-fw-[id number] spots remained stable. His behavioral changes improved and he generally did well in school. In February of 2017, Heath developed an acute right-sided facial drooping, inability to close the right eye, slurred speech and right arm weakness. He was seen in the ED with imaging negative for stroke. 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 Following steroid administration (and applying eye patches/eye drops) he had a complete recovery from his Campoverde's Palsy without visual or hearing loss and resolution of facial contour. Since 2018, Heath continued with progressive, persistent upper back pain. Both Heath and his parents report that it has interfered with his ability to work in the past and he can only be active for so long before he requires frequent breaks. He began following with physical therapy to help. Since then, Heath has somewhat adjusted to the pain and has been able to get a job working at [employer], though requires special accommodations to complete his work (4 hour shifts, breaks, etc.). He does report that this back pain exists daily, but will wax and wane in severity with it generally worsening with activity. 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 His Cuqm-zf-ycea spots have remained stable. 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 Genetic testing was completed at [facility] in infancy. Reportedly took ~6 years to isolate chromosomal abnormality. Parents have tested negative for NF-1. Since testing was completed, his older brother had a lump on his leg in adulthood. Upon excision (more content not included)... [facility] 06-29-2023 Miscellaneous Notes Lidocaine patches DENIED as they are not approved for leg pain. Dacia Sanchez RN Prior authorization for lidocaine patches sent to [facility] via cover my meds. Dacia Sanchez RN documented in this encounter [facility] 06-27-2023 Instructions Jessenia Nation MD - 06/27/2023 3:24 PM EDT Thank you for coming to see us today. I have sent a prescription for lidocaine 5% patch to your pharmacy. Please apply one patch per day to the most painful area of your thigh. You can cut these patches to better cover the area of your pain if needed. These patches can also be bought over the counter (Salonpas 4% lidocaine patch). Follow up with your plastic surgery team to see if the fibroma on your left thigh could be surgically excised as this might help treat the pain associated with it. Feel free to follow up with me as needed if you are in the [place] area. documented in this encounter [facility] 06-27-2023 Note HNO ID: [id number] Author: JESSENIA NATION MD Service: ? Author Type: Physician Type: Progress Notes Filed: 06/27/2023 15:40 Note Text: [facility] Pain Management Department Follow Up SUBJECTIVE: Heath Rosenberg is a 27 year old male with a past medical history of NF1 c/b multiple painful subcutaneous neurofibromas s/p excision by plastics and plexiform neurofibroma of left thigh who presents to [facility] Pain Management Department for a follow-up appointment for LLE pain. The plan at the last visit on 05/16/23 was the followin) Increase Gabapentin from 300mg bid to 600mg bid. Rx sent to pharmacy 2) RTC in 6 weeks. Since the last visit, Heath Audrey Rosenberg states the pain has been stable. No change in Left thigh pain since increasing alesia. Back pain mildly improved with this dose. Denies a/e from this medication. The patient complains of LLE pain. The pain started 4 mos ago without obvious inciting event; pain has been persistent. The pain is located in the left lateral thigh at the site of a small palpable mass and does radiate down LE below knee level. The pain is described as an achy, sharp pain. Currently, the pain is rated at 4/10, and it ranges from 3-9.5/10. The pain is exacerbated by standing (2 hours), applying pressure to painful area, laying on left side. The pain is mitigated by not touching area, sitting. The pain does not interfere with the patient's sleep at night. Denies LE weakness or issues with ambulation. 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 The patient denies difficulty with bowel or bladder control, unintentional weight loss, fevers, chills, or night sweats, arm or leg weakness, numbness or tingling, ever having cancer, pain being worse at night, trauma, major or minor, and drug use . Physical Therapy/Home Exercise: No Pain Medications: - Opioids: N - NSAIDs: N - Anti-Depressants: N - Anti-Convulsants: Alesia 600mg bid - Others: N Prior treatments: none OARRS report: Reviewed: The patient's OARRS report was reviewed and is consistent with the reported medication use. Pain medications reviewed: Yes Pain Procedures: none Imaging: none new since last visit Patient Entered Questionnaires PROMIS Score Percentiles 09/28/2021 06/20/2022 02/05/2023 PROMIS Global Health Scale Physical Health Percentile 4 10 15 Mental Health Percentile 5 34 34 03/20/2019 02/05/2023 Physical Health Physical Function Percentile 38 Pain Interference Percentile 38 Percentiles provide an indication of how the patient's score ranks in relation to the general population. Higher percentile rankings indicate better function/quality of life. 50th percentile is the average of the general population and indicates half of respondents had a worse score. > 31st percentile is within normal limits or better * < 31st percentile is at least ? 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, type 1 (von Recklinghausen's disease) (HCC) Scoliosis Past Surgical History: PAST SURGICAL HISTORY Procedure Laterality Date HAND SURGERY HX Family History: FAMILY HISTORY Problem Relation Age of Onset Hypertension Mother Diabetes Mother Diabetes Maternal Grandmother Hypertension Maternal Grandmother Glaucoma Maternal Grandfather Diabetes Maternal Grandfather Hypertension Maternal Grandfather Social History: Social History Tobacco Use Smoking status: Never Smokeless tobacco: Never Vaping Use Vaping Use: Never used Substance Use Topics Alcohol use: No Drug use: No OBJECTIVE: BP 139/70 Pulse 62 Temp (Src) 98.2 (Temporal Artery) Resp 16 Ht 6' 3 (1.91m) Wt 320 lb (145.2kg) SpO2 98% BMI 40.00 kg/(m2). PHYSICAL EXAMINATION: General appearance: Well appearing, in no acute distress, alert. Psych: Mood and affect appropriate. Skin: Skin color, texture, turgor normal, no rashes or lesions. Head/face: Normocephalic, atraumatic. Cor: Regular rate and rhythm, bilateral radial pulses palpated and equal Pulm: Non-labored on room air GI: Soft and non-tender. Back: Straight leg raising in the sitting position is negative to radicular pain. Mild diffuse TTP along lumbar musc. Normal range of motion without pain reproduction. Extremities: TTP along left lateral thigh at location of small mass (~2-3 cm). Left GTB not TTP. Peripheral joint ROM is full and pain free without obvious instability or laxity in all four extremities. No deformities, edema, or skin discoloration. Good capillary refill. Musculoskeletal: Bilateral upper and lower extremity strength is normal and symmetric. No atrophy or tone abnormalities are noted. Neuro: Bilateral upper and lower extremity coordination and muscle s (more content not included)... [facility] 06-27-2023 History of Present illness Narrative [facility] Pain Management Department Follow Up SUBJECTIVE: Heath Rosenberg is a 27 year old male with a past medical history of NF1 c/b multiple painful subcutaneous neurofibromas s/p excision by plastics and plexiform neurofibroma of left thigh who presents to [facility] Pain Management Department for a follow-up appointment for LLE pain. The plan at the last visit on 05/16/23 was the followin) Increase Gabapentin from 300mg bid to 600mg bid. Rx sent to pharmacy 2) RTC in 6 weeks. Since the last visit, Heath Rosenberg states the pain has been stable. No change in Left thigh pain since increasing alesia. Back pain mildly improved with this dose. Denies a/e from this medication. The patient complains of LLE pain. The pain started 4 mos ago without obvious inciting event; pain has been persistent. The pain is located in the left lateral thigh at the site of a small palpable mass and does radiate down LE below knee level. The pain is described as an achy, sharp pain. Currently, the pain is rated at 4/10, and it ranges from 3-9.5/10. The pain is exacerbated by standing (2 hours), applying pressure to painful area, laying on left side. The pain is mitigated by not touching area, sitting. The pain does not interfere with the patient's sleep at night. Denies LE weakness or issues with ambulation. 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 The patient denies difficulty with bowel or bladder control, unintentional weight loss, fevers, chills, or night sweats, arm or leg weakness, numbness or tingling, ever having cancer, pain being worse at night, trauma, major or minor, and drug use . Physical Therapy/Home Exercise: No Pain Medications: - Opioids: N - NSAIDs: N - Anti-Depressants: N - Anti-Convulsants: Alesia 600mg bid - Others: N Prior treatments: none OARRS report: Reviewed: The patient's OARRS report was reviewed and is consistent with the reported medication use. Pain medications reviewed: Yes Pain Procedures: none Imaging: none new since last visit Patient Entered Questionnaires PROMIS Score Percentiles 09/28/2021 06/20/2022 02/05/2023 PROMIS Global Health Scale Physical Health Percentile 4 10 15 Mental Health Percentile 5 34 34 03/20/2019 02/05/2023 Physical Health Physical Function Percentile 38 Pain Interference Percentile 38 Percentiles provide an indication of how the patient's score ranks in relation to the general population. Higher percentile rankings indicate better function/quality of life. 50th percentile is the average of the general population and indicates half of respondents had a worse score. 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, type 1 (von Recklinghausen's disease) (HCC) Scoliosis Past Surgical History: PAST SURGICAL HISTORY Procedure Laterality Date HAND SURGERY HX Family History: FAMILY HISTORY Problem Relation Age of Onset Hypertension Mother Diabetes Mother Diabetes Maternal Grandmother Hypertension Maternal Grandmother Glaucoma Maternal Grandfather Diabetes Maternal Grandfather Hypertension Maternal Grandfather Social History: Social History Tobacco Use Smoking status: Never Smokeless tobacco: Never Vaping Use Vaping Use: Never used Substance Use Topics Alcohol use: No Drug use: No OBJECTIVE: BP 139/70 Pulse 62 Temp (Src) 98.2 (Temporal Artery) Resp 16 Ht 6' 3 (1.91m) Wt 320 lb (145.2kg) SpO2 98% BMI 40.00 kg/(m^2). PHYSICAL EXAMINATION: General appearance: Well appearing, in no acute distress, alert. Psych: Mood and affect appropriate. Skin: Skin color, texture, turgor normal, no rashes or lesions. Head/face: Normocephalic, atraumatic. Cor: Regular rate and rhythm, bilateral radial pulses palpated and equal Pulm: Non-labored on room air GI: Soft and non-tender. Back: Straight leg raising in the sitting position is negative to radicular pain. Mild diffuse TTP along lumbar musc. Normal range of motion without pain reproduction. Extremities: TTP along left lateral thigh at location of small mass (~2-3 cm). Left GTB not TTP. Peripheral joint ROM is full and pain free without obvious instability or laxity in all four extremities. No deformities, edema, or skin discoloration. Good capillary refill. Musculoskeletal: Bilateral upper and lower extremity strength is normal and symmetric. No atrophy or tone abnormalities are noted. Neuro: Bilateral upper and lower extremity coordination and muscle stretch reflexes are physiologic and symmetric. Plantar response are downgoing. No loss of sensation is noted. Gait: normal. ASSESSMENT: Heath Rosenberg is a 27 year old male with a past medical history of NF1 c/b multiple painful subcutaneous neurofibromas s/p excision by plastics and plexiform neurofibroma of left thigh who presents to [facility] Pain Management Department for a follow-up appointment for LLE pain. Mr. Rosenberg states pain is unchanged despite increased Gabapentin dosage. Denies a/e from increase dose. Feels that lower back pain is somewhat better at this dose. Cont Gabapentin. As pain is associated with small palpable mass on left lateral thigh, recommend he follow up with plastic surgery to see if this mass (presumably neurofibroma) is amenable to surgical excision. He has undergone prior excision of painful subcutaneous neurofibromas with excellent response in the past. In the mean time, recommend he apply a lidocaine patch to the most painful area along his thigh daily as needed. RTC prn. The above plan was discussed in detail with the patient, his mom and step dad and they are in agreement. All questions were answered. (Q85.01) Neurofibromatosis, type I (von Recklinghausen's disease) ([facility]) (primary encounter diagnosis) (M79.652) Left thigh pain PLAN: 1) Cont Alesia 600mg bid 2) Start lidocaine 5% patch 3) Patient to reach out to plastic surgery re: possible surgical excision of painful ?neurofibroma 4) RTC prn. We discussed risks/benefits/alternatives to medication management, pain management interventions, physical or occupational therapy, psychological pain management and surgical options as appropriate. Medications may cause sedation and impairment of judgment. The patient is advised against driving or using heavy machinery. The patient is also advised against using alcohol or other substances that may have a further additive effect. Shared decision making utilized to continue current treatment plan and patient's questions were answered. The above plan and management options were discussed with patient. The patient is in agreement with the above and verbalized understanding. Jessenia Nation MD June 27, 2023 1. This office note has been dictated and may contain minor typographic errors that escaped review 2. The nursing staff and medical assistants are a major part of YOUR TREATMENT TEAM and will be handling your phone calls and inquiries, if any. Unless explicitly told otherwise at the time of your office visit, your study results and ensuing treatment plans will be discussed during your follow-up appointment. If you do not have a follow-up appointment and wish to discuss any issues directly with me, please feel free to obtain one. 3. It is my practice to not fill disability or any other insurance-related forms/documention. All of the office notes, study results, and other pertinent documentation generated as part of your evaluation will be available to you and to your Primary Care Physician (PCP). Use of this material to complete such forms will be at the discretion of your PCP/referring physician. Medical Decision Making: Problems: Low: Stable chronic illness Risk: Moderate: Drug management Medical Decision Making Level: 3 - Low documented in this encounter [facility] 06-12-2023 Note HNO ID: [id number] Author: JASPER YOUNG LGC Service: ? Author Type: Genetic Counselor Type: Progress Notes Filed: 07/18/2023 14:10 Note Text: [facility] for Personalized Genetic Healthcare Consultation Note Genetic Counselor: Jasper Young, MS, [facility] [place]: Heath Rosenberg Patient Name and confirmed at initiation of visit. This visit was conducted virtually via [employer] I have communicated my name and active licensure. The patient's identity and physical location were verified at the time of this visit. Either the patient or their legal cordage sales representative has been informed of the risks and benefits of -- and alternatives to -- treatment through a remote evaluation and consents to proceed with the evaluation remotely. Identification and Chief Complaint: Dr. Arnol Cloud requested a consultation for genetic counseling and risk assessment for Heath Rosenberg, a 27 year old male, for discussion of his personal history of neurofibromatosis type 1 (NF1). He presents to clinic today accompanied by his mother to discuss the possibility of a genetic predisposition to cancer, and to further clarify his risks, as well as his family members' risks for cancer. Visit Summary: Dinora has a known diagnosis of NF1, with an NF1 deletion being identified in the past. Further testing to determine the extent of the deletion has not yet been performed. Heath provided informed consent for chromosomal microarray through [employer]. We will arrange for a buccal kit to be sent to the patient's home address. Results are expected in 3 weeks. History of Present Condition: From Dr. 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 He originally presented with findings of congenital abnormalities and subtle dysmorphic features including excessive fat at the back of the neck, hypoglycemia, respiratory complications (apnea) and feeding problems. Before the first year of life he also was noted to have Cafe- au- lait spots on his abdomen, thighs, shoulder, neck and inguinal area. He also had bilateral epicanthal folds, hypertelorism, micrognathia, and crowded teeth. This prompted thorough genetic evaluation per Dr. Rosario (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 This was in spite of an indeterminate result from genetic testing. Dr. Rosario has continued to follow Heath and has noted a high arched palate, pectus excavatum, macrocephaly, and axillary freckling. An MRI in 08/2000 was negative for underlying intracranial process. He was evaluated in the [facility]'s NF1 clinic by Dr. Rodas (pediatric neurologist ) in 2007 at the age of [age] years old and was generally doing well without signs of focal neurological symptoms. Over the next several years, Heath had intermittent struggles with NF-1 related complications including increase in behavioral issues (tantrums, cursing, breaking things) that he followed with psychiatry for, several painful subcutaneous neurofibromas (three of which he had excised by plastic surgery team), and mild thoracic scoliosis with associated back pain (followed with ortho). MRI of his spine completed in 2012 demonstrated multiple neurofibromas which was thought to be a contributing factor to his chronic back pain as well. Throughout his course he had never beenfound to have plexiform neurofibromas, maintained a stable ophthalmology exam (negative for Lisch nodules, OPG), has had negative neuroimaging, and was without focal neurological concern. He also intermittently had cardiac monitoring (ECHO and EKG) that was unremarkable. Qmel-ab-wmgc spots remained stable. His behavioral changes improved and he generally did well in school. In February of 2017, Heath developed an acute right-sided facial drooping, inability to close the right eye, slurred speech and right arm weakness. He was seen in the ED with imaging negative for stroke. 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 Following steroid administration (and applying eye patches/eye drops) he had a complete recovery from his Campoverde's Palsy without visual or hearing loss and resolution of facial contour. Since 2018, Heath continued with progressive, persistent upper back pain. Both Heath and his parents report that it has interfered with his ability to work in the past and he can only be active for so long before he requires frequent breaks. He began following with physical therapy to help. Since then, Heath has somewhat adjusted to the pain and has been able to get a job working at [employer], though requires special accommodations to complete his work (4 hour shifts, breaks, etc.). He does report that this back pain exists daily, but will wax and (more content not included)... [facility] 06-12-2023 History of Present illness Narrative [facility] Healthcare Consultation Note Genetic Counselor: Jasper Young MS, [facility] Patient: Heath Rosenberg Patient Name and confirmed at initiation of visit. This visit was conducted virtually via [employer]. I have communicated my name and active licensure. The patient's identity and physical location were verified at the time of this visit. Either the patient or their legal cordage sales representative has been informed of the risks and benefits of -- and alternatives to -- treatment through a remote evaluation and consents to proceed with the evaluation remotely. Identification and Chief Complaint: Dr. Arnol Cloud requested a consultation for genetic counseling and risk assessment for Heath Rosenberg, a 27 year old male, for discussion of his personal history of neurofibromatosis type 1 (NF1). He presents to clinic today accompanied by his mother to discuss the possibility of a genetic predisposition to cancer, and to further clarify his risks, as well as his family members' risks for cancer. Visit Summary: Dinora has a known diagnosis of NF1, with an NF1 deletion being identified in the past. Further testing to determine the extent of the deletion has not yet been performed. Heath provided informed consent for chromosomal microarray through [employer]. We will arrange for a buccal kit to be sent to the patient's home address. Results are expected in 3 weeks. History of Present Condition: From Dr. 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 He originally presented with findings of congenital abnormalities and subtle dysmorphic features including excessive fat at the back of the neck, hypoglycemia, respiratory complications (apnea) and feeding problems. Before the first year of life he also was noted to have Cafe- au- lait spots on his abdomen, thighs, shoulder, neck and inguinal area. He also had bilateral epicanthal folds, hypertelorism, micrognathia, and crowded teeth. This prompted thorough genetic evaluation per Dr. Rosario (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 This was in spite of an indeterminate result from genetic testing. Dr. Rosario has continued to follow Heath and has noted a high arched palate, pectus excavatum, macrocephaly, and axillary freckling. An MRI in 08/2000 was negative for underlying intracranial process. He was evaluated in the [facility]'s NF1 clinic by Dr. Rodas (pediatric neurologist ) in 2007 at the age of [age] years old and was generally doing well without signs of focal neurological symptoms. Over the next several years, Heath had intermittent struggles with NF-1 related complications including increase in behavioral issues (tantrums, cursing, breaking things) that he followed with psychiatry for, several painful subcutaneous neurofibromas (three of which he had excised by plastic surgery team), and mild thoracic scoliosis with associated back pain (followed with ortho). MRI of his spine completed in 2012 demonstrated multiple neurofibromas which was thought to be a contributing factor to his chronic back pain as well. Throughout his course he had never been found to have plexiform neurofibromas, maintained a stable ophthalmology exam (negative for Lisch nodules, OPG), has had negative neuroimaging, and was without focal neurological concern. He also intermittently had cardiac monitoring (ECHO and EKG) that was unremarkable. Htsp-lo-rema spots remained stable. His behavioral changes improved and he generally did well in school. In February of 2017, Heath developed an acute right-sided facial drooping, inability to close the right eye, slurred speech and right arm weakness. He was seen in the ED with imaging negative for stroke. 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 Following steroid administration (and applying eye patches/eye drops) he had a complete recovery from his Campoverde's Palsy without visual or hearing loss and resolution of facial contour. Since 2018, Heath continued with progressive, persistent upper back pain. Both Heath and his parents report that it has interfered with his ability to work in the past and he can only be active for so long before he requires frequent breaks. He began following with physical therapy to help. Since then, Heath has somewhat adjusted to the pain and has been able to get a job working at [employer], though requires special accommodations to complete his work (4 hour shifts, breaks, etc.). He does report that this back pain exists daily, but will wax and wane in severity with it generally worsening with activity. He has mild, intermittent headaches but is without any other focal neurological concern. 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 His Spyq-gi-refs spots have remained stable. 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 His left lower extremity has been most pertinent area of pain and discomfort over the last year. Previous Genetic Testing: In 2007, Heath underwent NF1 genetic testing at [facility] (Lab ID# [id number]) and was found to have an entire NF1 gene deletion. No further testing was testing was ordered to determine the extent of the break points. 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 Neurofibromatosis, type 1 (von Recklinghausen's disease) (HCC) Scoliosis PAST SURGICAL HISTORY Procedure Laterality Date HAND SURGERY HX Review of Systems, Cancer Surveillance History, and Personal Risk Factors: General -Weight: Last 1 Encounter Wt Readings: Date: Wt: 05/16/2023 147.4 kg (325 lb) -Height: Last 1 Encounter Ht Readings: Date: Ht: 05/16/2023 190.5 cm (6' 3 ) Gastrointestinal -Colonoscopy: No -EGD: No -GI Polyps: No ENT: No - Formal hearing test: Unsure - Hearing or other ENT complaints today: No Cardiology: Yes - Echo: 2008 - [facility] - Hypertension: No Social History Tobacco Use Smoking status: Never Smokeless tobacco: Never Vaping Use Vaping Use: Never used Substance Use Topics Alcohol use: No Drug use: No Family History: A three generation pedigree was collected and will be scanned below or may be viewed under the scanned documents tab following today's visit. Heath's family history is significant for: Mother, age 57, no genetic testing. She has previously been diagnosed with a PFO. Father, at age 50 from liver cancer. No genetic testing Heath has four full siblings. Sister, reportedly had negative NF1 testing. Brother, at age 33. He had a neurofibroma, but never had genetic testing. He has 16yo and 13yo daughters. The younger daughter also has a PFO. Brother, age 38, no known symptoms of NF1 or genetic testing, no children. Sister, age 27, no genetic testing, has a diagnosis of pulmonary stenosis. She has four children. Maternal uncle, diagnosed with leukemia in infancy and . Paternal grandfather, diagnosed with stomach and bladder cancer at age 65. The remainder of Heath's reported family history is negative for other cancers, known or suspected genetic disease, defects, developmental delay/intellectual disability, infertility, recurrent loss, and unexplained infant . Heath's maternal ancestors are of Bulgarian descent and paternal ancestors are of Bulgarian descent. There is no -Sammarinese, Mediterranean, /, Croatian-Ethiopian/Cajun, Eastern /Burundian, or Ashkenazi Orthodoxy ancestry. There is no known consanguinity. FAMILY HISTORY Problem Relation Age of Onset Hypertension Mother Diabetes Mother Diabetes Maternal Grandmother Hypertension Maternal Grandmother Glaucoma Maternal Grandfather Diabetes Maternal Grandfather Hypertension Maternal Grandfather Genetic Counseling Risk Assessment, Discussion, and Follow-Up Plan: We reviewed the natural history and genetic etiology of Neurofibromatosis type 1. Neurofibromatosis Type 1 Neurofibromatosis Type 1 (NF1) is a genetic condition that can affect the skin, eyes, skeleton, and nervous system. The majority of features associated with NF1 are benign but individuals with NF1 are at an increased risk for certain cancers. Individuals with NF1 vary greatly in what features they develop and even members of the same family can develop very different features. The most common features of NF1 are cafe au lait spots and freckling of the armpits and groin. These skin findings often develop in childhood and tend to increase in size and number over time. Individuals may develop numerous benign cutaneous neurofibromas, which are nerve tumors that form soft bumps under the skin. Some individuals also develop plexiform neurofibromas. Individuals with NF1 can also have certain eye findings. Many individuals with NF1 have Lisch nodules (iris hamartomas), which are gold-brown colored spots on the colored part of the eye. Some individuals also develop tumors in the nerves of the visual pathway (optic gliomas), but the majority of these occur in the first 5 years of life. Other features that can been seen in individuals with NF1 include learning disabilities, intellectual disabilities, and features of Autism Spectrum Disorder. Some individuals have skeletal malformations such as scoliosis, bowing of the lower legs, and improper development of certain bones. Individuals may also have congenital heart disease, hypertension, or vasculopathy. Individuals with NF1 are at an increased risk of developing malignant peripheral nervesheath tumors and other tumors. An increased risk of female breast cancer has also been observed in individuals with NF1. The estimated lifetime risk of breast cancer for women is 15-40%. Currently, there is no evidence of an increased risk of breast cancer after age 50. The recommendation is that all individuals with a NF1 mutation undergo a full evaluation with a medical clinic manager familiar with the condition. Individuals should be seen by Neurology at least yearly and more often if necessary, and most patients also see Ophthalmology annually. Tumors which change in appearance/texture, grow rapidly, or become painful should be evaluated for possible malignancy. Current recommendations for women are annual mammograms and consideration of annual breast MRIs from age 30-50. NF1 is inherited in an autosomal dominant pattern, which means that each child of an affected individual has 50% chance of inheriting NF1. In about one-half of cases, NF1 is inherited from an affected parent. In the other cases, it is the result of a new (de joaquin) mutation in that individual. Regardless of how an individual came to have NF1, any future children would have a 50% chance of inheriting it. Other relatives (parents, siblings, half-siblings, grandchildren, nieces, nephews, aunts, uncles, grandparents, and cousins) could also be at risk of having this mutation. It is unclear from review of the family history from which side of the family this mutation was inherited or if this mutation was brand new in you. Therefore, maternal and paternal relatives could be at risk. I recommend that you share your genetic testing results with all at-risk relatives so they may pursue genetic counseling. Based on this assessment of the patient's family and personal history, genetic testing is recommended to determine the extent of the deletion. After considering the risks, benefits, and limitations, Heath chose to pursue and provided informed consent for the following testing: chromosomal microarray through [employer]. Per the patient's request, we will contact Heath and his mother by telephone to discuss these results. A follow up genetic counseling visit will be scheduled if requested. The patient was seen for a total of 35 minutes, greater than 50% of which was spent arsd-rv-jeep counseling. This plan is being carried out under the oversight of Dr. Ramsey. This note will also be sent to the referring provider via the electronic medical record. Jasper Young MS, [facility] Licensed, Certified Genetic Counselor [facility] CC: [address] Dr. documented in this encounter [facility] 05-16-2023 Instructions Jessenia Nation MD - 05/16/2023 2:03 PM EST Thank you for coming to see us today. Let's increase your Gabapentin dose according to the following schedule: -Take 300mg (1 tablet) in the morning and 600mg (2 tablets) at bedtime for one week -Then, take 600mg (2 tablets) in the morning and 600mg (2 tablets) at bedtime and stay at that dose documented in this encounter [facility] 05-16-2023 Note HNO ID: [id number] Author: JESSENIA NATION MD Service: ? Author Type: Physician Type: Progress Notes Filed: 05/16/2023 14:46 Note Text: [facility] Pain Management Department New Patient Consultation Referring Physician: Kaycee Roche [id number] [facility] [id number] Chief Complaint: LLE pain SUBJECTIVE: Heath Rosenberg is a 27 year old male with a past medical history of NF1 c/b multiple painful subcutaneous neurofibromas s/p excisoin by plastics and plexiform neurofibroma of left thigh who presents to [facility]'s Pain Management Center for the evaluation of LLE pain. The patient complains of LLE pain. The pain started 4 mos ago without obvious inciting event; pain has been persistent. The pain is located in the left lateral thigh and does radiate down LE below knee level. The pain is described as an intermittent achy, sharp pain. Currently, the pain is rated at 0/10, and it ranges from 0-9/10. The pain is exacerbated by standing (2 hours), applying pressure to painful area, laying on left side. The pain is mitigated by not touching area, sitting. The pain does not interfere with the patient's sleep at night. Denies LE weakness or issues with ambulation. He is followed by Peds Heme/Onc ([facility]) last seen on 05/04/23 with the following a/p: -Discussed MEK inhibitors (Trametinib, Binemetinib, vs. Selumetinib), side effect profiles, and indications to begin treatment. -Referral placed to Medical Genetics to address NF-1 mutation as it pertains to future family planning. -Referral placed to Pain Management team in order to titrate up his gabapentin dose, discuss other options for his chronic pain. As he will more then likely be following with several different providers, parents and Heath were hopeful to have pain addressed by one unified team. 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 The patient denies difficulty with bowel or bladder control, unintentional weight loss, fevers, chills, or night sweats, arm or leg weakness, numbness or tingling, ever having cancer, pain being worse at night, trauma, major or minor, and drug use . Physical Therapy/Home Exercise: No Pain Medications: - Opioids: N - NSAIDs: N - Anti-Depressants: N - Anti-Convulsants: Alesia 300mg bid - Others: N Prior treatments: none OARRS report: Reviewed: The patient's OARRS report was reviewed and is consistent with the reported medication use. 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 Diffuse enlargement and plexiform neurofibroma along the course of the sciatic nerve in the entire course in the thigh prominent proximally. Numerous neurofibromas scattered throughout the subcutaneous soft tissues, intermuscular planes and intramuscular throughout the left thigh with the largest superficial to the sartorius muscle and measuring 3.2 x 2.2 x 1.9 cm no muscle edema or atrophy. Visualized femur is intact. 08/10/21 MRI lum: MRI LUMBAR SPINE: Acute abnormality: None. Congenital canal narrowing with superimposed disc degeneration with decreased disc height and signal with annular tears and posterior bulges effacing ventral and dorsal CSF causing spinal cord impingement throughout the cervical spine but without any myelomalacia or cord edema or cord compression. No intracanal lesions are identified. No intramedullary lesions are identified. Stable alignment, vertebral height, marrow signal, thecal sac, spinal cord signal/caliber AND posterior fossa. No evidence for any fracture or dislocation or subluxation. Normal remaining soft tissues. L1 -- 2: Congenital canal narrowing but with patent canal. Nerve sheath tumors remain stable. L2 -- 3: Congenital canal narrowing but with patent canal. Nerve sheath tumors remain stable. L3 -- 4: Congenital canal narrowing with superimposed disc degeneration with decreased disc height/signal with central annular tear and broad-based protrusion causing moderate to significant canal narrowing which remain stable from prior examination with impingement of the thecal sac and cauda equina. Patent bilateral neural foramina which is expanded related to nerve sheath tumors. L4 -- 5: Congenital canal narrowing but with patent canal. Nerve sheath tumors remain stable. L5 -- S1: Congenital canal narrowing but with patent canal. Nerve sheath tumors remain stable. Patient Entered Questionnaires PROMIS Score Percentiles PROMIS Global Health Scale 09/28/2021 06/20/2022 02/05/2023 Physical Health Percentile 4 10 15 Mental Health Percentile 5 34 34 Physical Health 03/20/2019 02/05/2023 Physical Function Percentile 38 - Pain Interference Percentile - 38 Percentiles provide an indication (more content not included)... [facility] 05-16-2023 History of Present illness Narrative [facility] Pain Management Department New Patient Consultation Referring Physician: Kaycee Roche [id number] [facility] [id number] Chief Complaint: LLE pain SUBJECTIVE: Heath Rosenberg is a 27 year old male with a past medical history of NF1 c/b multiple painful subcutaneous neurofibromas s/p excisoin by plastics and plexiform neurofibroma of left thigh who presents to [facility]'s Pain Management Center for the evaluation of LLE pain. The patient complains of LLE pain. The pain started 4 mos ago without obvious inciting event; pain has been persistent. The pain is located in the left lateral thigh and does radiate down LE below knee level. The pain is described as an intermittent achy, sharp pain. Currently, the pain is rated at 0/10, and it ranges from 0-9/10. The pain is exacerbated by standing (2 hours), applying pressure to painful area, laying on left side. The pain is mitigated by not touching area, sitting. The pain does not interfere with the patient's sleep at night. Denies LE weakness or issues with ambulation. He is followed by Peds Heme/Onc ([facility]) last seen on 05/04/23 with the following a/p: -Discussed MEK inhibitors (Trametinib, Binemetinib, vs. Selumetinib), side effect profiles, and indications to begin treatment. -Referral placed to Medical Genetics to address NF-1 mutation as it pertains to future family planning. -Referral placed to Pain Management team in order to titrate up his gabapentin dose, discuss other options for his chronic pain. As he will more then likely be following with several different providers, parents and Heath were hopeful to have pain addressed by one unified team. 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 The patient denies difficulty with bowel or bladder control, unintentional weight loss, fevers, chills, or night sweats, arm or leg weakness, numbness or tingling, ever having cancer, pain being worse at night, trauma, major or minor, and drug use . Physical Therapy/Home Exercise: No Pain Medications: - Opioids: N - NSAIDs: N - Anti-Depressants: N - Anti-Convulsants: Alesia 300mg bid - Others: N Prior treatments: none OARRS report: Reviewed: The patient's OARRS report was reviewed and is consistent with the reported medication use. 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 Diffuse enlargement and plexiform neurofibroma along the course of the sciatic nerve in the entire course in the thigh prominent proximally. Numerous neurofibromas scattered throughout the subcutaneous soft tissues, intermuscular planes and intramuscular throughout the left thigh with the largest superficial to the sartorius muscle and measuring 3.2 x 2.2 x 1.9 cm no muscle edema or atrophy. Visualized femur is intact. 08/10/21 MRI lum: MRI LUMBAR SPINE: Acute abnormality: None. Congenital canal narrowing with superimposed disc degeneration with decreased disc height and signal with annular tears and posterior bulges effacing ventral and dorsal CSF causing spinal cord impingement throughout the cervical spine but without any myelomalacia or cord edema or cord compression. No intracanal lesions are identified. No intramedullary lesions are identified. Stable alignment, vertebral height, marrow signal, thecal sac, spinal cord signal/caliber & posterior fossa. No evidence for any fracture or dislocation or subluxation. Normal remaining soft tissues. L1 -- 2: Congenital canal narrowing but with patent canal. Nerve sheath tumors remain stable. L2 -- 3: Congenital canal narrowing but with patent canal. Nerve sheath tumors remain stable. L3 -- 4: Congenital canal narrowing with superimposed disc degeneration with decreased disc height/signal with central annular tear and broad-based protrusion causing moderate to significant canal narrowing which remain stable from prior examination with impingement of the thecal sac and cauda equina. Patent bilateral neural foramina which is expanded related to nerve sheath tumors. L4 -- 5: Congenital canal narrowing but with patent canal. Nerve sheath tumors remain stable. L5 -- S1: Congenital canal narrowing but with patent canal. Nerve sheath tumors remain stable. Patient Entered Questionnaires PROMIS Score Percentiles PROMIS Global Health Scale 09/28/2021 06/20/2022 02/05/2023 Physical Health Percentile 4 10 15 Mental Health Percentile 5 34 34 Physical Health 03/20/2019 02/05/2023 Physical Function Percentile 38 - Pain Interference Percentile - 38 Percentiles provide an indication of how the patient's score ranks in relation to the general population. Higher percentile rankings indicate better function/quality of life. 50th percentile is the average of the general population and indicates half of respondents had a worse score. 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, type 1 (von Recklinghausen's disease) (HCC) Scoliosis PAST SURGICAL HISTORY Procedure Laterality Date HAND SURGERY HX Social History Tobacco Use Smoking status: Never Smokeless tobacco: Never Vaping Use Vaping Use: Never used Substance Use Topics Alcohol use: No Drug use: No FAMILY HISTORY Problem Relation Age of Onset Hypertension Mother Diabetes Mother Diabetes Maternal Grandmother Hypertension Maternal Grandmother Glaucoma Maternal Grandfather Diabetes Maternal Grandfather Hypertension Maternal Grandfather ALLERGIES Allergen Reactions Bactrim [Sulfametho* Penicillins Hives Zithromax [Azithrom* Hives Current Outpatient Medications Medication Sig fexofenadine HCl (OVIDIO ALLERGY ORAL) Take 1 tablet by mouth once daily. multivit-minerals/folic acid (MULTIVITAMIN GUMMIES ORAL) Take 1 Dose by mouth once daily. gabapentin (NEURONTIN) 300 mg capsule Take 2 capsules by mouth two times a day for 30 days. No current facility-administered medications for this visit. REVIEW OF SYSTEMS: GENERAL: No weight loss, malaise or fevers. HEENT: Negative for frequent or significant headaches. NECK: Negative for lumps, goiter, pain and significant neck swelling. RESPIRATORY: Negative for cough, wheezing or shortness of breath. CARDIOVASCULAR: Negative for chest pain, leg swelling or palpitations. GI: Negative for abdominal discomfort, blood in stools or black stools or change in bowel habits. MUSCULOSKELETAL: Negative for joint pain or swelling or muscle pain. +low back pain +left thigh pain SKIN: Negative for lesions, rash, and itching. PSYCH: Negative for sleep disturbance, mood disorder and recent psychosocial stressors. HEMATOLOGY/LYMPHOLOGY: Negative for prolonged bleeding, bruising easily or swollen nodes. NEURO: No history of headaches, syncope, paralysis, seizures or tremors. All other reviewed and negative other than HPI. OBJECTIVE: BP 132/68 Pulse 69 Temp (Src) 98.6 (Temporal) Resp 15 Ht 6' 3 (1.91m) Wt 325 lb (147.4kg) SpO2 98% BMI 40.62 kg/(m^2). PHYSICAL EXAMINATION: General appearance: Well appearing, in no acute distress, alert. Psych: Mood and affect appropriate. Skin: Skin color, texture, turgor normal, no rashes or lesions. Head/face: Normocephalic, atraumatic. Cor: Regular rate and rhythm, bilateral radial pulses palpated and equal Pulm: Non-labored on room air GI: Soft and non-tender. Back: Straight leg raising in the sitting position is negative to radicular pain. Mild diffuse TTP along lumbar musc. Normal range of motion without pain reproduction. Extremities: TTP along left lateral thigh at approx upper 1/3 femur. Left GTB not TTP. Peripheral joint ROM is full and pain free without obvious instability or laxity in all four extremities. No deformities, edema, or skin discoloration. Good capillary refill. Musculoskeletal: Bilateral upper and lower extremity strength is normal and symmetric. No atrophy or tone abnormalities are noted. Neuro: Bilateral upper and lower extremity coordination and muscle stretch reflexes are physiologic and symmetric. Plantar response are downgoing. No loss of sensation is noted. Gait: normal. ASSESSMENT: Heath Rosenberg is a 27 year old male with a past medical history of NF1 c/b multiple painful subcutaneous neurofibromas s/p excisoin by plastics and plexiform neurofibroma of left thigh who presents to [facility] for the evaluation of LLE pain. Mister Rosenberg endorses pain along left lateral thigh, which is not consistent with pain from plexiform neurofibroma on sciatic nerve noted on MRI, but more consistent with territory of left femoral cutaneous nerve. He is currently on Gabapentin 300mg bid with some relief and he denies any a/e from this medication. Discussed r/b/a of increasing Gabapentin dosage and he is amenable to this. Written ramping instructions provided to patient. He will RTC in 6 weeks. The above plan was discussed in detail with the patient, his mom and step dad and they are in agreement. All questions were answered. (M79.652) Left thigh pain (primary encounter diagnosis) (Q85.01) Neurofibromatosis, type I (von Recklinghausen's disease) (HCC) PLAN: 1) Increase Gabapentin from 300mg bid to 600mg bid. Rx sent to pharmacy 2) RTC in 6 weeks. I counseled the patient on the importance of health promotion and lifestyle modifications including activity modification. We also discussed risks/benefits/alternatives to medication management, pain management interventions, physical or occupational therapy, psychological pain management and surgical options as appropriate. Medications may cause sedation and impairment of judgment. The patient is advised against driving or using heavy machinery. The patient is also advised against using alcohol or other substances that may have a further additive effect. Shared decision making utilized to continue current treatment plan and patient's questions were answered. The above plan and management options were discussed with patient. The patient is in agreement with the above and verbalized understanding. Jessenia Nation MD May 16, 2023 1. This office note has been dictated and may contain minor typographic errors that escaped review 2. The nursing staff and medical assistants are a major part of YOUR TREATMENT TEAM and will be handling your phone calls and inquiries, if any. Unless explicitly told otherwise at the time of your office visit, your study results and ensuing treatment plans will be discussed during your follow-up appointment. If you do not have a follow-up appointment and wish to discuss any issues directly with me, please feel free to obtain one. 3. It is my practice to not fill disability or any other insurance-related forms/documention. All of the office notes, study results, and other pertinent documentation generated as part of your evaluation will be available to you and to your Primary Care Physician (PCP). Use of this material to complete such forms will be at the discretion of your PCP/referring physician. documented in this encounter [facility] 05-10-2023 Note HNO ID: [id number] Author: ?, ?, ? Service: ? Author Type: ? Type: Progress Notes Filed: 05/10/2023 10:07 Note Text: POPULATION HEALTH NAVIGATION OUTREACH Action/FYI Patient scheduled Patient Identified by Name and : YES, via phone Outreach Outcome/Action Spoke to patient / parent / legal guardian: Patient scheduled Did you use a PCP flex slot to schedule this appointment? No Reason for Outreach Care Gap or Scheduling/Wellness visits Payer: Payor: MEDICARE / Plan: MEDICARE A AND B / Product Type: Medicare / Care Gap Reviewed:: Specialty Scheduling Reminder: Reminder note to check Health Maintenance for items below Health Maintenance items due: HPV Vaccine(1 - Male 2-dose series) Never done Hepatitis C Screening Never done HIV Screening Never done DTaP,Tdap,Td Vaccine(7 - Td or Tdap) due on 12/07/2019 Influenza Vaccine(1) Never done Covid-19 Vaccine( season) due on 11/10/2022 Depression Assessment Never done Navigation Signature: Regi Alvaraod May 10, 2023 10:06 AM [facility] 05-10-2023 History of Present illness Narrative POPULATION HEALTH NAVIGATION OUTREACH Action/FYI Patient scheduled Patient Identified by Name and : YES, via phone Outreach Outcome/Action Spoke to patient / parent / legal guardian: Patient scheduled Did you use a PCP flex slot to schedule this appointment? No Reason for Outreach Care Gap or Scheduling/Wellness visits Payer: Payor: MEDICARE / Plan: MEDICARE A AND B / Product Type: Medicare / Care Gap Reviewed:: Specialty Scheduling Reminder: Reminder note to check Health Maintenance for items below Health Maintenance items due: HPV Vaccine(1 - Male 2-dose series) Never done Hepatitis C Screening Never done HIV Screening Never done DTaP,Tdap,Td Vaccine(7 - Td or Tdap) due on 12/07/2019 Influenza Vaccine(1) Never done Covid-19 Vaccine( season) due on 11/10/2022 Depression Assessment Never done Navigation Signature: Regi Alvarado May 10, 2023 10:06 AM documented in this encounter [facility] 05-10-2023 Note Patient Outreach (MEHNAZ TNAV) HEATH ROSENBERG ([id number]) 1995 M Date Time Provider Department 05/10/23 NO PCP NETNAV During your visit today, we recorded the following information about you: Regi Alvarado Audrey 05/10/2023 10:07 AM Signed POPULATION HEALTH NAVIGATION OUTREACH Action/FYI Patient scheduled Patient Identified by Name and : YES, via phone Outreach Outcome/Action Spoke to patient / parent / legal guardian: Patient scheduled Did you use a PCP flex slot to schedule this appointment? No Reason for Outreach Care Gap or Scheduling/Wellness visits Payer: Payor: MEDICARE / Plan: MEDICARE A AND B / Product Type: Medicare / Care Gap Reviewed:: Specialty Scheduling Reminder: Reminder note to check Health Maintenance for items below Health Maintenance items due: HPV Vaccine(1 - Male 2-dose series) Never done Hepatitis C Screening Never done HIV Screening Never done DTaP,Tdap,Td Vaccine(7 - Td or Tdap) due on 12/07/2019 Influenza Vaccine(1) Never done Covid-19 Vaccine(4 - 2022- season) due on 11/10/2022 Depression Assessment Never done Navigation Signature: Regi Audrey Domo May 10, 2023 10:06 AM Allergies As of Date: 05/10/2023 Noted Allergy Reaction BACTRIM (SULFAMETHOXAZOLE-TRIMETH* 009 PENICILLINS 06/25/2007 4 - Hives ZITHROMAX (AZITHROMYCIN) 06/25/2007 4 - Hives Date Reviewed: 05/07/2023 Reviewed by: Kaycee Roche APRN.CHOKER SETTER - Fully Assessed Prescriptions as of 05/10/2023 - gabapentin (NEURONTIN) 300 mg capsule Take 1 capsule by mouth two times a day. 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 [facility] [address] [place] [id number] SERVICE DATE: 05/04/2023 Tesfaye Villareal MD, [address] [facility] [id number] Dear Colleagues We had the pleasure of meeting Heath Rosenberg and his parents in [facility] Neurooncology Clinic for evaluation, counseling and management of Neurofibromatosis type I (NF1) related tumors. As you know, Heath is a 27 year old male who was found to have NF-1. He was seen by us in clinic today for consultation regarding his NF-1 and has we have completed a comprehensive evaluation, reviewed laboratory and imaging, discussed management strategies, and provided education regarding diagnosis. 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 He originally presented with findings of congenital abnormalities and subtle dysmorphic features including excessive fat at the back of the neck, hypoglycemia, respiratory complications (apnea) and feeding problems. Before the first year of life he also was noted to have Cafe- au- lait spots on his abdomen, thighs, shoulder, neck and inguinal area. He also had bilateral epicanthal folds, hypertelorism, micrognathia, and crowded teeth. This prompted thorough genetic evaluation per Dr. Rosario (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 This was in spite of an indeterminate result from genetic testing. Dr. Rosario has continued to follow Heath and has noted a high arched palate, pectus excavatum, macrocephaly, and axillary freckling. An MRI in 08/2000 was negative for underlying intracranial process. He was evaluated in the [facility]'s NF1 clinic by Dr. Rodas (pediatric neurologist ) in 2007 at the age of [age] years old and was generally doing well without signs of focal neurological symptoms. Over the next several years, Heath had intermittent struggles with NF-1 related complications including increase in behavioral issues (tantrums, cursing, breaking things) that he followed with psychiatry for, several painful subcutaneous neurofibromas (three of which he had excised by plastic surgery team), and mild thoracic scoliosis with associated back pain (followed with ortho). MRI of his spine completed in 2012 demonstrated multiple neurofibromas which was thought to be a contributing factor to his chronic back pain as well. Throughout his course he had never been found to have plexiform neurofibromas, maintained a stable ophthalmology exam (negative for Lisch nodules, OPG), has had negative neuroimaging, and was without focal neurological concern. He also intermittently had cardiac monitoring (ECHO and EKG) that was unremarkable. Dteh-oe-zrot spots remained stable. His behavioral changes improved and he generally did well in school. In February of 2017, Heath developed an acute right-sided facial drooping, inability to close the right eye, slurred speech and right arm weakness. He was seen in the ED with imaging negative for stroke. 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 Following steroid administration (and applying eye patches/eye drops) he had a complete recovery from his Campoverde's Palsy without visual or hearing loss and resolution of facial contour. Since 2018, Heath continued with progressive, persistent upper back pain. Both Heath and his parents report that it has interfered with his ability to work in the past and he can only be active for so long before he requires frequent breaks. He began following with physical therapy to help. Since then, Heath has somewhat adjusted to the pain and has been able to get a job working at [employer], though requires special accommodations to complete his work (4 hour shifts, breaks, etc.). He does report that this back pain exists daily, but will wax and wane in severity with it generally worsening with activity. He has mild, intermittent headaches but is without any other focal neurological concern. 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 His Baoi-gg-dhps spots have remained stable. 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 His left lower extremity has been most pertinent area of pain and discomfort over the last year. Remaining interim history is reported as below. 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 Genetic testing was completed at [facility] in infancy. Reportedly took ~6 years to isolate chromosomal abnormality. Parents have tested negative for NF-1. Since testing was completed, his older brother had a lump on his leg in adulthood. Upon excision, it was sent off for pathology and found to carry NF-1 mutation. Older sister has also since been tested and was negative. Remaining two siblings have yet to complete genetic testing. Social History: Heath lives at home with his parents. 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 PAST MEDICAL HISTORY Diagnosis Date Headaches no aura Neurofibromatosis, type 1 (von Recklinghausen's disease) (HCC) Scoliosis PAST SURGICAL HISTORY Procedure Laterality Date HAND SURGERY HX Interim History: Heath has generally been doing well at home. He does report daily pain that is mostly localized to his left lateral upper thigh and his upper back. He describes the lateral upper thigh pain as a 4-7/10, that waxes and wanes but severity is not associated with increase in activity although does report that it is worsened when at work. Because of this, he is only able to complete 4 hour shifts and requires frequent breaks. Pain has increased in frequency throughout the past year. Does not wake him up from sleep. Heath also describes severe, constant back pain that he rates at a 9/10. He has been on 300 mg gabapentin that was prescribed by his neurologist, Dr. Feldman. He believes it to have helped. Mother reports that he has developed a very high pain tolerance and has learned to work through it, but can tell that it really bothers him. Localized to upper (cervical) back. He endorses a couple headaches every few weeks that are mild without associated photo or phonophobia. Responsive to tylenol and does not interfere with activity. Denies tinnitus or hearing loss. HE reports that he is supposed to wear corrective lenses (but has not been compliant). He was last evaluated in May of 2021 and is due for visit this year (sees someone locally and will work on getting scheduled). No problems with swallowing or weakness. Heath did have difficulty with imbalance 1-2 years prior (not associated with Campoverde's Palsy episode) but it has improved without intervention. No constipation, incontinence. Has been eating and drinking well without issue. Mother reports concern over recent weight gain and neurology has encouraged follow up with refinery operator assistant for help with management. Vbdt-ot-mofd spots have remained stable, several subQ neurofibromas have remained stable with the exception of the large one noted to left upper lateral thigh as described above. Did not express any further concerns, questions. Review of Systems: Pain: Positive for back and LLE pain. General: Negative for fevers, fatigue/malaise, weight loss, changes to activity. HEENT: Negative for changes to vision or hearing loss, epistaxis, nose bleeds, congestion or rhinorrhea. Positive for mild, intermittent headaches. CV/Resp: Negative for cough, wheezing, SOB, chest pain. GI: Negative for nausea, vomiting, diarrhea, constipation, abdominal pain. MSK: Negative for joint pain, swelling. Positive for back pain. Skin: Negative for lesions, rash, pruritus. Positive for multiple scattered subcutaneous neurofibromas. Heme: Negative for abnormal bleeding or bruising. Neuro: Negative for syncope, weakness, tremors or seizure activity. OBJECTIVE BP 127/68 Pulse (!) 52 Temp 36.3 C (97.4 F) (Oral) Resp 18 Ht 186.7 cm (6' 1.5 ) Wt (!) 148.8 kg (328 lb 0.7 oz) SpO2 100% BMI 42.69 kg/m Last 3 Encounter Wt Readings: Date: Wt: 05/04/2023 148.8 kg (328 lb 0.7 oz) 02/05/2023 151.2 kg (333 lb 4.8 oz) 10/03/2022 162.8 kg (359 lb) Physical Exam: General: Well developed and well nourished, in no acute distress. Awake, alert and interactive. Cooperative with examination. Head: Normocephalic, atraumatic. Eyes: PERRL, EOM. No noted nystagmus bilaterally. Sclera and conjunctiva clear and moist. Ears: Bilateral auricles intact and symmetrical. Mouth: Oral mucosa pink and moist; no lesions or exudates. Throat: Oropharynx clear; no lesions or exudates. Mucous membranes pink and moist. Neck: Supple, trachea midline. Full ROM. No CAD. Chest: Breath sounds clear and equal to auscultation bilaterally without rales, rhonchi, or wheezing. Equal chest rise. Cardiac: RRR, normal S1/S2. No murmurs, rubs or gallops. Peripheral pulses strong and equal. Capillary refill <3 seconds. Abdomen: Soft, nontender, and nondistended. No HSM or masses. Bowel sounds normoactive x4. Back: Right sided mild thoracic hump, normal ROM. Skin: Normal for ethnicity. Warm, dry, and well perfused. Skin turgor god. Scaffolding macules throughout back. Small subcutaneous neurofibroma to left thumb. About quarter sized, firm neurofibroma to left lateral thigh with ropey texture extending anteriorly. Healed incision from lipoma excision with residual mass surrounding nerve. Multiple subcutaneous neurofibromas. Musculoskeletal: Normal tone. Moves all extremities equally with full ROM and 5/5 strength. Central Nervous System: Neurologically at baseline. No focal deficits. Alert and oriented x3 with normal speech. Memory and thought process intact and appropriate. Good muscle tone bilaterally in upper and lower extremities. Cranial Nerves (II, III, IV, ): Visual acuity intact with visual [place] normal in all quadrants. EOMs intact without ptosis. Cranial Nerves (V, VII): Facial sensation is intact bilaterally. Facial muscle strength normal and equal bilaterally. Cranial Nerves (IX, X, XI): Palate/uvula elevate symmetrically, tongue protrudes midline and moves symmetrically. Voice is normal. Shoulder shrug strong and equal bilaterally. Reflexes: Patellar DTRs 2/4 on right, brisk on left. No clonus. Cerebellar tests: Oqynai-ik-jpox test normal without dysmetria. Balance intact; negative Romberg test. Rapid alternating movements normal. Gait is steady with a normal base. Coordination is intact; normal heel and toe walk. Imaging: Reviewed most recent imaging with Heath and both parents MRI brain with and without contrast (07/25/2021): No significant interval change compared to outside MRI from 01/20/2021. Scattered T2/FLAIR hyperintense foci, compatible with NF1. MRI complete spine (08/10/2021): 1. Stable MRI cervical/thoracic/lumbar spine. 2. Extensive nerve sheath tumors remain relatively stable from prior examination. 3. Congenital canal narrowing with superimposed spondylosis as detailed. COUNTING REFERENCE: Superior and inferior cervical and lumbar disc is taken as C2-3 and L5-S1 respectively and accordingly thoracic spine is numbered. Structural anomalies: None. 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 Diffuse enlargement and plexiform neurofibroma along the course of the sciatic nerve in the entire course in the thigh prominent proximally. Numerous neurofibromas scattered throughout the subcutaneous soft tissues, intermuscular planes and intramuscular throughout the left thigh with the largest superficial to the sartorius muscle and measuring 3.2 x 2.2 x 1.9 cm no muscle edema or atrophy. Laboratory findings: No labs to be reviewed at this time Ophthalmology: Last seen 05/17/2021. Right eye 20/20 -1, Left eye 20/20 -2 with correction. Lisch nodules present bilaterally. Left fundal exam: 1 x 1 x flat pigmented choroidal lesion ST macula (nevus). Negative for choroidal lesions. 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 He presents today for consultation. He does report chronic back pain in the lower neck and upper back which waxed and wanes. Based on the imaging findings, I predict this pain is related to the the congenital cervical canal narrowing with superimposed disc degeneration with decreased disc height and signal with annular tears and posterior bulges effacing ventral and dorsal CSF causing spinal cord impingement throughout the cervical spine but without any myelomalacia or cord edema or cord compression as reported from the spine MRI 2021.He denies any worsening of the pain recently but continues with the waxing and waning pain throughout the day based on activities and positions. He also reports pain in the left thigh which waxes and wanes with motion and activities. This pain distribution does correlate with the plexiform neurofibroma noted on the imaging of his left thigh and legs. He denies any weakness in his left leg-is able to walk and stand and bear weight. He denies any incontinence of urine or constipation. His pain can range from 2-4 tand go upto 10 with triggers. He has been on gabapentin but on a very low dose. Discussed that gabapentin can be increased and to help with the pain. But I recommended him being followed and managed by the [facility]. He does have mild thoracic scoliosis but no chest wall deformity as was noted previously. He was diagnosed with Lowell's features but has not had any cardiac issues and previous echocardiogram has reported to be normal. He does not have any recurrent headaches and his brain MRI (on personal review) did not show any intracranial process/lesions or glioma. He does not have any vision issues and imaging does not show any optic pathway gliomas. We discussed that recently a molecular targeted therapy such as MEK inhibitors (Trametinib, Binemetinib and Seluemtinib) has been used to treat the plexiform neurofibromas. These drugs can help shrink the tumors, decrease pain, increase mobility. However, it does come with side effects mainly rash, GI symptoms of abdominal pain, diarrhea or constipation, heart issues, etc. Thus, before considering these drugs, I would like to see if his pain and mobility can be improved with gabapentin or other pain modifiers through [facility]. Initially parents and patient were confused regarding this appointment. But after explaining my role they understood the reason for this referral. Discussed that I do take care of young adults with NF1, however given Heath's complex issues he may be best managed by our colleague Dr. Bryce Martinez, who is an adult neurooncologist with expertize in NF1. Thus, future appointments can be arranged with him. Plan: NF-1 associated neurofibromas -Discussed MEK inhibitors (Trametinib, Binemetinib, vs. Selumetinib), side effect profiles, and indications to begin treatment. -Referral placed to Medical Genetics to address NF-1 mutation as it pertains to future family planning. -Referral placed to Pain Management team in order to titrate up his gabapentin dose, discuss other options for his chronic pain. As he will more then likely be following with several different providers, parents and Heath were hopeful to have pain addressed by one unified team. PLAN SUMMARY AND FOLLOW UP Consult to Medical Genetics Consult to Pain Management Team To facilitate transfer of care to adult neuro-oncology, Dr. Bryce Martinez. EDUCATION We discussed extensively on NF1 related tumors and monitoring as follows: Risk for optic pathway gliomas: Currently, not showing any clinical signs or symptoms of OPG. Last evaluations with ophthalmology reports no optic disc pallor. Is tracking well. No crossed eyes. No concerns for vision issues from parents. Discussed the highest risk of OPG that causes vision loss is in the first 5 years but needs monitoring until 10 years of age. Continue with ophthal evaluation periodically. At this time, no indication for neuroimaging. Risk for other gliomas: Discussed this risk is lifetime. Biologically these gliomas can behave differently then those occurring without NF1. In NF1, gliomas can be seen in surveillance imaging despite having no symptoms. These gliomas can regress with time or remain stable. In few cases it can grow. It is not atypical to find lesions in the brain MRI due to underlying NF1 mutation but usually no treatment is needed for those lesions. His last MRI scan brain did not show any lesions or gliomas. Risk for musculoskeletal issues: The three main ones that can impact quality of life are sphenoid bone dysplasia, dystrophic scoliosis and cortical thinning of long bones. He has none of these and remains at no major risk of developing them as these are congenital in nature. He does have mild thoracic scoliosis which should not progress unless his neurofibromas grow and push the spine. Plexiform neurofibromas: Patients with NF1 are born with PNF but these neurofibromas become more apparent only when they undergo a growth phase in the orthophoto tech/draftsman. These PNF can be superficial or deep and sometimes underlying deeper one is suspected based on a characteristic CALM or asymmetry/hypertrophy or palpable mass. Imaging has shown neurofibromas arising from all spinal nerve roots. He does have plexiform neurofibroma arising from the lumbosacral roots and along the sciatic nerve distribution of his left thigh and leg. Discussed that small proportion of these plexiform NF can have malignant potential. Thus needs monitoring for it and can be suspected with rapid growth, worsening pain and function and imaging showing increased enhancement and growth. At this time his symptoms and images do not show any evidence of malignancy. Neurocognitive/learning issues: If he is interested a neuropsychological evaluation can be arranged. He is currently able to work and live independently. Risk for cutaneous NF: These occur in young adulthood. He does have few of them. He denies any generalized itching or pain. Research and future of NF1: Discussed the current advancements made in the care of NF1 disease. Discussed the molecular-targeted therapies using MEK inhibitors such as Selumetinib in the treatment of neurofibromas and gliomas. Thus, parents and patients do understand that treatment is available should there be any tumor issues. ATTENDING NOTE: The appointment was jointly performed with WOODY Roche. The above documentation was completed collaboratively I have spent over 120minutes in face to face discussions with the patient and family, in coordination of care, and additionally in reviewing patient's electronic medical record, updating current history and chief complaints, reviewing patient's laboratory and radiology reports, discussing with patient's clinical care team to collaboratively arrive to the management plan as documented in the above note. NOTE: Any copied data or physical exam from my previous notes or from other provider's notes on to today's note, has been reviewed by me on May 04, 2023 and is changed, updated or confirmed to reiterate continued relevant clinical elements and is reflected in the medical decision making during this clinic appointment. I have also confirmed and edited as necessary the previously documented review of systems, past medical, family and surgical history and are current and accurate for today's visit. It is a pleasure to be involved in the care of Heath Rosenberg . I will be corresponding to patient's primary care provider and other clinical care providers by way of shared medical record or by mailing or faxing this letter. Additionally, please do not hesitate to directly reach me at [phone] for any questions or concerns. Sincerely, Kaycee Roche APRN.WOODY Cloud MD Pediatric Neurooncology documented in this encounter [facility] 05-04-2023 Note HNO ID: [id number] Author: ARNOL CLOUD MD Service: ? Author Type: Physician Type: Progress Notes Filed: 05/10/2023 08:01 Note Text: [facility] [address] [place] [address] SERVICE DATE: 05/04/2023 Tesfaye Villareal MD, [address] [facility] [id number] Dear Colleagues We had the pleasure of meeting Heath Rosenberg and his parents in [facility] Pediatric Neurooncology Clinic for evaluation, counseling and management of Neurofibromatosis type I (NF1) related tumors. As you know, Heath is a 27 year old male who was found to have NF-1. He was seen by us in clinic today for consultation regarding his NF-1 and has we have completed a comprehensive evaluation, reviewed laboratory and imaging, discussed management strategies, and provided education regarding diagnosis. 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 He originally presented with findings of congenital abnormalities and subtle dysmorphic features including excessive fat at the back of the neck, hypoglycemia, respiratory complications (apnea) and feeding problems. Before the first year of life he also was noted to have Cafe- au- lait spots on his abdomen, thighs, shoulder, neck and inguinal area. He also had bilateral epicanthal folds, hypertelorism, micrognathia, and crowded teeth. This prompted thorough genetic evaluation per Dr. 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 This was in spite of an indeterminate result from genetic testing. Dr. Rosario has continued to follow Heath and has noted a high arched palate, pectus excavatum, macrocephaly, and axillary freckling. An MRI in 08/2000 was negative for underlying intracranial process. He was evaluated in the [facility]'s NF1 clinic by Dr. Rodas (pediatric neurologist ) in 2007 at the age of [age] years old and was generally doing well without signs of focal neurological symptoms. Over the next several years, Heath had intermittent struggles with NF-1 related complications including increase in behavioral issues (tantrums, cursing, breaking things) that he followed with psychiatry for, several painful subcutaneous neurofibromas (three of which he had excised by plastic surgery team), and mild thoracic scoliosis with associated back pain (followed with ortho). MRI of his spine completed in 2012 demonstrated multiple neurofibromas which was thought to be a contributing factor to his chronic back pain as well. Throughout his course he had never beenfound to have plexiform neurofibromas, maintained a stable ophthalmology exam (negative for Lisch nodules, OPG), has had negative neuroimaging, and was without focal neurological concern. He also intermittently had cardiac monitoring (ECHO and EKG) that was unremarkable. Ipik-vm-jqfn spots remained stable. His behavioral changes improved and he generally did well in school. In February of 2017, Heath developed an acute right-sided facial drooping, inability to close the right eye, slurred speech and right arm weakness. He was seen in the ED with imaging negative for stroke. 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 Following steroid administration (and applying eye patches/eye drops) he had a complete recovery from his Campoverde's Palsy without visual or hearing loss and resolution of facial contour. Since 2018, Heath continued with progressive, persistent upper back pain. Both Heath and his parents report that it has interfered with his ability to work in the past and he can only be active for so long before he requires frequent breaks. He began following with physical therapy to help. Since then, Heath has somewhat adjusted to the pain and has been able to get a job working at [employer], though requires special accommodations to complete his work (4 hour shifts, breaks, etc.). He does report that this back pain exists daily, but will wax and wane in severity with it generally worsening with activity. He has mild, intermittent headaches but is without any other focal neurological concern. 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 His Koxw-hm-vqlc spots have remained stable. 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 His left lower extremity has been most pertinent area of pain and discomfort over the last year. Remaining interim history is reported as below. Medical history: PAST MEDICAL HISTORY Diagnosis Ty (more content not included)... [facility] 04-23-2023 Miscellaneous Notes Request Summary [[id number]] Procedure: CONSULT TO NEUROLOGY Status: Needs Scheduling (Kmnu-zh-Epxezwr Pending) Requested appt date: Authorizing: Cierra Fitzgerald APRN.CNP [facility] Referral: [id number] (Authorized) Expires: 04/19/2024 Priority: Routine Diagnosis: Neurofibroma [D36.10] Referred-to Information Referred-to Provider: BRYCE MARTINEZ [[id number]] Order Specific Questions Center for Consult Brain Tumor and Neuro - Oncology Center Does consulting provider have [facility] Epic access? Yes. Referred to Provider has access to [facility] EMR Reason For Visit NFT documented in this encounter [facility] 04-19-2023 Note HNO ID: [id number] Author: CIERRA FITZGERALD APRN.CHOKER SETTER Service: ? Author Type: Nurse Practitioner Type: Progress Notes Filed: 04/20/2023 09:41 Note Text: Dr Lay Triage: Heath Rosenberg is a 27 year old male that requests evaluation of Plexiform neurofibroma - L leg. Per review, they have symptoms of diff walking, leg pain Referring Provider Dr. Stephany Feldman Have you had previous spinal surgery for this same symptoms? Yes CMT: gabapentin, NSAID Studies (Reports unless indicated) EMG: n/a Other imaging/reports: Plexiform neurofibroma along the course of the lumbosacral plexus and extending into the proximal sciatic notch measuring approximately 11 x 9 x 3.6 cm. Diffuse enlargement and plexiform neurofibroma along the course of the sciatic nerve in the entire course in the thigh prominent proximally Disposition: Please schedule with dr martinez in neurology for NFT1 work up if she believes after work up there is something surgical she will send to dr lay. Order placed for consult to dr martinez [facility] 04-19-2023 History of Present illness Narrative Dr Lay Triage: Heath Rosenberg is a 27 year old male that requests evaluation of Plexiform neurofibroma - L leg. Per review, they have symptoms of diff walking, leg pain Referring Provider Dr. Stephany Feldman Have you had previous spinal surgery for this same symptoms? Yes CMT: gabapentin, NSAID Studies (Reports unless indicated) EMG: n/a Other imaging/reports: Plexiform neurofibroma along the course of the lumbosacral plexus and extending into the proximal sciatic notch measuring approximately 11 x 9 x 3.6 cm. Diffuse enlargement and plexiform neurofibroma along the course of the sciatic nerve in the entire course in the thigh prominent proximally Disposition: Please schedule with dr martinez in neurology for NFT1 work up if she believes after work up there is something surgical she will send to dr lay. Order placed for consult to dr martinez Patient name: Heath Rosenberg Questionnaire completed by mom Are you being referred by a Center for Spine Health Provider or Pain Management Provider at [facility]? No If answer is YES please schedule directly with surgeon, triage does not need to be completed. Is this a self-referral No If not, who is the Referring Provider Dr. Stephany Feldman Is this a 2nd opinion from another spine surgeon? No Were you offered surgery? No MRI/CT/myelogram within 12 months? Yes If NO , please refer to medical spine or PCP to complete above imaging, triage does not need to be completed If YES, please ask for the name/address of the facility where the MRI/CT/myelogram was completed: [facility] MRI/CT/myelogram viewable in Epic: Yes If not, please provide [phone] to fax in imaging reports for review. Also, please inform patient to hand carry imaging disc to appointment. XR (spine) within 12 months: No If YES, please ask for the name/address of the facility where the XR was completed: Dr. Lay's patients: Have you had previous EMG/Nerve Conduction Study, Ultrasound, or MRI for these same symptoms? If YES, please ask for the name/address of the facility where they were completed: Requested provider (First and Last name): Dr. Lay Are you interested in a virtual visit if offered? 1. Where are you having symptoms related to this visit? Plexiform neurofibroma - L leg Back pain Yes Leg pain Yes R leg hurts to the touch Arm pain No Neck pain Yes 2. Are you having any of the following symptoms: Difficulty walking pain while walking Numbness unsure Weakness unsure Trouble using your hands? No Trouble sleeping 3. Have you had any injections or physical therapy in the last 12 months? No If YES then please ask for the name/address of the facility where the injections and/or physical therapy was completed Have you tried any other kinds of non-surgical treatments in the last 12 months? (For example: NSAIDS, muscle relaxants, analgesics, oral steroids, Chiropractor, Acupuncture): gabapentin, NSAID 4. Are you currently taking daily prescribed narcotic medications for your current symptoms (For example Oxycodone, Hydrocodone, Tramadol, Morphine, Other)? No 5. Have you had previous spinal surgery for this same symptoms? Yes If YES please ask for the name of facility/address of where the surgery was completed: 12/2022 [facility] [address], [place] [address] Additional Comments [phone] corbin Donohue documented in this encounter [facility] 04-17-2023 Note HNO ID: [id number] Author: ?, ?, ? Service: ? Author Type: ? Type: Progress Notes Filed: 04/20/2023 09:41 Note Text: Patient name: Heath Rosenberg Questionnaire completed by mom Are you being referred by a Center for Spine Health Provider or Pain Management Provider at [facility]? No If answer is YES please schedule directly with surgeon, triage does not need to be completed. Is this a self-referral No If not, who is the Referring Provider Dr. Stephany Feldman Is this a 2nd opinion from another spine surgeon? No Were you offered surgery? No MRI/CT/myelogram within 12 months? Yes If NO , please refer to medical spine or PCP to complete above imaging, triage does not need to be completed If YES,? please ask for the name/address of the facility where the MRI/CT/myelogram was completed: [facility] MRI/CT/myelogram viewable in [facility]: Yes If not, please provide [phone] to fax in imaging reports for review. Also, please inform patient to hand carry imaging disc to appointment. XR (spine) within 12 months: No If YES,? please ask for the name/address of the facility where the XR was completed: Dr. Lay's patients: Have you had previous EMG/Nerve Conduction Study, Ultrasound, or MRI for these same symptoms? If YES,? please ask for the name/address of the facility where they were completed: Requested provider (First and Last name): Dr. Lay Are you interested in a virtual visit if offered? 1. Where are you having symptoms related to this visit? Plexiform neurofibroma - L leg Back pain Yes Leg pain Yes R leg hurts to the touch Arm pain No Neck pain Yes 2. Are you having any of the following symptoms: Difficulty walking pain while walking Numbness unsure Weakness unsure Trouble using your hands? No Trouble sleeping 3. Have you had any injections or physical therapy in the last 12 months? No If YES then please ask for the name/address of the facility where the injections and/or physical therapy was completed Have you tried any other kinds of non-surgical treatments in the last 12 months? (For example: NSAIDS, muscle relaxants, analgesics, oral steroids, Chiropractor, Acupuncture): gabapentin, NSAID 4. Are you currently taking daily prescribed narcotic medications for your current symptoms (For example Oxycodone, Hydrocodone, Tramadol, Morphine, Other)? No 5. Have you had previous spinal surgery for this same symptoms? Yes If YES? please ask for the name of facility/address of where the surgery was completed: 12/[address]22 [facility] [address], [place] [address] Additional Comments [phone] corbin Donohue [facility] 04-17-2023 Miscellaneous Notes Neurology Discussed MRI results with patient's mother Jayde Puri. Referred to Cierra Lay MD peripheral neurosurgeon for surgical opinion regarding plexiform neurofibroma left sciatic nerve. Stephany Feldman MD, [facility] Neurology April 17, 2023, 3:53 PM documented in this encounter [facility] 04-16-2023 Note HNO ID: [id number] Author: LATONIA FLORES RT(R) Service: ? Author Type: Technologist Type: Progress Notes Filed: 04/16/2023 16:33 Note Text: Radiology Service Progress Note DATE OF SERVICE: April 16, 2023 TIME: 4:32 PM PATIENT IDENTITY VERIFICATION COMPLETED USING TWO (2) STANDARD IDENTIFIERS: Name and Date of confirmed by patient verbally. FALL SCREENING: Has the patient had 2 falls in the last year or 1 fall with injury or currently using an Ambulatory Assistive Device (Walker, Cane, Wheelchair, Crutches, etc.)? No PATIENT GENDER DATA: Male PATIENT RELEVANT IMPLANT DATA REVIEWED: Yes PATIENT PRESENTS WITH AN IMPLANTABLE OR ATTACHED INSTRUCTIONAL SUPPORT SERVICES DIRECTOR: No ALLERGIES: Reviewed and unchanged CONTRAST ALLERGY: NO. EXAM: MRI - CONTRAST TYPE: GROUP II PERIPHERAL IV DATA: Ambulatory: A peripheral IV was started in the Left hand with a Angio cath: 24 gauge. RADIOLOGY DEPARTMENT: MR; Exam(s) Completed: Lower MSK: Femur, left SIGNATURE: RT Indira(R) PATIENT NAME: Heath Rosenberg DATE: April 16, 2023 TIME: 4:32 PM [facility] 04-16-2023 History of Present illness Narrative Radiology Service Progress Note DATE OF SERVICE: April 16, 2023 TIME: 4:32 PM PATIENT IDENTITY VERIFICATION COMPLETED USING TWO (2) STANDARD IDENTIFIERS: Name and Date of confirmed by patient verbally. FALL SCREENING: Has the patient had 2 falls in the last year or 1 fall with injury or currently using an Ambulatory Assistive Device (Walker, Cane, Wheelchair, Crutches, etc.)? No PATIENT GENDER DATA: Male PATIENT RELEVANT IMPLANT DATA REVIEWED: Yes PATIENT PRESENTS WITH AN IMPLANTABLE OR ATTACHED INSTRUCTIONAL SUPPORT SERVICES DIRECTOR: No ALLERGIES: Reviewed and unchanged CONTRAST ALLERGY: NO. EXAM: MRI - CONTRAST TYPE: GROUP II PERIPHERAL IV DATA: Ambulatory: A peripheral IV was started in the Left hand with a Angio cath: 24 gauge. RADIOLOGY DEPARTMENT: MR; Exam(s) Completed: Lower MSK: Femur, left SIGNATURE: RT Indira(R) PATIENT NAME: Heath Rosenberg DATE: April 16, 2023 TIME: 4:32 PM documented in this encounter [facility] 02-05-2023 Instructions Stephany Feldman MD - 02/05/2023 12:16 PM EST Continue gabapentin. Please arrange to have MRI right thigh and pathology report send to the office. Schedule MRI of the left thigh. documented in this encounter [facility] 02-05-2023 History of Present illness Narrative 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 The patient came to the appointment with his parents. - Since last seen large lipoma right thigh removed at outside institution. Pathology report not available. Patient mother states she was told the pathology showed a lipoma. - Bothersome, occasional painful deep left thigh growth - nodules over both thumbs which are not painful and do not interfere with day to day activities. - lower back pain improved with gabapentin. HISTORY: The patient has not been seen in the ED, admitted to hospital or undergone any procedures or surgery since last seen. 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 ALLERGIES: ALLERGIES Allergen Reactions Bactrim [Sulfametho* Penicillins Hives Zithromax [Azithrom* Hives REVIEW OF SYSTEMS: COMPLETE REVIEW OF SYSTEMS PAIN ASSESSMENT: Negative for pain, history of chronic pain, or current treatment for a chronic pain condition GENERAL: No weight loss, malaise or fevers HEENT: No changes in hearing or vision, no nose bleeds or other nasal problems. NECK: Negative for lumps, goiter, pain and significant neck swelling RESPIRATORY: Negative for cough, wheezing or shortness of breath. CARDIOVASCULAR: Negative for chest pain, leg swelling or palpitations. GI: Negative for abdominal discomfort, blood in stools or black stools or change in bowel habits. : No history of dysuria, frequency or incontinence. NAPPER GRINDER: N/A MUSCULOSKELETAL: Negative for joint pain or swelling, back pain or muscle pain. SKIN: See above. PSYCH: Negative for sleep disturbance, mood disorder and recent psychosocial stressors. HEMATOLOGY/LYMPHOLOGY: Negative for prolonged bleeding, bruising easily or swollen nodes. ENDOCRINE: Negative for cold or heat intolerance, polyuria, polydipsia and goiter. ALLERGIC/IMMUNOLOGIC: Negative for autoimmune diseases and allergies. NEURO: SEE HPI All other systems reviewed and are negative other than HPI. EXAMINATION: BP 129/61 Pulse 75 Ht 6' 3 (1.91m) Wt 333 lb 4.8 oz (151.2kg) SpO2 98% BMI 41.66 kg/(m^2). The patient is no distress. There is no evidence of head trauma. The neck is supple. The No cyanosis, clubbing or edema. Numberous neurofibroma. Small sub-centimeter skin lesions suggestive of neurofibroma over the extensor aspect of both thumbs. Healing surgical scar right thigh. Fullness and tenderness of the left mid-distal thigh. The patient is alert and oriented. Speech is clear without dysarthria or aphasia. Pupils are equal reactive. Visual [place] are full to confrontation. Extraocular movements are full and conjugate without ptosis or nystagmus. There is no facial palatal or lingual weakness. Facial sensation is intact to light touch. Shoulder shrug is symmetric. Hearing is normal bilaterally to finger rub. Gait, power bulk and tone are normal. DTRs 2+/4 and symmetric. Finger to nose and rapid altering movements are performed without difficulty. Sensation intact to light touch and pin. ASSESSMENT/PLAN: NF1 Left thigh painful swelling. To obtain MRI to rule out plexiform neurofibroma. S/p tumor excision right thigh. I asked the mother to arrange to have MRI and pathology report sent to the office. Back pain; improved. To continue neurontin. Follow up with Dr. Feldman in one year . Stephany Feldman MD [facility] . [id number] documented in this encounter [facility] 06-21-2022 Instructions Carrie Bunn PA-C - 06/21/2022 2:15 PM EDT Right chest lesion excision -all sutures are dissolvable -okay to shower like normal, let soapy water run over the steri-strips -can use extra steri-strips if the ones placed today fall off -we will contact via vzaar regarding results of excision -follow up with Dr. Bowen as needed documented in this encounter [facility] 06-21-2022 History of Present illness Narrative CC: excision SUBJECTIVE: 26 year old male presents for lesion removal. This lesion has been present for years and is growing. Is possibly a neurofibroma based on prior history. OBJECTIVE: Lesion # 1 Lesion Location: Left chest Size: 1.5 CM ASSESSMENT: Painful lesion PLAN: After informed consent was obtained, using Betadine for cleansing and 1% Lidocaine with epinephrine for anesthetic, with sterile technique an ellipse excision of the lesion was performed. Area was closed with 4-0 Monocryl deep sutures and 5-0 running subq suture. Steristrips appliedand wound care instructions provided. Be alert for any signs of cutaneous infection. The specimen is labelled and sent to pathology for evaluation. The procedure was well tolerated without complications. Arnav Bowen MD documented in this encounter [facility] 09-28-2021 Miscellaneous Notes Addended by: STEPHANY FELDMAN H on: 09/28/2021 12:21 PM Modules accepted: Orders documented in this encounter [facility] 09-28-2021 Instructions Stephany Feldman MD - 09/28/2021 12:20 PM EDT See plastic surgeon Dr. Andi Diaz documented in this encounter [facility] 09-28-2021 History of Present illness Narrative [facility] STEPHANY FELDMAN MD DAILY NOTE Heath Rosenberg 1995 September 28, 2021 REFERRING PROVIDER: SELF PCP: Tesfaye Villareal MD, MD HPI: Heath Rosenberg is a right handed 26 year old male who returns for a follow up appointment concerning NF1 and progressive balance difficulties. No concerns. The previously concern over imbalance resolved. No BACK, visual, motor or sensory concerns. Lower back pain (chronic). No bowel or bladder difficulties. Painful neurofibroma left chest. Hurts when it rubs against the shirt when lifting arm. Last visit 03/31/2021 - outside images reviewed. 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 HISTORY: The patient has not been seen in the ED, admitted to hospital or undergone any procedures or surgery since last seen. 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 dexAMETHasone (DECADRON) 4 mg tablet Take 1 tab bid for 2 days then 1 tab daily for 2 days topiramate (TOPAMAX) 25 mg tablet Take 50 mg bid po topiramate (TOPAMAX) 25 mg tablet Take 25 mg bid po for 2 weeks and thereafter increase dose by 25 mg every 2 weeks until a total daily dose of 100 mg is reached. ALLERGIES: ALLERGIES Allergen Reactions Bactrim [Sulfametho* Penicillins Hives Zithromax [Azithrom* Hives REVIEW OF SYSTEMS: COMPLETE REVIEW OF SYSTEMS PAIN ASSESSMENT: Negative for pain, history of chronic pain, or current treatment for a chronic pain condition GENERAL: No weight loss, malaise or fevers HEENT: No changes in hearing or vision, no nose bleeds or other nasal problems. NECK: Negative for lumps, goiter, pain and significant neck swelling RESPIRATORY: Shortness of breath when outside in the heat and exerting himself. CARDIOVASCULAR: Negative for chest pain, leg swelling or palpitations. GI: Negative for abdominal discomfort, blood in stools or black stools or change in bowel habits. : No history of dysuria, frequency or incontinence. NAPPER GRINDER: N/A MUSCULOSKELETAL: Lower back pain. SKIN: Negative for lesions, rash, and itching. PSYCH: Negative for sleep disturbance, mood disorder and recent psychosocial stressors. HEMATOLOGY/LYMPHOLOGY: Negative for prolonged bleeding, bruising easily or swollen nodes. ENDOCRINE: Negative for cold or heat intolerance, polyuria, polydipsia and goiter. ALLERGIC/IMMUNOLOGIC: Negative for autoimmune diseases and allergies. NEURO: SEE HPI All other systems reviewed and are negative other than HPI. EXAMINATION: BP 122/77 Pulse 81 Ht 6' 3 (1.91m) Wt 338 lb (153.3kg) BMI 42.25 kg/(m^2). The patient is no distress. There is no evidence of head trauma. The neck is supple. Multiple [id number] skin lesions. Axillary freckling. Multiple cutaneous neurofibroma. Tender 1 cm neurofibroma overlying left pectoral area. The patient is alert and oriented. Speech is clear without dysarthria or aphasia. Pupils are reactive. Visual [place] are full to confrontation. Extraocular movements are full and conjugate without ptosis or nystagmus. There is no facial palatal or lingual weakness. Facial sensation is intact to light touch. Shoulder shrug is symmetric. Hearing is normal bilaterally to finger rub. Gait, power bulk and tone are normal. DTRs 2/4 and symmetric. Finger to nose and rapid altering movements are performed without difficulty. Sensation intact to light touch and pin. DATA: MRI brain, cervical thoracic and LS - brain: No significant interval change compared to outside MRI from 01/20/2021. Scattered T2/FLAIR hyperintense foci, compatible with NF1: - spine: 1. Stable MRI cervical/thoracic/lumbar spine. 2. Extensive nerve sheath tumors remain relatively stable from prior examination. 3. Congenital canal narrowing with superimposed spondylosis as detailed. ASSESSMENT/PLAN: NF1; clinically and radiologically stable. - return in one year - follow with opthalmology Painful neurofibroma - Referral to plastic surgeon Follow up with Dr. Feldman in one year. Stephany Feldman MD [facility] . documented in this encounter [facility] 08-10-2021 History of Present illness Narrative Radiology Service Progress Note DATE OF SERVICE: August 10, 2021 TIME: 2:16 PM PATIENT IDENTITY VERIFICATION COMPLETED USING TWO (2) STANDARD IDENTIFIERS: Name and Date of confirmed by patient verbally. FALL SCREENING: Has the patient had 2 falls in the last year or 1 fall with injury or currently using an Ambulatory Assistive Device (Walker, Cane, Wheelchair, Crutches, etc.)? No PATIENT GENDER DATA: Male PATIENT RELEVANT IMPLANT DATA REVIEWED: Yes ALLERGIES: Reviewed and unchanged CONTRAST ALLERGY: NO. EXAM: MRI - CONTRAST TYPE: GROUP II PERIPHERAL IV DATA: Ambulatory: A peripheral IV was started in the Right antecubital site with a Angio cath: 24 gauge. RADIOLOGY DEPARTMENT: MR; Exam(s) Completed: Spine: Cervical spine, Thoracic spine and Lumbar spine SIGNATURE: RT Indira(Amanda) PATIENT NAME: Heath Rosenberg DATE: August 10, 2021 TIME: 2:16 PM documented in this encounter [facility] 07-25-2021 Miscellaneous Notes Neurology MRI - No significant interval change compared to outside MRI from 01/20/2021. - Scattered T2/FLAIR hyperintense foci, compatible with NF1. MRI of the spine WWO (Cervical, thoracic and LS spine) ordered as nothing on MRI brain to explain imbalance. vzaar message sent to patient documented in this encounter [facility] 07-25-2021 History of Present illness Narrative Radiology Service Progress Note DATE OF SERVICE: July 25, 2021 TIME: 1:06 PM PATIENT IDENTITY VERIFICATION COMPLETED USING TWO (2) STANDARD IDENTIFIERS: Name and Date of confirmed by patient verbally. FALL SCREENING: Has the patient had 2 falls in the last year or 1 fall with injury or currently using an Ambulatory Assistive Device (Walker, Cane, Wheelchair, Crutches, etc.)? No PATIENT GENDER DATA: Male PATIENT RELEVANT IMPLANT DATA REVIEWED: Yes ALLERGIES: Reviewed and unchanged CONTRAST ALLERGY: NO. EXAM: MRI - CONTRAST TYPE: GROUP II PERIPHERAL IV DATA: Ambulatory: A peripheral IV was started in the Right antecubital site with a Angio cath: 24 gauge. RADIOLOGY DEPARTMENT: MR; Exam(s) Completed: Head: Neurofibromatosis SIGNATURE: NATHEN Jacobson) PATIENT NAME: Heath Rosenberg DATE: July 25, 2021 TIME: 1:06 PM documented in this encounter [facility] Evaluation note Diagnosis Benign neoplasm of brain, unspecified brain region (HCC) Intradural-extramedullary spinal cord neoplasms Benign neoplasm of spinal cord [facility] Diagnosis Neurofibromatosis (HCC)- Primary Neurofibromatosis, unspecified [facility] Diagnosis Neurofibroma- Primary Other benign neoplasm of connective and other soft tissue of unspecified site Painful skin lesion [facility] noteNo assessment information availableOhiohealth Work Phone: Evaluation note* Diagnosis Mass of left thigh- Primary Neurofibromatosis, peripheral, NF1 (HCC) Neurofibromatosis, Type 1 (von Recklinghausen's disease) [facility] Diagnosis Plexiform neurofibroma- Primary Other benign neoplasm of connective and other soft tissue of unspecified site [facility] Diagnosis Neurofibroma- Primary Other benign neoplasm of connective and other soft tissue of unspecified site [facility] Diagnosis Neurofibromatosis, type 1 (von Recklinghausen's disease) (HCC)- Primary Neurofibromatosis, Type 1 (von Recklinghausen's disease) Neurofibroma Other benign neoplasm of connective and other soft tissue of unspecified site Upper back pain, chronic Backache, unspecified Plexiform neurofibroma Other benign neoplasm of connective and other soft tissue of unspecified site Learning disability Other specific developmental learning difficulties Obesity, Class III, BMI >= 40 (morbid obesity) E66.01 Morbid obesity Neurofibromatosis, 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, Type 1 (von Recklinghausen's disease) [facility] Diagnosis Left thigh pain- Primary Pain in limb Neurofibromatosis, 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, Type 1 (von Recklinghausen's disease) [facility]* Diagnosis Neurofibromatosis, type I (von Recklinghausen's disease) (HCC)- Primary Neurofibromatosis, Type 1 (von Recklinghausen's disease) [facility] Diagnosis Neurofibromatosis, type I (von Recklinghausen's disease) (HCC)- Primary Neurofibromatosis, Type 1 (von Recklinghausen's disease) Left thigh pain Pain in limb [facility] Diagnosis Neurofibromatosis (HCC) [Q85.00]- Primary Neurofibromatosis, unspecified Plexiform neurofibroma Other benign neoplasm of connective and other soft tissue of unspecified site 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 pain Neuralgia, neuritis, and radiculitis, unspecified [facility] Diagnosis Neurofibromas, multiple (HCC)- Primary Neurofibromatosis, 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tosis, Type 1 (von Recklinghausen's disease) [facility] Diagnosis Neurofibromatosis (HCC) [Q85.00]- Primary Neurofibromatosis, unspecified Plexiform neurofibroma Other benign neoplasm of connective and other soft tissue of unspecified site Neuropathic pain Neuralgia, neuritis, and radiculitis, unspecified [facility] Diagnosis Neurofibromatosis (HCC)- Primary Neurofibromatosis, unspecified Benign neoplasm of peripheral nerve of upper extremity Benign neoplasm of peripheral nerves of lower extremity Other benign neoplasm of connective and other soft tissue of unspecified site Neurofibromatosis (HCC) Neurofibromatosis, unspecified Benign neoplasm of peripheral nerve of upper extremity Benign neoplasm of peripheral nerves of lower extremity Other benign neoplasm of connective and other soft tissue of unspecified site Benign neoplasm of skin of upper extremity, unspecified laterality Benign neoplasm of skin of left lower extremity [facility]* Diagnosis Pre-op evaluation- Primary Preoperative examination, unspecified Campoverde's palsy Neurofibromatosis, 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, Type 1 (von Recklinghausen's disease) Obesity (BMI 30-39.9) Obesity, unspecified Neurofibromatosis (HCC) Neurofibromatosis, unspecified Benign neoplasm of peripheral nerve of upper extremity Benign neoplasm of peripheral nerves of lower extremity Other benign neoplasm of connective and other soft tissue of unspecified site Benign neoplasm of skin of upper extremity, unspecified laterality Benign neoplasm of skin of left lower extremity * Assessment & Plan Note - Janine Liu APRN.CNP - 10/31/2023 12:09 PM EDT Associated Problem(s): Obesity (BMI 30-39.9) Assessment: Body mass index is 39.17 kg/m . Healthy Diet and exercise encouraged * Assessment & Plan Note - Janine Liu APRN.CNP - 10/31/2023 12:08 PM EDT Associated Problem(s): Neurofibromatosis, type I (von Recklinghausen's disease) ([facility]) Assessment: Follows with Neurology see HPI * Assessment & Plan Note - Janine Liu APRN.CNP - 10/31/2023 12:08 PM EDT Associated Problem(s): Campoverde's palsy Assessment: Hx of, affected right side No residual deficit documented in this encounter [facility] note* Diagnosis Pre-op evaluation- Primary Preoperative examination, unspecified Campoverde's palsy Neurofibromatosis, 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, Type 1 (von Recklinghausen's disease) Obesity (BMI 30-39.9) Obesity, unspecified Neurofibromatosis (HCC) [Q85.00]- Primary Neurofibromatosis, unspecified Plexiform neurofibroma Other benign neoplasm of connective and other soft tissue of unspecified site Neuropathic pain Neuralgia, neuritis, and radiculitis, unspecified Chronic pain due to neoplasm Neurofibromatosis (HCC) Neurofibromatosis, unspecified Benign neoplasm of peripheral nerve of upper extremity Benign neoplasm of peripheral nerves of lower extremity Other benign neoplasm of connective and other soft tissue of unspecified site Benign neoplasm of skin of upper extremity, unspecified laterality Benign neoplasm of skin of left lower extremity documented in this encounter [facility] note* Diagnosis Neurofibromatosis (HCC) Neurofibromatosis, unspecified Pre-op evaluation- Primary Preoperative examination, unspecified Campoverde's palsy Neurofibromatosis, 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, Type 1 (von Recklinghausen's disease) Obesity (BMI 30-39.9) Obesity, unspecified documented in this encounter [facility] note* Diagnosis Mass of left thigh Pre-op evaluation- Primary Preoperative examination, unspecified Campoverde's palsy Neurofibromatosis, 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, Type 1 (von Recklinghausen's disease) Obesity (BMI 30-39.9) Obesity, unspecified documented in this encounter [facility] note* Diagnosis Pre-op evaluation- Primary Preoperative examination, unspecified Campoverde's palsy Neurofibromatosis, 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, Type 1 (von Recklinghausen's disease) Obesity (BMI 30-39.9) Obesity, unspecified Neurofibromas, multiple (HCC)- Primary documented in this encounter [facility] note* Diagnosis Pre-op evaluation- Primary Preoperative examination, unspecified Campoverde's palsy Neurofibromatosis, 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, Type 1 (von Recklinghausen's disease) Obesity (BMI 30-39.9) Obesity, unspecified Encounter for removal of sutures- Primary [facility]* Diagnosis Neurofibromatosis (HCC) Neurofibromatosis, unspecified Pre-op evaluation- Primary Preoperative examination, unspecified Campoverde's palsy Neurofibromatosis, 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, Type 1 (von Recklinghausen's disease) Obesity (BMI 30-39.9) Obesity, unspecified [facility]* Diagnosis Intradural-extramedullary spinal cord neoplasms Benign neoplasm of spinal cord Benign neoplasm of brain, unspecified brain region (HCC) Pre-op evaluation- Primary Preoperative examination, unspecified Campoverde's palsy Neurofibromatosis, 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, Type 1 (von Recklinghausen's disease) Obesity (BMI 30-39.9) Obesity, unspecified documented in this encounter [facility] note* Diagnosis Onset Date Resolution Status Plantar fasciitis of left foot [facility] Work Phone: Evaluation note* Diagnosis Pre-op evaluation- Primary Preoperative examination, unspecified Campoverde's palsy Neurofibromatosis, 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, Type 1 (von Recklinghausen's disease) Obesity (BMI 30-39.9) Obesity, unspecified Neurofibroma, multiple (HCC)- Primary documented in this encounter [facility] note* Diagnosis Pre-op evaluation- Primary Preoperative examination, unspecified Campoverde's palsy Neurofibromatosis, 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, Type 1 (von Recklinghausen's disease) Obesity (BMI 30-39.9) Obesity, unspecified Weakness- Primary Other malaise and fatigue Neurofibroma, multiple (HCC) documented in this encounter [facility] note* Diagnosis Pre-op evaluation- Primary Preoperative examination, unspecified Campoverde's palsy Neurofibromatosis, 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, Type 1 (von Recklinghausen's disease) Obesity (BMI 30-39.9) Obesity, unspecified Neurofibromatosis, type I (von Recklinghausen's disease) ([facility])- Primary Neurofibromatosis, Type 1 (von Recklinghausen's disease) [facility]* Diagnosis Pre-op evaluation- Primary Preoperative examination, unspecified Campoverde's palsy Neurofibromatosis, type I (von Recklinghausen's disease) ([facility]) Neurofibromatosis, Type 1 (von Recklinghausen's disease) Obesity (BMI 30-39.9) Obesity, unspecified Neurofibromatosis (HCC)- Primary Neurofibromatosis, unspecified [facility]* Diagnosis Pre-op evaluation- Primary Preoperative examination, unspecified Campoverde's palsy Neurofibromatosis, type I (von Recklinghausen's disease) ([facility]) Neurofibromatosis, Type 1 (von Recklinghausen's disease) Obesity (BMI 30-39.9) Obesity, unspecified Neurofibromatosis, type I (von Recklinghausen's disease) ([facility])- Primary Neurofibromatosis, Type 1 (von Recklinghausen's disease) Preop testing Preoperative examination, unspecified Carrier of methicillin resistant Staphylococcus aureus Carrier or suspected carrier of Methicillin resistant Staphylococcus aureus documented [facility]* Diagnosis Pre-op evaluation- Primary Preoperative examination, unspecified Campoverde's palsy Neurofibromatosis, type I (von Recklinghausen's disease) ([facility]) Neurofibromatosis, Type 1 (von Recklinghausen's disease) Obesity (BMI 30-39.9) Obesity, unspecified Postoperative state- Primary Other postprocedural status Neurofibromatosis, type I (von Recklinghausen's disease) ([facility]) Neurofibromatosis, Type 1 (von Recklinghausen's disease) Preop testing Preoperative examination, unspecified documented [facility]* Diagnosis Pre-op evaluation- Primary Preoperative examination, unspecified Campoverde's palsy Neurofibromatosis, type I (von Recklinghausen's disease) ([facility]) Neurofibromatosis, Type 1 (von Recklinghausen's disease) Obesity (BMI 30-39.9) Obesity, unspecified Pre-op evaluation- Primary Preoperative examination, unspecified Neurofibromatosis, 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, Type 1 (von Recklinghausen's disease) Preop testing Preoperative examination, unspecified Anxiety Anxiety state, unspecified Chronic tension-type headache, not intractable Chronic tension type headache History of Campoverde's palsy Personal history of other disorders of nervous system and sense organs Obesity (BMI 30-39.9) Obesity, unspecified Neurofibromatosis, 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, Type 1 (von Recklinghausen's disease) Preop testing Preoperative examination, unspecified * Assessment & Plan Note - Toby Melara APRN.CNP - 03/11/2024 11:23 AM ESTAssociated Problem(s): Obesity (BMI 30-39.9) Body mass index is 38.75 kg/m .' Encourage healthy diet and life style changes * Assessment & Plan Note - Toby Melara APRN.CNP - 03/11/2024 11:07 AM ESTAssociated Problem(s): History of Campoverde's palsy 5 years ago Denies any residual or symptoms * Assessment & Plan Note - Toby Melara APRN.CNP - 03/11/2024 11:04 AM ESTAssociated Problem(s): Chronic tension-type headache, not intractable Managed with Ibuprofen States stable and controlled * Assessment & Plan Note - Toby Melara APRN.CNP - 03/11/2024 11:03 AM ESTAssociated Problem(s): Anxiety Not on any medication States stable and controlled Followed by PCP [facility] Pre-op evaluation- Primary Preoperative examination, unspecified Campoverde's palsy Neurofibromatosis, 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, Type 1 (von Recklinghausen's disease) Obesity (BMI 30-39.9) Obesity, unspecified Pre-op evaluation- Primary Preoperative examination, unspecified Neurofibromatosis, 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, Type 1 (von Recklinghausen's disease) Preop testing Preoperative examination, unspecified Anxiety Anxiety state, unspecified Chronic tension-type headache, not intractable Chronic tension type headache History of Campoverde's palsy Personal history of other disorders of nervous system and sense organs Obesity (BMI 30-39.9) Obesity, unspecified Pre-procedural examination- Primary Preoperative examination, unspecified Neurofibromatosis, 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, Type 1 (von Recklinghausen's disease) Preop testing Preoperative examination, unspecified [facility] Outpatient Procedure (Routine) - New Request Specialty Diagnoses / Procedures Referred By Tye t Referred To [facility] Diagnoses Pre-op evaluation Procedures ECG COMPLETE ECG ROUTINE ECG W/LEAST 12 LDS W/I&R Toby Melara APRN.CNP [address] [place] [address] [facility] [address] [place] [address] Referral ID Status Reason Start Date Expiration Date Visits Requested Visits Authorized [id number] New Request Auto-Generat ed Referral 03/11/2025 1 1 [facility] Summary Purpose Family History Relationship Condition Age at Onset Recorded Date/T ortiz father Hypertension Unknown Malignant neoplasm Unknown Advance Directives Documents on File Type Date Recorded Patient Perinatal Director Expl anation Advance Directive(s) Advance Directive(s) 05/05/2021 8:59 AM Advance Directive(s) 06/14/2017 2:39 PM Advance Directive(s) 06/14/2017 4:10 PM Advance Directive(s) 06/14/2017 4:11 PM Advance Directive(s) 12/29/2016 6:37 AM Advance Directive(s) 11/30/2016 4:30 PM Documents on File Type Date Recorded Patient Perinatal Director Expl anation Advance Directive(s) Advance Directive(s) 05/05/2021 8:59 AM Advance Directive(s) 06/14/2017 2:39 PM Advance Directive(s) 06/14/2017 4:10 PM Advance Directive(s) 06/14/2017 4:11 PM Advance Directive(s) 12/29/2016 6:37 AM Advance Directive(s) 11/30/2016 4:30 PM Documents on File Type Date Recorded Patient Perinatal Director Expl anation Advance Directive(s) 06/14/2017 4:11 PM Documents on File Type Date Recorded Patient Perinatal Director Expl anation Advance Directive(s) 06/14/2017 4:11 PM Advance Directive Response Recorded Date/ Time Advance Directives No January 10, 2023 1:53pm Advance Directive Response Recorded Date/ Time Advance Directives No December 15, 2023 1:13pm Reason for Referral Specialty Diagnoses / Procedures Referred By Contac t Referred To Contact MR IMAGING Diagnoses Intradural-extramedullary spinal cord neoplasms Procedures MRI LUMBAR SPINE WO/W IVCON MRI SPINAL CANAL LUMBAR W/O & W/CONTR Stephany Pope MD [address] [place] [address] Mr Imaging Referral ID Status Reason Start Date Expiration Date Visits Requested Visits Authorized [id number] Pending Review Auto-Generat ed Referral 07/25/2021 08/24/2022 1 1 Specialty Diagnoses / Procedures Referred By Contac t Referred To Contact MR IMAGING Diagnoses Benign neoplasm of brain, unspecified brain region (HCC) Procedures MRI THORACIC SPINE WO/W IVCON MRI SPINAL CANAL THORACIC W/O & W/CONTR Stephany Pope MD [address] [place] [address] Mr Imaging Referral ID Status Reason Start Date Expiration Date Visits Requested Visits Authorized [id number] Pending Review Auto-Generat ed Referral 07/25/2021 08/24/2022 1 1 Specialty Diagnoses / Procedures Referred By Contac t Referred To Contact MR IMAGING Diagnoses Intradural-extramedullary spinal cord neoplasms Procedures MRI CERVICAL SPINE WO/W IVCON MRI SPINAL CANAL CERVICAL W/O & W/CONTR LITZYL Stephany Feldman MD [address] [place] [address] Mr Imaging Referral ID Status Reason Start Date Expiration Date Visits Requested Visits Authorized [id number] Pending Review Auto-Generat ed Referral 07/25/2021 08/24/2022 1 1 Specialty Diagnoses / Procedures Referred By Contac t Referred To Contact Plastic Surgery Diagnoses Neurofibromatosis (HCC) Procedures CONSULT TO PLASTIC SURGERY OFFICE/OUTPATIENT [facility] 60-74 MINUTES Stephany Feldman MD [address] [place] [address] Referral ID Status Reason Start Date Expiration Date Visits Requested Visits Authorized [id number] Authorized PCP Requested Referral 09/28/2021 09/28/2022 1 1 Specialty Diagnoses / Procedures Referred By Contac t Referred To Contact MR IMAGING Diagnoses Mass of left thigh Procedures MRI UPPER LEG WO/W IVCON LEFT MRI LOWER EXTREM OTH/THN JT W/O & W/CONTR Stephany Garrison MD [address] [place] [address] Mr Imaging [place] [id number] Referral ID Status Reason Start Date Expiration Date Visits Requested Visits Authorized [id number] Authorized Auto-Generat ed Referral 3 03/06/2024 1 1 Specialty Diagnoses / Procedures Referred By Contac t Referred To Contact Neurosurgery Diagnoses Plexiform neurofibroma Procedures CONSULT TO NEUROSURGERY Stephany Feldman MD [address] [place] [address] Cierra Lay MD, PhD [address] [place] [address] Referral ID Status Reason Start Date Expiration Date Visits Requested Visits Authorized [id number] Ref Not Required PCP Requested Referral 05/16/2023 04/16/2024 1 1 Specialty Diagnoses / Procedures Referred By Contac t Referred To Contact Neurology Diagnoses Neurofibroma Procedures CONSULT TO NEUROLOGY OFFICE/OUTPATIENT [facility] 60 MINUTES Cierra Lay MD, PhD [facility] [place] [id number] Bryce Martinez MD [address] [place] [address] Referral ID Status Reason Start Date Expiration Date Visits Requested Visits Authorized [id number] Authorized PCP Requested Referral 04/20/2023 04/19/2024 1 1 Specialty Diagnoses / Procedures Referred By Contac t Referred To Contact Diagnoses Neurofibromatosis, 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 Procedures CONSULT TO MEDICAL GENETICS - GENERAL OFFICE/OUTPATIENT [facility] 60 MINUTES MEDICAL GENETICS COUNSELING EACH 30 MINUTES Kaycee Roche APRN.CNP [address] [place] [address] [facility] [address] [place] [address] Referral ID Status Reason Start Date Expiration Date Visits Requested Visits Authorized [id number] Pending Review PCP Requested Referral Auto-Generate d Referral 05/04/2023 05/03/2024 1 1 Specialty Diagnoses / Procedures Referred By Contac t Referred To Contact [facility] Diagnoses Neurofibromatosis, 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 Procedures CONSULT TO PAIN MGT OFFICE/OUTPATIENT [facility] 60 MINUTES Kaycee Roche APRN.CHOKER SETTER [address] [place] [address] [facility] [place] [address] [place] [address] Referral ID Status Reason Start Date Expiration Date V isits Requested Visits Authorized [id number] Closed PCP Requested Referral 05/04/2023 05/03/2024 1 1 Specialty Diagnoses / Procedures Referred By Contac t Referred To Contact MR IMAGING Diagnoses Neurofibromas, multiple (HCC) Procedures MRI HAND WO/W IVCON RIGHT MRI UPPER EXTREM OTHER THAN JT W/O & W/CONTRAS Alireza, Cierra, MD, PhD [address] [place] [address] Mr Imaging [place] [address] Referral ID Status Reason Start Date Expiration Date Visits Requested Visits Authorized [id number] Pending Review Auto-Generat ed Referral 08/23/2023 09/21/2024 1 1 Specialty Diagnoses / Procedures Referred By Contac t Referred To Contact MR IMAGING Diagnoses Neurofibromas, multiple (HCC) Procedures MRI HAND WO/W IVCON LEFT MRI UPPER EXTREM OTHER THAN JT W/O & W/Cierra Leyva MD, PhD [address] [place] [address] Mr Imaging [place] [id number] Referral ID Status Reason Start Date Expiration Date Visits Requested Visits Authorized [id number] Pending Review Auto-Generat ed Referral 08/23/2023 09/21/2024 1 1 Specialty Diagnoses / Procedures Referred By Contac t Referred To Contact MR IMAGING Diagnoses Neurofibromatosis (HCC) Procedures MRI LUMBAR SPINE WO/W IVCON MRI SPINAL CANAL LUMBAR W/O & W/CONTR Bryce Casiano MD [address] [place] [address] Mr Imaging [place] [address] Referral ID Status Reason Start Date Expiration Date V isits Requested Visits Authorized [id number] Closed Auto-Generate d Referral 08/02/2023 08/31/2024 1 1 Specialty Diagnoses / Procedures Referred By Contac t Referred To Contact MR IMAGING Diagnoses Neurofibromatosis (HCC) Procedures MRI THORACIC SPINE WO/W IVCON MRI SPINAL CANAL THORACIC W/O & W/CONTR Bryce Casiano MD [address] [place] [address] Mr Imaging [place] [address] Referral ID Status Reason Start Date Expiration Date V isits Requested Visits Authorized [id number] Closed Auto-Generate d Referral 08/02/2023 08/31/2024 1 1 Specialty Diagnoses / Procedures Referred By Contac t Referred To Contact MR IMAGING Diagnoses Neurofibromatosis (HCC) Procedures MRI CERVICAL SPINE WO/W IVCON MRI SPINAL CANAL CERVICAL W/O & W/CONTR Bryce Casiano MD [address] [place] [id number] Mr Imaging [facility] Referral ID Status Reason Start Date Expiration Date V isits Requested Visits Authorized [id number] Closed Auto-Generate d Referral 08/02/2023 08/31/2024 1 1 Referral ID Status Reason Start Date Expiration Date V isits Requested Visits Authorized [id number] Closed Auto-Generate d Referral 02/05/2023 03/06/2024 1 1 Specialty Diagnoses / Procedures Referred By Contac t Referred To Contact MR IMAGING Diagnoses Neurofibromatosis (HCC) Procedures MRI BRAIN WO/W IVCON MRI BRAIN BRAIN STEM W/O W/CONTRAST MATERIAL Stephany Feldman MD [address] [place] [phone] Mr Imaging [place] [id number] Referral ID Status Reason Start Date Expiration Date V isits Requested Visits Authorized [id number] Closed Auto-Generate d Referral 04/05/2021 05/05/2022 1 1 Specialty Diagnoses / Procedures Referred By Contac t Referred To Contact MR IMAGING Diagnoses Intradural-extramedullary spinal cord neoplasms Procedures MRI LUMBAR SPINE WO/W IVCON MRI SPINAL CANAL LUMBAR W/O & W/CONTR Stephany Pope MD [address] [place] [address] Mr Imaging [facility] Referral ID Status Reason Start Date Expiration Date V isits Requested Visits Authorized [id number] Closed Auto-Generate d Referral 07/25/2021 08/24/2022 1 1 Specialty Diagnoses / Procedures Referred By Contac t Referred To Contact MR IMAGING Diagnoses Benign neoplasm of brain, unspecified brain region (HCC) Procedures MRI THORACIC SPINE WO/W IVCON MRI SPINAL CANAL THORACIC W/O & W/CONTR Stephany Pope MD [address] [place] [address] Mr Imaging [facility] Referral ID Status Reason Start Date Expiration Date V isits Requested Visits Authorized [id number] Closed Auto-Generate d Referral 07/25/2021 08/24/2022 1 1 Specialty Diagnoses / Procedures Referred By Contac t Referred To Contact MR IMAGING Diagnoses Intradural-extramedullary spinal cord neoplasms Procedures MRI CERVICAL SPINE WO/W IVCON MRI SPINAL CANAL CERVICAL W/O & W/CONTR Stephany Pope MD [address] [place] [id number] Mr Imaging [place] [id number] Referral ID Status Reason Start Date Expiration Date V isits Requested Visits Authorized [id number] Closed Auto-Generate d Referral 07/25/2021 08/24/2022 1 1 Specialty Diagnoses / Procedures Referred By Contac t Referred To Contact [facility] Diagnoses Neurofibroma, multiple (HCC) Procedures CONSULT TO PHYSICIAN/ALLERGY/IMMUNOLOGY OCCUPATIONAL THERAPY EVAL HIGH COMPLEX 60 MINS Cierra Fitzgerald, [place] [address] [facility] [place] [address] Referral ID Status Reason Start Date Expiration Date Visits Requested Visits Authorized [id number] Authorized PCP Requested Referral Auto-Generate d Referral 12/26/2024 99 99 Chief Complaint and Reason for Visit Chief Complaint L foot pain without known injury Chief Complaint L foot pain without known injury Reason for Visit Plantar fasciitis of left foot Additional Source Comments (unrecognized sect ion and content) No Status Records FoundNo Status Records FoundNo Status Records FoundNo Status Records FoundNo Status Records FoundNo Status Records Found INFORMATION SOURCE (unrecogn ized section and content) DATE CREATED AUTHOR 09/05/2017 [facility] DATE CREATED AUTHOR AUTHOR'S ORGANIZ ATION 09/01/2020 [facility] DATE CREATED AUTHOR AUTHOR'S ORGANIZ ATION 02/03/2023 [facility] DATE CREATED AUTHOR AUTHOR'S ORGANIZ ATION 09/14/2023 [facility] DATE CREATED AUTHOR AUTHOR'S ORGANIZ ATION 11/16/2023 [facility] DATE CREATED AUTHOR AUTHOR'S ORGANIZ ATION 03/22/2024 [facility] Source Comments (unrecognize d section and content) In the event this informatio n is protected by the Federal Confidentiality of Alcohol and Drug Abuse Patient Records regulations: The Federal rules restrict any use of the information to criminally investigate or prosecute any alcohol or drug abuse patient.[facility] the event this information is protected by the Federal Confidentiality of Alcohol and Drug Abuse Patient Records regulations: The Federal rules restrict any use of the information to criminally investigate or prosecute any alcohol or drug abuse patient.[facility] CenterIn the event this information is protected by the Federal Confidentiality of Alcohol and Drug Abuse Patient Records regulations: The Federal rules restrict any use of the information to criminally investigate or prosecute any alcohol or drug abuse patient.[facility] CenterIn the event this information is protected by the Federal Confidentiality of Alcohol and Drug Abuse Patient Records regulations: The Federal rules restrict any use of the information to criminally investigate or prosecute any alcohol or drug abuse patient.[facility] CenterIn the event this information is protected by the Federal Confidentiality of Alcohol and Drug Abuse Patient Records regulations: The Federal rules restrict any use of the information to criminally investigate or prosecute any alcohol or drug abuse patient.[facility] CenterIn the event this information is protected by the Federal Confidentiality of Alcohol and Drug Abuse Patient Records regulations: The Federal rules restrict any use of the information to criminally investigate or prosecute any alcohol or drug abuse patient.[facility] CenterIn the event this information is protected by the Federal Confidentiality of Alcohol and Drug Abuse Patient Records regulations: The Federal rules restrict any use of the information to criminally investigate or prosecute any alcohol or drug abuse patient.[facility] CenterIn the event this information is protected by the Federal Confidentiality of Alcohol and Drug Abuse Patient Records regulations: The Federal rules restrict any use of the information to criminally investigate or prosecute any alcohol or drug abuse patient.[facility] CenterIn the event this information is protected by the Federal Confidentiality of Alcohol and Drug Abuse Patient Records regulations: The Federal rules restrict any use of the information to criminally investigate or prosecute any alcohol or drug abuse patient.[facility] CenterIn the event this information is protected by the Federal Confidentiality of Alcohol and Drug Abuse Patient Records regulations: The Federal rules restrict any use of the information to criminally investigate or prosecute any alcohol or drug abuse patient.[facility] CenterIn the event this information is protected by the Federal Confidentiality of Alcohol and Drug Abuse Patient Records regulations: The Federal rules restrict any use of the information to criminally investigate or prosecute any alcohol or drug abuse patient.[facility] CenterIn the event this information is protected by the Federal Confidentiality of Alcohol and Drug Abuse Patient Records regulations: The Federal rules restrict any use of the information to criminally investigate or prosecute any alcohol or drug abuse patient.[facility] CenterIn the event this information is protected by the Federal Confidentiality of Alcohol and Drug Abuse Patient Records regulations: The Federal rules restrict any use of the information to criminally investigate or prosecute any alcohol or drug abuse patient.[facility] CenterIn the event this information is protected by the Federal Confidentiality of Alcohol and Drug Abuse Patient Records regulations: The Federal rules restrict any use of the information to criminally investigate or prosecute any alcohol or drug abuse patient.[facility] CenterIn the event this information is protected by the Federal Confidentiality of Alcohol and Drug Abuse Patient Records regulations: The Federal rules restrict any use of the information to criminally investigate or prosecute any alcohol or drug abuse patient.[facility] CenterIn the event this information is protected by the Federal Confidentiality of Alcohol and Drug Abuse Patient Records regulations: The Federal rules restrict any use of the information to criminally investigate or prosecute any alcohol or drug abuse patient.[facility] CenterIn the event this information is protected by the Federal Confidentiality of Alcohol and Drug Abuse Patient Records regulations: The Federal rules restrict any use of the information to criminally investigate or prosecute any alcohol or drug abuse patient.[facility] CenterIn the event this information is protected by the Federal Confidentiality of Alcohol and Drug Abuse Patient Records regulations: The Federal rules restrict any use of the information to criminally investigate or prosecute any alcohol or drug abuse patient.[facility] CenterIn the event this information is protected by the Federal Confidentiality of Alcohol and Drug Abuse Patient Records regulations: The Federal rules restrict any use of the information to criminally investigate or prosecute any alcohol or drug abuse patient.[facility] CenterIn the event this information is protected by the Federal Confidentiality of Alcohol and Drug Abuse Patient Records regulations: The Federal rules restrict any use of the information to criminally investigate or prosecute any alcohol or drug abuse patient.[facility] CenterIn the event this information is protected by the Federal Confidentiality of Alcohol and Drug Abuse Patient Records regulations: The Federal rules restrict any use of the information to criminally investigate or prosecute any alcohol or drug abuse patient.[facility] CenterIn the event this information is protected by the Federal Confidentiality of Alcohol and Drug Abuse Patient Records regulations: The Federal rules restrict any use of the information to criminally investigate or prosecute any alcohol or drug abuse patient.[facility] CenterIn the event this information is protected by the Federal Confidentiality of Alcohol and Drug Abuse Patient Records regulations: The Federal rules restrict any use of the information to criminally investigate or prosecute any alcohol or drug abuse patient.[facility] CenterIn the event this information is protected by the Federal Confidentiality of Alcohol and Drug Abuse Patient Records regulations: The Federal rules restrict any use of the information to criminally investigate or prosecute any alcohol or drug abuse patient.[facility] CenterIn the event this information is protected by the Federal Confidentiality of Alcohol and Drug Abuse Patient Records regulations: The Federal rules restrict any use of the information to criminally investigate or prosecute any alcohol or drug abuse patient.[facility] CenterIn the event this information is protected by the Federal Confidentiality of Alcohol and Drug Abuse Patient Records regulations: The Federal rules restrict any use of the information to criminally investigate or prosecute any alcohol or drug abuse patient.[facility] CenterIn the event this information is protected by the Federal Confidentiality of Alcohol and Drug Abuse Patient Records regulations: The Federal rules restrict any use of the information to criminally investigate or prosecute any alcohol or drug abuse patient.[facility] CenterIn the event this information is protected by the Federal Confidentiality of Alcohol and Drug Abuse Patient Records regulations: The Federal rules restrict any use of the information to criminally investigate or prosecute any alcohol or drug abuse patient.[facility] CenterIn the event this information is protected by the Federal Confidentiality of Alcohol and Drug Abuse Patient Records regulations: The Federal rules restrict any use of the information to criminally investigate or prosecute any alcohol or drug abuse patient.[facility] CenterIn the event this information is protected by the Federal Confidentiality of Alcohol and Drug Abuse Patient Records regulations: The Federal rules restrict any use of the information to criminally investigate or prosecute any alcohol or drug abuse patient.[facility] CenterIn the event this information is protected by the Federal Confidentiality of Alcohol and Drug Abuse Patient Records regulations: The Federal rules restrict any use of the information to criminally investigate or prosecute any alcohol or drug abuse patient.[facility] CenterIn the event this information is protected by the Federal Confidentiality of Alcohol and Drug Abuse Patient Records regulations: The Federal rules restrict any use of the information to criminally investigate or prosecute any alcohol or drug abuse patient.[facility] CenterIn the event this information is protected by the Federal Confidentiality of Alcohol and Drug Abuse Patient Records regulations: The Federal rules restrict any use of the information to criminally investigate or prosecute any alcohol or drug abuse patient.[facility] CenterIn the event this information is protected by the Federal Confidentiality of Alcohol and Drug Abuse Patient Records regulations: The Federal rules restrict any use of the information to criminally investigate or prosecute any alcohol or drug abuse patient.[facility] CenterIn the event this information is protected by the Federal Confidentiality of Alcohol and Drug Abuse Patient Records regulations: The Federal rules restrict any use of the information to criminally investigate or prosecute any alcohol or drug abuse patient.[facility] CenterIn the event this information is protected by the Federal Confidentiality of Alcohol and Drug Abuse Patient Records regulations: The Federal rules restrict any use of the information to criminally investigate or prosecute any alcohol or drug abuse patient.[facility] CenterIn the event this information is protected by the Federal Confidentiality of Alcohol and Drug Abuse Patient Records regulations: The Federal rules restrict any use of the information to criminally investigate or prosecute any alcohol or drug abuse patient.[facility] CenterIn the event this information is protected by the Federal Confidentiality of Alcohol and Drug Abuse Patient Records regulations: The Federal rules restrict any use of the information to criminally investigate or prosecute any alcohol or drug abuse patient.[facility] CenterIn the event this information is protected by the Federal Confidentiality of Alcohol and Drug Abuse Patient Records regulations: The Federal rules restrict any use of the information to criminally investigate or prosecute any alcohol or drug abuse patient.[facility] CenterIn the event this information is protected by the Federal Confidentiality of Alcohol and Drug Abuse Patient Records regulations: The Federal rules restrict any use of the information to criminally investigate or prosecute any alcohol or drug abuse patient.[facility] CenterIn the event this information is protected by the Federal Confidentiality of Alcohol and Drug Abuse Patient Records regulations: The Federal rules restrict any use of the information to criminally investigate or prosecute any alcohol or drug abuse patient.[facility] CenterIn the event this information is protected by the Federal Confidentiality of Alcohol and Drug Abuse Patient Records regulations: The Federal rules restrict any use of the information to criminally investigate or prosecute any alcohol or drug abuse patient.[facility] CenterIn the event this information is protected by the Federal Confidentiality of Alcohol and Drug Abuse Patient Records regulations: The Federal rules restrict any use of the information to criminally investigate or prosecute any alcohol or drug abuse patient.[facility] CenterIn the event this information is protected by the Federal Confidentiality of Alcohol and Drug Abuse Patient Records regulations: The Federal rules restrict any use of the information to criminally investigate or prosecute any alcohol or drug abuse patient.[facility] CenterIn the event this information is protected by the Federal Confidentiality of Alcohol and Drug Abuse Patient Records regulations: The Federal rules restrict any use of the information to criminally investigate or prosecute any alcohol or drug abuse patient.[facility] CenterIn the event this information is protected by the Federal Confidentiality of Alcohol and Drug Abuse Patient Records regulations: The Federal rules restrict any use of the information to criminally investigate or prosecute any alcohol or drug abuse patient.[facility] CenterIn the event this information is protected by the Federal Confidentiality of Alcohol and Drug Abuse Patient Records regulations: The Federal rules restrict any use of the information to criminally investigate or prosecute any alcohol or drug abuse patient.[facility] CenterIn the event this information is protected by the Federal Confidentiality of Alcohol and Drug Abuse Patient Records regulations: The Federal rules restrict any use of the information to criminally investigate or prosecute any alcohol or drug abuse patient.[facility] CenterIn the event this information is protected by the Federal Confidentiality of Alcohol and Drug Abuse Patient Records regulations: The Federal rules restrict any use of the information to criminally investigate or prosecute any alcohol or drug abuse patient.[facility] CenterIn the event this information is protected by the Federal Confidentiality of Alcohol and Drug Abuse Patient Records regulations: The Federal rules restrict any use of the information to criminally investigate or prosecute any alcohol or drug abuse patient.[facility] CenterIn the event this information is protected by the Federal Confidentiality of Alcohol and Drug Abuse Patient Records regulations: The Federal rules restrict any use of the information to criminally investigate or prosecute any alcohol or drug abuse patient.[facility] CenterIn the event this information is protected by the Federal Confidentiality of Alcohol and Drug Abuse Patient Records regulations: The Federal rules restrict any use of the information to criminally investigate or prosecute any alcohol or drug abuse patient.[facility] Reason for Visit (unrecogniz ed section and content) Reason Comments Radiology MRI Reason Comments Results Reason Comments Established Patient Reason Comments Procedure Reason Comments Established Patient Follow-Up 4 mo f/u Reason Comments Internal Referrals/resources WQ Reason Comments Consult Reason Comments New Patient Evaluation Pain Specialty Diagnoses / Procedures Referred By Tye t Referred To Contact [facility] Diagnoses Neurofibromatosis, 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 Procedures CONSULT TO PAIN MGT OFFICE/OUTPATIENT NEW HIGH MDM 60 MINUTES Kaycee Roche, GARDEN WORKER.CHOKER SETTER [address] [place] [address] Anesthesia [place] [address] [place] [address] Referral ID Status Reason Start Date Expiration Date V isits Requested Visits Authorized [id number] Closed PCP Requested Referral 05/04/2023 05/03/2024 1 1 Reason Comments Neurofibromatosis Reason Comments Follow Up Medication Update Reason Comments Insurance Authorization Lidocaine patche s DENIED Reason Comments New Patient Reason Comments Care Coordination Reason Onset Date Comments Refill Request 08/21/2023 Reason Comments New Patient Reason Comments LUCIANA 11 weeks Reason Comments Care Coordination Schedule Surgery Reason Comments Established Patient Reason Comments New Patient Consult Reason Comments LUCIANA 2-3 weeks Reason Comments Letter Specialty Diagnoses / Procedures Referred By Contac t Referred To Contact MR IMAGING Diagnoses Neurofibromatosis (HCC) Procedures MRI CERVICAL SPINE WO/W IVCON MRI SPINAL CANAL CERVICAL W/O & W/CONTR LITZYL Bryce Martinez MD [address] [place] [address] Mr Imaging [place] [id number] Referral ID Status Reason Start Date Expiration Date V isits Requested Visits Authorized [id number] Closed Auto-Generate d Referral 08/02/2023 08/31/2024 1 1 Specialty Diagnoses / Procedures Referred By Contac t Referred To Contact MR IMAGING Diagnoses Mass of left thigh Procedures MRI UPPER LEG WO/W IVCON LEFT MRI LOWER EXTREM OTH/THN JT W/O & W/CONTR MATR Stephany Feldman MD [address] [place] [address] Mr Imaging [place] [id number] Referral ID Status Reason Start Date Expiration Date V isits Requested Visits Authorized [id number] Closed Auto-Generate d Referral 02/05/2023 03/06/2024 1 1 Reason Comments Post Op Specialty Diagnoses / Procedures Referred By Contac t Referred To Contact MR IMAGING Diagnoses Neurofibromatosis (HCC) Procedures MRI BRAIN WO/W IVCON MRI BRAIN BRAIN STEM W/O W/CONTRAST MATERIAL Stephany Feldman MD [address] [place] [address] Mr Imaging [place] [id number] Referral ID Status Reason Start Date Expiration Date V isits Requested Visits Authorized [id number] Closed Auto-Generate d Referral 04/05/2021 05/05/2022 1 1 Specialty Diagnoses / Procedures Referred By Contac t Referred To Contact MR IMAGING Diagnoses Intradural-extramedullary spinal cord neoplasms Procedures MRI CERVICAL SPINE WO/W IVCON MRI SPINAL CANAL CERVICAL W/O & W/CONTR MATRL Stephany Feldman MD [address] [place] [address] Mr Imaging [id number] Referral ID Status Reason Start Date Expiration Date V isits Requested Visits Authorized [id number] Closed Auto-Generate d Referral 07/25/2021 08/24/2022 1 1 Specialty Diagnoses / Procedures Referred By Contac t Referred To Contact MR IMAGING Diagnoses Intradural-extramedullary spinal cord neoplasms Procedures MRI LUMBAR SPINE WO/W IVCON MRI SPINAL CANAL LUMBAR W/O & W/CONTR Stephany Pope MD [address] [place] [address] Mr Imaging [id number] Referral ID Status Reason Start Date Expiration Date V isits Requested Visits Authorized [id number] Closed Auto-Generate d Referral 07/25/2021 08/24/2022 1 1 Specialty Diagnoses / Procedures Referred By Contac t Referred To Contact MR IMAGING Diagnoses Benign neoplasm of brain, unspecified brain region (HCC) Procedures MRI THORACIC SPINE WO/W IVCON MRI SPINAL CANAL THORACIC W/O & W/CONTR Stephany Pope MD [address] [place] [address] Mr Imaging [place] [id number] Referral ID Status Reason Start Date Expiration Date V isits Requested Visits Authorized [id number] Closed Auto-Generate d Referral 07/25/2021 08/24/2022 1 1 Reason Comments Post Op Reason Comments OT EVAL Patient Education Specialty Diagnoses / Procedures Referred By Contac t Referred To Contact [facility] Diagnoses Neurofibroma, multiple (HCC) Procedures CONSULT TO PHYSICIAN/ALLERGY/IMMUNOLOGY OCCUPATIONAL THERAPY EVAL HIGH COMPLEX 60 MINS Cierra Fitzgerald, GARDEN WORKER.[facility] [address] [place] [address] [facility] [place] [address] Referral ID Status Reason Start Date Expiration Date Visits Requested Visits Authorized [id number] Authorized PCP Requested Referral Auto-Generate d Referral 4 12/26/2024 99 99 Reason Comments Insurance Inquiry Reason Comments Schedule Surgery Care Coordination Reason Comments Pre-Op Visit Specialty Diagnoses / Procedures Referred By Contact Referred To Contact Anesthesiology / ANESTHESIOLOGY Diagnoses VIRTUAL PRE OP CLEARANCE Procedures VIDEO PACC Cierra Lay MD, PhD [address] [place] [address] Pre Anes [address] [place] [address] Referral ID Status Reason Start Date Expiration Date Visits Requested Visits Authorized [id number] New Request OON/Self Pay Override 4 06/19/2025 1 1 Reason Comments Pre-Op Teaching Care Teams (unrecognized sec tion and content) Voip Network Engineer Relationship Specialty Start Date End Date Tesfaye Villareal MD [address] [place] [address] (Fax) PCP - General Family Practice 05/05/21 Voip Network Engineer Relationship Specialty Start Date End Date Tesfaye Villareal MD [address] [place] [phone] (Fax) PCP - General Family Practice 05/05/21 Voip Network Engineer Relationship Specialty Start Date End Date Tesfaye Villareal MD [address] [place] [place] [phone] (Fax) PCP - General Family Practice 05/05/21 Voip Network Engineer Relationship Specialty Start Date End Date Tesfaye Villareal MD [address] [place] [phone] (Fax) PCP - General Family Practice 05/05/21 Voip Network Engineer Relationship Specialty Start Date End Date Tesfaye Villareal MD [address] [place] [address] (Fax) PCP - General Family Medicine 05/05/21 Voip Network Engineer Relationship Specialty Start Date End Date Tesfaye Villareal MD [address] [place] [address] (Fax) PCP - General Family Medicine 05/05/21 Team Status: Inactive Member Role Status Dates NON STAFF Attending Provider Active Voip Network Engineer Relationship Specialty Start Date End Date Tesfaye Villareal MD [address] [place] [phone] (Fax) PCP - General Family Medicine 05/05/21 Voip Network Engineer Relationship Specialty Start Date End Date Tesfaye Villareal MD [address] [place] [phone] (Fax) PCP - General Family Medicine 05/05/21 Voip Network Engineer Relationship Specialty Start Date End Date Tesfaye Villareal MD [address] [place] [phone] (Fax) PCP - General Family Medicine 05/05/21 Voip Network Engineer Relationship Specialty Start Date End Date Tesfaye Villareal MD [address] [place] [address] (Fax) PCP - General Family Medicine 05/05/21 Voip Network Engineer Relationship Specialty Start Date End Date Tesfaye Villareal MD [address] [place] [phone] (Fax) PCP - General Family Medicine 05/05/21 Voip Network Engineer Relationship Specialty Start Date End Date Tesfaye Villareal MD [address] [place] [phone] (Fax) PCP - General Family Medicine 05/05/21 Voip Network Engineer Relationship Specialty Start Date End Date Tesfaye Villareal MD [address] [place] [phone] (Fax) PCP - General Family Medicine 05/05/21 Voip Network Engineer Relationship Specialty Start Date End Date Tesfaye Villareal MD [address] [place] [phone] (Fax) PCP - General Family Medicine 05/05/21 Voip Network Engineer Relationship Specialty Start Date End Date Tesfaye Villareal MD [address] [place] [phone] (Fax) PCP - General Family Medicine 05/05/21 Voip Network Engineer Relationship Specialty Start Date End Date Tesfaye Villareal MD [address] [place] [phone] (Fax) PCP - General Family Medicine 05/05/21 Voip Network Engineer Relationship Specialty Start Date End Date Tesfaye Villareal MD [address] [place] [address] (Fax) PCP - General Family Medicine 05/05/21 Voip Network Engineer Relationship Specialty Start Date End Date Tesfaye Villareal MD [address] [place] [address] (Fax) PCP - General Family Medicine 05/05/21 Voip Network Engineer Relationship Specialty Start Date End Date Tesfaye Villareal MD [address] [place], [place] [phone] (Fax) PCP - General Family Medicine 05/05/21 Voip Network Engineer Relationship Specialty Start Date End Date Tesfaye Villareal MD [address] [place], [place] [address] (Fax) PCP - General Family Medicine 05/05/21 Voip Network Engineer Relationship Specialty Start Date End Date Tesfaye Villareal MD [address] [facility] [place] [address] (Fax) PCP - General Family Medicine 05/05/21 Voip Network Engineer Relationship Specialty Start Date End Date Tesfaye Villareal MD [address] [facility] [place] [phone] (Fax) PCP - General Family Medicine 05/05/21 Jess[place] [id number] [place], [place] [id number] Pain Management 10/16/23 Cierra Lay MD, PhD [address] [place] [phone] Neurosurgery 10/16/23 Voip Network Engineer Relationship Specialty Start Date End Date Tesfaye Villareal MD [facility] [address] [place] [phone] (Fax) PCP - General Family Medicine 05/05/21 Jessenia Nation MD [id number] [place], [place] [id number] Pain Management 10/16/23 Cierra Lay MD, PhD [address] [place] [phone] Neurosurgery 10/16/23 Voip Network Engineer Relationship Specialty Start Date End Date Tesfaye Villareal MD [address] [address] [place] [phone] (Fax) PCP - General Family Medicine 05/05/21 [place] [address] [place] [address] Pain Management 10/16/23 Cierra Lay MD, PhD [address] [place] [address] Neurosurgery 10/16/23 Voip Network Engineer Relationship Specialty Start Date End Date Tesfaye Villareal MD [address] [place] [phone] (Fax) PCP - General Family Medicine 05/05/21 [place] [address] [place] [phone] Pain Management 10/16/23 Cierra Lay MD, PhD [address] [place] [address] Neurosurgery 10/16/23 Voip Network Engineer Relationship Specialty Start Date End Date Tesfaye Villareal MD [address] [place] [address] (Fax) PCP - General Family Medicine 05/05/21 [place] [address] [place] [address] Pain Management 10/16/23 Cierra Lay MD, PhD [address] [place] [address] Neurosurgery 10/16/23 Voip Network Engineer Relationship Specialty Start Date End Date Tesfaye Villareal MD [address] [place] [address] (Fax) PCP - General Family Medicine 05/05/21 Voip Network Engineer Relationship Specialty Start Date End Date Tesfaye Villareal MD [address] [place], [phone] (Fax) PCP - General Family Medicine 05/05/21 Voip Network Engineer Relationship Specialty Start Date End Date Tesfaye Villareal MD [address] [place] [phone] (Fax) PCP - General Family Medicine 05/05/21 Voip Network Engineer Relationship Specialty Start Date End Date Tesfaye Villareal MD [address] [place] [phone] (Fax) PCP - General Family Medicine 05/05/21 Voip Network Engineer Relationship Specialty Start Date End Date Tesfaye Villareal MD [address] [place] [phone] (Fax) PCP - General Family Medicine 05/05/21 Voip Network Engineer Relationship Specialty Start Date End Date Tesfaye Villareal MD [address] [place] [phone] (Fax) PCP - General Family Medicine 05/05/21 [place] [address] [place] [address] Pain Management 10/16/23 Cierra Lay MD, PhD [address] [place] [address] Neurosurgery 10/16/23 Team Status: Active Member Role Status Dates NON STAFF Primary Care Provider Active Team Status: Active Member Role Status Dates PHYSICIAN NO FAMILY Primary Care Provider Active Start: October 11, 2023 Hunter Guo DO Attending Provider Active Sta rt: October 11, 2023 Team Status: Inactive Member Role Status Dates Jasper Sims APRN Attending Provider Active Start: December 15, 2023 End: December 15, 2023 NON STAFF Primary Care Provider Active Start: December 15, 2023 End: December 15, 2023 Voip Network Engineer Relationship Specialty Start Date End Date Tesfaye Villareal MD [address] [place] [phone] (Fax) PCP - General Family Medicine 05/05/21 [place] [address] [place] [phone] Pain Management 10/16/23 Cierra Lay MD, PhD [address] [place] [address] Neurosurgery 10/16/23 Voip Network Engineer Relationship Specialty Start Date End Date Tesfaye Villareal MD [address] [place] [phone] (Fax) PCP - General Family Medicine 05/05/21 [place] [address] [place] [address] Pain Management 10/16/23 Cierra Lay MD, PhD [address] [place] [address] Neurosurgery 10/16/23 Voip Network Engineer Relationship Specialty Start Date End Date Tesfaye Villareal MD [address] [place] [phone] (Fax) PCP - General Family Medicine 05/05/21 [place] [address] [place] [address] Pain Management 10/16/23 Cierra Lay MD, PhD [address] [place] [address] Neurosurgery 10/16/23 Voip Network Engineer Relationship Specialty Start Date End Date Tesfaye Villareal MD [address] [place] [phone] (Fax) PCP - General Family Medicine 05/05/21 [place] [address] [place] [address] Pain Management 10/16/23 Cierra Lay MD, PhD [address] [place] [address] Neurosurgery 10/16/23 Voip Network Engineer Relationship Specialty Start Date End Date Tesfaye Villareal MD [address] [place] [address] (Fax) PCP - General Family Medicine 05/05/21 [place] [address] [place] [address] Pain Management 10/16/23 Cierra Lay MD, PhD [address] [place] [address] Neurosurgery 10/16/23 Voip Network Engineer Relationship Specialty Start Date End Date Tesfaye Villareal MD [address] [place] [address] (Fax) PCP - General Family Medicine 05/05/21 Jessenia Nation MD [address] [place], [place] [phone] Pain Management 10/16/23 Cierra Lay MD, PhD [address] [place] [address] Neurosurgery 10/16/23 Voip Network Engineer Relationship Specialty Start Date End Date Tesfaye Villareal MD [address] [place] [address] (Fax) PCP - ACO Reach 08/03/22 Tesfaye Villareal MD [address] [place] [address] (Fax) PCP - General Family Medicine 07/18/22 Voip Network Engineer Relationship Specialty Start Date End Date Tesfaye Villareal MD [address] [place] [address] (Fax) PCP - General Family Medicine 05/05/21 [place] [address] [place] [address] Pain Management 10/16/23 Cierra Lay MD, PhD [address] [place] [address] Neurosurgery 10/16/23 [employer] Relationship Specialty Start Date End Date Tesfaye Villareal MD [address] [place] [address] PCP - ACO Reach 08/03/22 Tesfaye Villareal MD [address] [facility] [address] [place] [address] PCP - General Family Medicine 07/18/22 [employer] Network Engineer Relationship Specialty Start Date End Date Tesfaye Villareal MD [address] [place] [address] PCP - General Family Medicine 05/05/21 [place] [address] [place] [address] Pain Management 10/16/23 Cierra Lay MD, PhD [address] [place] [address] Neurosurgery 10/16/23 Goals (unrecognized section and content) Goals may be documented in a n alternate sectionGoals may be documented in an alternate sectionGoals may be documented in an alternate section FOR RECORDS PERTAINING TO PATIENTS WHO ARE OR HAVE BEEN ENROLLED IN A CHEMICAL DEPENDENCY/SUBSTANCEABUSE PROGRAM, SOME INFORMATION MAY BE OMITTED. This clinical summary was aggregated from multiple sources. Caution should be exercised in using it in the provision of clinical care. This summary normalizes information from multiple sources, and as a consequence, information in this document may materially change the coding, format and clinical context of patient data. In addition, data may be omitted in some cases. CLINICAL DECISIONS SHOULD BE BASED ON THE PRIMARY CLINICAL RECORDS. [employer] [facility] provides no warranty or guarantee of the accuracy or completeness of information in this document.
== END 2024-03-25 14:16 | disposition home or self-care (01) ==
LOC: CARD 14:15
PROVIDERS: PCP Family Medicine
DX: Z01.810 Encounter for preprocedural cardiovascular examination (principal); Z01.818 Encounter for other preprocedural examination
CPT/HCPCS: 93005